=== PATIENT | female | born 1945 | race Caucasian/White ===

== ENCOUNTER 2016-12-04 15:09 | Inpatient (IN) | payer MEDICARE, OTHER ==
[~2016-12-04] VITALS: Ht 162.6 cm; Wt 60.5 kg
[~2016-12-04 15:09] MED LIST: ALPR1TAB3 PO; AMIT25 PO; AMLO5 PO; AMLO5TAB22 PO; ARIP2 PO; ASPI325T PO; ATEN-100 PO; ATEN25 PO; ATOR10 PO; ATOR10TA PO; CALC250 PO; CALCTAB38 PO; CYCL1PAK PO; DULO20 PO; DULO60 PO; LEXA10TA PO; LISI-366 PO; LORTA5 PO; MIRTA15 PO; ONDA4 PO; PANT40IN3 PO; PROT40TA PO; REME45TA PO; SUCR1 PO; SUCR1TAB PO; VITA10002 PO; VITA100020 PO
--- NOTE | 2016-12-04 15:44 | PD ---
HPI Chief Complaint: Psychiatric Symptoms Time Seen by Provider: 15:40 Travel History International Travel<30 days: No Contact w/Intl Traveler<30days: No Traveled to known affect area: No History of Present Illness HPI 71-year-old female that presents to the ED for evaluation of psych. Patient was [place] acted by police after apparently she made suicidal gesture. Per patient she doesn't want to live anymore. Per patient she feels depressed. Patient has a history of dementia and is in assisted living facility. Per patient she is also blind. She states that she is compliant with her medications. She denies any chest pain or shortness of breath. No cuts. Symptoms are severe secondary to suicidal ideation and plan. Per patient she wants to hang herself. She denies any homicidal ideation. No drugs or alcohol. No pain of any kind. No hallucinations. PFSH Past Medical History Blood Disorders: No Anxiety: Yes Depression: Yes Chemotherapy: No COPD: Yes Cerebrovascular Accident: Yes Coronary Artery Disease: Yes Dementia: Yes Diminished Hearing: No Endocrine: No Gastrointestinal Disorders: Yes (enlarged bile duct drained; nervous stomach) Genitourinary: Yes (frequent UTIs) Hypertension: Yes Musculoskeletal: Yes (OSTEOPOROSIS) Neurologic: Yes (CVA x2 minor) Psychiatric: Yes (anxiety) Reproductive: No Respiratory: Yes (COPD) Radiation Therapy: No Past Surgical History Appendectomy: Yes Hysterectomy: Yes (TOTAL) Joint Replacement: Yes (LEFT HIP ) Other Surgery: Yes (hysterectomy, left total hip replacement) Social History Alcohol Use: No Tobacco Use: Yes (FORMER - E CIG ) Substance Use: No Allergies-Medications (Allergen,Severity, Reaction): Coded Allergies: Iodine (Verified Allergy, Unknown, 12/04/16) Reported Meds & Prescriptions Reported Meds & Active Scripts Active Reported Lorazepam 0.5 Mg Tab 0.5 Mg PO BID PRN Donepezil 10 Mg Tab 10 Mg PO HS Atorvastatin (Atorvastatin Calcium) 10 Mg Tab 10 Mg PO HS Mirtazapine 45 Mg Tab 45 Mg PO HS Amitriptyline (Amitriptyline HCl) 25 Mg Tab 25 Mg PO HS Aripiprazole 2 Mg Tab 2 Mg PO BID Duloxetine DR (Duloxetine HCl) 30 Mg Capdr 30 Mg PO BID Lisinopril 40 Mg Tab 40 Mg PO DAILY Pantoprazole (Pantoprazole Sodium) 40 Mg Tab 40 Mg PO DAILY Amlodipine (Amlodipine Besylate) 5 Mg Tab 5 Mg PO DAILY Atenolol 25 Mg Tab 25 Mg PO DAILY Sucralfate 1 Gm Tab 1 Gm PO DAILY@0600 on empty stomach Review of Systems General / Constitutional: No: Fever, Chills, Weight Gain, Weight Loss, Other Eyes: No: Diploplia, Blurred Vision, Photophobia, Drainage, Redness, Foreign Body Sensation, Pain, Tearing, Blind Spots, Visual changes, Blindness, Other HENT: No: Headaches, Vertigo, Lightheadedness, Sore Throat, Rhinitis, Rhinorrhea, Congestion, Nosebleed, Neck Stiffness, Neck Pain, Masses, Gingival Bleeding, Dental Difficulties, Ear Discharge, Earache, Other Cardiovascular: No: Chest Pain or Discomfort, Palpitations, Irregular Rhythm, Tachycardia, Diaphoresis, Syncope, Dyspnea on exertion, Varicosities, Edema, Cyanosis, Varicosities, Phlebitis, Claudication, Other Respiratory: No: Cough, Shortness of Breath, Wheezing, Sneezing, Orthopnea, Hemoptysis, Stridor, Night Sweats, Pleuritic Pain, Other Gastrointestinal: No: Nausea, Vomiting, Diarrhea, Abdominal Pain, Hematemesis, Hematochezia, Constipation, Changes in Bowel Habits, Indigestion, Dysphagia, Loss of Appetite, Other Genitourinary: No: Urgency, Frequency, Dysuria, Nocturia, Hematuria, Decreased Urinary Output, Oliguria, Hesitancy, Dribbling, Incontinence, Pelvic Pain, Flank Pain, Dyspareunia, Discharge, Dysmenorrhea, Menorrhagia, Metorrhagia, Vaginal Bleeding, Other Musculoskeletal: No: Myalgias, Arthralgias, Limited ROM, Weakness, Cramping, Edema, Pain, Atrophy, Other Skin: No Rash, No Itching, No Dryness, No Lumps, No Hives, No Change in Pigmentation, No Change in nails, No Alopecia, No Lesions, No Breast Lumps, No Breast Tenderness, No Breast Swelling, No Other Neurologic: No: Weakness, Dizziness, Syncope, Focal Abnormalities, Coordination Problem, Tremor, Ataxia, Headache, Change in Mentation, Slurred Speech, Paresthesia, Incontinence, Seizures, Sensory Disturbance, Other Psychiatric: Positive: Depression, Suicidal Ideations, No: Anxiety, Disorder of Thought, Mood Disorder, Substance Abuse, Homicidal Ideation, Other Endocrine: No: Heat Intolerance, Cold Intolerance, Polyuria, Polydipsia, Other Hematologic/Lymphatic: No: Easy Bruising, Lymph Node Enlargement, Other Physical Exam Narrative GENERAL: SKIN: Warm and dry. HEAD: Atraumatic. Normocephalic. EYES: Pupils equal and round. No scleral icterus. No injection or drainage. ENT: No nasal bleeding or discharge. Mucous membranes pink and moist. Tongue is midline. No uvula deviation. NECK: Trachea midline. No JVD. CARDIOVASCULAR: Regular rate and rhythm. No murmurs, S3, S4 RESPIRATORY: No accessory muscle use. Clear to auscultation. Breath sounds equal bilaterally. GASTROINTESTINAL: Abdomen soft, non-tender, nondistended. Hepatic and splenic margins not palpable. MUSCULOSKELETAL: Extremities without clubbing, cyanosis, or edema. No obvious deformities. Full range of motion of the upper and lower extremities bilaterally. 2+ pulses bilaterally. NEUROLOGICAL: Awake and alert. No obvious cranial nerve deficits. Motor grossly within normal limits. Five out of 5 muscle strength in the arms and legs. Normal speech. PSYCHIATRIC: Depressed mood and affect; insight and judgment questionable secondary to depression Data Data Last Documented VS Vital Signs Date Time Temp Pulse Resp B/P Pulse Ox O2 Delivery O2 Flow Rate FiO2 12/04/16 16:00 97.7 68 16 143/77 95 Orders Complete Blood Count With Diff (12/04/16 15:13) Comprehensive Metabolic Panel (12/04/16 15:13) Urinalysis - C+S If Indicated (12/04/16 15:13) Psych Screen (12/04/16 15:13) Drug Screen, Random Urine (12/04/16 15:13) Labs Laboratory Tests Test 12/04/16 12/04/16 15:44 15:49 White Blood Count 8.4 TH/MM3 Red Blood Count 4.84 MIL/MM3 Hemoglobin 14.5 GM/DL Hematocrit 42.3 % Mean Corpuscular Volume 87.5 FL Mean Corpuscular Hemoglobin 29.8 PG Mean Corpuscular Hemoglobin 34.1 % Concent Red Cell Distribution Width 14.6 % Platelet Count 259 TH/MM3 Mean Platelet Volume 7.6 FL Neutrophils (%) (Auto) 58.7 % Lymphocytes (%) (Auto) 30.2 % Monocytes (%) (Auto) 8.9 % Eosinophils (%) (Auto) 2.0 % Basophils (%) (Auto) 0.2 % Neutrophils # (Auto) 4.9 TH/MM3 Lymphocytes # (Auto) 2.5 TH/MM3 Monocytes # (Auto) 0.7 TH/MM3 Eosinophils # (Auto) 0.2 TH/MM3 Basophils # (Auto) 0.0 TH/MM3 CBC Comment DIFF FINAL Differential Comment Urine Color YELLOW Urine Turbidity HAZY Urine pH 7.5 Urine Specific [place] 1.021 Urine Protein TRACE mg/dL Urine Glucose (UA) NEG mg/dL Urine Ketones NEG mg/dL Urine Occult Blood NEG Urine Nitrite NEG Urine Bilirubin NEG Urine Urobilinogen 2.0 MG/DL Urine Leukocyte Esterase NEG Urine RBC LESS THAN 1 /hpf Urine WBC 2 /hpf Urine Squamous Epithelial 2 /hpf Cells Urine Bacteria RARE /hpf Microscopic Urinalysis Comment CULT NOT INDICATED Urine Opiates Screen NEG Urine Barbiturates Screen NEG Urine Amphetamines Screen NEG Urine Benzodiazepines Screen NEG Urine Cocaine Screen NEG Urine Cannabinoids Screen NEG MDM Medical Decision Making Medical Screen Exam Complete: Yes Emergency Medical Condition: Yes Medical Record Reviewed: Yes Interpretation(s) CBC & BMP Diagram 12/04/16 15:44 LFTs within normal limits. UA shows no sign of infection tox screen negative Differential Diagnosis Depression versus suicidal ideation versus anxiety versus adjustment disorder versus mood disorder versus bipolar disorder versus schizophrenia versus paranoid disorder versus psychosis versus substance abuse versus alcohol abuse versus alcohol induced psychosis versus homicidality addition versus cutting versus personality disorder Narrative Course 71-year-old female that presents to the ED for evaluation of psych. Patient was properly examined and was found to have signs and symptoms consistent with appears to be depression with suicidal ideation. Patient has been here before for similar. Patient apparently has a plan to hang herself and probably was found to have a cord per [place] act in an attempt to hang herself but she never was able to do it. Recommendation at this time is for labs as well as medical clearance. Patient was medically cleared. Okay to be seen by psych. Mental health screening was discussed with the patient. Diagnosis Primary Impression: Depression Qualified Code: F33.1 - Moderate episode of recurrent major depressive disorder Additional Impression: Suicidal behavior Qualified Code: R46.89 - Suicidal behavior without attempted self-injury Jay Jay Esquivel Dec 04, 2016 15:44
[2016-12-04 16:00] VITALS: BP 143/77; PULSE 68; RESP 16; TEMP 97.7; O2SAT 95
[2016-12-04 16:04] LABS: AUTOMATED NEUTROPHIL # 4.9 TH/MM3 (1.8-7.7); BASOPHIL % 0.2 % (0.0-2.0); EOSINOPHIL # 0.2 TH/MM3 (0-0.4); HEMATOCRIT 42.3 % (35.0-46.0); HEMO FLAGS DIFF FINAL; LYMPH % 30.2 % (9.0-44.0); LYMPHOCYTE # 2.5 TH/MM3 (1.0-4.8); MEAN CELL VOLUME 87.5 FL (80.0-100.0); MEAN CORPUSCULAR HEMOGLOBIN 29.8 PG (27.0-34.0); MEAN CORPUSCULAR HGB CONC 34.1 % (32.0-36.0); MONO % 8.9 % (0.0-8.0); NEUT % 58.7 % (16.0-70.0); PLATELET COUNT 259 TH/MM3 (150-450); RED BLOOD COUNT 4.84 MIL/MM3 (4.00-5.30); RED CELL DISTRIBUTION WIDTH 14.6 % (11.6-17.2); WHITE BLOOD COUNT 8.4 TH/MM3 (4.0-11.0)
[2016-12-04 16:08] LABS: BACTERIA, URINE RARE /hpf; BLOOD, URINE NEG (NEG); COMMENT (UR) CULT NOT INDICATED; CULTURE IF INDICATED CULT NOT INDICATED; GLUCOSE,URINE NEG (NEG); KETONE, URINE NEG (NEG); NITRITE,URINE NEG (NEG); PH, URINE 7.5 (5.0-8.5); SQUAMOUS EPITHELIAL CELL URINE 2 /hpf (0-5); URINE COLOR YELLOW (YELLW/STRAW)
[2016-12-04 16:10] LABS: AMPHETAMINE, URINE NEG (NEG); BARBITURATES, URINE NEG (NEG); COCAINE, URINE NEG (NEG)
[2016-12-04] MEDS ORDERED: LISI40TA PO (16:14)
[2016-12-04] MEDS ORDERED: ATEN25TA PO (16:14)
[2016-12-04] MEDS ORDERED: AMIT25TA9 PO (16:14)
[2016-12-04] MEDS ORDERED: ARIP1TAB16 PO (16:14)
[2016-12-04] MEDS ORDERED: AMLO5TAB2 PO (16:14)
[2016-12-04] MEDS ORDERED: DONE10TA7 PO (16:14)
[2016-12-04] MEDS ORDERED: DULO1CAP2 PO (16:14)
[2016-12-04] MEDS ORDERED: SUCR1TAB PO (16:14)
[2016-12-04] MEDS ORDERED: ATOR10TA15 PO (16:14)
[2016-12-04] MEDS ORDERED: LORA-373 PO (16:14)
[2016-12-04] MEDS ORDERED: MIRT45TA PO (16:14)
[2016-12-04] MEDS ORDERED: PANT40TA3 PO (16:14)
[2016-12-04 16:28] LABS: ANION GAP 6 MEQ/L (5-15); AST (GOT) 19 U/L (15-37); BICARBONATE 28.4 MEQ/L (21.0-32.0); BLOOD UREA NITROGEN 13 MG/DL (7-18); CHLORIDE 105 MEQ/L (98-107); GLOMERULAR FILTRATION RATE 68 ML/MIN (>89); POTASSIUM 3.9 MEQ/L (3.5-5.1); SODIUM (NA) 139 MEQ/L (136-145)
[2016-12-04] MEDS ORDERED: ACETAMINOPHEN 325 MG TAB PO ONE (16:30)
[2016-12-04 16:31] LABS: ALKALINE PHOSPHATASE 91 U/L (45-117); ALT (GPT) 22 U/L (10-53); TOTAL BILIRUBIN ADULT 0.4 MG/DL (0.2-1.0)
[2016-12-04 19:00] VITALS: BP 167/85; PULSE 58; RESP 18; TEMP 98.2; O2SAT 93
[2016-12-04 22:59] VITALS: BP 140/64; PULSE 64; RESP 18; O2SAT 96
[2016-12-04] MEDS ORDERED: hydrOXYzine HCL 50 MG TAB PO PRN (23:45)
[2016-12-04] MEDS ORDERED: MAGNESIUM HYDROXIDE SUSP 30 ML CUP PO PRN (23:45)
[2016-12-04] MEDS ORDERED: ALUMINUM/MAGNESIUM/SIMETH 30 ML CUP PO PRN (23:45)
[2016-12-05 01:15] VITALS: BP 173/81; PULSE 59; RESP 18; TEMP 97.3; O2SAT 92
[2016-12-05] MEDS: ACETAMINOPHEN 325 MG TAB PO PRN ×2 (01:30→16:39)
[2016-12-05 02:30] VITALS: BP 150/74; PULSE 58; RESP 18; TEMP 97.3; O2SAT 92
[2016-12-05] MEDS ORDERED: SUCRALFATE 1 GM TAB PO SCH (06:00)
[2016-12-05 06:30] VITALS: BP 169/81; PULSE 59; RESP 18; TEMP 94.6; O2SAT 94
[2016-12-05] MEDS ORDERED: ALUMINUM/MAGNESIUM/SIMETH 30 ML CUP PO PRN (07:45)
[2016-12-05] MEDS ORDERED: MAGNESIUM HYDROXIDE SUSP 30 ML CUP PO PRN (07:45)
[2016-12-05] MEDS ORDERED: ACETAMINOPHEN 325 MG TAB PO PRN (07:45)
--- NOTE | 2016-12-05 07:58 | PD.CONS ---
HPI Service [facility] Consult Requested By Psychiatry Team Reason for Consult Medical Management Primary Care Physician No Primary Care Physician Diagnoses: History of Present Illness Patient is a 71-year-old white female with primary medical history of COPD, HTN , IBS, depression, legally blind bilateral who came into the hospital from an assisted living facility in [place] acted by police after she made suicidal gesture. As per records, patient states she doesn't want to live anymore. Patient is now admitted to inpatient psychiatry unit for further evaluation. Consulted for medical management. Patient seen today. States she is still feeling depressed and feeling wanting to commit suicide. Denies thoughts of harming others. States she has poor appetite, lack of energy and lack of sleep. Verifies her past medical history. Denies pain and discomfort. Denies SOB/ dyspnea. Denies chest pain, palpitations, headaches, dizziness. Denies fevers, chills, n/v/d. Review of Systems Except as stated in HPI: all other systems reviewed are Neg Past Family Social History Allergies: Coded Allergies: Iodine (Verified Allergy, Unknown, 12/04/16) Past Medical History Chronic low back pain Depression GERD Hypertension Anxiety HLD Dementia COPD Frequent UTIs History of CVA 2 Osteoporosis Past Surgical History Hysterectomy ERCP Pelvic fracture Left hip hemiarthroplasty Reported Medications Lorazepam 0.5 Mg Tab 0.5 Mg PO BID PRN Donepezil 10 Mg Tab 10 Mg PO HS Atorvastatin (Atorvastatin Calcium) 10 Mg Tab 10 Mg PO HS Mirtazapine 45 Mg Tab 45 Mg PO HS Amitriptyline (Amitriptyline HCl) 25 Mg Tab 25 Mg PO HS Aripiprazole 2 Mg Tab 2 Mg PO BID Duloxetine DR (Duloxetine HCl) 30 Mg Capdr 30 Mg PO BID Lisinopril 40 Mg Tab 40 Mg PO DAILY Pantoprazole (Pantoprazole Sodium) 40 Mg Tab 40 Mg PO DAILY Amlodipine (Amlodipine Besylate) 5 Mg Tab 5 Mg PO DAILY Atenolol 25 Mg Tab 25 Mg PO DAILY Sucralfate 1 Gm Tab 1 Gm PO DAILY@0600 on empty stomach Active Ordered Medications Current Medications Medications (Trade) Dose Ordered Sig/Jesse Route Start Time Stop Time Status Last Admin (Tylenol) 650 mg Q4H PRN PO 12/04/16 23:45 12/05/16 01:30 (Milk Of Magnesia Liq) 30 ml DAILY PRN PO 12/05/16 07:45 (Mag-Al Plus Susp Liq) 30 ml Q6H PRN PO 12/05/16 07:45 (Atarax) 50 mg Q6H PRN PO 12/05/16 07:45 (Elavil) 25 mg HS PO 12/05/16 21:00 (Tenormin) 25 mg DAILY PO 12/05/16 09:00 12/05/16 09:43 (Lipitor) 10 mg HS PO 12/05/16 21:00 (Aricept) 10 mg HS PO 12/05/16 21:00 (Cymbalta Dr) 30 mg BID PO 12/05/16 09:00 12/05/16 09:44 (Prinivil) 40 mg DAILY PO 12/05/16 09:00 12/05/16 09:43 (Remeron) 45 mg HS PO 12/05/16 21:00 (Protonix) 40 mg DAILY PO 12/05/16 09:00 12/05/16 09:44 (Carafate) 1 gm DAILY@0600 PO 12/05/16 07:45 12/05/16 09:44 (Abilify) 10 mg DAILY PO 12/05/16 09:00 12/05/16 09:43 (Norvasc) 10 mg DAILY PO 12/06/16 09:00 Family History Family history diabetes and cancer Social History Lives in an assisted living facility. Denies alcohol use Former smoker 30 pack per day, quit 10 years ago and started on E cigarettes and she continues with E cigarettes now Denies illicit drug Physical Exam Vital Signs Vital Signs Date Time Temp Pulse Resp B/P Pulse Ox O2 Delivery O2 Flow Rate FiO2 12/05/16 06:30 94.6 59 18 169/81 94 12/05/16 02:30 97.3 58 18 150/74 92 12/05/16 01:15 97.3 59 18 173/81 92 12/04/16 22:59 64 18 140/64 96 12/04/16 19:00 98.2 58 18 167/85 93 Room Air 12/04/16 16:00 97.7 68 16 143/77 95 Physical Exam GENERAL: This is a well-nourished, well-developed patient, in no apparent distress. SKIN: No rashes, ecchymoses or lesions. Warm and dry. HEAD: Atraumatic. Normocephalic. No temporal or scalp tenderness. EYES: Pupils equal round and reactive. Extraocular motions intact. No scleral icterus. No injection or drainage. ENT: Nose without bleeding. Throat without erythema. Uvula midline. Airway patent. NECK: Trachea midline. No JVD or lymphadenopathy. Supple, nontender, no meningeal signs. CARDIOVASCULAR: Regular rate and rhythm without murmurs, gallops, or rubs. RESPIRATORY: Clear to auscultation. Breath sounds equal bilaterally. No wheezes , rales, or rhonchi. GASTROINTESTINAL: Abdomen soft, non-tender, nondistended. Bowel sounds active 4. MUSCULOSKELETAL: Extremities without clubbing, cyanosis, or edema. Noted some contractures/deformity in her fingers. NEUROLOGICAL: Awake and alert. No focal neuro deficit. Motor and sensory grossly within normal limits. Normal speech. Laboratory Laboratory Tests Test 12/04/16 12/04/16 15:44 15:49 White Blood Count 8.4 Red Blood Count 4.84 Hemoglobin 14.5 Hematocrit 42.3 Mean Corpuscular Volume 87.5 Mean Corpuscular Hemoglobin 29.8 Mean Corpuscular Hemoglobin 34.1 Concent Red Cell Distribution Width 14.6 Platelet Count 259 Mean Platelet Volume 7.6 Neutrophils (%) (Auto) 58.7 Lymphocytes (%) (Auto) 30.2 Monocytes (%) (Auto) 8.9 Eosinophils (%) (Auto) 2.0 Basophils (%) (Auto) 0.2 Neutrophils # (Auto) 4.9 Lymphocytes # (Auto) 2.5 Monocytes # (Auto) 0.7 Eosinophils # (Auto) 0.2 Basophils # (Auto) 0.0 CBC Comment DIFF FINAL Differential Comment Sodium Level 139 Potassium Level 3.9 Chloride Level 105 Carbon Dioxide Level 28.4 Anion Gap 6 Blood Urea Nitrogen 13 Creatinine 0.83 Estimat Glomerular Filtration 68 Rate Random Glucose 100 Calcium Level 8.6 Total Bilirubin 0.4 Aspartate Amino Transf 19 (AST/SGOT) Alanine Aminotransferase 22 (ALT/SGPT) Alkaline Phosphatase 91 Total Protein 7.2 Albumin 3.6 Urine Color YELLOW Urine Turbidity HAZY Urine pH 7.5 Urine Specific [place] 1.021 Urine Protein TRACE Urine Glucose (UA) NEG Urine Ketones NEG Urine Occult Blood NEG Urine Nitrite NEG Urine Bilirubin NEG Urine Urobilinogen 2.0 Urine Leukocyte Esterase NEG Urine RBC LESS THAN 1 Urine WBC 2 Urine Squamous Epithelial 2 Cells Urine Bacteria RARE Microscopic Urinalysis Comment CULT NOT INDICATED Urine Opiates Screen NEG Urine Barbiturates Screen NEG Urine Amphetamines Screen NEG Urine Benzodiazepines Screen NEG Urine Cocaine Screen NEG Urine Cannabinoids Screen NEG Result Diagram: 12/04/16 1544 12/04/16 1544 Assessment and Plan Problem List: (1) Dementia with behavioral disturbance ICD Code: F03.91 Status: Acute (2) Suicidal behavior ICD Code: R45.851 Status: Acute (3) Depression ICD Code: F32.9 Status: Acute (4) Hypertension ICD Code: I10 Status: Chronic (5) Blindness, legal ICD Code: H54.8 Status: Chronic (6) Major depressive disorder, recurrent, severe with psychotic features ICD Code: F33.3 Status: Acute Assessment and Plan Patient is a 71-year-old white female with primary medical history of COPD, HTN , IBS, depression, legally blind bilateral who came into the hospital from an assisted living facility in [place] acted by police after she made suicidal gesture. As per records, patient states she doesn't want to live anymore. Patient is now admitted to inpatient psychiatry unit for further evaluation. Consulted for medical management. Depression, suicidal ideation - managed by psychiatry team HTN - uncontrolled - Continue home meds atenolol 25 mg daily, amlodipine 5 mg daily, lisinopril 40 mg daily - Continue to have elevated BP on trend. We'll start when necessary meds. HLD - continue with atorvastatin IBS/GERD - continue with Carafate use, pantoprazole 40 mg daily DVT prop ambulatory Thank you for this consultation. We will follow patient with you. Written by Amelia Shoemaker, acting as scribe for Dr. Seaman on 12/05/16 at 14:24. The documentation accurately reflects the work performed [id number] by me on at 14:24. Code Status Full code Discussed Condition With Patient, nursing Problem Qualifiers (1) Suicidal behavior: Qualified Code: R46.89 - Suicidal behavior without attempted self-injury (2) Depression: Qualified Code: F33.1 - Moderate episode of recurrent major depressive disorder Amelia Evans Dec 05, 2016 07:58 Riana Seaman DO Dec 05, 2016 22:14
--- NOTE | 2016-12-05 08:15 | HHI.HP ---
Provisional Diagnosis Admission Date Dec 04, 2016 at 23:38 [place] I. Major depressive disorder recurrent severe with psychotic features f 33.2 history of dementia Certification of Person's Competence To Provide Express and Informed Consent I have personally examined Azul Martinez , a person being served at [facility] on, Dec 05, 2016 07:59. Express and informed consent means consent voluntarily given in writing, by a competent person, after sufficient explanation and disclosure of the subject matter involved to enable the person to make a knowing and willful decision without any element of force, fraud, deceit, duress, or other form of constraint or coercion. This person is 18 years of age or older, is not now known to be incompetent to consent to treatment with a guardian advocate, and does not have a health care surrogate or proxy currently making medical treatment decisions. I have found this person to be one of the following: [] Competent to provide express and informed consent, as defined above, for voluntary admission to this facility and is competent to provide express and informed consent for treatment. He/she has the consistent capacity to make well reasoned, willful, and knowing decisions concerning his or her medical or mental health treatment. The person fully and consistently understands the purpose of the admission for examination/placement and is fully capable of personally exercising all rights assured under [place] [] Incompetent to provide express and informed consent to voluntary admission, and this is incompetent to provide express and informed consent to treatment. The person must be transferred to involuntary status and a petition for a guardian advocate filed with the Circuit Court. [x] Refusing to provide express and informed consent to voluntary admission but is competent to provide express and informed consent for treatment. The person must be discharged or transferred to involuntary status. Form shall be completed within 24 hours of a person's arrival at the receiving facility and filed in the clinical record of each person: 1. Admitted on a voluntary basis 2. Permitted to provide express and informed consent to his/her own treatment 3. Allowed to transfer from involuntary to voluntary status 4. Prior to permitting a person to consent to his or her own treatment after having been previously found incompetent to consent to treatment. History of Present Illness Capacity: Has Capacity HPI , Patient is a 71-year-old white female well-known post multiple prior contacts most recent being about a year ago 12/24/15 through 02/06/16 does have a diagnosis of dementia with behavioral issues. Comes here under [place] act by the [place] [employer] dated 12/04/16 at 1440 p.m. stating on this day luna took a drawstring from her sweatpants and tied it around her neck. luna stated that she did it to harm herself note was time to go. luna requested to be taken to [facility]. Patient seen screened in the ED urine toxicology negative, UA no culture indicated. At the present time patient sitting quietly in a chair in dayroom nurse Jessica present throughout session patient did recognize me from contact last year. Patient states she is living in a small fpc that the people are good to her there and she likes living there though she is becoming increasingly depressed with increasing crying episodes social isolation initial and middle insomnia and decreased appetite decreased concentration and attention anhedonia and suicidal ideation with a plan to strangle herself. She also stated that she would take the suicide pill if offered. Of interest she seems to be showing some perceptual abnormalities with this seen people around wheelchairs of the other residents in hearing vague voices with that. However patient is otherwise well orientation nurses at [facility] 2017 and the president is from. She also did remember the nurses name after 5 minutes. Patient has had appears she is alone here in [place] she has 3 adult children that all live out of state that she misses more than she wishes to acknowledge. Patient denies any prior physical or sexual abuse as a prior significant alcohol or drug use. At the present time patient does meet criteria for involuntary psychiatric hospitalization under the [place] act I'll do first opinion requests a second opinion. They feel she has capacity to work with us with medication. She has been seen already by her hospitalist. We discussed medications we'll start patient on Remeron 15 mg at at bedtime and Abilify 10 mg in the morning. Hopeless to be fairly short stay return to her fpc. Also have a counselor attempt to reach patient's family via further information about this lady Review of Systems ROS Limitations: Clinical Condition Constitutional: DENIES: Diaphoretic episodes, Fatigue, Fever, Weight gain, Weight loss, Chills, Dizziness, Change in appetite, Night Sweats Endocrine: DENIES: Abnorml menstrual pattern, Heat/cold intolerance, Polydipsia , Polyuria, Polyphagia Eyes: DENIES: Blurred vision, Diplopia, Eye inflammation, Eye pain, Vision loss , Photosensitivity, Double Vision Ears, nose, mouth, throat: DENIES: Tinnitus, Hearing loss, Vertigo, Nasal discharge, Oral lesions, Throat pain, Hoarseness, Ear Pain, Running Nose, Epistaxis, Sinus Pain, Toothache, Odynophagia Respiratory: DENIES: Apneas, Cough, Snoring, Wheezing, Hemoptysis, Sputum production, Shortness of breath Cardiovascular: DENIES: Chest pain, Palpitations, Syncope, Dyspnea on Exertion , PND, Lower Extremity Edema, Orthopnea, Claudication Gastrointestinal: COMPLAINS OF: Diarrhea Genitourinary: DENIES: Abnormal vaginal bleeding, Dysmenorrhea, Dyspareunia, Sexual dysfunction, Urinary frequency, Urinary incontinence, Urgency, Hematuria , Dysuria, Nocturia, Vaginal discharge Musculoskeletal: DENIES: Joint pain, Muscle aches, Stiffness, Joint Swelling, Back pain, Neck pain Integumentary: DENIES: Abnormal pigmentation, Pruritus, Rash, Nail changes, Breast masses, Breast skin changes, Nipple discharge Hematologic/lymphatic: DENIES: Bruising, Lymphadenopathy Immunologic/allergic: DENIES: Eczema, Urticaria Neurologic: DENIES: Abnormal gait, Headache, Localized weakness, Paresthesias, Seizures, Speech Problems, Tremor, Poor Balance Psychiatric: COMPLAINS OF: Depression, Hallucinations (vague), Suicidal Ideation Past Psych History Psychological trauma history Denies physical or sexual abuse Violence risk - others (6 mos) Low Violence risk - self (6 mos) High Substance Abuse History Drugs/Alcohol past 12 months Denies Past Family Social History Coded Allergies: Iodine (Verified Allergy, Unknown, 12/04/16) Past Medical History See MedSurg assessments Reported Medications Lorazepam 0.5 Mg Tab0.5 Mg PO BID PRN (ANXIETY AND/OR INSOMNIA) Ref 0 12/04/16 Donepezil 10 Mg Tab10 Mg PO HS #30 TAB Ref 0 12/04/16 Atorvastatin 10 Mg Tab10 Mg PO HS #30 TAB Ref 0 12/04/16 Mirtazapine 45 Mg Tab45 Mg PO HS #30 TAB Ref 0 12/04/16 Amitriptyline 25 Mg Tab25 Mg PO HS #30 TAB Ref 0 12/04/16 Aripiprazole 2 Mg Tab2 Mg PO BID #30 TAB Ref 0 12/04/[address] 30 Mg Capdr30 Mg PO BID #30 CAP Ref 0 12/04/16 Lisinopril 40 Mg Tab40 Mg PO DAILY #30 TAB Ref 0 12/04/16 Pantoprazole 40 Mg Tab40 Mg PO DAILY #30 TAB Ref 0 12/04/16 Amlodipine 5 Mg Tab5 Mg PO DAILY #30 TAB Ref 0 12/04/16 Atenolol 25 Mg Tab25 Mg PO DAILY #30 TAB 12/04/16 Sucralfate 1 Gm Tab1 Gm PO DAILY@0600 #120 TAB Ref 0 on empty stomach 12/04/16 Current Medications Medications (Trade) Dose Ordered Sig/Jesse Route Start Time Stop Time Status Last Admin (Atarax) 50 mg Q6H PRN PO 12/04/16 23:45 12/05/16 01:30 (Tylenol) 650 mg Q4H PRN PO 12/04/16 23:45 12/05/16 01:30 (Milk Of Magnesia Liq) 30 ml DAILY PRN PO 12/04/16 23:45 (Mag-Al Plus Susp Liq) 30 ml Q6H PRN PO 12/04/16 23:45 (Carafate) 1 gm DAILY@06 PO 12/05/16 06:00 12/05/16 06:00 (Tenormin) 25 mg DAILY PO 12/05/16 09:00 (Norvasc) 5 mg DAILY PO 12/05/16 09:00 (Protonix) 40 mg DAILY PO 12/05/16 09:00 (Prinivil) 40 mg DAILY PO 12/05/16 09:00 (Cymbalta Dr) 30 mg BID PO 12/05/16 09:00 (Abilify) 2 mg BID PO 12/05/16 09:00 (Elavil) 25 mg HS PO 12/05/16 21:00 (Remeron) 45 mg HS PO 12/05/16 21:00 (Lipitor) 10 mg HS PO 12/05/16 21:00 (Aricept) 10 mg HS PO 12/05/16 21:00 (Pneumovax-23 Inj) 25 mcg ONCE ONCE IM 12/05/16 09:00 12/05/16 09:01 (Flu (Quadrivalent) Vaccine Inj) 0.5 ml ONCE ONCE IM 12/05/16 09:00 12/05/16 09:01 Family History Patient denies mental illness or addictions and family Social History Patient lives in fpc has no local support group 3 adult children living out of state Patient's Strengths (min. 2) Patient verbal cooperative irritable [facility] Physical Exam Patient seen screened in ED exam reviewed and agreed with vital signs blood pressure 169/81 pulse 59 respirations 18 Vital Signs Vital Signs Date Time Temp Pulse Resp B/P Pulse Ox O2 Delivery O2 Flow Rate FiO2 12/05/16 06:30 94.6 59 18 169/81 94 12/04/16 19:00 Room Air Mental Status Examination Alert white female appears stated age sitting quietly in her chair in day room with nurse Sophie present, patient is normoactive, patient mood is dysphoric affect showed good range of motion intensity, speech rate and rhythm are within normal limits there is just mild tangentiality, this and vague auditory or visual hallucinations noted no delusions noted insight and judgment is poor cognition appears grossly intact Appearance Clean neatly Speech: Unremarkable, Fast (slightly patient from [place]) Orientation: Person, Place, Time, Date, Situation Memory: Unremarkable Thought Process: Linear Thought Content: Unremarkable Hallucination Type: Auditory (vague), Visual (vague) Attention and Concentration: Other (fair) Suicidal Ideation: Yes (patient would take suicide pill) Previous Suicide Attempts: Yes Homicidal Ideation: No Previous Homicide Attempts: No Insight: Poor Judgement: Poor Affect: Other (good range intensity) Mood: Sad Motor Activity: Normal gait (CT to evaluate) Assessment & Plan Problem List: (1) Major depressive disorder, recurrent, severe with psychotic features ICD Code: F33.3 (2) Dementia with behavioral disturbance ICD Code: F03.91 Assessment & Plan Estimated LOS: 3-5 days this that patient meets criteria for involuntary psychiatric hospital physician of the [place] act. I feel she has capacity to make tissues considering treatment. Will offer Remeron at bedtime Abilify in the morning. We'll have a counselor attempt to reach patient's family for further information. Hospitalist will cover also Discharge Planning To be determined Request HC Surrog/Guard Advoc?: No Eyal Francois MD Dec 05, 2016 08:15
[2016-12-05] MEDS ORDERED: PNEUMOCOCCAL POLYVALENT INJ 25 MCG/0.5 ML SYR IM ONE ×2 (09:00→18:15)
[2016-12-05] MEDS ORDERED: ARIPiprazole 2 MG TAB PO SCH (09:00)
[2016-12-05] MEDS ORDERED: ATENOLOL 25 MG TAB PO SCH (09:00)
[2016-12-05] MEDS ORDERED: PANTOPRAZOLE SOD 40 MG DELAYED RELEASE TAB PO SCH (09:00)
[2016-12-05] MEDS ORDERED: DULoxetine HCl DR 30 MG CAP PO SCH (09:00)
[2016-12-05] MEDS ORDERED: amLODIPine BESYLATE 5 MG TAB PO SCH ×2 (09:00)
[2016-12-05] MEDS ORDERED: INFLUENZA VIRUS VACCINE (QUADRIVALENT) 0.5 ML SYR IM ONE ×2 (09:00→18:15)
[2016-12-05] MEDS ORDERED: LISINOPRIL 20 MG TAB PO SCH (09:00)
[2016-12-05 09:09] LABS: ALT (GPT) 18 U/L (10-53); ANION GAP 8 MEQ/L (5-15); AST (GOT) 18 U/L (15-37); BICARBONATE 29.9 MEQ/L (21.0-32.0); BLOOD UREA NITROGEN 14 MG/DL (7-18); CHLORIDE 104 MEQ/L (98-107); POTASSIUM 3.8 MEQ/L (3.5-5.1); SODIUM (NA) 142 MEQ/L (136-145)
[2016-12-05] MEDS: LISINOPRIL 20 MG TAB PO SCH (09:43)
[2016-12-05] MEDS: ARIPiprazole 10 MG TAB PO SCH (09:43)
[2016-12-05] MEDS: ATENOLOL 25 MG TAB PO SCH (09:43)
[2016-12-05] MEDS: SUCRALFATE 1 GM TAB PO SCH (09:44)
[2016-12-05] MEDS: PANTOPRAZOLE SOD 40 MG DELAYED RELEASE TAB PO SCH (09:44)
[2016-12-05] MEDS: DULoxetine HCl DR 30 MG CAP PO SCH ×2 (09:44→21:16)
[2016-12-05 09:47] LABS: ALKALINE PHOSPHATASE 75 U/L (45-117); GLOMERULAR FILTRATION RATE 83 ML/MIN (>89); LDL CHOLESTEROL 82 MG/DL (0-99); TOTAL BILIRUBIN ADULT 0.6 MG/DL (0.2-1.0)
[2016-12-05 15:17] LABS: HEMOGLOBIN A1a 0.8 %; HEMOGLOBIN A1b 1.5 %; HEMOGLOBIN Ao 86.2 %; HEMOGLOBIN LA1C 1.8 %; HEMOGLOBIN P3 3.9 %
[2016-12-05 18:00] VITALS: BP 150/73; PULSE 61; RESP 16; TEMP 96.9; O2SAT 96
[2016-12-05] MEDS ORDERED: DONEPEZIL HCL 5 MG TAB PO SCH (21:00)
[2016-12-05] MEDS ORDERED: ATORVASTATIN 10 MG TAB PO SCH (21:00)
[2016-12-05] MEDS ORDERED: MIRTAZAPINE 15 MG TAB PO SCH (21:00)
[2016-12-05] MEDS ORDERED: AMITRIPTYLINE HCL 25 MG TAB PO SCH (21:00)
[2016-12-05] MEDS: MIRTAZAPINE 15 MG TAB PO SCH (21:15)
[2016-12-05] MEDS: DONEPEZIL HCL 5 MG TAB PO SCH (21:16)
[2016-12-05] MEDS: ATORVASTATIN 10 MG TAB PO SCH (21:16)
[2016-12-05] MEDS: AMITRIPTYLINE HCL 25 MG TAB PO SCH (21:16)
[2016-12-06] MEDS: hydrOXYzine HCL 50 MG TAB PO PRN (04:46)
[2016-12-06 04:55] VITALS: BP 153/78; PULSE 75; RESP 16; TEMP 97.8; O2SAT 96
[2016-12-06] MEDS: SUCRALFATE 1 GM TAB PO SCH (06:10)
[2016-12-06] MEDS: ARIPiprazole 10 MG TAB PO SCH (10:06)
[2016-12-06] MEDS: DULoxetine HCl DR 30 MG CAP PO SCH ×2 (10:07→21:00)
[2016-12-06] MEDS: ATENOLOL 25 MG TAB PO SCH ×2 (10:07→21:38)
[2016-12-06] MEDS: amLODIPine BESYLATE 5 MG TAB PO SCH (10:07)
[2016-12-06] MEDS: PANTOPRAZOLE SOD 40 MG DELAYED RELEASE TAB PO SCH (10:07)
[2016-12-06] MEDS: LISINOPRIL 20 MG TAB PO SCH (10:11)
[2016-12-06] MEDS: ACETAMINOPHEN 325 MG TAB PO PRN (10:13)
--- NOTE | 2016-12-06 13:01 | PD.CONS ---
Provisional Diagnosis Admission Date Dec 04, 2016 at 23:38 [place] I. Major depressive disorder recurrent severe with psychotic features f 33.2 history of dementia History of Present Illness Service Psychiatry Consult Requested By Psychiatry Reason for Consult Psychiatry Primary Care Physician No Primary Care Physician HPI Chart reviewed and pt seen and discussed with RN and staff. Pt is a 71 YOWF with a hx of dementia presents to [facility] secondary to attempting suicide by wrapping a drawstring from her pants around her neck. She is well known to service from previous admissions. Pt reports that she has been increasingly depressed and no longer wants to live. She states that she is disappointed that suicide attempt was unsucessful. She continues to endorse suicidal ideations. She states that she has been having increasing thoughts that family is against her and she should just . , Review of Systems Psychiatric: COMPLAINS OF: Depression, Suicidal Ideation Past Family Social History Coded Allergies: Iodine (Verified Allergy, Unknown, 12/04/16) Past Medical History CVA vascular dementia HTN Reported Medications Lorazepam 0.5 Mg Tab0.5 Mg PO BID PRN (ANXIETY AND/OR INSOMNIA) Ref 0 12/04/16 Donepezil 10 Mg Tab10 Mg PO HS #30 TAB Ref 0 12/04/16 Atorvastatin 10 Mg Tab10 Mg PO HS #30 TAB Ref 0 12/04/16 Mirtazapine 45 Mg Tab45 Mg PO HS #30 TAB Ref 0 12/04/16 Amitriptyline 25 Mg Tab25 Mg PO HS #30 TAB Ref 0 12/04/[address] 30 Mg Capdr30 Mg PO BID #30 CAP Ref 0 12/04/16 Lisinopril 40 Mg Tab40 Mg PO DAILY #30 TAB Ref 0 12/04/16 Pantoprazole 40 Mg Tab40 Mg PO DAILY #30 TAB Ref 0 12/04/16 Amlodipine 5 Mg Tab5 Mg PO DAILY #30 TAB Ref 0 12/04/16 Atenolol 25 Mg Tab25 Mg PO DAILY #30 TAB 12/04/16 Sucralfate 1 Gm Tab1 Gm PO DAILY@0600 #120 TAB Ref 0 on empty stomach 12/04/16 Discontinued Reported Medications Aripiprazole 2 Mg Tab2 Mg PO BID #30 TAB Ref 0 12/04/16 Current Medications Medications (Trade) Dose Ordered Sig/Jesse Route Start Time Stop Time Status Last Admin (Tylenol) 650 mg Q4H PRN PO 12/04/16 23:45 12/06/16 10:13 (Milk Of Magnesia Liq) 30 ml DAILY PRN PO 12/05/16 07:45 (Mag-Al Plus Susp Liq) 30 ml Q6H PRN PO 12/05/16 07:45 (Atarax) 50 mg Q6H PRN PO 12/05/16 07:45 12/06/16 04:46 (Elavil) 25 mg HS PO 12/05/16 21:00 12/05/16 21:16 (Tenormin) 25 mg DAILY PO 12/05/16 09:00 12/06/16 10:07 (Lipitor) 10 mg HS PO 12/05/16 21:00 12/05/16 21:16 (Aricept) 10 mg HS PO 12/05/16 21:00 12/05/16 21:16 (Cymbalta Dr) 30 mg BID PO 12/05/16 09:00 12/06/16 10:07 (Prinivil) 40 mg DAILY PO 12/05/16 09:00 12/06/16 10:11 (Remeron) 45 mg HS PO 12/05/16 21:00 12/05/16 21:15 (Protonix) 40 mg DAILY PO 12/05/16 09:00 12/06/16 10:07 (Carafate) 1 gm DAILY@0600 PO 12/05/16 07:45 12/06/16 06:10 (Abilify) 10 mg DAILY PO 12/05/16 09:00 12/06/16 10:06 (Norvasc) 10 mg DAILY PO 12/06/16 09:00 12/06/16 10:07 Family History denies family hx of psychiatric illness Social History lives in [facility]. Patient's Strengths (min. 2) access to health care, able to express self verbally Physical Exam Vital Signs Vital Signs Date Time Temp Pulse Resp B/P Pulse Ox O2 Delivery O2 Flow Rate FiO2 12/06/16 04:55 97.8 75 16 153/78 96 12/04/16 19:00 Room Air I/O 12/05/16 12/05/16 12/06/16 08:00 16:00 00:00 Intake Total 240 ml 1320 ml Balance 240 ml 1320 ml Mental Status Examination Speech: Unremarkable, Fast (slightly patient from [place]) Orientation: Person, Place, Time, Date, Situation Memory: Unremarkable Thought Process: Linear Thought Content: Unremarkable Hallucination Type: Auditory (vague) Attention and Concentration: Other (fair) Suicidal Ideation: Yes (patient would take suicide pill) Previous Suicide Attempts: Yes Homicidal Ideation: No Previous Homicide Attempts: No Insight: Poor Judgement: Poor Affect: Other (good range intensity) Mood: Sad Motor Activity: Normal gait Assessment & Plan Problem List: (1) Major depressive disorder, recurrent, severe with psychotic features ICD Code: F33.3 (2) Dementia with behavioral disturbance ICD Code: F03.91 Assessment & Plan i agree with involuntary hospitalization. Pt is actively suicidal. 2nd opinion paperwork completed. Estimated LOS: days Request HC Surrog/Guard Advoc?: Margie Hahn MD Dec 06, 2016 13:01
[2016-12-06 18:00] VITALS: BP 148/71; PULSE 62; RESP 18; TEMP 99.3; O2SAT 94
[2016-12-06] MEDS: AMITRIPTYLINE HCL 25 MG TAB PO SCH (21:00)
[2016-12-06] MEDS: DONEPEZIL HCL 5 MG TAB PO SCH (21:00)
[2016-12-06] MEDS: ATORVASTATIN 10 MG TAB PO SCH (21:38)
[2016-12-06] MEDS: MIRTAZAPINE 15 MG TAB PO SCH (21:38)
[2016-12-07] MEDS: hydrOXYzine HCL 50 MG TAB PO PRN ×2 (02:51→22:46)
[2016-12-07 05:00] VITALS: BP 151/84; PULSE 67; RESP 18; TEMP 98.6; O2SAT 93
[2016-12-07] MEDS: SUCRALFATE 1 GM TAB PO SCH (06:16)
[2016-12-07] MEDS: ATENOLOL 25 MG TAB PO SCH ×2 (09:49→20:40)
[2016-12-07] MEDS: ARIPiprazole 10 MG TAB PO SCH (09:49)
[2016-12-07] MEDS: LISINOPRIL 20 MG TAB PO SCH (09:49)
[2016-12-07] MEDS: DULoxetine HCl DR 30 MG CAP PO SCH ×2 (09:49→20:40)
[2016-12-07] MEDS: amLODIPine BESYLATE 5 MG TAB PO SCH (09:49)
[2016-12-07] MEDS: PANTOPRAZOLE SOD 40 MG DELAYED RELEASE TAB PO SCH (09:49)
[2016-12-07] MEDS: ACETAMINOPHEN 325 MG TAB PO PRN (10:33)
--- NOTE | 2016-12-07 14:18 | HHI.PYPN ---
Subjective Remarks Patient discussed with treatment team, chart reviewed, patient seen on unit. Patient still voicing depression with suicidal ideation, compliant medications. Now continue treatment Review of Systems Except as stated in HPI: all other systems reviewed are Neg Objective Alert: Yes [place]: Person, Place Mood: Calm, Depressed Affect: Restricted Memory Intact: Comment Hallucinations: Other (poor ) Delusions: No (though somewhat vigilant) Delusion Type: Other (somewhat vigilant) Suicidal: Ideation (continues) Homicidal: Ideation (denies) Insight/Judgement Poor Vitals/IOs Vital Signs Date Time Temp Pulse Resp B/P Pulse Ox O2 Delivery O2 Flow Rate FiO2 12/07/16 05:00 98.6 67 18 151/84 93 12/04/16 19:00 Room Air Intake and Output 12/06/16 12/06/16 12/07/16 08:00 16:00 00:00 Intake Total 120 ml 240 ml 600 ml Balance 120 ml 240 ml 600 ml Assessment & Plan Problem List: (1) Major depressive disorder, recurrent, severe with psychotic features ICD Code: F33.3 (2) Dementia with behavioral disturbance ICD Code: F03.91 Assessment & Plan Estimated LOS: days patient overall calm with me continues depressed with significant suicidal ideation. Compliant medications Justification for Cont. Inpt. At this time Patient would decompensate if placed in a lower level of care Discharge Planning To be determined Request HC Surrog/Guard Advoc?: Eyal Rincon MD Dec 07, 2016 14:18
[2016-12-07 18:00] VITALS: BP 138/63; PULSE 60; RESP 18; TEMP 97.6; O2SAT 95
[2016-12-07] MEDS: MIRTAZAPINE 15 MG TAB PO SCH (20:40)
[2016-12-07] MEDS: ATORVASTATIN 10 MG TAB PO SCH (20:40)
[2016-12-07] MEDS: AMITRIPTYLINE HCL 25 MG TAB PO SCH (20:40)
[2016-12-07] MEDS: DONEPEZIL HCL 5 MG TAB PO SCH (20:40)
[2016-12-08] MEDS: SUCRALFATE 1 GM TAB PO SCH (05:43)
[2016-12-08 06:00] VITALS: BP 119/74; PULSE 65; RESP 16; TEMP 96.9; O2SAT 95
[2016-12-08] MEDS: amLODIPine BESYLATE 5 MG TAB PO SCH (09:44)
[2016-12-08] MEDS: LISINOPRIL 20 MG TAB PO SCH (09:44)
[2016-12-08] MEDS: DULoxetine HCl DR 30 MG CAP PO SCH ×2 (09:44→21:09)
[2016-12-08] MEDS: ARIPiprazole 10 MG TAB PO SCH ×2 (09:44→21:09)
[2016-12-08] MEDS: ATENOLOL 25 MG TAB PO SCH ×2 (09:44→21:09)
[2016-12-08] MEDS: PANTOPRAZOLE SOD 40 MG DELAYED RELEASE TAB PO SCH (09:44)
[2016-12-08] MEDS: ACETAMINOPHEN 325 MG TAB PO PRN (15:22)
--- NOTE | 2016-12-08 15:45 | HHI.PYPN ---
Subjective Remarks Patient seen in her room with nurse Patricia and medical student Laura billingsley a chart review, patient continues somewhat anxious vigilant isolating continues somewhat paranoid ideation stating she feels her thoughts are racing in her head that quite negative, occurs more towards at bedtime, the suicidal ideation continues, and she would take the suicide pill. Will increase Abilify to 10 mg twice a day compliant medication Review of Systems Psychiatric: COMPLAINS OF: Suicidal Ideation Other With racing thoughts Objective Alert: Yes [place]: Person, Place Mood: Calm, Depressed Affect: Restricted Memory Intact: Comment Hallucinations: Other (patient states racing thoughts in her head though she claims they are her thoughts) Delusions: No (though somewhat vigilant) Delusion Type: Other (somewhat vigilant) Suicidal: Ideation (would still takes suicide pill) Homicidal: Ideation (denies) Insight/Judgement Poor Vitals/IOs Vital Signs Date Time Temp Pulse Resp B/P Pulse Ox O2 Delivery O2 Flow Rate FiO2 12/08/16 06:00 96.9 65 16 119/74 95 12/04/16 19:00 Room Air Intake and Output 12/07/16 12/07/16 12/08/16 08:00 16:00 00:00 Intake Total 840 ml 660 ml Balance 840 ml 660 ml Assessment & Plan Problem List: (1) Major depressive disorder, recurrent, severe with psychotic features ICD Code: F33.3 (2) Dementia with behavioral disturbance ICD Code: F03.91 Assessment & Plan Estimated LOS: days patient continues depressed though with a somewhat manic flavor at this time see medication adjustment above Justification for Cont. Inpt. At this time patient will decompensate placed in a lower level of care Discharge Planning To be determined Request HC Surrog/Guard Advoc?: No Eyal Francois MD Dec 08, 2016 15:45
--- NOTE | 2016-12-08 16:55 | HHI.PR ---
Blank section for building Chart reviewed patient's blood pressure has improved. Will sign off. If patient's condition changes or further assistance is needed please reconsult. Written by Leandra Pimentel, acting as scribe for Dr. Seaman on 12/08/16 at 16: 55. (Leandra Pimentel) Leandra Pimentel Dec 08, 2016 16:55 Riana Seaman DO Dec 09, 2016 00:31
[2016-12-08 18:15] VITALS: BP 120/60; PULSE 58; RESP 17; TEMP 97.6
[2016-12-08] MEDS: ATORVASTATIN 10 MG TAB PO SCH (21:09)
[2016-12-08] MEDS: AMITRIPTYLINE HCL 25 MG TAB PO SCH (21:09)
[2016-12-08] MEDS: MIRTAZAPINE 15 MG TAB PO SCH (21:09)
[2016-12-08] MEDS: DONEPEZIL HCL 5 MG TAB PO SCH (21:09)
[2016-12-09] MEDS: hydrOXYzine HCL 50 MG TAB PO PRN (01:13)
[2016-12-09] MEDS: SUCRALFATE 1 GM TAB PO SCH (05:50)
[2016-12-09 06:01] VITALS: BP 124/70; PULSE 76; RESP 20; TEMP 97.7; O2SAT 98
[2016-12-09 06:16] VITALS: BP 124/70; PULSE 76; RESP 20; TEMP 97.7; O2SAT 98
[2016-12-09] MEDS: ARIPiprazole 10 MG TAB PO SCH ×2 (09:39→20:21)
[2016-12-09] MEDS: LISINOPRIL 20 MG TAB PO SCH (09:39)
[2016-12-09] MEDS: DULoxetine HCl DR 30 MG CAP PO SCH ×2 (09:39→20:22)
[2016-12-09] MEDS: amLODIPine BESYLATE 5 MG TAB PO SCH (09:39)
[2016-12-09] MEDS: ATENOLOL 25 MG TAB PO SCH ×2 (09:39→20:22)
[2016-12-09] MEDS: PANTOPRAZOLE SOD 40 MG DELAYED RELEASE TAB PO SCH (09:40)
[2016-12-09] MEDS: TIMOLOL MALEATE 0.5% OPHT SOLN 5 ML BTL EACH EYE SCH (09:40)
--- NOTE | 2016-12-09 09:57 | HHI.PYPN ---
Subjective Remarks Seen in her room with floor staff, patient calm cooperative with me complains of some urinary incontinence will check UA, also complains of sleep still being poor with racing thoughts and the depression though she is somewhat vague about suicidality. Will also increase Elavil to 50 mg at at bedtime Review of Systems Except as stated in HPI: all other systems reviewed are Neg Genitourinary: COMPLAINS OF: Urinary incontinence Objective Alert: Yes [place]: Person, Place Mood: Calm, Depressed Affect: Restricted Memory Intact: Comment Hallucinations: Other (patient states racing thoughts in her head though she claims they are her thoughts) Delusions: No (though somewhat vigilant) Delusion Type: Other (somewhat vigilant) Suicidal: Ideation (would still takes suicide pill) Homicidal: Ideation (denies) Insight/Judgement Very poor Vitals/IOs Vital Signs Date Time Temp Pulse Resp B/P Pulse Ox O2 Delivery O2 Flow Rate FiO2 12/09/16 06:16 97.7 76 20 124/70 98 Intake and Output 12/08/16 12/08/16 12/09/16 08:00 16:00 00:00 Intake Total 1140 ml Balance 1140 ml Assessment & Plan Problem List: (1) Major depressive disorder, recurrent, severe with psychotic features ICD Code: F33.3 (2) Dementia with behavioral disturbance ICD Code: F03.91 Assessment & Plan Estimated LOS: days patient is depression continues though softening, thoughts are still racing though she denies any auditory hallucinations. Will increase at bedtime Elavil to 50 mg. Since patient is having some increased urinary incontinence we will check urinalysis today also. I will lift [place] act allow the patient to sign voluntary patient is willing to stay on a voluntary basis Justification for Cont. Inpt. At this time patient will decompensate if placed in a lower level of care Discharge Planning To be determined Request HC Surrog/Guard Advoc?: No Eyal Francois MD Dec 09, 2016 09:57
[2016-12-09 19:47] LABS: BACTERIA, URINE RARE /hpf; BLOOD, URINE NEG (NEG); COMMENT (UR) CULTURE INDICATED; CULTURE IF INDICATED CULTURE INDICATED; GLUCOSE,URINE NEG (NEG); KETONE, URINE TRACE mg/dL (NEG); MUCUS URINE FEW /lpf (OCC); NITRITE,URINE NEG (NEG); PH, URINE 6.5 (5.0-8.5); SQUAMOUS EPITHELIAL CELL URINE <1 /hpf (0-5); URINE COLOR YELLOW (YELLW/STRAW)
[2016-12-09 19:49] VITALS: BP 125/81; PULSE 61; RESP 18; TEMP 97.6; O2SAT 98
[2016-12-09] MEDS: AMITRIPTYLINE HCL 50 MG TAB PO SCH (20:21)
[2016-12-09] MEDS: ATORVASTATIN 10 MG TAB PO SCH (20:22)
[2016-12-09] MEDS: DONEPEZIL HCL 5 MG TAB PO SCH (20:22)
[2016-12-09] MEDS: MIRTAZAPINE 15 MG TAB PO SCH (20:22)
[2016-12-10] MEDS: SUCRALFATE 1 GM TAB PO SCH (05:34)
[2016-12-10 06:11] VITALS: BP 138/70; PULSE 60; RESP 18; TEMP 97.7; O2SAT 99
[2016-12-10] MEDS: amLODIPine BESYLATE 5 MG TAB PO SCH (10:33)
[2016-12-10] MEDS: ATENOLOL 25 MG TAB PO SCH ×2 (10:34→20:56)
[2016-12-10] MEDS: PANTOPRAZOLE SOD 40 MG DELAYED RELEASE TAB PO SCH (10:34)
[2016-12-10] MEDS: ARIPiprazole 10 MG TAB PO SCH ×2 (10:34→20:55)
[2016-12-10] MEDS: LISINOPRIL 20 MG TAB PO SCH (10:34)
[2016-12-10] MEDS: DULoxetine HCl DR 30 MG CAP PO SCH ×2 (10:34→20:55)
[2016-12-10] MEDS: TIMOLOL MALEATE 0.5% OPHT SOLN 5 ML BTL EACH EYE SCH (10:35)
[2016-12-10] MEDS: ACETAMINOPHEN 325 MG TAB PO PRN (10:44)
--- NOTE | 2016-12-10 14:07 | HHI.PYPN ---
Subjective Remarks Patient seen in her room with nurse [facility] Claudette, chart review, it appears UA done yesterday shows culture indicated. Patient also complaining of some sore throat. Will reconsult hospitalists meantime we'll order Cepacol lozenge. Patient compliant medications denies suicidality homicidality or voices Review of Systems Except as stated in HPI: all other systems reviewed are Neg Ears, nose, mouth, throat: COMPLAINS OF: Throat pain (mild sore throat) Objective Alert: Yes [place]: Person, Place Mood: Calm, Depressed Affect: Restricted Memory Intact: Comment Hallucinations: Other (patient states racing thoughts in her head though she claims they are her thoughts) Delusions: No (though somewhat vigilant) Delusion Type: Other (somewhat vigilant) Suicidal: Ideation (would still takes suicide pill) Homicidal: Ideation (denies) Insight/Judgement Poor Labs Test 12/09/16 18:40 Urine Color YELLOW Urine Turbidity HAZY Urine pH 6.5 Urine Specific [place] 1.012 Urine Protein NEG mg/dL Urine Glucose (UA) NEG mg/dL Urine Ketones TRACE mg/dL Urine Occult Blood NEG Urine Nitrite NEG Urine Bilirubin NEG Urine Urobilinogen LESS THAN 2.0 MG/DL Urine Leukocyte Esterase SMALL Urine RBC 1 /hpf Urine WBC 9 /hpf Urine Squamous Epithelial <1 /hpf Cells Urine Bacteria RARE /hpf Urine Mucus FEW /lpf Microscopic Urinalysis Comment CULTURE INDICATED Date/Time Procedure Status Source Growth 12/09/16 18:40 Urine Culture Received Urine Random Urine Pending Vitals/IOs Vital Signs Date Time Temp Pulse Resp B/P Pulse Ox O2 Delivery O2 Flow Rate FiO2 12/10/16 06:11 97.7 60 18 138/70 99 Intake and Output 12/09/16 12/09/16 12/10/16 08:00 16:00 00:00 Intake Total 120 ml 480 ml Balance 120 ml 480 ml Assessment & Plan Problem List: (1) Major depressive disorder, recurrent, severe with psychotic features ICD Code: F33.3 (2) Dementia with behavioral disturbance ICD Code: F03.91 Assessment & Plan Estimated LOS: days patient continue somewhat depressed but improving, there is a positive UA culture indicated and pending also sore throat will have hospice consult Justification for Cont. Inpt. At this time patient will decompensate placed a lower level of care Discharge Planning To be determined Request HC Surrog/Guard Advoc?: No Eyal Francois MD Dec 10, 2016 14:07
--- NOTE | 2016-12-10 14:14 | PD.PN.STU ---
Subjective Remarks patient seen laying in bed this afternoon with nurse Carlos and Dr. Francois. Denies suicidal/homicidal thoughts, denies hallucinations. Feels somewhat improved with medication, complains of urine incontinence. Objective Vitals Vital Signs Date Time Temp Pulse Resp B/P Pulse Ox O2 Delivery O2 Flow Rate FiO2 12/10/16 06:11 97.7 60 18 138/70 99 12/09/16 19:49 97.6 61 18 125/81 98 I/O 12/09/16 12/09/16 12/09/16 12/10/16 12/10/16 12/10/16 07:00 15:00 23:00 07:00 15:00 23:00 Intake Total 120 ml 480 ml 120 ml Balance 120 ml 480 ml 120 ml Intake Oral 120 ml 240 ml 120 ml Oral Supplement 240 ml # Voids 2 1 2 Objective Remarks Patient appears comfortable, in no acute distress, napping in bed with roommate this afternoon. She denies suicidal/homicidal thoughts. Affect appears to be flat with slow speech. UA possible for UTI, will treat and continue to monitor. A/P Assessment and Plan Medicine consult for positive UA screen. Patient appears to be improving with negative suicidal/homicidal thoughts today, will continue medication regimen and follow. Discharge Planning To be determined. Lisandra Gamboa M3 Dec 10, 2016 14:14
[2016-12-10] MEDS: MENTHOL LOZENGE SUCK-ON PRN ×2 (17:04→21:05)
[2016-12-10 18:41] VITALS: BP 124/68; PULSE 65; RESP 18; TEMP 98.4; O2SAT 95
[2016-12-10] MEDS: ATORVASTATIN 10 MG TAB PO SCH (20:55)
[2016-12-10] MEDS: MIRTAZAPINE 15 MG TAB PO SCH (20:56)
[2016-12-10] MEDS: DONEPEZIL HCL 5 MG TAB PO SCH (20:56)
[2016-12-10] MEDS: AMITRIPTYLINE HCL 50 MG TAB PO SCH (20:56)
[2016-12-11] MEDS: hydrOXYzine HCL 50 MG TAB PO PRN (00:33)
[2016-12-11] MEDS: SUCRALFATE 1 GM TAB PO SCH (06:04)
[2016-12-11 06:38] VITALS: BP 123/59; PULSE 74; RESP 16; TEMP 97.9; O2SAT 94
[2016-12-11] MEDS: PANTOPRAZOLE SOD 40 MG DELAYED RELEASE TAB PO SCH (09:04)
[2016-12-11] MEDS: LISINOPRIL 20 MG TAB PO SCH (09:04)
[2016-12-11] MEDS: ATENOLOL 25 MG TAB PO SCH ×2 (09:04→20:34)
[2016-12-11] MEDS: DULoxetine HCl DR 30 MG CAP PO SCH ×2 (09:04→20:33)
[2016-12-11] MEDS: amLODIPine BESYLATE 5 MG TAB PO SCH (09:04)
[2016-12-11] MEDS: TIMOLOL MALEATE 0.5% OPHT SOLN 5 ML BTL EACH EYE SCH (09:05)
[2016-12-11] MEDS: ARIPiprazole 10 MG TAB PO SCH ×2 (09:05→20:33)
--- NOTE | 2016-12-11 11:01 | RADRPT ---
EXAM DATE/TIME: 12/11/2016 10:38 [facility] COMPARISON: CT PULMONARY ANGIOGRAM, December 28, 2015, 9:03. CHEST SINGLE AP, December 26, 2015, 18:32. INDICATIONS : Cough. MEDICAL HISTORY : None. SURGICAL HISTORY : None. ENCOUNTER: Initial ACUITY: 1 day PAIN SCORE: 0/10 LOCATION: Bilateral upper chest FINDINGS: No infiltrate, effusion or pneumothorax. Heart size stable, within normal limits. Thoracic aorta is mildly tortuous. Prominent central pulmona ry vasculature again seen, similar to before. CONCLUSION: No evidence of acute cardiopulmonary disease. Eyal Laurent MD on December 11, 2016 at 10:58 Board Certified Radiologist. This report was verified electronically.
[2016-12-11 12:30] LABS: AUTOMATED NEUTROPHIL # 4.2 TH/MM3 (1.8-7.7); BASOPHIL # 0.1 TH/MM3 (0-0.2); BASOPHIL % 1.4 % (0.0-2.0); EOSINOPHIL # 0.1 TH/MM3 (0-0.4); EOSINOPHIL % 1.1 % (0.0-4.0); HEMATOCRIT 39.7 % (35.0-46.0); HEMO FLAGS DIFF FINAL; LYMPH % 19.1 % (9.0-44.0); LYMPHOCYTE # 1.3 TH/MM3 (1.0-4.8); MEAN CELL VOLUME 87.9 FL (80.0-100.0); MEAN CORPUSCULAR HEMOGLOBIN 29.5 PG (27.0-34.0); MEAN CORPUSCULAR HGB CONC 33.6 % (32.0-36.0); MONO % 16.5 % (0.0-8.0); NEUT % 61.9 % (16.0-70.0); PLATELET COUNT 181 TH/MM3 (150-450); RED BLOOD COUNT 4.51 MIL/MM3 (4.00-5.30); RED CELL DISTRIBUTION WIDTH 14.5 % (11.6-17.2); WHITE BLOOD COUNT 6.8 TH/MM3 (4.0-11.0)
--- NOTE | 2016-12-11 12:52 | HHI.PYPN ---
Subjective Remarks Patient seen in her room with nurse Sophie medical student Claudette, chart reviewed. Appreciate medicine services testing examination and treatment. Patient still having some trouble sleeping appears to have a nocturnal cough. Patient mood remained stable somewhat depressed though reactive with occasional small smile. Does denies suicidality homicidality or voices. Continue treatment Review of Systems Constitutional: DENIES: Diaphoretic episodes, Fatigue, Fever, Weight gain, Weight loss, Chills, Dizziness, Change in appetite, Night Sweats Endocrine: DENIES: Abnorml menstrual pattern, Heat/cold intolerance, Polydipsia , Polyuria, Polyphagia Eyes: DENIES: Blurred vision, Diplopia, Eye inflammation, Eye pain, Vision loss , Photosensitivity, Double Vision Ears, nose, mouth, throat: DENIES: Tinnitus, Hearing loss, Vertigo, Nasal discharge, Oral lesions, Throat pain, Hoarseness, Ear Pain, Running Nose, Epistaxis, Sinus Pain, Toothache, Odynophagia Respiratory: COMPLAINS OF: Cough, DENIES: Apneas, Snoring, Wheezing, Hemoptysis, Sputum production, Shortness of breath Cardiovascular: DENIES: Chest pain, Palpitations, Syncope, Dyspnea on Exertion , PND, Lower Extremity Edema, Orthopnea, Claudication Gastrointestinal: DENIES: Abdominal pain, Black stools, Bloody stools, Constipation, Diarrhea, Nausea, Vomiting, Difficulty Swallowing, Anorexia Genitourinary: DENIES: Abnormal vaginal bleeding, Dysmenorrhea, Dyspareunia, Sexual dysfunction, Urinary frequency, Urinary incontinence, Urgency, Hematuria , Dysuria, Nocturia, Vaginal discharge Musculoskeletal: DENIES: Joint pain, Muscle aches, Stiffness, Joint Swelling, Back pain, Neck pain Integumentary: DENIES: Abnormal pigmentation, Pruritus, Rash, Nail changes, Breast masses, Breast skin changes, Nipple discharge Hematologic/lymphatic: DENIES: Bruising, Lymphadenopathy Neurologic: DENIES: Abnormal gait, Headache, Localized weakness, Paresthesias, Seizures, Speech Problems, Tremor, Poor Balance Psychiatric: DENIES: Anxiety, Confusion, Mood changes, Depression, Hallucinations, Agitation, Suicidal Ideation, Homicidal Ideation, Delusions Objective Alert: Yes [place]: Person, Place Mood: Calm, Depressed Affect: Restricted Memory Intact: Comment Hallucinations: Other (patient states racing thoughts in her head though she claims they are her thoughts) Delusions: No (though somewhat vigilant) Delusion Type: Other (somewhat vigilant) Suicidal: Ideation (would still takes suicide pill) Homicidal: Ideation (denies) Insight/Judgement Poor Labs Test 12/11/16 12:18 White Blood Count 6.8 TH/MM3 Red Blood Count 4.51 MIL/MM3 Hemoglobin 13.3 GM/DL Hematocrit 39.7 % Mean Corpuscular Volume 87.9 FL Mean Corpuscular Hemoglobin 29.5 PG Mean Corpuscular Hemoglobin 33.6 % Concent Red Cell Distribution Width 14.5 % Platelet Count 181 TH/MM3 Mean Platelet Volume 7.8 FL Neutrophils (%) (Auto) 61.9 % Lymphocytes (%) (Auto) 19.1 % Monocytes (%) (Auto) 16.5 % Eosinophils (%) (Auto) 1.1 % Basophils (%) (Auto) 1.4 % Neutrophils # (Auto) 4.2 TH/MM3 Lymphocytes # (Auto) 1.3 TH/MM3 Monocytes # (Auto) 1.1 TH/MM3 Eosinophils # (Auto) 0.1 TH/MM3 Basophils # (Auto) 0.1 TH/MM3 CBC Comment DIFF FINAL Differential Comment Date/Time Procedure Status Source Growth 12/09/16 18:40 Urine Culture - Final Complete Urine Random Urine Klebsiella Pneumoniae Vitals/IOs Vital Signs Date Time Temp Pulse Resp B/P Pulse Ox O2 Delivery O2 Flow Rate FiO2 12/11/16 06:38 97.9 74 16 123/59 94 Intake and Output 12/10/16 12/10/16 12/11/16 08:00 16:00 00:00 Intake Total 120 ml 390 ml Balance 120 ml 390 ml Assessment & Plan Problem List: (1) Major depressive disorder, recurrent, severe with psychotic features ICD Code: F33.3 (2) Dementia with behavioral disturbance ICD Code: F03.91 Assessment & Plan Estimated LOS: days patient remains sad but improving, compliant medications, now continue treatment Justification for Cont. Inpt. At this time patient would significantly decompensated of placed in a lower level of care Discharge Planning To be determined Request HC Surrog/Guard Advoc?: No Eyal Francois MD Dec 11, 2016 12:52
[2016-12-11 12:53] LABS: BICARBONATE 25.9 MEQ/L (21.0-32.0); POTASSIUM 3.3 MEQ/L (3.5-5.1)
[2016-12-11] MEDS: LACTOBACILLUS ACIDOPHILUS TAB PO SCH ×2 (13:01→17:23)
[2016-12-11] MEDS: guaiFENesin/DEXTROMETHORPHAN 200 MG/20 MG/10 ML CUP PO PRN ×2 (13:01→21:07)
[2016-12-11] MEDS: MENTHOL LOZENGE SUCK-ON PRN (13:02)
--- NOTE | 2016-12-11 13:14 | PD.PN.STU ---
Subjective Remarks Patient seen napping in bed this afternoon with nurse Sophie and Dr. Francois, compliants of coughing and sore throat. Denies suicidal/homicidal thoughts. Objective Vitals Vital Signs Date Time Temp Pulse Resp B/P Pulse Ox O2 Delivery O2 Flow Rate FiO2 12/11/16 06:38 97.9 74 16 123/59 94 12/10/16 18:41 98.4 65 18 124/68 95 I/O 12/10/16 12/10/16 12/10/16 12/11/16 12/11/16 12/11/16 07:00 15:00 23:00 07:00 15:00 23:00 Intake Total 120 ml 390 ml 0 ml 0 ml Balance 120 ml 390 ml 0 ml 0 ml Intake Oral 120 ml 150 ml 0 ml 0 ml Oral Supplement 240 ml # Voids 2 1 2 Result Diagram: 12/11/16 1218 12/11/16 1218 Objective Remarks Patient napping in room this afternoon, appears in no acute distress. Complaints of coughing and sore throat, treating with throat losages. CXR negative. Affect: Flat although periods of smiling, which are increased from yesterday. Insight/Judgment: Fair Behavior: no behavior concerns, compliant with medication. A/P Assessment and Plan CXR negative, cough most likely va viral etiology, will follow and treat symptoms. Patient appears to be improving with negative suicidal/homicidal thoughts today, will continue medication regimen and follow. Would decompensate if placed in a lower level of care. Discharge Planning to be determined. Lisandra Gamboa M3 Dec 11, 2016 13:14
--- NOTE | 2016-12-11 15:08 | HHI.PR ---
Subjective Remarks Reconsult: Unit tract infection and cough and sore throat Patient evaluated inpatient psychiatric unit. Patient denies urinary frequency but does report burning with urination for the past, "few days." Patient also reports severe sore throat generalized congestion feeling and nonproductive cough worse at night. No fever or chills. Objective Vitals Vital Signs Date Time Temp Pulse Resp B/P Pulse Ox O2 Delivery O2 Flow Rate FiO2 12/11/16 06:38 97.9 74 16 123/59 94 12/10/16 18:41 98.4 65 18 124/68 95 I/O 12/10/16 12/10/16 12/10/16 12/11/16 12/11/16 12/11/16 07:00 15:00 23:00 07:00 15:00 23:00 Intake Total 120 ml 390 ml 0 ml 840 ml Balance 120 ml 390 ml 0 ml 840 ml Intake Oral 120 ml 150 ml 0 ml 840 ml Oral Supplement 240 ml # Voids 2 1 2 2 # Bowel Movements 1 Result Diagram: 12/11/16 1218 12/11/16 1218 Imaging Last Impressions Chest X-Ray 12/11/16 0000 Signed Impressions: Service Date/Time: Sunday, December 11, 2016 10:38 - CONCLUSION: No evidence of acute cardiopulmonary disease. Eyal Laurent MD Objective Remarks GENERAL: This is a well-nourished, well-developed patient, in no apparent distress. SKIN: No rashes, ecchymoses or lesions. Warm and dry. HEAD: Atraumatic. Normocephalic. No temporal or scalp tenderness. THROAT: No erythema or edema EYES: Extraocular motions intact. No scleral icterus. No injection or drainage. CARDIOVASCULAR: Regular rate and rhythm without murmurs, gallops, or rubs. RESPIRATORY: Faint crackles right lower lobe GASTROINTESTINAL: Abdomen soft, non-tender, nondistended. Bowel sounds active 4. MUSCULOSKELETAL: Extremities without clubbing, cyanosis, or edema. Noted some contractures/deformity in her fingers. NEUROLOGICAL: Awake and alert. No focal neuro deficit. Motor and sensory grossly within normal limits. Normal speech. 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 As per records, patient states she doesn't want to live anymore. Patient is now admitted to inpatient psychiatry unit for further evaluation. Re-consulted for UTI and sore throat. Depression, suicidal ideation - managed by psychiatry team UTI culture positive for Klebsiella pneumonia. We'll treat with Cipro 250 mg twice a day 3 days Cough Viral syndrome-sore throat post nasal drip and cough Chest x-ray reviewed by myself as well as Dr. Villalobos reveals no acute disease process Robitussin-DM as needed for cough Lozenges as needed for sore throat White blood cell count 6.8, afebrile HTN - controlled - Continue home meds atenolol 25 mg daily, amlodipine 5 mg daily, lisinopril 40 mg daily - Continue to have elevated BP on trend. We'll start when necessary meds. HLD - continue with atorvastatin IBS/GERD - continue with Carafate use, pantoprazole 40 mg daily DVT prop ambulatory Discussed with nursing, patient and Dr. Francois Written by Leandra Pimentel, acting as scribe for Dr. Villalobos on 12/11/16 at 15:07. Attending Statement All or portions of this note were transcribed by scribe Leandra elias. I, Dr. Nando Thornton personally performed the history, physical exam, and medical decision making; and confirmed the accuracy of the information in the transcribed note. Authenticated by Dr. Nando Thornton on 12/11/16 at 15:50 hrs. Problem Qualifiers (1) Suicidal behavior: Qualified Code: R46.89 - Suicidal behavior without attempted self-injury (2) Depression: Qualified Code: F33.1 - Moderate episode of recurrent major depressive disorder Leandra Pimentel Dec 11, 2016 15:08 Nando Ruelas MD Dec 22, 2016 12:18
[2016-12-11] MEDS: CIPROFLOXACIN 250 MG TAB PO SCH ×2 (15:48→20:34)
[2016-12-11 18:10] VITALS: BP 162/55; PULSE 68; RESP 18; TEMP 98.7; O2SAT 95
[2016-12-11] MEDS: DONEPEZIL HCL 5 MG TAB PO SCH (20:33)
[2016-12-11] MEDS: ATORVASTATIN 10 MG TAB PO SCH (20:33)
[2016-12-11] MEDS: MIRTAZAPINE 15 MG TAB PO SCH (20:34)
[2016-12-11] MEDS: AMITRIPTYLINE HCL 50 MG TAB PO SCH (20:35)
[2016-12-12] MEDS: guaiFENesin/DEXTROMETHORPHAN 200 MG/20 MG/10 ML CUP PO PRN ×2 (03:19→09:27)
[2016-12-12 06:00] VITALS: BP 119/65; PULSE 74; RESP 16; TEMP 97.8; O2SAT 93
[2016-12-12] MEDS: SUCRALFATE 1 GM TAB PO SCH (06:07)
[2016-12-12] MEDS: amLODIPine BESYLATE 5 MG TAB PO SCH (09:02)
[2016-12-12] MEDS: CIPROFLOXACIN 250 MG TAB PO SCH ×2 (09:03→20:23)
[2016-12-12] MEDS: DULoxetine HCl DR 30 MG CAP PO SCH ×2 (09:03→20:22)
[2016-12-12] MEDS: ARIPiprazole 10 MG TAB PO SCH ×2 (09:03→20:23)
[2016-12-12] MEDS: ATENOLOL 25 MG TAB PO SCH ×2 (09:03→20:22)
[2016-12-12] MEDS: LISINOPRIL 20 MG TAB PO SCH (09:03)
[2016-12-12] MEDS: LACTOBACILLUS ACIDOPHILUS TAB PO SCH ×3 (09:03→17:27)
[2016-12-12] MEDS: PANTOPRAZOLE SOD 40 MG DELAYED RELEASE TAB PO SCH (09:03)
[2016-12-12] MEDS: TIMOLOL MALEATE 0.5% OPHT SOLN 5 ML BTL EACH EYE SCH (09:04)
[2016-12-12] MEDS ORDERED: POTASSIUM CHLORIDE 10 MEQ CONTROLLED RELEASE TAB PO ONE (09:15)
--- NOTE | 2016-12-12 13:18 | HHI.PYPN ---
Subjective Remarks Patient was seen and case discussed with nursing. Patient says she remains depressed feels about the same compared to when she came in. Affect is blunted. Is alert and oriented 3. Largely seclusive to self. Skip lunch. She does denies suicidal ideation intent or plan. His compliant with her medications Objective Alert: Yes [place]: Person, Place, Date Mood: Depressed Affect: Blunted Memory Intact: Comment Hallucinations: Other (patient states racing thoughts in her head though she claims they are her thoughts) Delusions: No (though somewhat vigilant) Delusion Type: Other (somewhat vigilant) Suicidal: Ideation (denies today) Homicidal: Ideation (denies) Insight/Judgement Poor Labs Date/Time Procedure Status Source Growth 12/09/16 18:40 Urine Culture - Final Complete Urine Random Urine Klebsiella Pneumoniae Vitals/IOs Vital Signs Date Time Temp Pulse Resp B/P Pulse Ox O2 Delivery O2 Flow Rate FiO2 12/12/16 06:00 97.8 74 16 119/65 93 Intake and Output 12/11/16 12/11/16 12/12/16 08:00 16:00 00:00 Intake Total 0 ml 840 ml 240 ml Balance 0 ml 840 ml 240 ml Assessment & Plan Problem List: (1) Major depressive disorder, recurrent, severe with psychotic features ICD Code: F33.3 (2) Dementia with behavioral disturbance ICD Code: F03.91 Assessment & Plan Continue current treatment plan Justification for Cont. Inpt. Patient will decompensate in a less restrictive setting Request HC Surrog/Guard Advoc?: No Jonathan Adrian DO Dec 12, 2016 13:18
[2016-12-12 18:30] VITALS: BP 104/55; PULSE 60; RESP 18; TEMP 98; O2SAT 94
[2016-12-12] MEDS: ATORVASTATIN 10 MG TAB PO SCH (20:22)
[2016-12-12] MEDS: AMITRIPTYLINE HCL 50 MG TAB PO SCH (20:23)
[2016-12-12] MEDS: MIRTAZAPINE 15 MG TAB PO SCH (20:23)
[2016-12-12] MEDS: DONEPEZIL HCL 5 MG TAB PO SCH (20:24)
[2016-12-13] MEDS: SUCRALFATE 1 GM TAB PO SCH (05:43)
[2016-12-13 06:04] VITALS: BP 109/60; PULSE 62; RESP 16; TEMP 96.4; O2SAT 98
[2016-12-13] MEDS: PANTOPRAZOLE SOD 40 MG DELAYED RELEASE TAB PO SCH (08:25)
[2016-12-13] MEDS: ARIPiprazole 10 MG TAB PO SCH ×2 (08:26→20:44)
[2016-12-13] MEDS: DULoxetine HCl DR 30 MG CAP PO SCH ×2 (08:26→20:45)
[2016-12-13] MEDS: LACTOBACILLUS ACIDOPHILUS TAB PO SCH ×3 (08:26→17:17)
[2016-12-13] MEDS: TIMOLOL MALEATE 0.5% OPHT SOLN 5 ML BTL EACH EYE SCH (08:26)
[2016-12-13] MEDS: ATENOLOL 25 MG TAB PO SCH ×3 (08:26→21:00)
[2016-12-13] MEDS: CIPROFLOXACIN 250 MG TAB PO SCH ×2 (08:26→20:44)
[2016-12-13] MEDS: LISINOPRIL 20 MG TAB PO SCH (08:27)
[2016-12-13] MEDS: amLODIPine BESYLATE 5 MG TAB PO SCH (08:27)
[2016-12-13 09:07] LABS: BICARBONATE 29.1 MEQ/L (21.0-32.0); POTASSIUM 3.7 MEQ/L (3.5-5.1)
--- NOTE | 2016-12-13 13:08 | HHI.PYPN ---
Subjective Remarks Patient was seen and case discussed with nursing. Patient remains seclusive to room. She remains depressed. He gives inconsistent answers about her mood. Still feeling hopeless at times. Compliant with medications. Denies suicidal ideations intent or plan. Objective Alert: Yes [place]: Person, Place, Date Mood: Depressed Affect: Flat Memory Intact: Comment Hallucinations: Other (denies) Delusions: No (though somewhat vigilant) Delusion Type: Other (somewhat vigilant) Suicidal: Ideation (denies today) Homicidal: Ideation (denies) Insight/Judgement Poor Labs Test 12/13/16 07:55 Sodium Level 139 MEQ/L Potassium Level 3.7 MEQ/L Chloride Level 101 MEQ/L Carbon Dioxide Level 29.1 MEQ/L Anion Gap 9 MEQ/L Blood Urea Nitrogen 16 MG/DL Creatinine 0.93 MG/DL Estimat Glomerular Filtration 60 ML/MIN Rate Random Glucose 89 MG/DL Calcium Level 8.3 MG/DL Date/Time Procedure Status Source Growth 12/09/16 18:40 Urine Culture - Final Complete Urine Random Urine Klebsiella Pneumoniae Vitals/IOs Vital Signs Date Time Temp Pulse Resp B/P Pulse Ox O2 Delivery O2 Flow Rate FiO2 12/13/16 06:04 96.4 62 16 109/60 98 Intake and Output 12/12/16 12/12/16 12/13/16 08:00 16:00 00:00 Intake Total 240 ml 480 ml Balance 240 ml 480 ml Assessment & Plan Problem List: (1) Major depressive disorder, recurrent, severe with psychotic features ICD Code: F33.3 (2) Dementia with behavioral disturbance ICD Code: F03.91 Assessment & Plan Continue current treatment plan Justification for Cont. Inpt. Patient will decompensate in a less restrictive setting Request HC Surrog/Guard Advoc?: No Jonathan Adrian DO Dec 13, 2016 13:08
[2016-12-13 20:28] VITALS: BP 98/62; PULSE 69; RESP 17; TEMP 98.2; O2SAT 92
[2016-12-13] MEDS: ATORVASTATIN 10 MG TAB PO SCH (20:44)
[2016-12-13] MEDS: AMITRIPTYLINE HCL 50 MG TAB PO SCH (20:45)
[2016-12-13] MEDS: DONEPEZIL HCL 5 MG TAB PO SCH (20:45)
[2016-12-13] MEDS: MIRTAZAPINE 15 MG TAB PO SCH (20:47)
[2016-12-13] MEDS: guaiFENesin/DEXTROMETHORPHAN 200 MG/20 MG/10 ML CUP PO PRN (20:53)
[2016-12-14 05:09] VITALS: BP 124/76; PULSE 61; RESP 16; TEMP 98; O2SAT 97
[2016-12-14] MEDS: SUCRALFATE 1 GM TAB PO SCH (06:00)
[2016-12-14] MEDS: ARIPiprazole 10 MG TAB PO SCH ×2 (10:06→21:14)
[2016-12-14] MEDS: DULoxetine HCl DR 30 MG CAP PO SCH ×2 (10:06→21:14)
[2016-12-14] MEDS: LISINOPRIL 20 MG TAB PO SCH (10:06)
[2016-12-14] MEDS: PANTOPRAZOLE SOD 40 MG DELAYED RELEASE TAB PO SCH (10:06)
[2016-12-14] MEDS: CIPROFLOXACIN 250 MG TAB PO SCH (10:06)
[2016-12-14] MEDS: ATENOLOL 25 MG TAB PO SCH ×2 (10:07→21:15)
[2016-12-14] MEDS: PILL SPLITTER OTHER PRN (10:07)
[2016-12-14] MEDS: LACTOBACILLUS ACIDOPHILUS TAB PO SCH ×3 (10:07→18:09)
[2016-12-14] MEDS: amLODIPine BESYLATE 5 MG TAB PO SCH (10:07)
[2016-12-14] MEDS: guaiFENesin/DEXTROMETHORPHAN 200 MG/20 MG/10 ML CUP PO PRN ×3 (10:09→22:18)
[2016-12-14] MEDS: TIMOLOL MALEATE 0.5% OPHT SOLN 5 ML BTL EACH EYE SCH (10:10)
--- NOTE | 2016-12-14 13:52 | HHI.PR ---
Subjective Remarks Follow up: Urinary tract infection cough and sore throat Patient evaluated inpatient psychiatric unit. Patient reports cough seems to be getting worse. Denies fever or chills. Objective Vitals Vital Signs Date Time Temp Pulse Resp B/P Pulse Ox O2 Delivery O2 Flow Rate FiO2 12/14/16 05:09 98.0 61 16 124/76 97 12/13/16 20:28 98.2 69 17 98/62 92 I/O 12/13/16 12/13/16 12/13/16 12/14/16 12/14/16 12/14/16 07:00 15:00 23:00 07:00 15:00 23:00 Intake Total 550 ml 960 ml 0 ml 240 ml Output Total 1 ml Balance 550 ml 960 ml 0 ml 239 ml Intake Oral 550 ml 960 ml 0 ml 240 ml Output Stool Total 1 ml # Voids 3 2 2 # Bowel Movements 0 0 Result Diagram: 12/11/16 1218 12/13/16 0755 Objective Remarks GENERAL: This is a well-nourished, well-developed patient, in no apparent distress. SKIN: No rashes, ecchymoses or lesions. Warm and dry. HEAD: Atraumatic. Normocephalic. No temporal or scalp tenderness. THROAT: No erythema or edema EYES: Extraocular motions intact. No scleral icterus. No injection or drainage. CARDIOVASCULAR: Regular rate and rhythm without murmurs, gallops, or rubs. RESPIRATORY: rhonchi left lower lobe GASTROINTESTINAL: Abdomen soft, non-tender, nondistended. Bowel sounds active 4. MUSCULOSKELETAL: Extremities without clubbing, cyanosis, or edema. Noted some contractures/deformity in her fingers. NEUROLOGICAL: Awake and alert. No focal neuro deficit. Motor and sensory grossly within normal limits. Normal speech. 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 As per records, patient states she doesn't want to live anymore. Patient is now admitted to inpatient psychiatry unit for further evaluation. Re-consulted for UTI and sore throat. Depression, suicidal ideation - managed by psychiatry team UTI culture positive for Klebsiella pneumonia. s/p Cipro 250 mg twice a day 3 days Cough worsening- Chest x-ray 12/11/2016 no acute disease process repeat chest X ray ordered HTN - on the low side - Continue home meds atenolol 25 mg daily, amlodipine 5 mg daily, decrease lisinopril 20 mg daily - Continue to have elevated BP on trend. HLD - continue with atorvastatin IBS/GERD - continue with Carafate use, pantoprazole 40 mg daily DVT prop ambulatory Discussed with nursing, patient Written by Leandra Singer, acting as scribe for Dr. Villalobos on 12/14/16 at 13:51. Attending Statement All or portions of this note were transcribed by scribe Leandra singer. I, Dr. Nando Thornton personally performed the history, physical exam, and medical decision making; and confirmed the accuracy of the information in the transcribed note. Authenticated by Dr. Nando Thornton on 12/14/16 at 16:51. Problem Qualifiers (1) Suicidal behavior: Qualified Code: R46.89 - Suicidal behavior without attempted self-injury (2) Depression: Qualified Code: F33.1 - Moderate episode of recurrent major depressive disorder Leandra Singer Dec 14, 2016 13:51 Nando Ruelas MD Dec 23, 2016 20:13
--- NOTE | 2016-12-14 14:22 | RADRPT ---
EXAM DATE/TIME: 12/14/2016 13:00 [facility] COMPARISON: CT PULMONARY ANGIOGRAM, December 28, 2015, 9:03. CHEST SINGLE AP, December 11, 2016, 10:38. INDICATIONS : Cough, congestion, former smoker, no chest surgery MEDICAL HISTORY : dementia SURGICAL HISTORY : None. ENCOUNTER: Subsequent ACUITY: 3 days PAIN SCORE: 0/10 LOCATION: Bilateral chest FINDINGS: The heart size is normal. The central arteries appear enlarged. The lungs are grossly clear. CONCLUSION: No acute disease. Eyal Díaz MD on December 14, 2016 at 14:19 Board Certified Radiologist. This report was verified electronically.
--- NOTE | 2016-12-14 16:29 | HHI.PYPN ---
Subjective Remarks Patient discussed with treatment team, seen on unit, chart reviewed. Patient continues somewhat vigilant at times depressed. But overall pleasant with me. Compliant medications Review of Systems Except as stated in HPI: all other systems reviewed are Neg Objective Alert: Yes [place]: Person, Place, Date Mood: Depressed Affect: Flat Memory Intact: Comment Hallucinations: Other (denies) Delusions: No (though somewhat vigilant) Delusion Type: Other (somewhat vigilant) Suicidal: Ideation (denies today) Homicidal: Ideation (denies) Insight/Judgement Very poor Labs Date/Time Procedure Status Source Growth 12/09/16 18:40 Urine Culture - Final Complete Urine Random Urine Klebsiella Pneumoniae Vitals/IOs Vital Signs Date Time Temp Pulse Resp B/P Pulse Ox O2 Delivery O2 Flow Rate FiO2 12/14/16 05:09 98.0 61 16 124/76 97 Intake and Output 12/13/16 12/13/16 12/14/16 08:00 16:00 00:00 Intake Total 550 ml 960 ml Balance 550 ml 960 ml Assessment & Plan Problem List: (1) Major depressive disorder, recurrent, severe with psychotic features ICD Code: F33.3 (2) Dementia with behavioral disturbance ICD Code: F03.91 Assessment & Plan Estimated LOS: days patient continues somewhat depressed though focusing, compliant medications. For now continue treatment Justification for Cont. Inpt. At this time patient will decompensate if placed in a lower level of care Discharge Planning To be determined Request HC Surrog/Guard Advoc?: No Eyal Francois MD Dec 14, 2016 16:29
[2016-12-14 18:41] VITALS: BP 118/71; PULSE 66; RESP 16; TEMP 97.5; O2SAT 92
[2016-12-14] MEDS: MIRTAZAPINE 15 MG TAB PO SCH (21:14)
[2016-12-14] MEDS: ATORVASTATIN 10 MG TAB PO SCH (21:14)
[2016-12-14] MEDS: DONEPEZIL HCL 5 MG TAB PO SCH (21:14)
[2016-12-14] MEDS: AMITRIPTYLINE HCL 50 MG TAB PO SCH (21:14)
[2016-12-14] MEDS: MENTHOL LOZENGE SUCK-ON PRN (21:21)
[2016-12-15] MEDS: SUCRALFATE 1 GM TAB PO SCH (05:52)
[2016-12-15 06:12] VITALS: BP 114/58; PULSE 51; RESP 18; TEMP 97.7; O2SAT 97
[2016-12-15] MEDS: ARIPiprazole 10 MG TAB PO SCH (09:00)
--- NOTE | 2016-12-15 09:44 | HHI.PYPN ---
Subjective Remarks Patient seen in her room with nurse Sophie and medical student Claudette, chart reviewed. Patient showing some poor oral intake, complains both of food, will have dietary consult with her. Patient also stating some increased visual hallucinations of various phases that are frightening and threatening to her though she denies any specific auditory component. Will increase Abilify to 15 mg twice a day patient does denies suicidality. She did talk about her willingness to return to her prior [facility] placement. We will check on that also Review of Systems Except as stated in HPI: all other systems reviewed are Neg Objective Alert: Yes [place]: Person, Place, Date Mood: Depressed Affect: Flat Memory Intact: Comment Hallucinations: Visual Delusions: No (though somewhat vigilant) Delusion Type: Other (somewhat vigilant) Suicidal: Ideation (denies today) Homicidal: Ideation (denies) Insight/Judgement Poor Vitals/IOs Vital Signs Date Time Temp Pulse Resp B/P Pulse Ox O2 Delivery O2 Flow Rate FiO2 12/15/16 06:12 97.7 51 18 114/58 97 Intake and Output 12/14/16 12/14/16 12/15/16 08:00 16:00 00:00 Intake Total 240 ml 1320 ml Output Total 1 ml Balance 240 ml -1 ml 1320 ml Assessment & Plan Problem List: (1) Major depressive disorder, recurrent, severe with psychotic features ICD Code: F33.3 (2) Dementia with behavioral disturbance ICD Code: F03.91 Assessment & Plan Estimated LOS: days patient remains depressed though at this time is complaining also of visual hallucinations of a threatening nature. There is also some concern about her dietary intake will have dietary consult. Please he medication adjustments above Justification for Cont. Inpt. At this time patient would decompensate if placed in a lower level of care Discharge Planning To be determined Request HC Surrog/Guard Advoc?: No Eyal Francois MD Dec 15, 2016 09:44
[2016-12-15 09:50] VITALS: BP 117/74; PULSE 79
[2016-12-15] MEDS: PANTOPRAZOLE SOD 40 MG DELAYED RELEASE TAB PO SCH (09:51)
[2016-12-15] MEDS: PILL SPLITTER OTHER PRN (09:51)
[2016-12-15] MEDS: ATENOLOL 25 MG TAB PO SCH ×2 (09:51→21:00)
[2016-12-15] MEDS: amLODIPine BESYLATE 5 MG TAB PO SCH (09:51)
[2016-12-15] MEDS: DULoxetine HCl DR 30 MG CAP PO SCH ×2 (09:51→21:00)
[2016-12-15] MEDS: LACTOBACILLUS ACIDOPHILUS TAB PO SCH ×3 (09:51→17:51)
[2016-12-15] MEDS: LISINOPRIL 20 MG TAB PO SCH (09:52)
[2016-12-15] MEDS: guaiFENesin/DEXTROMETHORPHAN 200 MG/20 MG/10 ML CUP PO PRN ×3 (09:56→21:57)
[2016-12-15] MEDS: TIMOLOL MALEATE 0.5% OPHT SOLN 5 ML BTL EACH EYE SCH (09:57)
[2016-12-15] MEDS: ARIPiprazole 15 MG TAB PO SCH ×2 (10:43→21:00)
[2016-12-15 18:00] VITALS: BP 124/83; PULSE 73; RESP 18; TEMP 98.1; O2SAT 94
[2016-12-15] MEDS: AMITRIPTYLINE HCL 50 MG TAB PO SCH (21:00)
[2016-12-15] MEDS: MIRTAZAPINE 15 MG TAB PO SCH (21:00)
[2016-12-15] MEDS: ACETAMINOPHEN 325 MG TAB PO PRN (21:00)
[2016-12-15] MEDS: ATORVASTATIN 10 MG TAB PO SCH (21:00)
[2016-12-15] MEDS: DONEPEZIL HCL 5 MG TAB PO SCH (21:00)
[2016-12-16 05:43] VITALS: BP 143/85; PULSE 70; RESP 18; TEMP 96.9; O2SAT 95
[2016-12-16] MEDS: SUCRALFATE 1 GM TAB PO SCH (05:46)
[2016-12-16] MEDS: LACTOBACILLUS ACIDOPHILUS TAB PO SCH ×3 (09:53→17:16)
[2016-12-16] MEDS: LISINOPRIL 20 MG TAB PO SCH (09:53)
[2016-12-16] MEDS: amLODIPine BESYLATE 5 MG TAB PO SCH (09:53)
[2016-12-16] MEDS: PANTOPRAZOLE SOD 40 MG DELAYED RELEASE TAB PO SCH (09:53)
[2016-12-16] MEDS: DULoxetine HCl DR 30 MG CAP PO SCH ×2 (09:54→20:50)
[2016-12-16] MEDS: guaiFENesin/DEXTROMETHORPHAN 200 MG/20 MG/10 ML CUP PO PRN ×3 (09:54→21:39)
[2016-12-16] MEDS: ARIPiprazole 15 MG TAB PO SCH ×2 (09:54→20:50)
[2016-12-16] MEDS: ATENOLOL 25 MG TAB PO SCH ×2 (09:54→20:51)
[2016-12-16] MEDS: TIMOLOL MALEATE 0.5% OPHT SOLN 5 ML BTL EACH EYE SCH (09:54)
[2016-12-16] MEDS: PILL SPLITTER OTHER PRN (09:56)
--- NOTE | 2016-12-16 13:17 | HHI.PYPN ---
Subjective Remarks Patient seen in day room with nurse Sumi and family practice resident Bebo, patient calmer today with me today denies suicidality, though continues to verify frightening visual hallucinations. Patient compliant medications. Still isolates Review of Systems Except as stated in HPI: all other systems reviewed are Neg Objective Alert: Yes [place]: Person, Place, Date Mood: Calm, Depressed Affect: Flat Memory Intact: Comment Hallucinations: Visual Delusions: No (though somewhat vigilant) Delusion Type: Other (somewhat vigilant) Suicidal: Ideation (denies today) Homicidal: Ideation (denies) Insight/Judgement Very poor Vitals/IOs Vital Signs Date Time Temp Pulse Resp B/P Pulse Ox O2 Delivery O2 Flow Rate FiO2 12/16/16 05:43 96.9 70 18 143/85 95 Intake and Output 12/15/16 12/15/16 12/16/16 08:00 16:00 00:00 Intake Total 480 ml 960 ml 840 ml Balance 480 ml 960 ml 840 ml Assessment & Plan Problem List: (1) Major depressive disorder, recurrent, severe with psychotic features ICD Code: F33.3 (2) Dementia with behavioral disturbance ICD Code: F03.91 Assessment & Plan Estimated LOS: days patient continues with psychotic features with visual hallucinations, mood is somewhat sad though denying suicidality at this time Justification for Cont. Inpt. At this time patient will decompensate if placed in a lower level of care Discharge Planning To be determined Request HC Surrog/Guard Advoc?: No Eyal Francois MD Dec 16, 2016 13:17
--- NOTE | 2016-12-16 14:59 | HHI.PR ---
Subjective Remarks Follow-up visit urinary tract infection, cough, HTN. Patient seen today. Reports occasionally has cough but not worsening. Denies fevers, chills, nausea , vomiting, diarrhea. Denies SOB/dyspnea. Denies chest pain, palpitations, dizziness, headaches. Objective Vitals Vital Signs Date Time Temp Pulse Resp B/P Pulse Ox O2 Delivery O2 Flow Rate FiO2 12/16/16 05:43 96.9 70 18 143/85 95 12/15/16 18:00 98.1 73 18 124/83 94 I/O 12/15/16 12/15/16 12/15/16 12/16/16 12/16/16 12/16/16 07:00 15:00 23:00 07:00 15:00 23:00 Intake Total 1440 ml 900 ml 960 ml Output Total 1 ml Balance 1440 ml 899 ml 960 ml Intake Oral 1440 ml 900 ml 960 ml Output Urine Total 1 ml # Voids 2 1 2 1 # Bowel Movements 0 1 Result Diagram: 12/13/16 0755 Imaging Last Impressions Chest X-Ray 12/14/16 0000 Signed Impressions: Service Date/Time: Wednesday, December 14, 2016 13:00 - CONCLUSION: No acute disease. Eyal Díaz MD Objective Remarks GENERAL: This is a well-nourished, well-developed patient, in no apparent distress. SKIN: No rashes, ecchymoses or lesions. Warm and dry. HEAD: Atraumatic. Normocephalic. No temporal or scalp tenderness. THROAT: No erythema or edema EYES: Extraocular motions intact. No scleral icterus. No injection or drainage. CARDIOVASCULAR: Regular rate and rhythm without murmurs, gallops, or rubs. RESPIRATORY: rhonchi left lower lobe GASTROINTESTINAL: Abdomen soft, non-tender, nondistended. Bowel sounds active 4. MUSCULOSKELETAL: Extremities without clubbing, cyanosis, or edema. Noted some contractures/deformity in her fingers. NEUROLOGICAL: Awake and alert. No focal neuro deficit. Motor and sensory grossly within normal limits. Normal speech. Medications and IVs Current Medications Medications (Trade) Dose Ordered Sig/Jesse Route Start Time Stop Time Status Last Admin (Tylenol) 650 mg Q4H PRN PO 12/04/16 23:45 12/15/16 21:00 (Milk Of Magnesia Liq) 30 ml DAILY PRN PO 12/05/16 07:45 (Mag-Al Plus Susp Liq) 30 ml Q6H PRN PO 12/05/16 07:45 (Atarax) 50 mg Q6H PRN PO 12/05/16 07:45 12/11/16 00:33 (Lipitor) 10 mg HS PO 12/05/16 21:00 12/17/16 20:23 (Aricept) 10 mg HS PO 12/05/16 21:00 12/17/16 20:23 (Cymbalta Dr) 30 mg BID PO 12/05/16 09:00 12/18/16 08:54 (Remeron) 45 mg HS PO 12/05/16 21:00 12/17/16 20:23 (Protonix) 40 mg DAILY PO 12/05/16 09:00 12/18/16 08:53 (Carafate) 1 gm DAILY@0600 PO 12/05/16 07:45 12/18/16 05:15 (Timoptic 0.5% Opth Soln) 1 drop DAILY EACH EYE 12/09/16 09:00 12/18/16 08:56 (Elavil) 50 mg HS PO 12/09/16 21:00 12/17/16 20:23 ([place] Sandip) 1 lozenge Q1H PRN SUCK-ON 12/10/16 14:15 12/16/16 20:59 (Robitussin Dm 200-20 Mg/10 ml Liq) 10 ml Q6H PRN PO 12/11/16 10:15 12/17/16 20:22 ([place] Sandip) 1 lozenge UNSCH PRN BUCCAL 12/11/16 10:15 12/17/16 20:26 (Lactinex) 1 tab TID PO 12/11/16 13:00 12/18/16 08:53 (Norvasc) 5 mg DAILY PO 12/14/16 09:00 12/18/16 08:54 (Prinivil) 20 mg DAILY PO 12/14/16 09:00 12/18/16 08:53 (Tenormin) 12.5 mg BID PO 12/14/16 09:00 12/18/16 08:53 (Pill Splitter) 1 ea UNSCH PRN OTHER 12/14/16 08:15 12/16/16 09:56 (Abilify) 15 mg BID PO 12/15/16 21:00 12/18/16 08:54 (ZyrTEC) 10 mg HS PO 12/16/16 21:00 12/23/16 20:59 12/17/16 20:27 (Symbicort 160-4.5 Inh) 1 puff Q12HR INH 12/16/16 21:00 12/17/16 20:23 (Proair Hfa Inh) 2 puff Q6H PRN INH 12/16/16 15:00 12/18/16 08:54 A/P Problem List: (1) Dementia with behavioral disturbance ICD Code: F03.91 Status: Acute (2) Suicidal behavior ICD Code: R45.851 Status: Acute (3) Depression ICD Code: F32.9 Status: Acute (4) Hypertension ICD Code: I10 Status: Chronic (5) Blindness, legal ICD Code: 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 As per records, patient states she doesn't want to live anymore. Patient is now admitted to inpatient psychiatry unit for further evaluation. Cough - Depression, suicidal ideation - managed by psychiatry team UTI culture positive for Klebsiella pneumonia. - s/p Cipro 250 mg twice a day 3 days - Denies any dysuria COPD - history of tobacco smoking, switched over to the cigarettes Cough - not worsening Chest x-ray 12/11/2016 no acute disease process Chest x-ray 12/14/16 showed no acute disease Start Symbicort Zyrtec at night 7 days Duo nebs BID. Proair PRN Incentive spirometer use. Continue guaifenesin. HTN - on the low side - Continue home meds atenolol 12.5 mg BID, amlodipine 5 mg daily, lisinopril 20 mg daily HLD - continue with atorvastatin IBS/GERD - continue with Carafate use, pantoprazole 40 mg daily DVT prop ambulatory Full code Discussed with nursing, patient Stable from Hospitalist standpoint. We will sign off. Reconsult as needed. Written by Amelia Shoemaker, acting as scribe for Dr. Villalobos on 12/16/16 at 14: 14. Attending Statement All or portions of this note were transcribed by scribe Driss Shoemaker. I, Dr. Nando Thornton personally performed the history, physical exam, and medical decision making; and confirmed the accuracy of the information in the transcribed note. Authenticated by Dr. Nando Thornton on 12/18/16 at 11:59. Problem Qualifiers (1) Suicidal behavior: Qualified Code: R46.89 - Suicidal behavior without attempted self-injury (2) Depression: Qualified Code: F33.1 - Moderate episode of recurrent major depressive disorder Amelia Evans Dec 16, 2016 14:59 Nando Ruelas MD Dec 18, 2016 12:00
[2016-12-16] MEDS ORDERED: ALBUTEROL SULFATE 90 MCG/ACT HFA 8 GM INHALER INH PRN (15:00)
[2016-12-16] MEDS: MENTHOL LOZENGE BUCCAL PRN (17:19)
[2016-12-16 19:05] VITALS: BP 124/74; PULSE 72; RESP 16; TEMP 98; O2SAT 95
[2016-12-16] MEDS: RESP: ALBUTEROL 2.5 MG/IPRATROPIUM 0.5 MG NEB (SCH) NEB (20:00)
[2016-12-16] MEDS: BUDESONIDE-FORMOTEROL 160/4.5 MCG INHALER INH SCH (20:48)
[2016-12-16] MEDS: DONEPEZIL HCL 5 MG TAB PO SCH (20:50)
[2016-12-16] MEDS: MIRTAZAPINE 15 MG TAB PO SCH (20:50)
[2016-12-16] MEDS: CETIRIZINE HCL 10 MG TAB PO SCH (20:50)
[2016-12-16] MEDS: AMITRIPTYLINE HCL 50 MG TAB PO SCH (20:52)
[2016-12-16] MEDS: ATORVASTATIN 10 MG TAB PO SCH (20:52)
[2016-12-16] MEDS: MENTHOL LOZENGE SUCK-ON PRN (20:59)
[2016-12-17 06:02] VITALS: BP 151/71; PULSE 63; RESP 18; TEMP 98.2
[2016-12-17] MEDS: SUCRALFATE 1 GM TAB PO SCH (06:29)
[2016-12-17] MEDS: RESP: ALBUTEROL 2.5 MG/IPRATROPIUM 0.5 MG NEB (SCH) NEB ×2 (08:46→20:00)
[2016-12-17] MEDS: LISINOPRIL 20 MG TAB PO SCH (09:00)
[2016-12-17] MEDS: BUDESONIDE-FORMOTEROL 160/4.5 MCG INHALER INH SCH ×2 (09:00→20:23)
[2016-12-17] MEDS: amLODIPine BESYLATE 5 MG TAB PO SCH (09:00)
[2016-12-17] MEDS: TIMOLOL MALEATE 0.5% OPHT SOLN 5 ML BTL EACH EYE SCH (09:00)
[2016-12-17] MEDS: ATENOLOL 25 MG TAB PO SCH ×2 (09:00→20:23)
[2016-12-17] MEDS: DULoxetine HCl DR 30 MG CAP PO SCH ×2 (09:21→20:22)
[2016-12-17] MEDS: ARIPiprazole 15 MG TAB PO SCH ×2 (09:22→20:23)
[2016-12-17] MEDS: PANTOPRAZOLE SOD 40 MG DELAYED RELEASE TAB PO SCH (09:22)
[2016-12-17] MEDS: LACTOBACILLUS ACIDOPHILUS TAB PO SCH ×3 (09:22→17:01)
--- NOTE | 2016-12-17 11:39 | HHI.PYPN ---
Subjective Remarks Patient seen in day room with nurse Sumi, chart reviewed. Patient calmer today is not a somewhat vague about any visual hallucinations. Mood appears somewhat improved. Compliant medication. Review of Systems Except as stated in HPI: all other systems reviewed are Neg Objective Alert: Yes [place]: Person, Place, Date Mood: Calm, Depressed Affect: Flat (though some increase in affect) Memory Intact: Comment Hallucinations: Visual Delusions: No (though somewhat vigilant) Delusion Type: Other (somewhat vigilant) Suicidal: Ideation (denies today) Homicidal: Ideation (denies) Insight/Judgement Poor Vitals/IOs Vital Signs Date Time Temp Pulse Resp B/P Pulse Ox O2 Delivery O2 Flow Rate FiO2 12/17/16 06:02 98.2 63 18 151/71 12/16/16 19:05 95 Intake and Output 12/16/16 12/16/16 12/17/16 08:00 16:00 00:00 Intake Total 300 ml 720 ml 480 ml Output Total 1 ml Balance 299 ml 720 ml 480 ml Assessment & Plan Problem List: (1) Major depressive disorder, recurrent, severe with psychotic features ICD Code: F33.3 (2) Dementia with behavioral disturbance ICD Code: F03.91 Assessment & Plan Estimated LOS: days patient mood improving slightly, but appears sugars psychotic features are also starting to diminish Justification for Cont. Inpt. At this time patient will decompensate if placed in a lower level of care Discharge Planning To be determined Request HC Surrog/Guard Advoc?: No Eyal Francois MD Dec 17, 2016 11:39
[2016-12-17 19:12] VITALS: BP 128/60; PULSE 60; RESP 16; TEMP 98.3
[2016-12-17] MEDS: guaiFENesin/DEXTROMETHORPHAN 200 MG/20 MG/10 ML CUP PO PRN (20:22)
[2016-12-17] MEDS: MIRTAZAPINE 15 MG TAB PO SCH (20:23)
[2016-12-17] MEDS: ATORVASTATIN 10 MG TAB PO SCH (20:23)
[2016-12-17] MEDS: AMITRIPTYLINE HCL 50 MG TAB PO SCH (20:23)
[2016-12-17] MEDS: DONEPEZIL HCL 5 MG TAB PO SCH (20:23)
[2016-12-17] MEDS: MENTHOL LOZENGE BUCCAL PRN (20:26)
[2016-12-17] MEDS: CETIRIZINE HCL 10 MG TAB PO SCH (20:27)
[2016-12-18] MEDS: SUCRALFATE 1 GM TAB PO SCH (05:15)
[2016-12-18 05:23] VITALS: BP 147/78; PULSE 78; RESP 18; TEMP 97.8; O2SAT 93
[2016-12-18] MEDS: RESP: ALBUTEROL 2.5 MG/IPRATROPIUM 0.5 MG NEB (SCH) NEB ×2 (07:20→20:30)
[2016-12-18] MEDS: LACTOBACILLUS ACIDOPHILUS TAB PO SCH ×4 (08:53→20:29)
[2016-12-18] MEDS: ATENOLOL 25 MG TAB PO SCH ×2 (08:53→20:29)
[2016-12-18] MEDS: PANTOPRAZOLE SOD 40 MG DELAYED RELEASE TAB PO SCH (08:53)
[2016-12-18] MEDS: LISINOPRIL 20 MG TAB PO SCH (08:53)
[2016-12-18] MEDS: ARIPiprazole 15 MG TAB PO SCH ×2 (08:54→20:29)
[2016-12-18] MEDS: amLODIPine BESYLATE 5 MG TAB PO SCH (08:54)
[2016-12-18] MEDS: DULoxetine HCl DR 30 MG CAP PO SCH ×2 (08:54→20:29)
[2016-12-18] MEDS: TIMOLOL MALEATE 0.5% OPHT SOLN 5 ML BTL EACH EYE SCH (08:56)
[2016-12-18] MEDS: BUDESONIDE-FORMOTEROL 160/4.5 MCG INHALER INH SCH ×2 (09:00→20:33)
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
[2016-12-18 18:38] VITALS: BP 99/58; PULSE 66; RESP 18; TEMP 97.1; O2SAT 96
[2016-12-18] MEDS: guaiFENesin/DEXTROMETHORPHAN 200 MG/20 MG/10 ML CUP PO PRN (20:28)
[2016-12-18] MEDS: MENTHOL LOZENGE BUCCAL PRN (20:29)
[2016-12-18] MEDS: MIRTAZAPINE 15 MG TAB PO SCH (20:29)
[2016-12-18] MEDS: CETIRIZINE HCL 10 MG TAB PO SCH (20:29)
[2016-12-18] MEDS: AMITRIPTYLINE HCL 50 MG TAB PO SCH (20:29)
[2016-12-18] MEDS: ATORVASTATIN 10 MG TAB PO SCH (20:30)
[2016-12-18] MEDS: DONEPEZIL HCL 5 MG TAB PO SCH (20:30)
[2016-12-19] MEDS: SUCRALFATE 1 GM TAB PO SCH (05:32)
[2016-12-19 05:58] VITALS: BP 116/65; PULSE 69; RESP 15; TEMP 98.5; O2SAT 96
[2016-12-19] MEDS: RESP: ALBUTEROL 2.5 MG/IPRATROPIUM 0.5 MG NEB (SCH) NEB ×2 (07:39→18:45)
[2016-12-19] MEDS: PANTOPRAZOLE SOD 40 MG DELAYED RELEASE TAB PO SCH (09:44)
[2016-12-19] MEDS: LISINOPRIL 20 MG TAB PO SCH (09:44)
[2016-12-19] MEDS: ARIPiprazole 15 MG TAB PO SCH ×2 (09:45→20:21)
[2016-12-19] MEDS: DULoxetine HCl DR 30 MG CAP PO SCH ×2 (09:45→20:22)
[2016-12-19] MEDS: ATENOLOL 25 MG TAB PO SCH ×2 (09:45→20:21)
[2016-12-19] MEDS: amLODIPine BESYLATE 5 MG TAB PO SCH (09:46)
[2016-12-19] MEDS: BUDESONIDE-FORMOTEROL 160/4.5 MCG INHALER INH SCH ×2 (09:46→20:24)
[2016-12-19] MEDS: TIMOLOL MALEATE 0.5% OPHT SOLN 5 ML BTL EACH EYE SCH (09:49)
[2016-12-19] MEDS: LACTOBACILLUS ACIDOPHILUS TAB PO SCH ×2 (13:49→17:29)
--- NOTE | 2016-12-19 14:32 | HHI.PYPN ---
Subjective Remarks Pt seen and discussed with staff. Pt reports decreased visual hallucinations and that mood is improving. Affect is brighter. No SI/HI. She is compliant with medications Objective Alert: Yes [place]: Person, Place, Date Mood: Calm, Depressed (decreased) Affect: Restricted (brighter) Memory Intact: Comment (impaired) Hallucinations: Visual (intermittent, decreased) Delusions: No (though somewhat vigilant) Delusion Type: Other (somewhat vigilant) Suicidal: Ideation (denies today) Homicidal: Ideation (denies) Insight/Judgement poor Vitals/IOs Vital Signs Date Time Temp Pulse Resp B/P Pulse Ox O2 Delivery O2 Flow Rate FiO2 12/19/16 05:58 98.5 69 15 116/65 96 Intake and Output 12/18/16 12/18/16 12/19/16 08:00 16:00 00:00 Intake Total 0 ml 1920 ml Balance 0 ml 1920 ml Assessment & Plan Problem List: (1) Major depressive disorder, recurrent, severe with psychotic features ICD Code: F33.3 (2) Dementia with behavioral disturbance ICD Code: F03.91 Assessment & Plan Continue current tx plan as pt is improving. Estimated LOS: days Justification for Cont. Inpt. risks of decompensation in less restrictive setting. Request HC Surrog/Guard Advoc?: No Margie Rojo MD Dec 19, 2016 14:32
[2016-12-19 18:03] VITALS: BP 118/54; PULSE 104; RESP 18; TEMP 98
[2016-12-19] MEDS: AMITRIPTYLINE HCL 50 MG TAB PO SCH (20:21)
[2016-12-19] MEDS: DONEPEZIL HCL 5 MG TAB PO SCH (20:21)
[2016-12-19] MEDS: MIRTAZAPINE 15 MG TAB PO SCH (20:21)
[2016-12-19] MEDS: CETIRIZINE HCL 10 MG TAB PO SCH (20:21)
[2016-12-19] MEDS: MENTHOL LOZENGE BUCCAL PRN (20:22)
[2016-12-19] MEDS: guaiFENesin/DEXTROMETHORPHAN 200 MG/20 MG/10 ML CUP PO PRN (20:22)
[2016-12-19] MEDS: ATORVASTATIN 10 MG TAB PO SCH (20:22)
[2016-12-20] MEDS: SUCRALFATE 1 GM TAB PO SCH (05:23)
[2016-12-20 06:00] VITALS: BP 108/61; PULSE 59; RESP 16; TEMP 98.2; O2SAT 93
[2016-12-20] MEDS: RESP: ALBUTEROL 2.5 MG/IPRATROPIUM 0.5 MG NEB (SCH) NEB (07:32)
[2016-12-20] MEDS: TIMOLOL MALEATE 0.5% OPHT SOLN 5 ML BTL EACH EYE SCH (09:00)
[2016-12-20] MEDS: PANTOPRAZOLE SOD 40 MG DELAYED RELEASE TAB PO SCH (09:02)
[2016-12-20] MEDS: LACTOBACILLUS ACIDOPHILUS TAB PO SCH ×3 (09:04→18:46)
[2016-12-20] MEDS: ATENOLOL 25 MG TAB PO SCH ×2 (09:04→20:50)
[2016-12-20] MEDS: DULoxetine HCl DR 30 MG CAP PO SCH ×2 (09:04→20:49)
[2016-12-20] MEDS: ARIPiprazole 15 MG TAB PO SCH ×2 (09:04→20:49)
[2016-12-20] MEDS: LISINOPRIL 20 MG TAB PO SCH (09:04)
[2016-12-20] MEDS: amLODIPine BESYLATE 5 MG TAB PO SCH (09:04)
[2016-12-20] MEDS: BUDESONIDE-FORMOTEROL 160/4.5 MCG INHALER INH SCH ×2 (09:06→20:48)
[2016-12-20 09:12] VITALS: BP 120/64; PULSE 80
[2016-12-20] MEDS: guaiFENesin/DEXTROMETHORPHAN 200 MG/20 MG/10 ML CUP PO PRN ×2 (13:19→21:23)
[2016-12-20] MEDS: MENTHOL LOZENGE BUCCAL PRN ×2 (13:19→21:23)
--- NOTE | 2016-12-20 15:18 | HHI.PYPN ---
Subjective Remarks Pt seen and discussed with staff.Pt mood has been brighter today and she has been more engaged. No hallucinations. Compliant with medications. No side effects. No SI/HI. Objective Alert: Yes [place]: Person, Place, Date Mood: Calm Affect: Restricted (brighter) Memory Intact: Comment (impaired) Hallucinations: Other (none) Delusions: No (though somewhat vigilant) Delusion Type: Other (somewhat vigilant) Suicidal: Ideation (denies today) Homicidal: Ideation (denies) Insight/Judgement limited Vitals/IOs Vital Signs Date Time Temp Pulse Resp B/P Pulse Ox O2 Delivery O2 Flow Rate FiO2 12/20/16 09:12 80 120/64 12/20/16 06:00 98.2 16 93 Intake and Output 12/19/16 12/19/16 12/20/16 08:00 16:00 00:00 Intake Total 120 ml 1200 ml Balance 120 ml 1200 ml Assessment & Plan Problem List: (1) Major depressive disorder, recurrent, severe with psychotic features ICD Code: F33.3 (2) Dementia with behavioral disturbance ICD Code: F03.91 Assessment & Plan Continue current tx plan. Estimated LOS: days Justification for Cont. Inpt. risk of decompensation Request HC Surrog/Guard Advoc?: Margie Hahn MD Dec 20, 2016 15:18
[2016-12-20 18:21] VITALS: BP 111/69; PULSE 61; RESP 17; TEMP 98.4; O2SAT 94
[2016-12-20] MEDS: ACETAMINOPHEN 325 MG TAB PO PRN (18:48)
[2016-12-20] MEDS: MIRTAZAPINE 15 MG TAB PO SCH (20:49)
[2016-12-20] MEDS: AMITRIPTYLINE HCL 50 MG TAB PO SCH (20:49)
[2016-12-20] MEDS: CETIRIZINE HCL 10 MG TAB PO SCH (20:49)
[2016-12-20] MEDS: ATORVASTATIN 10 MG TAB PO SCH (20:50)
[2016-12-20] MEDS: DONEPEZIL HCL 5 MG TAB PO SCH (20:50)
[2016-12-20] MEDS: hydrOXYzine HCL 50 MG TAB PO PRN (21:23)
[2016-12-21] MEDS: SUCRALFATE 1 GM TAB PO SCH (05:33)
[2016-12-21 05:50] VITALS: BP 110/58; PULSE 62; RESP 16; TEMP 97.2; O2SAT 96
[2016-12-21] MEDS: MENTHOL LOZENGE BUCCAL PRN ×3 (06:21→21:26)
[2016-12-21] MEDS: guaiFENesin/DEXTROMETHORPHAN 200 MG/20 MG/10 ML CUP PO PRN ×2 (06:21→21:26)
[2016-12-21] MEDS: amLODIPine BESYLATE 5 MG TAB PO SCH (09:23)
[2016-12-21] MEDS: BUDESONIDE-FORMOTEROL 160/4.5 MCG INHALER INH SCH ×2 (09:23→21:00)
[2016-12-21] MEDS: PANTOPRAZOLE SOD 40 MG DELAYED RELEASE TAB PO SCH (09:24)
[2016-12-21] MEDS: ATENOLOL 25 MG TAB PO SCH ×2 (09:24→21:10)
[2016-12-21] MEDS: ARIPiprazole 15 MG TAB PO SCH ×2 (09:24→21:10)
[2016-12-21] MEDS: DULoxetine HCl DR 30 MG CAP PO SCH ×2 (09:24→21:10)
[2016-12-21] MEDS: LACTOBACILLUS ACIDOPHILUS TAB PO SCH ×3 (09:24→18:00)
[2016-12-21] MEDS: TIMOLOL MALEATE 0.5% OPHT SOLN 5 ML BTL EACH EYE SCH (09:24)
[2016-12-21] MEDS: LISINOPRIL 20 MG TAB PO SCH (09:24)
--- NOTE | 2016-12-21 15:30 | HHI.PYPN ---
Subjective Remarks Patient discussed with treatment team, chart reviewed, patient seen on unit. Patient continues somewhat calm isolating however appears to be some mild increase in affect. She denies suicidality homicidality voices or visions. Patient compliant with her medications. For now continue treatment consider discharge next 1-2 days Review of Systems Except as stated in HPI: all other systems reviewed are Neg Objective Alert: Yes [place]: Person, Place, Date Mood: Calm Affect: Restricted (brighter) Memory Intact: Comment (impaired) Hallucinations: Other (none) Delusions: No (though somewhat vigilant) Delusion Type: Other (somewhat vigilant) Suicidal: Ideation (denies today) Homicidal: Ideation (denies) Insight/Judgement Poor Vitals/IOs Vital Signs Date Time Temp Pulse Resp B/P Pulse Ox O2 Delivery O2 Flow Rate FiO2 12/21/16 05:50 97.2 62 16 110/58 96 Intake and Output 12/20/16 12/20/16 12/21/16 08:00 16:00 00:00 Intake Total 85 ml 360 ml Balance 85 ml 360 ml Assessment & Plan Problem List: (1) Major depressive disorder, recurrent, severe with psychotic features ICD Code: F33.3 (2) Dementia with behavioral disturbance ICD Code: F03.91 Assessment & Plan Estimated LOS: days patient mood improving appears to be stabilizing, compliant medications, consider discharge next 22 days Justification for Cont. Inpt. At this time patient will decompensate if placed in a lower level of care Discharge Planning To be determined Request HC Surrog/Guard Advoc?: No Eyal Francois MD Dec 21, 2016 15:30
[2016-12-21 18:50] VITALS: BP 125/69; PULSE 84; RESP 16; TEMP 97.3; O2SAT 97
[2016-12-21] MEDS: AMITRIPTYLINE HCL 50 MG TAB PO SCH (21:09)
[2016-12-21] MEDS: CETIRIZINE HCL 10 MG TAB PO SCH (21:09)
[2016-12-21] MEDS: ATORVASTATIN 10 MG TAB PO SCH (21:10)
[2016-12-21] MEDS: DONEPEZIL HCL 5 MG TAB PO SCH (21:10)
[2016-12-21] MEDS: MIRTAZAPINE 15 MG TAB PO SCH (21:10)
[2016-12-22] MEDS: SUCRALFATE 1 GM TAB PO SCH (06:03)
[2016-12-22 06:10] VITALS: BP 157/70; PULSE 96; RESP 17; TEMP 98.2; O2SAT 98
[2016-12-22] MEDS: ARIPiprazole 15 MG TAB PO SCH (08:38)
[2016-12-22] MEDS: TIMOLOL MALEATE 0.5% OPHT SOLN 5 ML BTL EACH EYE SCH (08:38)
[2016-12-22] MEDS: BUDESONIDE-FORMOTEROL 160/4.5 MCG INHALER INH SCH (08:38)
[2016-12-22] MEDS: PANTOPRAZOLE SOD 40 MG DELAYED RELEASE TAB PO SCH (08:39)
[2016-12-22] MEDS: LISINOPRIL 20 MG TAB PO SCH (08:39)
[2016-12-22] MEDS: amLODIPine BESYLATE 5 MG TAB PO SCH (08:39)
[2016-12-22] MEDS: ATENOLOL 25 MG TAB PO SCH (08:39)
[2016-12-22] MEDS: DULoxetine HCl DR 30 MG CAP PO SCH (08:39)
[2016-12-22] MEDS: LACTOBACILLUS ACIDOPHILUS TAB PO SCH ×2 (08:40→12:20)
--- NOTE | 2016-12-22 11:00 | HHI.PYPN ---
Subjective Remarks Patient seen in her room with nurse Marialuisa, chart reviewed. Patient continues to do well no denying any auditory or visual hallucinations. Compliant medications. For now continue treatment Review of Systems Except as stated in HPI: all other systems reviewed are Neg Objective Alert: Yes [place]: Person, Place, Date Mood: Calm Affect: Restricted (brighter) Memory Intact: Comment (impaired) Hallucinations: Other (none) Delusions: No (though somewhat vigilant) Delusion Type: Other (somewhat vigilant) Suicidal: Ideation (denies today) Homicidal: Ideation (denies) Insight/Judgement Poor Vitals/IOs Vital Signs Date Time Temp Pulse Resp B/P Pulse Ox O2 Delivery O2 Flow Rate FiO2 12/22/16 06:10 98.2 96 17 157/70 98 Intake and Output 12/21/16 12/21/16 12/22/16 08:00 16:00 00:00 Intake Total 990 ml Balance 990 ml Assessment & Plan Problem List: (1) Major depressive disorder, recurrent, severe with psychotic features ICD Code: F33.3 (2) Dementia with behavioral disturbance ICD Code: F03.91 Assessment & Plan Estimated LOS: days patient's mood is improving, now denying any auditory or visual hallucinations, compliant medications. For now continue treatment Justification for Cont. Inpt. At this time patient will decompensate if placed in the lower level of care Discharge Planning To be determined Request HC Surrog/Guard Advoc?: No Eyal Francois MD Dec 22, 2016 11:00
[2016-12-22] MEDS ORDERED: DULO1CAP2 PO (13:28)
[2016-12-22] MEDS ORDERED: LISI-515 PO (13:28)
[2016-12-22] MEDS ORDERED: AMLO5 PO (13:28)
[2016-12-22] MEDS ORDERED: LIPI10TA PO (13:28)
[2016-12-22] MEDS ORDERED: REME45TA PO (13:28)
[2016-12-22] MEDS ORDERED: ARIC5TAB PO (13:28)
[2016-12-22] MEDS ORDERED: ATEN25TA PO (13:28)
[2016-12-22] MEDS ORDERED: CETI10 PO (13:28)
[2016-12-22] MEDS ORDERED: Amitriptyline PO (13:28)
[2016-12-22] MEDS ORDERED: PANT40TA3 PO (13:28)
[2016-12-22] MEDS ORDERED: LACT PO (13:28)
[2016-12-22] MEDS ORDERED: CARA1TAB6 PO (13:28)
[2016-12-22] MEDS ORDERED: ARIP1TAB13 PO (13:28)
[2016-12-22] MEDS ORDERED: SYMB160A INH (13:28)
[2016-12-22] MEDS ORDERED: TIMO0.5S30 EACH EYE (13:28)
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
== END 2016-12-22 15:40 | DRG 885 ==
LOC: NEDAMB 15:09 → NEDA 23:38 → H250 12-05 01:05
PROVIDERS: ADMIT Psychiatry & Neurology Psychiatry; ATTEND Psychiatry & Neurology Psychiatry
DX: F33.3 Major depressive disorder, recurrent, severe with psychotic symptoms (principal); F01.51 Vascular dementia, unspecified severity, with behavioral disturbance; J44.9 Chronic obstructive pulmonary disease, unspecified; N39.0 Urinary tract infection, site not specified; R45.851 Suicidal ideations; R63.0 Anorexia; F41.9 Anxiety disorder, unspecified; I25.10 Atherosclerotic heart disease of native coronary artery without angina pectoris; I10 Essential (primary) hypertension; G47.00 Insomnia, unspecified; K58.9 Irritable bowel syndrome, unspecified; H54.8 Legal blindness, as defined in USA; M54.5 Low back pain; G89.29 Other chronic pain; K21.9 Gastro-esophageal reflux disease without esophagitis; E78.5 Hyperlipidemia, unspecified; R32 Unspecified urinary incontinence; J02.9 Acute pharyngitis, unspecified; B96.1 Klebsiella pneumoniae [K. pneumoniae] as the cause of diseases classified elsewhere; B34.9 Viral infection, unspecified; M81.0 Age-related osteoporosis without current pathological fracture; Z86.73 Personal history of transient ischemic attack (TIA), and cerebral infarction without residual deficits; Z87.891 Personal history of nicotine dependence; Z96.642 Presence of left artificial hip joint
CPT/HCPCS: 71010; 80048; 80053; 80061; 80307; 81001; 83036; 84439; 84443; 85025; 87077; 87086; 87186; 90686; 90732; 94640; 94664; 99285; Q2038

== ENCOUNTER → 2017-06-30 | Day surgery (SDC) | payer MEDICARE, MEDICAID ==
[~2017-06-30] MED LIST changes: -ALPR1TAB3 PO; -AMIT25 PO; +AMIT25TA9 PO; +AMLO5TAB2 PO; -AMLO5TAB22 PO; +ARIC5TAB PO; +ARIP1TAB13 PO; -ARIP2 PO; -ASPI325T PO; -ATEN-100 PO; -ATEN25 PO; +ATEN25TA PO; -ATOR10 PO; -ATOR10TA PO; +Amitriptyline PO; -CALC250 PO; -CALCTAB38 PO; +CARA1TAB6 PO; +CETI10 PO; -CYCL1PAK PO; +DULO1CAP2 PO; -DULO20 PO; -DULO60 PO; +LACT PO; +LACTATED RINGER'S 1000 ML INJ 1,000 ML ONE; -LEXA10TA PO; +LIPI10TA PO; -LISI-366 PO; +LISI-515 PO; +LISI40TA PO; +LORA-373 PO; -LORTA5 PO; +MIRT45TA PO; -MIRTA15 PO; -ONDA4 PO; -PANT40IN3 PO; +PANT40TA3 PO; +PROPOFOL 500 MG/50 ML BTL IV ONE; -PROT40TA PO; -SUCR1 PO; -SUCR1TAB PO; +SYMB160A INH; +TIMO0.5S30 EACH EYE; -VITA10002 PO; -VITA100020 PO
--- NOTE | 2017-06-30 15:25 | GIPROC ---
[facility] [address], [address] EGD PROCEDURE REPORT EXAM DATE: 06/30/2017 PATIENT NAME: Azul Martinez MR #: [id number] BIRTHDATE: 1945 ATTENDING: Rosalba Reaves MD ORDER #: [id number] MEDICAL MANAGER: Mary Cabello STATUS: outpatient INDICATIONS: The patient is a 72 yr old female here for an EGD due to abdominal pain ruq, history of pud PROCEDURE PERFORMED: EGD w/ biopsy MEDICATIONS: None and Per Anesthesia. TOPICAL ANESTHETIC: none CONSENT: The patient understands the risks and benefits of the procedure and understands that these risks include, but are not limited to: sedation, allergic reaction, infection, perforation and/or bleeding. Alternative means of evaluation and treatment include, among others: physical exam, x-rays, and/or surgical intervention. The patient elects to proceed with this endoscopic procedure. medical equipment was checked for proper function. Hand hygiene and appropriate measures for infection prevention was taken. After the risks, benefits and alternatives of the procedure were thoroughly explained, Informed consent was verified, confirmed and timeout was successfully executed by the treatment team. The patient was anesthetized with topical anesthesia and the EC-[id number] ([id number]) endoscope was introduced through the mouth and advanced to the second portion of the duodenum. Retroflexed views revealed a hiatal hernia The gastroscope was then slowly withdrawn and removed. Duodenum normal-biopsy gastritis antrum-biopsy mild esophagitis distal esophagus-biopsy. ADVERSE EVENTS: There were no complications. IMPRESSIONS: 1. Duodenum normal-biopsy gastritis antrum-biopsy mild esophagitis distal esophagus-biopsy 2. Retroflexed views revealed a hiatal hernia RECOMMENDATIONS: 1. Await biopsy results. Biopsy results will not be ready for 7-10 days. If you don't hear from us in two weeks, call our office for biopsy results. 2. Anti-reflux regimen 3. Avoid NSAIDS PATIENT CONDITION: stable DISPOSITION: Home REPEAT EXAM: Return 3 years EGD Rosalba Reaves MD eSigned: Rosalba Reaves MD 06/30/2017 3:25 PM cc: Michel Kilgore
--- NOTE | 2017-06-30 15:31 | GIPROC ---
[facility] [address], [address] COLONOSCOPY PROCEDURE REPORT EXAM DATE: 06/30/2017 PATIENT NAME: Azul Martinez MR #: [id number] BIRTHDATE: 1945 ENDOSCOPIST: Rosalba Reaves MD ORDER #: [id number] FAMILY SERVICE WORKER: Mary Cabello STATUS: outpatient INDICATIONS: The patient is a 72 yr old female here for a colonoscopy due to abdominal pain, change in bowel habits PROCEDURE PERFORMED: Colonoscopy with biopsy MEDICATIONS: None and Per Anesthesia. PREP QUALITY: fair PREP TYPE:Other: ESTIMATED BLOOD LOSS: None CONSENT: The patient understands the risks and benefits of the procedure and understands that these risks include, but are not limited to: sedation, allergic reaction, infection, perforation and/or bleeding. Alternative means of evaluation and treatment include, among others: physical exam, x-rays, and/or surgical intervention. The patient elects to proceed with this endoscopic procedure. medical equipment was checked for proper function. Hand hygiene and appropriate measures for infection prevention was taken. After the risks, benefits and alternatives of the procedure were thoroughly explained, Informed consent was verified, confirmed and timeout was successfully executed by the treatment team. A digital exam revealed external hemorrhoids The EC-[id number] ([id number]) endoscope was introduced through the anus and advanced to the cecum, which was identified by both the appendix and ileocecal valve. The instrument was then slowly withdrawn as the colon was fully examined. COLON FINDINGS: Diverticulosis sigmoid,descending random biopsy descending colon -r/o microscopic colitis. Retroflexed views revealed internal hemorrhoids and Retroflexed views revealed small internal hemorrhoids The scope was then completely withdrawn from the patient and the procedure terminated. PROCEDURE WITHDRAWAL TIME:6minutes ADVERSE EVENTS: There were no complications. IMPRESSIONS: 1. Diverticulosis sigmoid,descending random biopsy descending colon -r/o microscopic colitis 2. Retroflexed views revealed internal hemorrhoids 3. Retroflexed views revealed small internal hemorrhoids 4. Revealed external hemorrhoids RECOMMENDATIONS: 1. Await biopsy results. Biopsy results will not be ready for 7-10 days. If you don't hear from us in two weeks, call our office for results. 2. High fiber diet 3. Probiotics from any [facility] or health food store 4. Yearly rectal exams RECALL: Return 5 years Colonoscopy Rosalba Reaves MD eSigned: Rosalba Reaves MD 06/30/2017 3:30 PM cc: Michel Kilgore
== END | disposition home or self-care (01) ==
LOC: ESDC 10:55
PROVIDERS: ATTEND Internal Medicine Gastroenterology
DX: R10.9 Unspecified abdominal pain (principal); R19.4 Change in bowel habit; K64.4 Residual hemorrhoidal skin tags; K57.90 Diverticulosis of intestine, part unspecified, without perforation or abscess without bleeding; K64.8 Other hemorrhoids; K44.9 Diaphragmatic hernia without obstruction or gangrene; K29.70 Gastritis, unspecified, without bleeding; K20.9 Esophagitis, unspecified
CPT/HCPCS: 00740; 00810; 43239; 45380; 88305; J7120

== ENCOUNTER 2018-01-01 05:51 | Inpatient (IN) | payer MEDICARE, OTHER ==
[2018-01-01] VITALS (18 sets, daily range): BP systolic 107–147; BP diastolic 59–95; PULSE 76–94; RESP 16–20; TEMP 97.9–98.6; O2SAT 92–98
[~2018-01-01] VITALS: Ht 165.1 cm; Wt 80.5 kg
[~2018-01-01 05:51] MED LIST changes: -LACTATED RINGER'S 1000 ML INJ 1,000 ML ONE; -LORA-373 PO; +LORA0.5T PO; -PROPOFOL 500 MG/50 ML BTL IV ONE
[2018-01-01] MEDS ORDERED: RESP: ALBUTEROL 2.5 MG/IPRATROPIUM 0.5 MG NEB (SCH) INH ONE (06:15)
--- NOTE | 2018-01-01 06:17 | PD ---
HPI Chief Complaint: Respiratory Distress Time Seen by Provider: 06:03 Travel History International Travel<30 days: No Contact w/Intl Traveler<30days: No Traveled to known affect area: No History of Present Illness HPI 72-year-old female complains of shortness of breath. Patient states that symptoms started tonight. Patient has history of COPD. EMS was called because patient slipped out of bed this evening. Patient was found sitting on the floor. EMS was called. Patient's O2 saturation was 74% at the scene. Patient was given albuterol treatment and Solu-Medrol 125 mg IV and oxygen on the way to ED. Patient denies any headache. Patient denies any chest pain. Patient complains of shortness of breath. Patient denies abdominal pain. Patient denies any fever chills. PFSH Past Medical History Autoimmune Disease: No Blood Disorders: No Anxiety: Yes Depression: Yes Cancer: No (See EMR) Chemotherapy: No COPD: Yes Cerebrovascular Accident: Yes (TIA) Coronary Artery Disease: Yes Dementia: Yes Diabetes: No (See EMR) Diminished Hearing: No Endocrine: No Gastrointestinal Disorders: Yes (enlarged bile duct drained; nervous stomach) Genitourinary: Yes (frequent UTIs) Hypertension: Yes Immune Disorder: No Musculoskeletal: Yes (OSTEOPOROSIS) Neurologic: Yes (CVA x2 minor) Psychiatric: Yes Reproductive: No Respiratory: Yes (COPD) Radiation Therapy: No Thyroid Disease: No ?: Not Past Surgical History AICD: No Appendectomy: Yes Arteriovenous Shunt: No Hysterectomy: Yes (TOTAL) Insulin Pump: No Joint Replacement: Yes (LEFT HIP ) Pacemaker: No Other Surgery: Yes (hysterectomy, left total hip replacement) Social History Alcohol Use: No Tobacco Use: Yes (FORMER - E CIG ) Substance Use: No Allergies-Medications (Allergen,Severity, Reaction): Coded Allergies: iodine (Unverified Allergy, Unknown, 05/18/17) potassium iodide (Unverified Allergy, Unknown, 05/18/17) povidone-iodine (Unverified Allergy, Unknown, 05/18/17) sodium iodide (Unverified Allergy, Unknown, 05/18/17) sodium iodide (Unverified Allergy, Unknown, 05/18/17) Reported Meds & Prescriptions Reported Meds & Active Scripts Active Carafate (Sucralfate) 1 Gm Tab 1 Gm PO DAILY@0600 Pantoprazole (Pantoprazole Sodium) 40 Mg Tab 40 Mg PO DAILY Remeron (Mirtazapine) 45 Mg Tab 45 Mg PO HS Acidophilus/l-Sporogenes (Lactobacillus Acidophilus) 1 Tab Tab 1 Tab PO TID Cetirizine (Cetirizine HCl) 10 Mg Tab 10 Mg PO HS Symbicort Inh (Budesonide/Formoterol Fumarate) 160-4.5 Mcg/Act Aero 1 Puff INH Q12HR Lipitor (Atorvastatin Calcium) 10 Mg Tab 10 Mg PO HS Reported Latanoprost Opth Drops (Latanoprost) 0.005% Drops 1 Drop EACH EYE HS Loperamide (Loperamide HCl) 2 Mg Cap 2 Mg PO DIRECTED PRN One capsule after each loose stool. Not to exceed 8 capsules per day. Escitalopram (Escitalopram Oxalate) 5 Mg Tab 5 Mg PO DAILY Melatonin 5 Mg Tab 3 Mg PO HS Lorazepam 0.5 Mg Tab 0.5 Mg PO Q8H PRN Tramadol (Tramadol HCl) 50 Mg Tab 50 Mg PO Q8H PRN Trazodone (Trazodone HCl) 100 Mg Tablet 100 Mg PO HS Risperidone 0.5 Mg Tab 0.5 Mg PO HS Oyster Shell Calcium 500 mg 500 Mg Calcium (1250 Mg) Tab 500 Mg PO Q12HR Aspirin EC (Aspirin) 325 Mg Tabdr 325 Mg PO DAILY Donepezil 10 Mg Tab 10 Mg PO HS Amitriptyline (Amitriptyline HCl) 25 Mg Tab 25 Mg PO HS Lisinopril 40 Mg Tab 40 Mg PO DAILY Amlodipine (Amlodipine Besylate) 5 Mg Tab 5 Mg PO DAILY Atenolol 25 Mg Tab 25 Mg PO DAILY Review of Systems General / Constitutional: No: Fever Eyes: No: Visual changes HENT: No: Headaches Cardiovascular: No: Chest Pain or Discomfort Respiratory: Positive: Shortness of Breath Gastrointestinal: No: Abdominal Pain Genitourinary: No: Dysuria Musculoskeletal: No: Pain Skin: No Rash Neurologic: No: Weakness Psychiatric: No: Depression Endocrine: No: Polydipsia Hematologic/Lymphatic: No: Easy Bruising Physical Exam Narrative GENERAL: Well-nourished, well-developed patient. SKIN: Focused skin assessment warm/dry. HEAD: Normocephalic. EYES: No scleral icterus. No injection or drainage. NECK: Supple, trachea midline. No JVD or lymphadenopathy. CARDIOVASCULAR: Regular rate and rhythm without murmurs, gallops, or rubs. RESPIRATORY: Breath sounds equal bilaterally. No accessory muscle use. Patient has moderate expiratory wheezes bilaterally. Patient has rhonchi bilaterally. GASTROINTESTINAL: Abdomen soft, non-tender, nondistended. MUSCULOSKELETAL: No cyanosis, or edema. BACK: Nontender without obvious deformity. No CVA tenderness. Neurologic exam: Patient is lethargic however answer questions appropriately. Patient moves all extremity well. No obvious focal neurological deficit. Data Data Last Documented VS Vital Signs Date Time Temp Pulse Resp B/P (MAP) Pulse Ox O2 Delivery O2 Flow Rate FiO2 01/01/18 06:15 93 Nasal Cannula 3.00 01/01/18 05:58 92 16 142/71 (94) Orders Orders Complete Blood Count With Diff (01/01/18 06:03) Comprehensive Metabolic Panel (01/01/18 06:03) B-Type Natriuretic Peptide (01/01/18 06:03) Act Partial Throm Time (Ptt) (01/01/18 06:03) Prothrombin Time / Inr (Pt) (01/01/18 06:03) Influenzae A/B Antigen (01/01/18 06:03) Blood Culture (01/01/18 06:03) Iv Access Insert/Monitor (01/01/18 06:03) Electrocardiogram (01/01/18 06:03) Ecg Monitoring (01/01/18 06:03) Oximetry (01/01/18 06:03) Oxygen Administration (01/01/18 06:03) Chest, Single Ap (01/01/18 06:03) Sodium Chloride 0.9% Flush (Ns Flush) (01/01/18 06:15) Albuterol-Ipratropium Neb (Duoneb Neb) (01/01/18 06:15) Lactic Acid (01/01/18 06:03) Arterial Blood Gas (Abg) (01/01/18 ) Albuterol-Ipratropium Neb (Duoneb Neb) (01/01/18 06:15) Guaifenesin Er (Mucinex Er) (01/01/18 07:15) Acetylcysteine 20% Neb (Mucomyst 20% Neb (01/01/18 07:15) Ceftriaxone Inj (Rocephin Inj) (01/01/18 07:15) Azithromycin Inj (Zithromax Inj) (01/01/18 07:15) Labs Laboratory Tests Test 01/01/18 06:15 01/01/18 06:44 White Blood Count 12.0 TH/MM3 Red Blood Count 4.03 MIL/MM3 Hemoglobin 11.3 GM/DL Hematocrit 35.8 % Mean Corpuscular Volume 88.8 FL Mean Corpuscular Hemoglobin 28.0 PG Mean Corpuscular Hemoglobin Concent 31.6 % Red Cell Distribution Width 15.3 % Platelet Count 330 TH/MM3 Mean Platelet Volume 8.2 FL Neutrophils (%) (Auto) 80.9 % Lymphocytes (%) (Auto) 10.8 % Monocytes (%) (Auto) 7.7 % Eosinophils (%) (Auto) 0.0 % Basophils (%) (Auto) 0.6 % Neutrophils # (Auto) 9.7 TH/MM3 Lymphocytes # (Auto) 1.3 TH/MM3 Monocytes # (Auto) 0.9 TH/MM3 Eosinophils # (Auto) 0.0 TH/MM3 Basophils # (Auto) 0.1 TH/MM3 CBC Comment DIFF FINAL Differential Comment Prothrombin Time 15.9 SEC Prothromb Time International Ratio 1.6 RATIO Activated Partial Thromboplast Time 22.0 SEC Blood Urea Nitrogen 29 MG/DL Creatinine 1.81 MG/DL Random Glucose 132 MG/DL Total Protein 7.4 GM/DL Albumin 3.2 GM/DL Calcium Level 8.3 MG/DL Alkaline Phosphatase 82 U/L Aspartate Amino Transf (AST/SGOT) 82 U/L Alanine Aminotransferase (ALT/SGPT) 53 U/L Total Bilirubin 0.9 MG/DL Sodium Level 142 MEQ/L Potassium Level 3.8 MEQ/L Chloride Level 105 MEQ/L Carbon Dioxide Level 22.8 MEQ/L Anion Gap 14 MEQ/L Estimat Glomerular Filtration Rate 28 ML/MIN Blood Gas Puncture Site LT RADIAL Blood Gas Patient Temperature 98.6 Blood Gas HCO3 23 mmol/L Blood Gas Base Excess -1.2 mmol/L Blood Gas Oxygen Saturation 89 % Arterial Blood pH 7.39 Arterial Blood Partial Pressure CO2 39 mmHg Arterial Blood Partial Pressure O2 67 mmHG Arterial Blood Oxygen Content 14.0 Vol % Arterial Blood Carboxyhemoglobin 1.7 % Arterial Blood Methemoglobin 0.5 % Blood Gas Hemoglobin 11.1 G/DL Oxygen Delivery Device TREATMENT AND 3 L NC Blood Gas Liter Flow 11 L/M [facility] Medical Decision Making Medical Screen Exam Complete: Yes Emergency Medical Condition: Yes Interpretation(s) Last Impressions Chest X-Ray 01/01/18 0603 Signed Impressions: Service Date/Time: Monday, January 01, 2018 06:30 - CONCLUSION: Normal examination. Mild diffuse interstitial prominence Sunny Campos MD Differential Diagnosis Differential diagnosis including acute exacerbation COPD, bronchitis, pneumonia , CHF, PE, pneumothorax. Narrative Course 72-year-old female with shortness of breath. History of COPD. Patient was given albuterol treatment 2 by EMS and Solu-Medrol 125 mg IV by EMS. Albuterol Atrovent unit dose treatment 3. Rocephin 1 g IV. Zithromax 500 mg IV. Diagnosis Primary Impression: COPD with acute exacerbation Additional Impression: Hypoxemia Titi Bass MD Jan 01, 2018 06:17
[2018-01-01] MEDS: RESP: ALBUTEROL 2.5 MG/IPRATROPIUM 0.5 MG NEB (SCH) INH ×5 (06:24→20:59)
[2018-01-01 06:31] LABS: AUTOMATED NEUTROPHIL # 9.7 TH/MM3 (1.8-7.7); BASOPHIL # 0.1 TH/MM3 (0-0.2); BASOPHIL % 0.6 % (0.0-2.0); HEMATOCRIT 35.8 % (35.0-46.0); HEMOGLOBIN 11.3 GM/DL (11.6-15.3); LYMPH % 10.8 % (9.0-44.0); LYMPHOCYTE # 1.3 TH/MM3 (1.0-4.8); MEAN CELL VOLUME 88.8 FL (80.0-100.0); MEAN CORPUSCULAR HGB CONC 31.6 % (32.0-36.0); MEAN PLATELET VOLUME 8.2 FL (7.0-11.0); MONO % 7.7 % (0.0-8.0); MONOCYTE # 0.9 TH/MM3 (0-0.9); NEUT % 80.9 % (16.0-70.0); PLATELET COUNT 330 TH/MM3 (150-450); RED BLOOD COUNT 4.03 MIL/MM3 (4.00-5.30); RED CELL DISTRIBUTION WIDTH 15.3 % (11.6-17.2)
--- NOTE | 2018-01-01 06:51 | RADRPT ---
EXAM DATE/TIME: 01/01/2018 06:30 [place] COMPARISON: CHEST SINGLE AP, December 14, 2016, 13:00. INDICATIONS : Shortness of breath. MEDICAL HISTORY : Dementia SURGICAL HISTORY : None. ENCOUNTER: Initial ACUITY: 1 day PAIN SCORE: 0/10 LOCATION: Bilateral chest FINDINGS: A single view of the chest demonstrates the lungs to be symmetrically aerated without evidence of mas s, infiltrate or effusion. The cardiomediastinal contours are unremarkable. Osseous structures are intact. CONCLUSION: Normal examination. Mild diffuse interstitial prominence Sunny Campos MD on January 01, 2018 at 6:49 Board Certified Radiologist. This report was verified electronically.
[2018-01-01] MEDS ORDERED: TRAZ100T10 PO (06:52)
[2018-01-01] MEDS ORDERED: LORA0.5T PO (06:52)
[2018-01-01] MEDS ORDERED: TRAM50TA PO (06:52)
[2018-01-01] MEDS ORDERED: OYST1TAB PO (06:52)
[2018-01-01] MEDS ORDERED: RISP0.5T2 PO (06:52)
[2018-01-01] MEDS ORDERED: ESCI5TAB PO (06:52)
[2018-01-01] MEDS ORDERED: VENTAER INH (06:52)
[2018-01-01] MEDS ORDERED: LOPE2CAP PO (06:52)
[2018-01-01] MEDS ORDERED: MELA5 PO (06:52)
[2018-01-01] MEDS ORDERED: ASPI325T33 PO (06:52)
[2018-01-01] MEDS ORDERED: DONE10TA7 PO (06:52)
[2018-01-01 06:56] LABS: INTERNATIONAL NORMALIZED RATIO 1.6 RATIO; PROTHROMBIN TIME - PATIENT 15.9 SEC (9.8-11.6)
[2018-01-01] MEDS ORDERED: LATA0.002 EACH EYE (06:58)
[2018-01-01 06:59] LABS: ALBUMIN 3.2 GM/DL (3.4-5.0); ALT (GPT) 53 U/L (10-53); BICARBONATE 22.8 MEQ/L (21.0-32.0); BLOOD UREA NITROGEN 29 MG/DL (7-18); CALCIUM 8.3 MG/DL (8.5-10.1); CHLORIDE 105 MEQ/L (98-107); CREATININE 1.81 MG/DL (0.50-1.00); GLOMERULAR FILTRATION RATE 28 ML/MIN (>89); GLUCOSE,RANDOM 132 MG/DL (74-106); SODIUM (NA) 142 MEQ/L (136-145)
[2018-01-01 07:06] LABS: ALKALINE PHOSPHATASE 82 U/L (45-117); AST (GOT) 82 U/L (15-37); TOTAL BILIRUBIN ADULT 0.9 MG/DL (0.2-1.0); TOTAL PROTEIN 7.4 GM/DL (6.4-8.2)
[2018-01-01] MEDS ORDERED: RESP: ACETYLCYSTEINE 20% 10 ML NEB NEB ONE (07:15)
[2018-01-01] MEDS ORDERED: guaiFENesin E.R. 600 MG TAB PO ONE (07:15)
[2018-01-01] MEDS ORDERED: AZITHROMYCIN INJ 500 MG in SODIUM CHLOR 0.9% 250 ML INJ 250 ML IV ONE (07:15)
[2018-01-01] MEDS ORDERED: cefTRIAXone INJ 1,000 MG in SODIUM CHLORIDE 0.9% INJ 100 ML IV ONE (07:15)
[2018-01-01] MEDS ORDERED: SODIUM CHLOR 0.9% 1000 ML INJ 400 ML IV ONE (07:18)
[2018-01-01] MEDS ORDERED: SODIUM CHLOR 0.9% 1000 ML INJ 1,000 ML IV ONE ×2 (07:18)
[2018-01-01] MEDS ORDERED: ONDANSETRON HCL 4 MG/2 ML VIAL IV PUSH PRN (09:45)
[2018-01-01] MEDS ORDERED: RESP: ALBUTEROL 2.5 MG/IPRATROPIUM 0.5 MG NEB (PRN) INH (09:45)
[2018-01-01] MEDS ORDERED: MAGNESIUM HYDROXIDE SUSP 30 ML CUP PO PRN (09:45)
[2018-01-01] MEDS ORDERED: MISCELLANEOUS NURSING INFORMATION XX SCH (09:45)
[2018-01-01] MEDS ORDERED: POTASSIUM CHLORIDE 25 MEQ EFFERVESCENT TAB PO PRN (09:45)
[2018-01-01] MEDS ORDERED: POTASSIUM PHOSPHATE INJ 30 MMOL in SODIUM CHLOR 0.9% 250 ML INJ 250 ML IV PRN (09:45)
[2018-01-01] MEDS ORDERED: MAGNESIUM SULFATE INJ 2 GM in SODIUM CHLORIDE 0.9% INJ 96 ML IV PRN (09:45)
[2018-01-01] MEDS ORDERED: POTASSIUM CHLOR 40 MEQ PREMIX 100 ML IV PRN ×2 (09:45)
[2018-01-01] MEDS ORDERED: POTASSIUM CHLOR 20 MEQ PREMIX 100 ML IV PRN ×2 (09:45)
[2018-01-01] MEDS ORDERED: DEXTROSE 50% IN WATER 50 ML VIAL(D50) IV PUSH PRN (09:45)
[2018-01-01] MEDS ORDERED: CHLORHEXIDINE GLUCONATE 2 % 1 PACK (2 CLOTHS) TOP PRN (09:45)
[2018-01-01] MEDS ORDERED: MAGNESIUM OXIDE 400 MG TAB PO PRN (09:45)
[2018-01-01] MEDS ORDERED: POTASSIUM PHOSPHATE MONOBASIC 500 MG TAB PO PRN (09:45)
[2018-01-01] MEDS ORDERED: POTASSIUM PHOSPHATE MONOBASIC 500 MG TAB PO/TUBE PRN (09:45)
[2018-01-01] MEDS ORDERED: SODIUM PHOSPHATE INJ 30 MMOL in SODIUM CHLOR 0.9% 250 ML INJ 240 ML IV PRN (09:45)
[2018-01-01] MEDS ORDERED: MAGNESIUM SULFATE INJ 4 GM in SODIUM CHLORIDE 0.9% INJ 92 ML IV PRN (09:45)
--- NOTE | 2018-01-01 09:50 | HHI.HP ---
[facility] Service Critical Care Medicine Primary Care Physician Ángel Bergman M.D. Admission Diagnosis Diagnosis: Chief Complaint: shortness of breath Travel History International Travel<30 Days: No Contact w/Intl Traveler <30 Da: No Traveled to Known Affected Are: No History of Present Illness This is a 72-year-old female with what appears to be a past history of dementia and COPD by looking at old records who presents the emergency department with acute shortness of breath. In the emergency department she was found to have an O2 sat of 74%. She was given IV Solu-Medrol and placed on a nonrebreather. Her lactate was elevated at 4.8 and she had a white count elevation greater than 20,000 which was concerning for sepsis. She was cultured and started on empiric antibiotics. Her BNP came back it 1550 with mildly elevated troponins at 0.1. When I evaluated the patient, she was too somnolent and difficult to arouse. She was clearly protecting her airway, but was unable to answer questions about her medical history. EKG demonstrates severe right axis deviation. Given the electrocardiographic findings combined with the shortness of breath, PE was on the differential. I did bedside critical care echo which demonstrated severe RV dilation and dysfunction which was new with clinically significant tricuspid regurgitation. I ordered formal echo which confirms these findings. We went to stat CT pulmonary angiogram which did not demonstrate any pulmonary embolism, but did demonstrate an enlarged right atrium and right ventricle with evidence of contrast regurgitation into the hepatic veins. I stopped her IV fluids, which were started for presumed sepsis , and ordered 80 mg Lasix IV 1. No additional information is available from the patient. ROS is unobtainable. Review of Systems ROS Limitations: Clinical Condition, Altered Mental Status Past Family Social History Allergies: Coded Allergies: iodine (Unverified Allergy, Unknown, 05/18/17) potassium iodide (Unverified Allergy, Unknown, 05/18/17) povidone-iodine (Unverified Allergy, Unknown, 05/18/17) sodium iodide (Unverified Allergy, Unknown, 05/18/17) sodium iodide (Unverified Allergy, Unknown, 05/18/17) Past Medical History Depression Anxiety COPD TIA Coronary artery disease Dementia Enlarged bile duct Nervous stomach Frequent UTIs Hypertension CVA 2 Osteoporosis Past Surgical History Appendectomy Hysterectomy Left total hip arthroplasty Reported Medications Carafate (Sucralfate) 1 Gm Tab 1 Gm PO DAILY@0600 Pantoprazole (Pantoprazole Sodium) 40 Mg Tab 40 Mg PO DAILY Remeron (Mirtazapine) 45 Mg Tab 45 Mg PO HS Acidophilus/l-Sporogenes (Lactobacillus Acidophilus) 1 Tab Tab 1 Tab PO TID Cetirizine (Cetirizine HCl) 10 Mg Tab 10 Mg PO HS Symbicort Inh (Budesonide/Formoterol Fumarate) 160-4.5 Mcg/Act Aero 1 Puff INH Q12HR Lipitor (Atorvastatin Calcium) 10 Mg Tab 10 Mg PO HS Latanoprost Opth Drops (Latanoprost) 0.005% Drops 1 Drop EACH EYE HS Loperamide (Loperamide HCl) 2 Mg Cap 2 Mg PO DIRECTED PRN One capsule after each loose stool. Not to exceed 8 capsules per day. Escitalopram (Escitalopram Oxalate) 5 Mg Tab 5 Mg PO DAILY Melatonin 5 Mg Tab 3 Mg PO HS Lorazepam 0.5 Mg Tab 0.5 Mg PO Q8H PRN Tramadol (Tramadol HCl) 50 Mg Tab 50 Mg PO Q8H PRN Trazodone (Trazodone HCl) 100 Mg Tablet 100 Mg PO HS Risperidone 0.5 Mg Tab 0.5 Mg PO HS Oyster Shell Calcium 500 mg 500 Mg Calcium (1250 Mg) Tab 500 Mg PO Q12HR Aspirin EC (Aspirin) 325 Mg Tabdr 325 Mg PO DAILY Donepezil 10 Mg Tab 10 Mg PO HS Amitriptyline (Amitriptyline HCl) 25 Mg Tab 25 Mg PO HS Lisinopril 40 Mg Tab 40 Mg PO DAILY Amlodipine (Amlodipine Besylate) 5 Mg Tab 5 Mg PO DAILY Atenolol 25 Mg Tab 25 Mg PO DAILY Active Ordered Medications See MAR Family History Unable to obtain secondary to clinical condition the patient. Unlikely to be contributory to her acute illness Social History Former E cigarette use. Denies EtOH or other drugs. Physical Exam Vital Signs Vital Signs Date Time Temp Pulse Resp B/P (MAP) Pulse Ox O2 Delivery O2 Flow Rate FiO2 01/01/18 09:42 98.6 01/01/18 09:30 82 20 129/81 (97) 97 Non-Rebreather 60 01/01/18 08:22 88 20 131/82 (98) 98 Non-Rebreather 01/01/18 07:45 93 17 132/59 (83) 98 Non-Rebreather 60 01/01/18 07:15 96 Partial Rebreather 12.00 01/01/18 07:10 98 Non-Rebreather 60 01/01/18 06:15 93 Nasal Cannula 3.00 01/01/18 06:12 Nasal Cannula 3.00 01/01/18 06:08 5 Nasal Cannula 01/01/18 05:58 92 16 142/71 (94) Physical Exam GENERAL: Elderly female, lying in bed, in respiratory distress HEENT: Normocephalic. Atraumatic. Pupils equal, round, reactive, conjugate. Mucous membranes are moist NECK: Trachea is midline. Positive JVD above the level of the mandible CHEST: Tachypneic, in distress. Nonrebreather in place. CARDIOVASCULAR: Normal rate, regular rhythm. Appears sinus by telemetry. ABDOMEN: Soft, nontender, nondistended. No guarding. MUSCULOSKELETAL: Pulses 2+. No peripheral edema. NEUROLOGICAL: RASS -2. Protect airway. Brisk gag reflex. Moves all extremities. Weakly follows commands. Laboratory Laboratory Tests Test 01/01/18 06:15 01/01/18 06:44 White Blood Count 12.0 Red Blood Count 4.03 Hemoglobin 11.3 Hematocrit 35.8 Mean Corpuscular Volume 88.8 Mean Corpuscular Hemoglobin 28.0 Mean Corpuscular Hemoglobin Concent 31.6 Red Cell Distribution Width 15.3 Platelet Count 330 Mean Platelet Volume 8.2 Neutrophils (%) (Auto) 80.9 Lymphocytes (%) (Auto) 10.8 Monocytes (%) (Auto) 7.7 Eosinophils (%) (Auto) 0.0 Basophils (%) (Auto) 0.6 Neutrophils # (Auto) 9.7 Lymphocytes # (Auto) 1.3 Monocytes # (Auto) 0.9 Eosinophils # (Auto) 0.0 Basophils # (Auto) 0.1 CBC Comment DIFF FINAL Differential Comment Prothrombin Time 15.9 Prothromb Time International Ratio 1.6 Activated Partial Thromboplast Time 22.0 Blood Urea Nitrogen 29 Creatinine 1.81 Random Glucose 132 Total Protein 7.4 Albumin 3.2 Calcium Level 8.3 Alkaline Phosphatase 82 Aspartate Amino Transf (AST/SGOT) 82 Alanine Aminotransferase (ALT/SGPT) 53 Total Bilirubin 0.9 Sodium Level 142 Potassium Level 3.8 Chloride Level 105 Carbon Dioxide Level 22.8 Anion Gap 14 Estimat Glomerular Filtration Rate 28 Lactic Acid Level 4.8 B-Type Natriuretic Peptide 1557 Blood Gas Puncture Site LT RADIAL Blood Gas Patient Temperature 98.6 Blood Gas HCO3 23 Blood Gas Base Excess -1.2 Blood Gas Oxygen Saturation 89 Arterial Blood pH 7.39 Arterial Blood Partial Pressure CO2 39 Arterial Blood Partial Pressure O2 67 Arterial Blood Oxygen Content 14.0 Arterial Blood Carboxyhemoglobin 1.7 Arterial Blood Methemoglobin 0.5 Blood Gas Hemoglobin 11.1 Oxygen Delivery Device TREATMENT AND 3 L NC Blood Gas Liter Flow 11 Date/Time Source Procedure Growth Status 01/01/18 06:15 Blood Peripheral Aerobic Blood Culture Pending Received 01/01/18 06:15 Blood Peripheral Anaerobic Blood Culture Pending Received 01/01/18 08:25 Nasal Washing Influenza Types A,B Antigen (AVELINA) - Final NEGATIVE FOR FLU A AND B ANTIGEN.... Complete Result Diagram: 01/01/18 0615 01/01/18 0615 Imaging Last Impressions Chest X-Ray 01/01/18 0603 Signed Impressions: Service Date/Time: Monday, January 01, 2018 06:30 - CONCLUSION: Normal examination. Mild diffuse interstitial prominence Sunny Campos MD CT Angiography 01/01/18 0000 Signed Impressions: Service Date/Time: Monday, January 01, 2018 12:44 - CONCLUSION: 1. Negative for pulmonary embolus. 2. Severe emphysema. 3. Small right effusion. Dependent atelectasis in the lungs. Farooq Guzman MD Septic Shock Reassessment Septic shock perfusion: reassessment completed Caprini VTE Risk Assessment Caprini VTE Risk Assessment: Mod/High Risk (score >= 2) Caprini Risk Assessment Model Point Value = 1 Point Value = 2 Point Value = 3 Point Value = 5 Age 41-60 Minor surgery BMI > 25 kg/m2 Swollen legs Varicose veins or History of unexplained or recurrent spontaneous Oral contraceptives or hormone replacement Sepsis (< 1 month) Serious lung disease, including pneumonia (< 1 month) Abnormal pulmonary function Acute myocardial infarction Congestive heart failure (< 1 month) History of inflammatory bowel disease Medical patient at bed rest Age 61-74 Arthroscopic surgery Major open surgery (> 45 min) Laparoscopic surgery (> 45 min) Malignancy Confined to bed (> 72 hours) Immobilizing plaster cast Central venous access Age >= 75 History of VTE Family history of VTE Factor V Leiden Prothrombin 23702A Lupus anticoagulant Anticardiolipin antibodies Elevated serum homocysteine Heparin-induced thrombocytopenia Other congenital or acquired thrombophilia Stroke (< 1 month) Elective arthroplasty Hip, pelvis, or leg fracture Acute spinal cord injury (< 1 month) Prophylaxis Regimen Total Risk Factor Score Risk Level Prophylaxis Regimen 0-1 Low Early ambulation 2 Moderate Order ONE of the following: *Sequential Compression Device (SCD) *Heparin 5000 units SQ BID 3-4 Higher Order ONE of the following medications: *Heparin 5000 units SQ TID *Enoxaparin/Lovenox 40 mg SQ daily (WT < 150 kg, CrCl > 30 mL/min) *Enoxaparin/Lovenox 30 mg SQ daily (WT < 150 kg, CrCl > 10-29 mL/min) *Enoxaparin/Lovenox 30 mg SQ BID (WT < 150 kg, CrCl > 30 mL/min) AND/OR *Sequential Compression Device (SCD) 5 or more Highest Order ONE of the following medications: *Heparin 5000 units SQ TID (Preferred with Epidurals) *Enoxaparin/Lovenox 40 mg SQ daily (WT < 150 kg, CrCl > 30 mL/min) *Enoxaparin/Lovenox 30 mg SQ daily (WT < 150 kg, CrCl > 10-29 mL/min) *Enoxaparin/Lovenox 30 mg SQ BID (WT < 150 kg, CrCl > 30 mL/min) AND *Sequential Compression Device (SCD) Assessment and Plan Assessment and Plan Assessment: 72yF with history of COPD who presents in respiratory distress and is found to be in new-onset right heart failure and acute CHF exacerbation with possible concomittant sepsis from unclear origin, most likely pulmonary. In terms of her right heart failure, given her history of COPD this would most likely fit with a World Health Organization class III pulmonary hypertension secondary to chronic lung disease. However, it is unusual that this presents an acute manner. Will need a full and thorough evaluation once she is clinically compensated again. For now, will start with forced diuresis. I think given the degree of respiratory distress she is in, starting her on a very low dose of sildenafil may improve her RV function and help her respiratory distress. In terms of sepsis, I think this is lower on the differential, but given her white count initially, we will cover her empirically with vancomycin and Zosyn until cultures can be ruled out. I believe her mental status may be due to hyperammonemia congestive hepatopathy. Will check her ammonia level. Frequent neuro checks. For now she is protecting her airway. Certainly given the degree of heart failure and particularly right heart dysfunction with her respiratory status she is critically ill this time if we do not intervene she will decompensate. Admit to ICU. Critically ill. Plan by systems: Neurologic: Acute metabolic encephalopathy Dementia Depression Anxiety Check ammonia Frequent neurochecks May need lactulose if her ammonia is elevated Restart home dementia meds Respiratory: Respiratory distress Acute hypoxemia COPD Acute CHF exacerbation: Secondary to right heart dysfunction Wean oxygen for goal SPO2 greater than 90% Aggressive pulmonary toilet Nebs We will not continue IV steroids at this time, but may need to add IV steroids in the future if her COPD becomes a larger component of her dyspnea Cardiovascular: Acute CHF exacerbation secondary to right heart dysfunction Severe pulmonary hypertension Elevated troponin/type II NSTEMI secondary demand ischemia Trend troponins Trend BNP Unlikely to be ACS given lack of symptoms and normal left ventricular function without wall motion abnormalities Start sildenafil 5 mg p.o. every 8 hours Aggressive force diuresis, starting with Lasix 80 mg IV 1 Avoid significant IV fluids CT pulmonary and gram-negative for acute PE Renal: Acute kidney injury Unclear baseline Place Lee for accurate eyes nose while forced diuresis Unable to hydrate after IV contrast given acute right heart dysfunction and CHF -- Strict I/Os FEN/GI: Acute intravascular volume overload Congestive hepatopathy Acute protein calorie malnutrition-moderate ICU electrolyte protocol N.p.o. Bedside swallow evaluation Avoid IV fluids Force diuresis as above Heme/ID: Possible sepsis Unclear source. Continue vancomycin and Zosyn Panculture Leukocytosis may be secondary to stress response Daily CBC Endocrine: Hyperglycemia of critical illness -- SSI Prophylaxis: GI Prophylaxis Home PPI DVT Prophylaxis -- SCDs Subcu heparin Lines: Peripheral IVs Lee Dispo: Admit to ICU. Critically ill. This patient remains critically ill with one or more organ systems which are or may become a threat to life. I have spent in excess of 63 minutes discontinuously in the care and management of this patient. This time is exclusive of procedures, and includes, but is not limited to, evaluation of the patient, review of the medical record, discussions with family, consultants, nursing staff, or respiratory therapy, and documentation in the medical record. Tom Shah MD Jan 01, 2018 09:50
--- NOTE | 2018-01-01 10:09 | PD ---
Physical Exam Date Seen by Provider: Jan 01, 2018 Narrative I assumed care of this patient from Dr. Bass at 7 AM. The patient presented with respiratory distress from a local assisted living facility. On my exam, she has coarse rhonchi. She has a lot of upper airway noise. She had already been given Solu-Medrol and albuterol nebs. I added Mucinex nebs and guaifenesin. Data Data Last Documented VS Vital Signs Date Time Temp Pulse Resp B/P (MAP) Pulse Ox O2 Delivery O2 Flow Rate FiO2 01/01/18 09:42 98.6 01/01/18 09:30 82 20 97 Non-Rebreather 60 01/01/18 07:15 12.00 Orders Orders Complete Blood Count With Diff (01/01/18 06:03) Comprehensive Metabolic Panel (01/01/18 06:03) B-Type Natriuretic Peptide (01/01/18 06:03) Act Partial Throm Time (Ptt) (01/01/18 06:03) Prothrombin Time / Inr (Pt) (01/01/18 06:03) Influenzae A/B Antigen (01/01/18 06:03) Blood Culture (01/01/18 06:03) Iv Access Insert/Monitor (01/01/18 06:03) Electrocardiogram (01/01/18 06:03) Ecg Monitoring (01/01/18 06:03) Oximetry (01/01/18 06:03) Oxygen Administration (01/01/18 06:03) Chest, Single Ap (01/01/18 06:03) Sodium Chloride 0.9% Flush (Ns Flush) (01/01/18 06:15) Albuterol-Ipratropium Neb (Duoneb Neb) (01/01/18 06:15) Lactic Acid (01/01/18 06:03) Arterial Blood Gas (Abg) (01/01/18 ) Albuterol-Ipratropium Neb (Duoneb Neb) (01/01/18 06:15) Guaifenesin Er (Mucinex Er) (01/01/18 07:15) Acetylcysteine 20% Neb (Mucomyst 20% Neb (01/01/18 07:15) Ceftriaxone Inj (Rocephin Inj) (01/01/18 07:15) Azithromycin Inj (Zithromax Inj) (01/01/18 07:15) Sepsis Workup Initiated (01/01/18 ) Sodium Chlor 0.9% 1000 Ml Inj (Ns 1000 M (01/01/18 07:18) Sodium Chlor 0.9% 1000 Ml Inj (Ns 1000 M (01/01/18 07:18) Sodium Chlor 0.9% 1000 Ml Inj (Ns 1000 M (01/01/18 07:18) Lactic Acid (01/01/18 09:00) Troponin I (01/01/18 09:39) Creatine Kinase (Cpk) (01/01/18 09:39) Ckmb (Isoenzyme) Profile (01/01/18 09:39) Cbc No Diff, Includes Plts (01/02/18 05:00) Cbc No Diff, Includes Plts (01/03/18 05:00) Cbc No Diff, Includes Plts (01/04/18 05:00) Cbc No Diff, Includes Plts (01/05/18 05:00) Cbc No Diff, Includes Plts (01/06/18 05:00) Cbc No Diff, Includes Plts (01/07/18 05:00) Cbc No Diff, Includes Plts (01/08/18 05:00) Basic Metabolic Panel (Bmp) (01/02/18 05:00) Basic Metabolic Panel (Bmp) (01/03/18 05:00) Basic Metabolic Panel (Bmp) (01/04/18 05:00) Basic Metabolic Panel (Bmp) (01/05/18 05:00) Basic Metabolic Panel (Bmp) (01/06/18 05:00) Basic Metabolic Panel (Bmp) (01/07/18 05:00) Basic Metabolic Panel (Bmp) (01/08/18 05:00) ^ Medication Admin Instruction (01/01/18 09:39) Notify Dr: Other (01/01/18 09:39) Potassium Chlor 40 Meq Premix (Kcl 40 Me (01/01/18 09:45) Potassium Chlor 20 Meq Premix (Kcl 20 Me (01/01/18 09:45) Potassium Chloride Eff (K-Lyte Cl Eff) (01/01/18 09:45) Potassium Chlor 40 Meq Premix (Kcl 40 Me (01/01/18 09:45) Potassium Chlor 20 Meq Premix (Kcl 20 Me (01/01/18 09:45) Magnesium Sulfate Inj (Magnesium Sulfate (01/01/18 09:45) Magnesium Oxide (Mag-Ox) (01/01/18 09:45) Magnesium Sulfate Inj (Magnesium Sulfate (01/01/18 09:45) Potassium Phosphate (K-Phos) (01/01/18 09:45) Sodium Phosphate Inj (Sodium Phosphate I (01/01/18 09:45) Potassium Phosphate (K-Phos) (01/01/18 09:45) Potassium Phosphate Inj (Potassium Phosp (01/01/18 09:45) Inpatient Certification (01/01/18 09:39) Bedside Glucose JORDANA.Q6H (01/01/18 09:39) Blood Glucose Goal (Criteria) (01/01/18 09:39) Hypoglycemia 51 - 69 Mg/Dl (01/01/18 09:39) Hypoglycemia 50 Mg/Dl Or < (01/01/18 09:39) Notify Dr: Other (01/01/18 09:39) Dextrose 50% In Mack (Vial) Inj (D50w (Vi (01/01/18 09:45) Insulin Human Reg Supp Scale (Novolin R (01/01/18 12:00) Albuterol-Ipratropium Neb (Duoneb Neb) (01/01/18 10:00) Albuterol-Ipratropium Neb (Duoneb Neb) (01/01/18 09:45) Code Status (01/01/18 09:39) Vital Signs (Adult) JORDANA.Q1H (01/01/18 09:39) Activity Bed Rest (01/01/18 09:39) Elevate Head Of Bed (01/01/18 09:39) Neuro Checks . ORDERED (01/01/18 09:39) Diet Npo (01/01/18 Breakfast) Famotidine (Pepcid) (01/01/18 21:00) Ondansetron Inj (Zofran Inj) (01/01/18 09:45) Locomotive Oiler / Telemetry JORDANA.Q8H (01/01/18 09:39) Heparin Inj (Heparin Inj) (01/01/18 10:00) Scd Bilateral/Knee High JORDANA.BID (01/01/18 09:39) ^ Initiate Protocol (01/01/18 09:39) Instruction (01/01/18 09:39) [facility] Nursing Information (01/01/18 09:45) Chlorhexidine 2% Cloth (Chlorhexidine 2% (01/02/18 04:00) Chlorhexidine 2% Cloth (Chlorhexidine 2% (01/01/18 09:45) Mrsa Pcr Surveillance (01/01/18 09:39) Docusate Sodium-Senna (Carley-Colace) (01/01/18 21:00) Magnesium Hydroxide Liq (Milk Of Magnesi (01/01/18 09:45) Amitriptyline (Elavil) (01/01/18 21:00) Aspirin Ec (Ecotrin Ec) (01/02/18 09:00) Atorvastatin (Lipitor) (01/01/18 21:00) Budeson-Formot 160-4.5 Mcg Inh (Symbicor (01/01/18 21:00) Cetirizine (Zyrtec) (01/01/18 21:00) Donepezil (Aricept) (01/01/18 21:00) Escitalopram (Lexapro) (01/02/18 09:00) Melatonin (Melatonin) (01/01/18 21:00) Pantoprazole (Protonix) (01/02/18 09:00) Risperidone (Risperdal) (01/01/18 21:00) Tramadol (Ultram) (01/01/18 10:00) (Nf) Mirtazapine (Remeron) (01/01/18 21:00) (Nf) Trazodone (01/01/18 21:00) Pill Splitter (Pill Splitter) (01/01/18 10:15) Admit Order (Ed Use Only) (01/01/18 10:04) Labs Laboratory Tests Test 01/01/18 06:15 01/01/18 06:44 01/01/18 09:49 White Blood Count 12.0 TH/MM3 Red Blood Count 4.03 MIL/MM3 Hemoglobin 11.3 GM/DL Hematocrit 35.8 % Mean Corpuscular Volume 88.8 FL Mean Corpuscular Hemoglobin 28.0 PG Mean Corpuscular Hemoglobin Concent 31.6 % Red Cell Distribution Width 15.3 % Platelet Count 330 TH/MM3 Mean Platelet Volume 8.2 FL Neutrophils (%) (Auto) 80.9 % Lymphocytes (%) (Auto) 10.8 % Monocytes (%) (Auto) 7.7 % Eosinophils (%) (Auto) 0.0 % Basophils (%) (Auto) 0.6 % Neutrophils # (Auto) 9.7 TH/MM3 Lymphocytes # (Auto) 1.3 TH/MM3 Monocytes # (Auto) 0.9 TH/MM3 Eosinophils # (Auto) 0.0 TH/MM3 Basophils # (Auto) 0.1 TH/MM3 CBC Comment DIFF FINAL Differential Comment Prothrombin Time 15.9 SEC Prothromb Time International Ratio 1.6 RATIO Activated Partial Thromboplast Time 22.0 SEC Blood Urea Nitrogen 29 MG/DL Creatinine 1.81 MG/DL Random Glucose 132 MG/DL Total Protein 7.4 GM/DL Albumin 3.2 GM/DL Calcium Level 8.3 MG/DL Alkaline Phosphatase 82 U/L Aspartate Amino Transf (AST/SGOT) 82 U/L Alanine Aminotransferase (ALT/SGPT) 53 U/L Total Bilirubin 0.9 MG/DL Sodium Level 142 MEQ/L Potassium Level 3.8 MEQ/L Chloride Level 105 MEQ/L Carbon Dioxide Level 22.8 MEQ/L Anion Gap 14 MEQ/L Estimat Glomerular Filtration Rate 28 ML/MIN Lactic Acid Level 4.8 mmol/L B-Type Natriuretic Peptide 1557 PG/ML Blood Gas Puncture Site LT RADIAL Blood Gas Patient Temperature 98.6 Blood Gas HCO3 23 mmol/L Blood Gas Base Excess -1.2 mmol/L Blood Gas Oxygen Saturation 89 % Arterial Blood pH 7.39 Arterial Blood Partial Pressure CO2 39 mmHg Arterial Blood Partial Pressure O2 67 mmHG Arterial Blood Oxygen Content 14.0 Vol % Arterial Blood Carboxyhemoglobin 1.7 % Arterial Blood Methemoglobin 0.5 % Blood Gas Hemoglobin 11.1 G/DL Oxygen Delivery Device TREATMENT AND 3 L NC Blood Gas Liter Flow 11 L/M [facility] Supervised Visit with SOTO: No Narrative Course Vital Signs Date Time Temp Pulse Resp B/P (MAP) Pulse Ox O2 Delivery O2 Flow Rate FiO2 01/01/18 09:42 98.6 01/01/18 09:30 82 20 129/81 (97) 97 Non-Rebreather 60 01/01/18 08:22 88 20 131/82 (98) 98 Non-Rebreather 01/01/18 07:45 93 17 132/59 (83) 98 Non-Rebreather 60 01/01/18 07:15 96 Partial Rebreather 12.00 01/01/18 07:10 98 Non-Rebreather 60 01/01/18 06:15 93 Nasal Cannula 3.00 01/01/18 06:12 Nasal Cannula 3.00 01/01/18 06:08 5 Nasal Cannula 01/01/18 05:58 92 16 142/71 (94) CBC & BMP Diagram 01/01/18 06:15 Total Protein 7.4, Albumin 3.2 L, Calcium Level 8.3 L, Alkaline Phosphatase 82, Aspartate Amino Transf (AST/SGOT) 82 H, Alanine Aminotransferase (ALT/SGPT) 53, Total Bilirubin 0.9 LA 4.8 BNP 1557 ABG Test 01/01/18 06:44 Arterial Blood Carboxyhemoglobin 1.7 % Arterial Blood Methemoglobin 0.5 % Arterial Blood Oxygen Content 14.0 Vol % Arterial Blood Partial Pressure CO2 39 mmHg Arterial Blood Partial Pressure O2 67 mmHG Arterial Blood pH 7.39 Blood Gas Base Excess -1.2 mmol/L Blood Gas HCO3 23 mmol/L Blood Gas Hemoglobin 11.1 G/DL L Blood Gas Liter Flow 11 L/M Blood Gas Oxygen Saturation 89 % *L Oxygen Delivery Device TREATMENT AND 3 L NC This patient is being admitted to the intensive care unit for aggressive management of her volume overload and respiratory infection with sepsis. Diagnosis Primary Impression: COPD with acute exacerbation Additional Impressions: Hypoxemia Pulmonary edema Qualified Codes: J81.0 - Acute pulmonary edema Admitting Information Admitting Physician Requests: Admit Condition: Liudmila Martel MD Jan 01, 2018 10:09
[2018-01-01] MEDS ORDERED: PILL SPLITTER OTHER PRN (10:15)
[2018-01-01] MEDS: HEPARIN SODIUM - SQ 10,000 UNITS/ML VIAL SQ SCH ×2 (11:46→17:20)
[2018-01-01] MEDS: INSULIN NovoLIN REGULAR SUPPLEMENTAL SCALE SQ SCH ×3 (11:46→23:41)
[2018-01-01] MEDS ORDERED: IODIXANOL 320 MG/ML 10 ML VIAL (for Rad CT) IVCONTRAST ONE (13:03)
--- NOTE | 2018-01-01 13:08 | RADRPT ---
EXAM DATE/TIME: 01/01/2018 12:44 [facility] COMPARISON: No previous studies available for comparison. INDICATIONS : Respiratory distress IV CONTRAST: 48 cc Visipaque (iodixanol) IV RADIATION DOSE: 17.42 CTDIvol (mGy) MEDICAL HISTORY : Cardiovascular disease. Dementia. Hypertension. SURGICAL HISTORY : Appendectomy. Hysterectomy. ENCOUNTER: Initial ACUITY: 1 day PAIN SCALE: 0/10 LOCATION: chest TECHNIQUE: Volumetric scanning of the chest was performed using a pulmonary embolism protocol MIP images were re constructed. Using automated exposure control and adjustment of the mA and/or kV according to patien t size, radiation dose was kept as low as reasonably achievable to obtain optimal diagnostic quality images. DICOM format image data is available electronically for review and comparison. Follow-up recommendations for detected pulmonary nodules are based at a minimum on nodule size and pa tient risk factors according to Fleischner Society Guidelines. FINDINGS: There is severe emphysema. Biapical scarring. Small right effusion. Dependent atelectasis in the lung s. Cardiomegaly. No significant pericardial effusion. No acute findings in the upper abdomen. CONCLUSION: 1. Negative for pulmonary embolus. 2. Severe emphysema. 3. Small right effusion. Dependent atelectasis in the lungs. Farooq Guzman MD on January 01, 2018 at 13:01 Board Certified Radiologist. This report was verified electronically.
[2018-01-01 13:15] LABS: TROPONIN I 0.11 NG/ML (0.02-0.05)
[2018-01-01] MEDS ORDERED: FUROSEMIDE 100 MG/10 ML VIAL IV PUSH ONE (13:45)
[2018-01-01] MEDS ORDERED: Vancomycin Consult Pharmacy 1 EA OTHER SCH (13:45)
[2018-01-01] MEDS: SILDENAFIL CITRATE 20 MG TAB PO SCH ×2 (14:00→20:51)
--- NOTE | 2018-01-01 14:01 | EKG ---
Date Performed: 01/01/2018 Time Performed: 06:05:09 PTAGE: 72 years EKG: Sinus rhythm WITH SINUS ARRHYTHMIA MARKED RIGHT AXIS DEVIATION MODERATE T-WAVE ABNORMALITY, CONSIDER ANTEROLATERA L ISCHEMIA MODERATE T-WAVE ABNORMALITY, CONSIDER INFERIOR ISCHEMIA ABNORMAL ECG Compared to PREVIOUS TRACING , T-wave abnormalities are new. PREVIOUS TRACIN01/07/2016 12.11 DOCTOR: Grant Carlisle Interpretating Date/Time 01/01/2018 14:00:21
--- NOTE | 2018-01-01 14:41 | ECHRPT ---
Indication: Shortness of breath CONCLUSIONS The left ventricular systolic function is normal with an estimated ejection fraction in the range of 55-60%. Wall thickness is measured at the upper limits of normal. Normal left ventricular size. Right ventricular is enlarged with decrease function. The right atrial size is mildly dilated. There is moderate to severe tricuspid valve regurgitation. The estimated pulmonary arterial pressure is 56.3 mmHg. The pulmonary artery is diltated with mild pulmonic regurgitation. The inferior vena cava is slightly enlarged, BP: / HR: Rhythm: Sinus MEASUREMENTS (Male / Female) Normal Values Technical Quality:Fair 2D ECHO LV Diastolic Diameter PLAX 3.8 cm 4.2 - 5.9 / 3.9 - 5.3 cm LV Systolic Diameter PLAX 2.9 cm IVS Diastolic Thickness 0.9 cm 0.6 - 1.0 / 0.6 - 0.9 cm LVPW Diastolic Thickness 0.9 cm 0.6 - 1.0 / 0.6 - 0.9 cm LV Relative Wall Thickness 0.5 LVOT Diameter 2.1 cm M-MODE Aortic Root Diameter MM 3.3 cm LA Systolic Diameter MM 2.7 cm LA Ao Ratio MM 0.8 AV Cusp Separation MM 1.7 cm DOPPLER AV Peak Velocity 109.0 cm/s AV Peak Gradient 4.8 mmHg LVOT Peak Velocity 84.4 cm/s LVOT Peak Gradient 2.8 mmHg AV Area Cont Eq pk 2.7 cm Mitral E Point Velocity 42.4 cm/s Mitral A Point Velocity 88.4 cm/s Mitral E to A Ratio 0.5 LV E' Lateral Velocity 5.1 cm/s Mitral E to LV E' Lateral Ratio 8.4 LV E' Septal Velocity 4.4 cm/s Mitral E to LV E' Septal Ratio 9.7 TR Peak Velocity 340.3 cm/s TR Peak Gradient 46.3 mmHg Right Atrial Pressure 10.0 mmHg Pulmonary Artery Systolic Pressu 56.3 mmHg Right Ventricular Systolic Press 56.3 mmHg PV Peak Velocity 70.6 cm/s PV Peak Gradient 2.0 mmHg FINDINGS LEFT VENTRICLE The left ventricular systolic function is normal with an estimated ejection fraction in the range of 55-60%. Wall thickness is measured at the upper limits of normal. Normal left ventricular size. RIGHT VENTRICLE Right ventricular is enlarged with decrease function. LEFT ATRIUM The left atrial size is normal. RIGHT ATRIUM The right atrial size is mildly dilated. ATRIAL SEPTUM Normal atrial septal thickness without atrial level shunting by limited color doppler interrogation. AORTA The aortic root and proximal ascending aorta are normal in size on limited imaging. MITRAL VALVE Structurally normal mitral valve. No mitral valve stenosis or regurgitation. AORTIC VALVE Trileaflet aortic valve. No aortic valve stenosis or regurgitation. TRICUSPID VALVE There is moderate to severe tricuspid valve regurgitation. The estimated pulmonary arterial pressure is 56.3 mmHg. PULMONARY VALVE The pulmonary artery is diltated with mild pulmonic regurgitation. VESSELS The inferior vena cava is slightly enlarged, PERICARDIUM No pericardial effusion. Renaldo Fields MD (Electronically Signed) Final Date:01 January 2018 14:41
[2018-01-01] MEDS: PIPERACIL-TAZO 3.375 GM PREMIX 50 ML IV SCH ×2 (15:54→23:34)
[2018-01-01] MEDS ORDERED: VANCOMYCIN INJ 1,250 MG in SODIUM CHLOR 0.9% 250 ML INJ 250 ML IV ONE (16:00)
[2018-01-01] MEDS: MELATONIN 5 MG TAB PO SCH ×2 (20:50→21:42)
[2018-01-01] MEDS: traZODone HCL 100 MG TAB PO SCH ×2 (20:50→21:45)
[2018-01-01] MEDS: ATORVASTATIN 10 MG TAB PO SCH (20:50)
[2018-01-01] MEDS: AMITRIPTYLINE HCL 25 MG TAB PO SCH (20:50)
[2018-01-01] MEDS: DOCUSATE SODIUM 50 MG/SENNA 8.6 MG TAB PO SCH (20:50)
[2018-01-01] MEDS: BUDESONIDE-FORMOTEROL 160/4.5 MCG INHALER INH SCH (20:50)
[2018-01-01] MEDS ORDERED: MIRTAZAPINE 15 MG TAB PO SCH (21:00)
[2018-01-01] MEDS ORDERED: FAMOTIDINE 20 MG TAB PO SCH (21:00)
[2018-01-01] MEDS: DONEPEZIL HCL 5 MG TAB PO SCH (21:39)
[2018-01-01] MEDS: CETIRIZINE HCL 10 MG TAB PO SCH (21:39)
[2018-01-01] MEDS: risperiDONE 0.5 MG TAB PO SCH (21:41)
[2018-01-02] VITALS (11 sets, daily range): BP systolic 111–130; BP diastolic 63–83; PULSE 74–91; RESP 18–20; TEMP 98–98.9; O2SAT 91–96
[2018-01-02 02:03] LABS: HEMATOCRIT 33.8 % (35.0-46.0); HEMOGLOBIN 11.1 GM/DL (11.6-15.3); MEAN CELL VOLUME 88.5 FL (80.0-100.0); MEAN CORPUSCULAR HGB CONC 32.7 % (32.0-36.0); MEAN PLATELET VOLUME 8.3 FL (7.0-11.0); PLATELET COUNT 236 TH/MM3 (150-450); RED BLOOD COUNT 3.82 MIL/MM3 (4.00-5.30); WHITE BLOOD COUNT 12.2 TH/MM3 (4.0-11.0)
[2018-01-02] MEDS: RESP: ALBUTEROL 2.5 MG/IPRATROPIUM 0.5 MG NEB (SCH) INH ×4 (03:31→22:31)
[2018-01-02 03:33] LABS: BICARBONATE 24.2 MEQ/L (21.0-32.0); CALCIUM 7.6 MG/DL (8.5-10.1); CREATININE 0.97 MG/DL (0.50-1.00)
[2018-01-02 03:37] LABS: TROPONIN I 0.15 NG/ML (0.02-0.05)
[2018-01-02] MEDS: HEPARIN SODIUM - SQ 10,000 UNITS/ML VIAL SQ SCH ×3 (03:38→17:02)
[2018-01-02] MEDS: CHLORHEXIDINE GLUCONATE 2 % 1 PACK (2 CLOTHS) TOP SCH (04:00)
[2018-01-02] MEDS: INSULIN NovoLIN REGULAR SUPPLEMENTAL SCALE SQ SCH ×3 (06:00→16:57)
[2018-01-02] MEDS: PIPERACIL-TAZO 3.375 GM PREMIX 50 ML IV SCH ×3 (06:03→23:00)
[2018-01-02] MEDS: SILDENAFIL CITRATE 20 MG TAB PO SCH ×3 (06:05→22:00)
[2018-01-02] MEDS ORDERED: FUROSEMIDE 40 MG/4 ML VIAL IV PUSH ONE (06:45)
--- NOTE | 2018-01-02 07:03 | HHI.CCPN ---
Subjective Remarks/Hospital Course This is a 72-year-old female with what appears to be a past history of dementia and COPD by looking at old records who presents the emergency department with acute shortness of breath. In the emergency department she was found to have an O2 sat of 74%. She was given IV Solu-Medrol and placed on a nonrebreather. Her lactate was elevated at 4.8 and she had a white count elevation greater than 20,000 which was concerning for sepsis. She was cultured and started on empiric antibiotics. Her BNP came back it 1550 with mildly elevated troponins at 0.1. When I evaluated the patient, she was too somnolent and difficult to arouse. She was clearly protecting her airway, but was unable to answer questions about her medical history. EKG demonstrates severe right axis deviation. Given the electrocardiographic findings combined with the shortness of breath, PE was on the differential. I did bedside critical care echo which demonstrated severe RV dilation and dysfunction which was new with clinically significant tricuspid regurgitation. I ordered formal echo which confirms these findings. We went to stat CT pulmonary angiogram which did not demonstrate any pulmonary embolism, but did demonstrate an enlarged right atrium and right ventricle with evidence of contrast regurgitation into the hepatic veins. I stopped her IV fluids, which were started for presumed sepsis , and ordered 80 mg Lasix IV 1. No additional information is available from the patient. ROS is unobtainable. SUBJ 01/02-Patient is breathing better today. On 6L NC. Diuresed 1.5L since admission. CT showing severe emphysema. IV steroids added. Dyspnea secondary COPD and CHF exacerbation Objective Vital Signs Date Time Temp Pulse Resp B/P (MAP) Pulse Ox O2 Delivery O2 Flow Rate FiO2 01/02/18 03:00 74 01/02/18 03:00 98.0 18 123/71 (88) 96 01/01/18 22:15 Nasal Cannula 5.00 01/01/18 09:30 60 Result Diagram: 01/02/18 0150 01/02/18 0150 Other Results Microbiology Date/Time Source Procedure Growth Status 01/01/18 08:25 Nasal Washing Influenza Types A,B Antigen (AVELINA) - Final NEGATIVE FOR FLU A AND B ANTIGEN.... Complete Laboratory Tests Test 01/01/18 06:44 Blood Gas Puncture Site LT RADIAL Blood Gas Patient Temperature 98.6 Blood Gas HCO3 23 mmol/L (22-26) Blood Gas Base Excess -1.2 mmol/L (-2-2) Blood Gas Oxygen Saturation 89 % (90-100) Arterial Blood pH 7.39 (7.380-7.420) Arterial Blood Partial Pressure CO2 39 mmHg (38-42) Arterial Blood Partial Pressure O2 67 mmHG (61-120) Arterial Blood Oxygen Content 14.0 Vol % (12.0-20.0) Arterial Blood Carboxyhemoglobin 1.7 % (0-4) Arterial Blood Methemoglobin 0.5 % (0-2) Blood Gas Hemoglobin 11.1 G/DL (12.0-16.0) Oxygen Delivery Device TREATMENT AND 3 L NC Blood Gas Liter Flow 11 L/M Imaging Last Impressions Chest X-Ray 01/01/18 0603 Signed Impressions: Service Date/Time: Monday, January 01, 2018 06:30 - CONCLUSION: Normal examination. Mild diffuse interstitial prominence Sunny Campos MD CT Angiography 01/01/18 0000 Signed Impressions: Service Date/Time: Monday, January 01, 2018 12:44 - CONCLUSION: 1. Negative for pulmonary embolus. 2. Severe emphysema. 3. Small right effusion. Dependent atelectasis in the lungs. Farooq Guzman MD Objective Remarks GENERAL: Elderly female, lying in bed, n distress HEENT: Normocephalic. Atraumatic. Legally blind. NECK: Trachea is midline. Positive JVD above the level of the mandible. CHEST: Air entry diminished bilaterally. On 6L NC. CARDIOVASCULAR: Normal rate, regular rhythm. Appears sinus by telemetry. ABDOMEN: Soft, nontender, nondistended. No guarding. MUSCULOSKELETAL: Pulses 2+. No peripheral edema. NEUROLOGICAL: Alert awake. Protect airway. Moves all extremities. Follows commands. A/P Assessment and Plan Assessment: 72yF with history of COPD who presents in respiratory distress and is found to be in new-onset right heart failure, acute CHF exacerbation with possible concomitant sepsis and COPD exacerbation. In terms of her right heart failure, given her history of COPD this would most likely fit with a World Health Organization class III pulmonary hypertension secondary to chronic lung disease. Continue with forced diuresis. Low dose of sildenafil may improve her RV function and help her respiratory distress. Continue Zosyn until cultures can be ruled out, DC vanc. Frequent neuro checks. For now she is protecting her airway. Plan by systems: Neurologic: Acute metabolic encephalopathy Dementia Depression Anxiety Frequent neurochecks Restart home dementia meds Hold sedating medications at this time Respiratory: Respiratory insufficiency Acute hypoxemia COPD exacerbation/Emphysema Acute CHF exacerbation: Secondary to right heart dysfunction Wean oxygen for goal SPO2 greater than 90% Aggressive pulmonary toilet Nebs, Symbicort. Add Spiriva Given severe emphysema on CT and diminished air entry, add IV steroids 60 mg IV q12. Cardiovascular: Acute CHF exacerbation secondary to right heart dysfunction Severe pulmonary hypertension Elevated troponin/type II NSTEMI secondary demand ischemia Trend troponins, Trend BNP Unlikely to be ACS given lack of symptoms and normal left ventricular function without wall motion abnormalities Sildenafil 5 mg p.o. every 8 hours Aggressive force diuresis, s/p Lasix 80 mg IV 1. Give [address] pulmonary and gram-negative for acute PE Renal: Acute kidney injury Unclear baseline Lee for accurate I/Os while forced diuresis -- Strict I/Os FEN/GI: Acute intravascular volume overload Acute protein calorie malnutrition-moderate ICU electrolyte protocol Start heart healthy diet Bedside swallow evaluation Force diuresis as above Heme/ID: Possible sepsis Continue Zosyn. DC vanc Panculture. Leukocytosis may be secondary to stress response Daily CBC Endocrine: Hyperglycemia of critical illness -- SSI Prophylaxis: GI Prophylaxis Home PPI DVT Prophylaxis -- SCDs Subcu heparin Lines: Peripheral IVs Lee Dispo: Consult [facility] to assume care in am 4/2. Transfer to [facility] with Tele Level 2 Nikole Birch MD Jan 02, 2018 07:03
[2018-01-02] MEDS: methylPREDNISolone SOD SUCC 125 MG/2 ML VIAL IV PUSH SCH ×3 (07:55→20:31)
[2018-01-02 08:42] LABS: RANDOM VANCOMYCIN 9.5 COMMENT; TROPONIN I 0.3 NG/ML (0.02-0.05)
[2018-01-02] MEDS: PANTOPRAZOLE SOD 40 MG DELAYED RELEASE TAB PO SCH (08:43)
[2018-01-02] MEDS: ESCITALOPRAM OXALATE 10 MG TAB PO SCH (08:43)
[2018-01-02] MEDS: BUDESONIDE-FORMOTEROL 160/4.5 MCG INHALER INH SCH ×2 (08:43→21:00)
[2018-01-02] MEDS: DOCUSATE SODIUM 50 MG/SENNA 8.6 MG TAB PO SCH ×2 (08:43→20:32)
[2018-01-02] MEDS: ASPIRIN EC 325 MG TABEC PO SCH (08:43)
[2018-01-02] MEDS: TIOTROPIUM BROMIDE 18 MCG INH INH SCH (08:48)
[2018-01-02] MEDS: traMADol HCL 50 MG TAB PO PRN (11:01)
[2018-01-02] MEDS ORDERED: VANCOMYCIN 1,500 MG/NS 500 ML IV ONE ×2 (12:00)
[2018-01-02] MEDS: AMITRIPTYLINE HCL 25 MG TAB PO SCH (20:31)
[2018-01-02] MEDS: DONEPEZIL HCL 5 MG TAB PO SCH (20:31)
[2018-01-02] MEDS: ATORVASTATIN 10 MG TAB PO SCH (20:31)
[2018-01-02] MEDS: CETIRIZINE HCL 10 MG TAB PO SCH (20:31)
[2018-01-02] MEDS: MELATONIN 5 MG TAB PO SCH (20:32)
[2018-01-02] MEDS: traZODone HCL 100 MG TAB PO SCH (20:32)
[2018-01-02] MEDS: risperiDONE 0.5 MG TAB PO SCH (20:32)
[2018-01-03] VITALS (18 sets, daily range): BP systolic 122–150; BP diastolic 72–85; PULSE 64–112; RESP 16–20; TEMP 97.4–98.7; O2SAT 95–99
[2018-01-03] MEDS: HEPARIN SODIUM - SQ 10,000 UNITS/ML VIAL SQ SCH ×3 (02:24→18:29)
[2018-01-03] MEDS: CHLORHEXIDINE GLUCONATE 2 % 1 PACK (2 CLOTHS) TOP SCH (04:00)
[2018-01-03] MEDS: RESP: ALBUTEROL 2.5 MG/IPRATROPIUM 0.5 MG NEB (SCH) INH ×4 (04:02→21:06)
[2018-01-03 04:41] LABS: BASOPHIL % 0.1 % (0.0-2.0); HEMATOCRIT 34.3 % (35.0-46.0); LYMPH % 4.3 % (9.0-44.0); LYMPHOCYTE # 0.4 TH/MM3 (1.0-4.8); MEAN CELL VOLUME 87.5 FL (80.0-100.0); MEAN CORPUSCULAR HEMOGLOBIN 28.1 PG (27.0-34.0); MEAN CORPUSCULAR HGB CONC 32.1 % (32.0-36.0); MEAN PLATELET VOLUME 8.5 FL (7.0-11.0); MONO % 2.9 % (0.0-8.0); MONOCYTE # 0.3 TH/MM3 (0-0.9); NEUT % 92.7 % (16.0-70.0); PLATELET COUNT 255 TH/MM3 (150-450); RED BLOOD COUNT 3.92 MIL/MM3 (4.00-5.30); RED CELL DISTRIBUTION WIDTH 15.3 % (11.6-17.2); WHITE BLOOD COUNT 9.7 TH/MM3 (4.0-11.0)
[2018-01-03 05:11] LABS: ALBUMIN 2.4 GM/DL (3.4-5.0); BICARBONATE 33.2 MEQ/L (21.0-32.0); CALCIUM 7.2 MG/DL (8.5-10.1); CALCIUM-PROTEIN CORRECTED 7.7 MG/DL (8.5-10.1); CREATININE 0.7 MG/DL (0.50-1.00); MAGNESIUM 1.7 MG/DL (1.5-2.5); RANDOM VANCOMYCIN 11.4 COMMENT; TOTAL BILIRUBIN ADULT 0.3 MG/DL (0.2-1.0); TOTAL PROTEIN 6.2 GM/DL (6.4-8.2)
[2018-01-03] MEDS: SILDENAFIL CITRATE 20 MG TAB PO SCH ×3 (05:32→20:18)
[2018-01-03] MEDS: INSULIN NovoLIN REGULAR SUPPLEMENTAL SCALE SQ SCH ×4 (05:35→18:00)
--- NOTE | 2018-01-03 05:49 | RADRPT ---
EXAM DATE/TIME: 01/03/2018 05:22 [facility] COMPARISON: CHEST SINGLE AP, January 01, 2018, 6:30. INDICATIONS : Shortness of breath, possible pulmonary disease. MEDICAL HISTORY : None. SURGICAL HISTORY : None. ENCOUNTER: Subsequent ACUITY: 3 days PAIN SCORE: 0/10 LOCATION: Bilateral chest FINDINGS: Lungs are stable and grossly clear. Cardiac contours are unchanged. CONCLUSION: Stable chest appearance Eyal Almazan MD on January 03, 2018 at 5:47 Board Certified Radiologist. This report was verified electronically.
[2018-01-03] MEDS: PIPERACIL-TAZO 3.375 GM PREMIX 50 ML IV SCH ×3 (06:05→22:35)
[2018-01-03] MEDS ORDERED: POTASSIUM CHLORIDE 20 MEQ PWD PACKET PO ONE ×2 (07:45→08:45)
[2018-01-03] MEDS: ESCITALOPRAM OXALATE 10 MG TAB PO SCH (08:11)
[2018-01-03] MEDS: DOCUSATE SODIUM 50 MG/SENNA 8.6 MG TAB PO SCH ×2 (08:11→20:20)
[2018-01-03] MEDS: PANTOPRAZOLE SOD 40 MG DELAYED RELEASE TAB PO SCH (08:11)
[2018-01-03] MEDS: methylPREDNISolone SOD SUCC 125 MG/2 ML VIAL IV PUSH SCH ×2 (08:12→20:19)
[2018-01-03] MEDS: ASPIRIN EC 325 MG TABEC PO SCH (08:12)
[2018-01-03] MEDS: BUDESONIDE-FORMOTEROL 160/4.5 MCG INHALER INH SCH ×2 (08:13→20:19)
[2018-01-03] MEDS: TIOTROPIUM BROMIDE 18 MCG INH INH SCH (08:13)
[2018-01-03] MEDS: traMADol HCL 50 MG TAB PO PRN ×2 (10:50→20:19)
--- NOTE | 2018-01-03 15:02 | HHI.PR ---
Subjective Remarks This is a 72-year-old female with what appears to be a past history of dementia and COPD by looking at old records who presents the emergency department with acute shortness of breath. In the emergency department she was found to have an O2 sat of 74%. She was given IV Solu-Medrol and placed on a nonrebreather. Her lactate was elevated at 4.8 and she had a white count elevation greater than 20,000 which was concerning for sepsis. She was cultured and started on empiric antibiotics. Her BNP came back it 1550 with mildly elevated troponins at 0.1. When I evaluated the patient, she was too somnolent and difficult to arouse. She was clearly protecting her airway, but was unable to answer questions about her medical history. EKG demonstrates severe right axis deviation. Given the electrocardiographic findings combined with the shortness of breath, PE was on the differential. I did bedside critical care echo which demonstrated severe RV dilation and dysfunction which was new with clinically significant tricuspid regurgitation. I ordered formal echo which confirms these findings. We went to stat CT pulmonary angiogram which did not demonstrate any pulmonary embolism, but did demonstrate an enlarged right atrium and right ventricle with evidence of contrast regurgitation into the hepatic veins. I stopped her IV fluids, which were started for presumed sepsis , and ordered 80 mg Lasix IV 1. No additional information is available from the patient. ROS is unobtainable. 01/02-Patient is breathing better today. On 6L NC. Diuresed 1.5L since admission. CT showing severe emphysema. IV steroids added. Dyspnea secondary COPD and CHF exacerbation 4-2 TRANSFERRED TO OUR SERVICE HAS CHF AND COPD HAS BEEN DIURESED IMPROVED BREATHING DOWN TO 5 LITERS BY NC EMEKA RN AND PT WANTS HER [facility] OUT WILL CONSULT PT AND OT EMEKA RN AND PT AND FAMILY AM LABS CONSULT CARDIO REGARDING SEVERE TRICUSPID REGURGITATION Objective Vitals Vital Signs Date Time Temp Pulse Resp B/P (MAP) Pulse Ox O2 Delivery O2 Flow Rate FiO2 01/03/18 13:00 80 01/03/18 12:00 88 01/03/18 11:52 17 01/03/18 11:00 97.4 101 19 129/74 (92) 95 01/03/18 11:00 103 01/03/18 11:00 95 Nasal Cannula 5.00 01/03/18 09:17 96 Nasal Cannula 5.00 01/03/18 08:00 98 Nasal Cannula 5.00 01/03/18 07:00 98.7 73 16 122/75 (91) 95 01/03/18 07:00 95 Nasal Cannula 6.00 01/03/18 07:00 76 01/03/18 03:00 75 01/03/18 03:00 98.2 83 18 122/72 (89) 98 01/02/18 23:00 98.9 83 18 111/63 (79) 94 01/02/18 23:00 83 01/02/18 22:31 92 Nasal Cannula 6.00 01/02/18 19:00 98.6 86 20 115/67 (83) 91 01/02/18 19:00 86 01/02/18 15:15 98.5 80 20 130/83 (99) 96 01/02/18 15:00 83 I/O 01/02/18 01/02/18 01/02/18 01/03/18 01/03/18 01/03/18 07:00 15:00 23:00 07:00 15:00 23:00 Intake Total 100 ml 100 ml 2735 ml 520 ml Output Total 1650 ml 2360 ml 400 ml Balance -1550 ml 100 ml 375 ml 120 ml Intake Oral 0 ml 1520 ml 400 ml IV Total 100 ml 100 ml 1215 ml 120 ml Output Urine Total 1650 ml 2360 ml 400 ml # Bowel Movements 0 2 0 Result Diagram: 01/03/18 0340 01/03/18 0340 Other Results Laboratory Tests Test 01/01/18 06:15 01/01/18 06:44 01/01/18 10:00 01/01/18 14:00 White Blood Count 12.0 TH/MM3 Red Blood Count 4.03 MIL/MM3 Hemoglobin 11.3 GM/DL Hematocrit 35.8 % Mean Corpuscular Volume 88.8 FL Mean Corpuscular Hemoglobin 28.0 PG Mean Corpuscular Hemoglobin Concent 31.6 % Red Cell Distribution Width 15.3 % Platelet Count 330 TH/MM3 Mean Platelet Volume 8.2 FL Neutrophils (%) (Auto) 80.9 % Lymphocytes (%) (Auto) 10.8 % Monocytes (%) (Auto) 7.7 % Eosinophils (%) (Auto) 0.0 % Basophils (%) (Auto) 0.6 % Neutrophils # (Auto) 9.7 TH/MM3 Lymphocytes # (Auto) 1.3 TH/MM3 Monocytes # (Auto) 0.9 TH/MM3 Eosinophils # (Auto) 0.0 TH/MM3 Basophils # (Auto) 0.1 TH/MM3 CBC Comment DIFF FINAL Differential Comment Prothrombin Time 15.9 SEC Prothromb Time International Ratio 1.6 RATIO Activated Partial Thromboplast Time 22.0 SEC Blood Urea Nitrogen 29 MG/DL Creatinine 1.81 MG/DL Random Glucose 132 MG/DL Total Protein 7.4 GM/DL Albumin 3.2 GM/DL Calcium Level 8.3 MG/DL Alkaline Phosphatase 82 U/L Aspartate Amino Transf (AST/SGOT) 82 U/L Alanine Aminotransferase (ALT/SGPT) 53 U/L Total Bilirubin 0.9 MG/DL Sodium Level 142 MEQ/L Potassium Level 3.8 MEQ/L Chloride Level 105 MEQ/L Carbon Dioxide Level 22.8 MEQ/L Anion Gap 14 MEQ/L Estimat Glomerular Filtration Rate 28 ML/MIN Lactic Acid Level 4.8 mmol/L 2.9 mmol/L Total Creatine Kinase 240 U/L Creatine Kinase MB 2.6 NG/ML Creatine Kinase MB % 1.1 % Troponin I 0.11 NG/ML 0.13 NG/ML B-Type Natriuretic Peptide 1557 PG/ML Blood Gas Puncture Site LT RADIAL Blood Gas Patient Temperature 98.6 Blood Gas HCO3 23 mmol/L Blood Gas Base Excess -1.2 mmol/L Blood Gas Oxygen Saturation 89 % Arterial Blood pH 7.39 Arterial Blood Partial Pressure CO2 39 mmHg Arterial Blood Partial Pressure O2 67 mmHG Arterial Blood Oxygen Content 14.0 Vol % Arterial Blood Carboxyhemoglobin 1.7 % Arterial Blood Methemoglobin 0.5 % Blood Gas Hemoglobin 11.1 G/DL Oxygen Delivery Device TREATMENT AND 3 L NC Blood Gas Liter Flow 11 L/M Test 01/01/18 15:26 01/01/18 19:50 01/02/18 01:50 01/02/18 07:37 Ammonia 19 MCMOL/L Troponin I 0.14 NG/ML 0.15 NG/ML 0.30 NG/ML White Blood Count 12.2 TH/MM3 Red Blood Count 3.82 MIL/MM3 Hemoglobin 11.1 GM/DL Hematocrit 33.8 % Mean Corpuscular Volume 88.5 FL Mean Corpuscular Hemoglobin 29.0 PG Mean Corpuscular Hemoglobin Concent 32.7 % Red Cell Distribution Width 15.0 % Platelet Count 236 TH/MM3 Mean Platelet Volume 8.3 FL Blood Urea Nitrogen 25 MG/DL Creatinine 0.97 MG/DL Random Glucose 90 MG/DL Calcium Level 7.6 MG/DL Sodium Level 144 MEQ/L Potassium Level 3.5 MEQ/L Chloride Level 110 MEQ/L Carbon Dioxide Level 24.2 MEQ/L Anion Gap 10 MEQ/L Estimat Glomerular Filtration Rate 57 ML/MIN Random Vancomycin Level 9.5 COMMENT Test 01/02/18 09:49 01/03/18 03:40 White Blood Count 9.7 TH/MM3 Red Blood Count 3.92 MIL/MM3 Hemoglobin 11.0 GM/DL Hematocrit 34.3 % Mean Corpuscular Volume 87.5 FL Mean Corpuscular Hemoglobin 28.1 PG Mean Corpuscular Hemoglobin Concent 32.1 % Red Cell Distribution Width 15.3 % Platelet Count 255 TH/MM3 Mean Platelet Volume 8.5 FL Neutrophils (%) (Auto) 92.7 % Lymphocytes (%) (Auto) 4.3 % Monocytes (%) (Auto) 2.9 % Eosinophils (%) (Auto) 0.0 % Basophils (%) (Auto) 0.1 % Neutrophils # (Auto) 9.0 TH/MM3 Lymphocytes # (Auto) 0.4 TH/MM3 Monocytes # (Auto) 0.3 TH/MM3 Eosinophils # (Auto) 0.0 TH/MM3 Basophils # (Auto) 0.0 TH/MM3 CBC Comment DIFF FINAL Differential Comment Blood Urea Nitrogen 26 MG/DL Creatinine 0.70 MG/DL Random Glucose 126 MG/DL Total Protein 6.2 GM/DL Albumin 2.4 GM/DL Calcium Level 7.2 MG/DL Magnesium Level 1.7 MG/DL Alkaline Phosphatase 64 U/L Aspartate Amino Transf (AST/SGOT) 77 U/L Alanine Aminotransferase (ALT/SGPT) 90 U/L Total Bilirubin 0.3 MG/DL Sodium Level 146 MEQ/L Potassium Level 2.9 MEQ/L Chloride Level 107 MEQ/L Carbon Dioxide Level 33.2 MEQ/L Anion Gap 6 MEQ/L Estimat Glomerular Filtration Rate 83 ML/MIN Protein Corrected Calcium 7.7 MG/DL Random Vancomycin Level 11.4 COMMENT Imaging Last Impressions Chest X-Ray 01/03/18 0600 Signed Impressions: Service Date/Time: Wednesday, January 03, 2018 05:22 - CONCLUSION: Stable chest appearance Eyal Almazan MD CT Angiography 01/01/18 0000 Signed Impressions: Service Date/Time: Monday, January 01, 2018 12:44 - CONCLUSION: 1. Negative for pulmonary embolus. 2. Severe emphysema. 3. Small right effusion. Dependent atelectasis in the lungs. Farooq Guzman MD Objective Remarks GENERAL: Awake alert and oriented talkative and cooperative --appears stated age breathing better-- SKIN: Warm and dry. HEAD: Atraumatic. Normocephalic. EYES: Pupils equal and round. No scleral icterus. No injection or drainage. Extraocular muscles intact ENT: No nasal bleeding or discharge. Mucous membranes pink and moist. Tongue is midline NECK: Trachea midline. No JVD. Supple CARDIOVASCULAR: Regular rate and rhythm. S1-S2 no S3 or S4 RESPIRATORY: No accessory muscle use. Clear to auscultation. Breath sounds equal bilaterally. Decreased breath sounds bilaterally GASTROINTESTINAL: Abdomen soft, non-tender, nondistended. Hepatic and splenic margins not palpable. MUSCULOSKELETAL: Extremities without clubbing, cyanosis, or edema. No obvious deformities. NEUROLOGICAL: Awake and alert. No obvious cranial nerve deficits. Motor grossly within normal limits. 4 out of 5 muscle strength in the arms and legs. Normal speech. PSYCHIATRIC: Appropriate mood and affect; insight and judgment normal. Procedures NONE Medications and IVs Current Medications Sodium Chloride (NS Flush) 2 ml UNSCH PRN IVF FLUSH AFTER USING IV ACCESS; Start 01/01/18 at 06:15 Albuterol/ Ipratropium (Duoneb Neb) 1 ampule ONCE ONCE INH Last administered on 01/01/18at 06:24; Start 01/01/18 at 06:15; Stop 01/01/18 at 06:16; Status DC Albuterol/ Ipratropium (Duoneb Neb) 1 ampule Q15M INH Last administered on 01/01at 06:25; Start 01/01/18 at 06:15; Stop 01/01/18 at 06:31; Status DC Guaifenesin (Mucinex Er) 1,200 mg ONCE ONCE PO Last administered on 01/01/18at 07:47; Start 01/01/18 at 07:15; Stop 01/01/18 at 07:16; Status DC Acetylcysteine (Mucomyst 20% Neb) 2 ml ONCE ONCE NEB ; Start 01/01/18 at 07:15 ; Stop 01/01/18 at 07:16; Status DC Ceftriaxone Sodium 1000 mg/ Sodium Chloride 100 ml @ 200 mls/hr ONCE ONCE IV Last administered on 01/01/18at 07:47; Start 01/01/18 at 07:15; Stop 01/01/18 at 07:44; Status DC Azithromycin 500 mg/Sodium Chloride 250 ml @ 250 mls/hr ONCE ONCE IV Last administered on 01/01/18at 08:21; Start 01/01/18 at 07:15; Stop 01/01/18 at 08:14 ; Status DC Sodium Chloride 1,000 ml @ 1,000 mls/hr Q1H ONCE IV Last administered on at 07:38; Start 01/01/18 at 07:18; Stop 01/01/18 at 08:17; Status DC Sodium Chloride 1,000 ml @ 1,000 mls/hr Q1H ONCE IV Last administered on at 08:21; Start 01/01/18 at 07:18; Stop 01/01/18 at 08:17; Status DC Sodium Chloride 400 ml @ 1,000 mls/hr Q24M ONCE IV ; Start 01/01/18 at 07:18; Stop 01/01/18 at 07:41; Status DC Potassium Chloride 100 ml @ 50 mls/hr Q2H PRN IV For Potassium 2.8 - 3.2 mEq/L ; Start 01/01/18 at 09:45 Potassium Chloride 100 ml @ 50 mls/hr Q2H PRN IV For Potassium 2.8 - 3.2 mEq/ L Last administered on 01/03/18at 05:41; Start 01/01/18 at 09:45 Potassium Bicarb/ Potassium Chloride (K-Lyte Cl Eff) 50 meq UNSCH PRN PO For Potassium 3.3 - 3.5 mEq/L; Start 01/01/18 at 09:45 Potassium Chloride 100 ml @ 25 mls/hr UNSCH PRN IV For Potassium 3.3 - 3.5 mEq /L Last administered on 01/02/18at 07:32; Start 01/01/18 at 09:45 Potassium Chloride 100 ml @ 50 mls/hr Q2H PRN IV For Potassium 3.3 - 3.5 mEq/L ; Start 01/01/18 at 09:45 Magnesium Sulfate 4 gm/Sodium Chloride 100 ml @ 50 mls/hr UNSCH PRN IV For Magnesium 0.9 - 1.1 mg/dL; Start 01/01/18 at 09:45 Magnesium Oxide (Mag-Ox) 800 mg UNSCH PRN PO For Magnesium 1.2 - 1.6 mg/dL; Start 01/01/18 at 09:45 Magnesium Sulfate 2 gm/Sodium Chloride 100 ml @ 50 mls/hr UNSCH PRN IV For Magnesium 1.2 - 1.6 mg/dL; Start 01/01/18 at 09:45 Potassium Phosphate (K-Phos) 2,000 mg Q4H PRN PO For Phosphorus < 2.5 mg/dL; Start 01/01/18 at 09:45 Sodium Phosphate 30 mmol/Sodium Chloride 250 ml @ 42 mls/hr UNSCH PRN IV For Phosphorus < 2.5 mg/dL; Start 01/01/18 at 09:45 Potassium Phosphate (K-Phos) 2,000 mg UNSCH PRN PO/TUBE SEE LABEL COMMENTS; Start 01/01/18 at 09:45 Potassium Phosphate 30 mmol/ Sodium Chloride 260 ml @ 42 mls/hr UNSCH PRN IV SEE LABEL COMMENTS; Start 01/01/18 at 09:45 Dextrose (D50w (Vial) Inj) 25 ml UNSCH PRN IV PUSH HYPOGLYCEMIA-SEE COMMENTS; Start 01/01/18 at 09:45 Insulin Human Regular (NovoLIN R SUPPLEMENTAL SCALE) 1 Q6HR SQ Last administered on 01/03/18at 00:00; Start 01/01/18 at 12:00 Albuterol/ Ipratropium (Duoneb Neb) 1 ampule Q6HR NEB INH Last administered on 01/03/18at 09:17; Start 01/01/18 at 10:00 Albuterol/ Ipratropium (Duoneb Neb) 1 ampule Q2HR NEB PRN INH WHEEZING; Start 01/01/18 at 09:45 Famotidine (Pepcid) 20 mg Q12HR PO ; Start 01/01/18 at 21:00; Stop 01/01/18 at 21:00; Status DC Ondansetron HCl (Zofran Inj) 4 mg Q6H PRN IV PUSH NAUSEA OR VOMITING; Start at 09:45 Heparin Sodium (Porcine) (Heparin Inj) 5,000 units Q8H SQ Last administered on 01/03/18at 10:16; Start 01/01/18 at 10:00 Miscellaneous Information 1 Q361D XX ; Start 01/01/18 at 09:45 Chlorhexidine Gluconate (Chlorhexidine 2% Cloth) 3 pack Taper DAILY@04 TOP Last administered on 01/03/18at 04:00; Start 01/02/18 at 04:00; Stop 12/29/18 at 03 :59 Chlorhexidine Gluconate (Chlorhexidine 2% Cloth) 3 pack UNSCH PRN TOP HYGIENIC CARE; Start 01/01/18 at 09:45 Senna/Docusate Sodium (Carley-Colace) 1 tab BID PO Last administered on 01/03/18 08:11; Start 01/01/18 at 21:00 Magnesium Hydroxide (Milk Of Magnesia Liq) 30 ml Q12H PRN PO Mild constipation ; Start 01/01/18 at 09:45 Amitriptyline HCl (Elavil) 25 mg HS PO Last administered on 01/02/18 20:31; Start 01/01/18 at 21:00 Aspirin (Ecotrin Ec) 325 mg DAILY PO Last administered on 01/03/18 08:12; Start 01/02/18 at 09:00 Atorvastatin Calcium (Lipitor) 10 mg HS PO Last administered on 01/02/18 20:31 ; Start 01/01/18 at 21:00 Budesonide/ Formoterol Fumarate (Symbicort 160-4.5 Mcg Inh) 1 puff Q12HR INH Last administered on 01/03/18 08:13; Start 01/01/18 at 21:00 Cetirizine HCl (ZyrTEC) 10 mg HS PO Last administered on 01/02/18 20:31; Start 01/01/18 at 21:00 Donepezil HCl (Aricept) 10 mg HS PO Last administered on 01/02/18 20:31; Start 01/01/18 at 21:00 Escitalopram Oxalate (Lexapro) 5 mg DAILY PO Last administered on 01/03/18 08: 11; Start 01/02/18 at 09:00 Melatonin (Melatonin) 5 mg HS PO Last administered on 01/02/18 20:32; Start at 21:00 Pantoprazole Sodium (Protonix) 40 mg DAILY PO Last administered on 01/03/18 08: 11; Start 01/02/18 at 09:00 Risperidone (risperDAL) 0.5 mg HS PO Last administered on 01/02/18 20:32; Start 01/01/18 at 21:00 Tramadol HCl (Ultram) 50 mg Q8H PRN PO PAIN 1-10 Last administered on 01/03/18 10:50; Start 01/01/18 at 10:00 Mirtazapine (Remeron) 45 mg HS PO Last administered on 01/01/18 20:50; Start 01/01/18 at 21:00; Status Future Hold Trazodone HCl (Desyrel) 100 mg HS PO Last administered on 01/02/18 20:32; Start 01/01/18 at 21:00 Miscellaneous (Pill Splitter) 1 ea UNSCH PRN OTHER SEE LABEL COMMENTS; Start at 10:15 Iodixanol (VISIPAQUE 320 INJ (Rad CT)) 48 ml STK-MED ONCE IVCONTRAST Last administered on 01/01/18at 13:03; Start 01/01/18 at 13:03; Stop 01/01/18 at 13:04 ; Status DC Furosemide (Lasix Inj) 80 mg STAT ONCE IV PUSH Last administered on 01/01/18at 14:24; Start 01/01/18 at 13:45; Stop 01/01/18 at 14:16; Status DC Piperacillin Sod/ Tazobactam Sod 50 ml @ 100 mls/hr Q8H IV Last administered on 01/03/18at 06:05; Start 01/01/18 at 15:00 Vancomycin HCl 1250 mg/Sodium Chloride 262.5 ml @ 250 mls/hr ONCE ONCE IV Last administered on 01/01/18at 15:58; Start 01/01/18 at 16:00; Stop 01/01/18 at 17:02; Status DC Pharmacy Profile Note 0 ml @ 0 mls/hr UNSCH OTHER ; Start 01/01/18 at 13:45; Stop 01/03/18 at 11:08; Status DC Sildenafil Citrate (Revatio) 5 mg Q8HR PO Last administered on 01/03/18at 13:26; Start 01/01/18 at 14:00 Methylprednisolone Sodium Succinate (SoluMEDROL INJ) 60 mg Q12HR IV PUSH Last administered on 01/03/18at 08:12; Start 01/02/18 at 06:45 Furosemide (Lasix Inj) 40 mg ONCE ONCE IV PUSH Last administered on 01/02/18at 07:32; Start 01/02/18 at 06:45; Stop 01/02/18 at 07:00; Status DC Tiotropium [place] (Spiriva Inh) 18 mcg DAILY INH Last administered on at 08:13; Start 01/02/18 at 09:00 Vancomycin HCl 1500 mg/Sodium Chloride 515 ml @ 257.5 mls/ hr ONCE ONCE IV Last administered on 01/02/18at 12:58; Start 01/02/18 at 12:00; Stop 01/02/18 at 13: 59; Status DC Potassium Chloride (KCl Powder) 40 meq ONCE ONCE PO Last administered on at 07:55; Start 01/03/18 at 07:45; Stop 01/03/18 at 07:46; Status DC Potassium Chloride (KCl Powder) 40 meq ONCE ONCE PO Last administered on at 09:00; Start 01/03/18 at 08:45; Stop 01/03/18 at 08:46; Status DC Urinary Catheter: Yes Assessment to: Remove A/P Assessment and Plan Assessment: 72yF with history of COPD who presents in respiratory distress and is found to be in new-onset right heart failure, acute CHF exacerbation with possible concomitant sepsis and COPD exacerbation. In terms of her right heart failure, given her history of COPD this would most likely fit with a World Health Organization class III pulmonary hypertension secondary to chronic lung disease. Continue with forced diuresis. Low dose of sildenafil may improve her RV function and help her respiratory distress. Continue Zosyn until cultures can be ruled out, DC vanc. Frequent neuro checks. For now she is protecting her airway. Plan by systems: Neurologic: Acute metabolic encephalopathy Dementia Depression Anxiety Frequent neurochecks Restart home dementia meds Hold sedating medications at this time Respiratory: Respiratory insufficiency Acute hypoxemia COPD exacerbation/Emphysema Acute CHF exacerbation: Secondary to right heart dysfunction Wean oxygen for goal SPO2 greater than 90% Aggressive pulmonary toilet Nebs, Symbicort. Add Spiriva Given severe emphysema on CT and diminished air entry, add IV steroids 60 mg IV q12. Cardiovascular: Acute CHF exacerbation secondary to right heart dysfunction Severe pulmonary hypertension Elevated troponin/type II NSTEMI secondary demand ischemia Trend troponins, Trend BNP Unlikely to be ACS given lack of symptoms and normal left ventricular function without wall motion abnormalities Sildenafil 5 mg p.o. every 8 hours Aggressive force diuresis, s/p Lasix 80 mg IV 1. Give 40 mg IV today continue IV Lasix CT pulmonary and gram-negative for acute PE CONSULT CARDIOLOGY REGARDING SEVERE TRICUSPID VALVE REGURGITATION Renal: Acute kidney injury Unclear baseline Norris for accurate I/Os while forced diuresis -- Strict I/Os FEN/GI: Acute intravascular volume overload Acute protein calorie malnutrition-moderate ICU electrolyte protocol Start heart healthy diet Bedside swallow evaluation Force diuresis as above Heme/ID: Possible sepsis Continue Zosyn. DC vanc Panculture. Leukocytosis may be secondary to stress response Daily CBC Endocrine: Hyperglycemia of critical illness -- SSI Prophylaxis: GI Prophylaxis Home PPI DVT Prophylaxis -- SCDs Subcu heparin Lines: Peripheral IVs Norris patient wishes for this to be discontinued Discharge Planning Pending improvement in continue to diurese Physical therapy and occupational therapy to eval and treat a.m. Selvin Call DO Jan 03, 2018 15:02
[2018-01-03] MEDS ORDERED: guaiFENesin E.R. 600 MG TAB PO ONE (15:30)
[2018-01-03] MEDS ORDERED: FUROSEMIDE 40 MG/4 ML VIAL IV PUSH ONE (15:30)
[2018-01-03] MEDS: guaiFENesin E.R. 600 MG TAB PO SCH (20:18)
[2018-01-03] MEDS: risperiDONE 0.5 MG TAB PO SCH (20:18)
[2018-01-03] MEDS: MELATONIN 5 MG TAB PO SCH (20:18)
[2018-01-03] MEDS: DONEPEZIL HCL 5 MG TAB PO SCH (20:18)
[2018-01-03] MEDS: ATORVASTATIN 10 MG TAB PO SCH (20:19)
[2018-01-03] MEDS: CETIRIZINE HCL 10 MG TAB PO SCH (20:19)
[2018-01-03] MEDS: AMITRIPTYLINE HCL 25 MG TAB PO SCH (20:25)
[2018-01-03] MEDS: traZODone HCL 100 MG TAB PO SCH (20:25)
[2018-01-03] MEDS: BENZONATATE 100 MG CAP PO PRN (22:34)
[2018-01-04] VITALS (30 sets, daily range): BP systolic 115–149; BP diastolic 64–84; PULSE 58–106; RESP 16–18; TEMP 97.6–99; O2SAT 92–98
[2018-01-04] MEDS: RESP: ALBUTEROL 2.5 MG/IPRATROPIUM 0.5 MG NEB (SCH) INH ×4 (03:08→19:41)
[2018-01-04] MEDS: CHLORHEXIDINE GLUCONATE 2 % 1 PACK (2 CLOTHS) TOP SCH (03:15)
[2018-01-04] MEDS: HEPARIN SODIUM - SQ 10,000 UNITS/ML VIAL SQ SCH ×3 (03:15→18:28)
[2018-01-04 04:41] LABS: AUTOMATED NEUTROPHIL # 9.4 TH/MM3 (1.8-7.7); BASOPHIL % 0.2 % (0.0-2.0); HEMATOCRIT 38.6 % (35.0-46.0); HEMOGLOBIN 12.2 GM/DL (11.6-15.3); LYMPH % 5.5 % (9.0-44.0); LYMPHOCYTE # 0.6 TH/MM3 (1.0-4.8); MEAN CELL VOLUME 86.6 FL (80.0-100.0); MEAN CORPUSCULAR HEMOGLOBIN 27.4 PG (27.0-34.0); MEAN CORPUSCULAR HGB CONC 31.7 % (32.0-36.0); MEAN PLATELET VOLUME 8.2 FL (7.0-11.0); MONO % 3.1 % (0.0-8.0); MONOCYTE # 0.3 TH/MM3 (0-0.9); NEUT % 91.2 % (16.0-70.0); PLATELET COUNT 287 TH/MM3 (150-450); RED BLOOD COUNT 4.46 MIL/MM3 (4.00-5.30); RED CELL DISTRIBUTION WIDTH 15.1 % (11.6-17.2); WHITE BLOOD COUNT 10.3 TH/MM3 (4.0-11.0)
[2018-01-04 04:59] LABS: ALBUMIN 2.8 GM/DL (3.4-5.0); AST (GOT) 55 U/L (15-37); BLOOD UREA NITROGEN 26 MG/DL (7-18); CALCIUM 7.7 MG/DL (8.5-10.1); CHLORIDE 102 MEQ/L (98-107); CREATININE 0.75 MG/DL (0.50-1.00); GLOMERULAR FILTRATION RATE 76 ML/MIN (>89); GLUCOSE,RANDOM 118 MG/DL (74-106); MAGNESIUM 1.7 MG/DL (1.5-2.5); SODIUM (NA) 142 MEQ/L (136-145)
[2018-01-04 05:08] LABS: ALKALINE PHOSPHATASE 67 U/L (45-117); ALT (GPT) 91 U/L (10-53); FREE T4 1.25 NG/DL (0.76-1.46); PHOSPHORUS 3.1 MG/DL (2.5-4.9); TOTAL BILIRUBIN ADULT 0.6 MG/DL (0.2-1.0); TOTAL PROTEIN 6.9 GM/DL (6.4-8.2)
[2018-01-04] MEDS: INSULIN NovoLIN REGULAR SUPPLEMENTAL SCALE SQ SCH ×5 (06:00→23:26)
[2018-01-04] MEDS: BENZONATATE 100 MG CAP PO PRN ×2 (06:08→19:29)
[2018-01-04] MEDS: SILDENAFIL CITRATE 20 MG TAB PO SCH ×3 (06:08→21:36)
[2018-01-04] MEDS: PIPERACIL-TAZO 3.375 GM PREMIX 50 ML IV SCH ×3 (06:09→23:22)
[2018-01-04] MEDS: traMADol HCL 50 MG TAB PO PRN ×2 (06:58→20:12)
--- NOTE | 2018-01-04 08:19 | MB ---
cc: Deann Colbert MD DATE: 01/03/2018 HISTORY OF PRESENT ILLNESS: Ms. Martinez is a 72-year-old white female with a history of COPD and dementia. She presented with acute shortness of breath and hypoxemia. She was given IV Solu-Medrol, started on antibiotics. She had mildly elevated troponin. She developed altered mental status. Stat CT pulmonary angiogram did not show any pulmonary embolism. There was evidence of right atrial and right ventricular enlargement. She was started on IV Lasix, with improvement of her condition. She complains of chest pain with shortness of breath and cough. Her shortness of breath is not significantly improved. PAST MEDICAL HISTORY: Positive for COPD, depression, anxiety, TIA, coronary artery disease, dementia, UTIs, hypertension, CVA x 2, osteoporosis, appendectomy, hysterectomy, left total hip arthroplasty. MEDICATIONS: Include atenolol, amlodipine, lisinopril, amitriptyline, donepezil, aspirin, oyster shell calcium, risperidone, trazodone, tramadol, lorazepam, melatonin, escitalopram, loperamide, latanoprost, Lipitor, Symbicort, cetirizine, lactobacillus, Remeron, pantoprazole and Carafate. ALLERGIES: IODINE. SOCIAL HISTORY: The patient does not smoke, but used to smoke in the past and quit smoking 10 years ago. She does not drink alcohol. FAMILY HISTORY: Positive for heart disease. REVIEW OF SYSTEMS: Otherwise negative. PHYSICAL EXAMINATION: VITAL SIGNS: Blood pressure 134/78, pulse 90 and regular. HEENT, NECK: Negative 2+ carotid upstrokes, no bruits. LUNGS: Clear. HEART: Regular with 2/6 systolic murmur at the left sternal border and gallop. ABDOMEN: Soft. EXTREMITIES: Trace edema, +2 pulses. NEUROLOGIC: Grossly nonfocal. ECHOCARDIOGRAM: Was reviewed and showed normal sinus rhythm, right axis. Diffuse ischemic changes. Echocardiogram showed preserved left ventricular systolic function, estimated ejection fraction of 55-60%, right ventricle enlargement, right ventricular dysfunction, right atrial enlargement, moderate to severe tricuspid regurgitation, pulmonary artery pressure of 56 mmHg, consistent with moderate pulmonary hypertension. LABORATORY DATA: Hemoglobin 11.0, potassium 2.9, creatinine 0.7. Troponin 0.14, 0.15 and 0.30. AST 77, ALT 90. DIAGNOSES: 1. Respiratory insufficiency. 2. Chronic obstructive pulmonary disease exacerbation. 3. Moderate pulmonary hypertension. 4. Moderate to severe tricuspid regurgitation. 5. Mild troponin elevation. 6. Metabolic encephalopathy. 7. Dementia. DISPOSITION AND RECOMMENDATIONS: Ms. Martinez will be monitored on telemetry. I recommend to continue therapy for COPD exacerbation. She has evidence of moderate pulmonary hypertension and moderate to severe tricuspid regurgitation. I recommend continuing diuresis, closely monitoring her renal function and potassium. I will follow her for cardiology during her hospitalization. MD KRISTEN Mullins/HAILEE , 06:23 PM , 07:29 PM AMBAR
[2018-01-04] MEDS: DOCUSATE SODIUM 50 MG/SENNA 8.6 MG TAB PO SCH ×2 (09:00→20:13)
[2018-01-04] MEDS: BUDESONIDE-FORMOTEROL 160/4.5 MCG INHALER INH SCH ×2 (09:50→20:12)
[2018-01-04] MEDS: TIOTROPIUM BROMIDE 18 MCG INH INH SCH (09:50)
[2018-01-04] MEDS: FUROSEMIDE 40 MG/4 ML VIAL IV PUSH SCH (09:51)
[2018-01-04] MEDS: PANTOPRAZOLE SOD 40 MG DELAYED RELEASE TAB PO SCH (09:51)
[2018-01-04] MEDS: methylPREDNISolone SOD SUCC 125 MG/2 ML VIAL IV PUSH SCH ×2 (09:51→20:12)
[2018-01-04] MEDS: POTASSIUM CHLORIDE 20 MEQ CONTROLLED RELEASE TAB PO SCH (09:52)
[2018-01-04] MEDS: ESCITALOPRAM OXALATE 10 MG TAB PO SCH (09:52)
[2018-01-04] MEDS: ASPIRIN EC 325 MG TABEC PO SCH (09:52)
[2018-01-04] MEDS: guaiFENesin E.R. 600 MG TAB PO SCH ×2 (09:52→20:13)
[2018-01-04 17:23] LABS: HEMOGLOBIN A1C 5.6 % (4.3-6.0)
--- NOTE | 2018-01-04 17:26 | PD.CARD.PN ---
Subjective Subjective Remarks Atypical R sided CP reproducible with chest palpation, SOB improving, mildly confused Objective Medications Current Medications Medications (Trade) Dose Ordered Sig/Jesse Route Start Time Stop Time Status Last Admin (NS Flush) 2 ml UNSCH PRN IVF 01/01/18 06:15 Potassium Chloride 100 ml @ 50 mls/hr Q2H PRN IV 01/01/18 09:45 Potassium Chloride 100 ml @ 50 mls/hr Q2H PRN IV 01/01/18 09:45 01/03/18 05:41 (K-Lyte Cl Eff) 50 meq UNSCH PRN PO 01/01/18 09:45 Potassium Chloride 100 ml @ 25 mls/hr UNSCH PRN IV 01/01/18 09:45 01/02/18 07:32 Potassium Chloride 100 ml @ 50 mls/hr Q2H PRN IV 01/01/18 09:45 Magnesium Sulfate 4 gm/Sodium Chloride 100 ml @ 50 mls/hr UNSCH PRN IV 01/01/18 09:45 (Mag-Ox) 800 mg UNSCH PRN PO 01/01/18 09:45 Magnesium Sulfate 2 gm/Sodium Chloride 100 ml @ 50 mls/hr UNSCH PRN IV 01/01/18 09:45 (K-Phos) 2,000 mg Q4H PRN PO 01/01/18 09:45 Sodium Phosphate 30 mmol/Sodium Chloride 250 ml @ 42 mls/hr UNSCH PRN IV 01/01/18 09:45 (K-Phos) 2,000 mg UNSCH PRN PO/TUBE 01/01/18 09:45 Potassium Phosphate 30 mmol/ Sodium Chloride 260 ml @ 42 mls/hr UNSCH PRN IV 01/01/18 09:45 (D50w (Vial) Inj) 25 ml UNSCH PRN IV PUSH 01/01/18 09:45 (NovoLIN R SUPPLEMENTAL SCALE) 1 Q6HR SQ 01/01/18 12:00 01/04/18 12:12 (Duoneb Neb) 1 ampule Q6HR NEB INH 01/01/18 10:00 01/04/18 15:44 (Duoneb Neb) 1 ampule Q2HR NEB PRN INH 01/01/18 09:45 (Zofran Inj) 4 mg Q6H PRN IV PUSH 01/01/18 09:45 01/04/18 09:58 (Heparin Inj) 5,000 units Q8H SQ 01/01/18 10:00 01/04/18 09:51 Miscellaneous Information 1 Q361D XX 01/01/18 09:45 (Chlorhexidine 2% Cloth) 3 pack Taper DAILY@04 TOP 01/02/18 04:00 12/29/18 03:59 01/03/18 04:00 (Chlorhexidine 2% Cloth) 3 pack UNSCH PRN TOP 01/01/18 09:45 (Carley-Colace) 1 tab BID PO 01/01/18 21:00 01/03/18 08:11 (Milk Of Charly Libinta) 30 ml Q12H PRN PO 01/01/18 09:45 (Elavil) 25 mg HS PO 01/01/18 21:00 01/03/18 20:25 (Ecotrin Ec) 325 mg DAILY PO 01/02/18 09:00 01/04/18 09:52 (Lipitor) 10 mg HS PO 01/01/18 21:00 01/02/18 20:31 (Symbicort 160-4.5 Mcg Inh) 1 puff Q12HR INH 01/01/18 21:00 01/04/18 09:50 (ZyrTEC) 10 mg HS PO 01/01/18 21:00 01/03/18 20:19 (Aricept) 10 mg HS PO 01/01/18 21:00 01/03/18 20:18 (Lexapro) 5 mg DAILY PO 01/02/18 09:00 01/04/18 09:52 (Melatonin) 5 mg HS PO 01/01/18 21:00 01/03/18 20:18 (Protonix) 40 mg DAILY PO 01/02/18 09:00 01/04/18 09:51 (risperDAL) 0.5 mg HS PO 01/01/18 21:00 01/03/18 20:18 (Ultram) 50 mg Q8H PRN PO 01/01/18 10:00 01/04/18 06:58 (Remeron) 45 mg HS PO 01/01/18 21:00 Future Hold 01/01/18 20:50 (Desyrel) 100 mg HS PO 01/01/18 21:00 01/03/18 20:25 (Pill Splitter) 1 ea UNSCH PRN OTHER 01/01/18 10:15 Piperacillin Sod/ Tazobactam Sod 50 ml @ 100 mls/hr Q8H IV 01/01/18 15:00 01/04/18 14:50 (Revatio) 5 mg Q8HR PO 01/01/18 14:00 01/04/18 14:50 (SoluMEDROL INJ) 60 mg Q12HR IV PUSH 01/02/18 06:45 01/04/18 09:51 (Spiriva Inh) 18 mcg DAILY INH 01/02/18 09:00 01/04/18 09:50 (Mucinex Er) 600 mg BID PO 01/03/18 21:00 01/04/18 09:52 (Lasix Inj) 40 mg DAILY IV PUSH 01/04/18 09:00 01/04/18 09:51 (KCl) 20 meq DAILY PO 01/04/18 09:00 01/04/18 09:52 (Tessalon) 100 mg TID PRN PO 01/03/18 22:00 01/04/18 06:08 Vital Signs / I&O Vital Signs Date Time Temp Pulse Resp B/P (MAP) Pulse Ox O2 Delivery O2 Flow Rate FiO2 01/04/18 16:05 85 01/04/18 15:27 99.0 78 16 136/74 (94) 94 01/04/18 15:26 94 Nasal Cannula 2.00 01/04/18 15:00 85 01/04/18 14:08 92 01/04/18 13:02 100 01/04/18 12:00 90 01/04/18 11:30 95 Nasal Cannula 2.00 01/04/18 11:29 97.6 96 141/79 (99) 98 01/04/18 11:00 106 01/04/18 10:00 94 01/04/18 09:00 104 01/04/18 08:01 94 Nasal Cannula 2.00 01/04/18 08:00 76 01/04/18 07:41 98.4 83 17 149/78 (101) 94 01/04/18 07:40 94 Nasal Cannula 2.00 01/04/18 07:00 95 01/04/18 06:26 79 01/04/18 05:20 79 01/04/18 04:10 79 01/04/18 03:16 98 Nasal Cannula 2.50 01/04/18 03:16 97.7 84 17 126/64 (84) 98 01/04/18 03:01 59 01/04/18 02:32 59 01/04/18 01:26 65 01/04/18 00:00 64 01/03/18 23:30 95 Nasal Cannula 3.00 01/03/18 23:30 97.5 72 18 137/72 (93) 95 01/03/18 23:15 64 01/03/18 22:05 76 01/03/18 21:33 74 01/03/18 21:10 95 Nasal Cannula 4.00 01/03/18 20:15 72 01/03/18 19:22 79 01/03/18 19:22 97.5 75 17 150/85 (106) 99 01/03/18 19:22 99 Nasal Cannula 3.00 01/03/18 18:00 77 I/O 01/03/18 01/03/18 01/03/18 01/04/18 01/04/18 01/04/18 07:00 15:00 23:00 07:00 15:00 23:00 Intake Total 520 ml 480 ml 360 ml Output Total 400 ml 1400 ml 850 ml Balance 120 ml -920 ml -490 ml Intake Oral 400 ml 480 ml 360 ml IV Total 120 ml Output Urine Total 400 ml 1400 ml 850 ml # Bowel Movements 0 Physical Exam GENERAL: In NAD. SKIN: Warm and dry. HEAD: Normocephalic. EYES: No scleral icterus. No injection or drainage. NECK: Supple, trachea midline. No JVD or lymphadenopathy. CARDIOVASCULAR: Regular rate and rhythm without murmurs, gallops, or rubs. RESPIRATORY: Breath sounds equal bilaterally. No accessory muscle use. Few rhonchi. GASTROINTESTINAL: Abdomen soft, non-tender, nondistended. MUSCULOSKELETAL: No cyanosis, or edema. Laboratory Laboratory Tests Test 01/04/18 04:15 White Blood Count 10.3 TH/MM3 Red Blood Count 4.46 MIL/MM3 Hemoglobin 12.2 GM/DL Hematocrit 38.6 % Mean Corpuscular Volume 86.6 FL Mean Corpuscular Hemoglobin 27.4 PG Mean Corpuscular Hemoglobin Concent 31.7 % Red Cell Distribution Width 15.1 % Platelet Count 287 TH/MM3 Mean Platelet Volume 8.2 FL Neutrophils (%) (Auto) 91.2 % Lymphocytes (%) (Auto) 5.5 % Monocytes (%) (Auto) 3.1 % Eosinophils (%) (Auto) 0.0 % Basophils (%) (Auto) 0.2 % Neutrophils # (Auto) 9.4 TH/MM3 Lymphocytes # (Auto) 0.6 TH/MM3 Monocytes # (Auto) 0.3 TH/MM3 Eosinophils # (Auto) 0.0 TH/MM3 Basophils # (Auto) 0.0 TH/MM3 CBC Comment DIFF FINAL Differential Comment Blood Urea Nitrogen 26 MG/DL Creatinine 0.75 MG/DL Random Glucose 118 MG/DL Total Protein 6.9 GM/DL Albumin 2.8 GM/DL Calcium Level 7.7 MG/DL Phosphorus Level 3.1 MG/DL Magnesium Level 1.7 MG/DL Alkaline Phosphatase 67 U/L Aspartate Amino Transf (AST/SGOT) 55 U/L Alanine Aminotransferase (ALT/SGPT) 91 U/L Total Bilirubin 0.6 MG/DL Sodium Level 142 MEQ/L Potassium Level 3.5 MEQ/L Chloride Level 102 MEQ/L Carbon Dioxide Level 31.0 MEQ/L Anion Gap 9 MEQ/L Estimat Glomerular Filtration Rate 76 ML/MIN Free Thyroxine 1.25 NG/DL Thyroid Stimulating Hormone 3rd Gen 0.560 uIU/ML Assessment and Plan Problem List: (1) Respiratory insufficiency ICD Codes: R06.89 - Other abnormalities of breathing (2) COPD with acute exacerbation ICD Codes: J44.1 - Chronic obstructive pulmonary disease with (acute) exacerbation Status: Acute (3) Tricuspid regurgitation ICD Codes: I07.1 - Rheumatic tricuspid insufficiency (4) Pulmonary hypertension ICD Codes: I27.20 - Pulmonary hypertension, unspecified (5) Dementia ICD Codes: F03.90 - Unspecified dementia without behavioral disturbance Assessment and Plan Continue current program for COPD exacerbation. Significant TR, continue diuresis. Increase activity, PT. No evidence of ACS. Continue monitoring. Deann Colbert MD Jan 04, 2018 17:26
[2018-01-04] MEDS ORDERED: POTASSIUM CHLORIDE 10 MEQ CONTROLLED RELEASE TAB PO ONE (19:30)
[2018-01-04] MEDS: AMITRIPTYLINE HCL 25 MG TAB PO SCH (20:11)
[2018-01-04] MEDS: CETIRIZINE HCL 10 MG TAB PO SCH (20:11)
[2018-01-04] MEDS: risperiDONE 0.5 MG TAB PO SCH (20:11)
[2018-01-04] MEDS: MELATONIN 5 MG TAB PO SCH (20:12)
[2018-01-04] MEDS: DONEPEZIL HCL 5 MG TAB PO SCH (20:13)
[2018-01-04] MEDS: traZODone HCL 100 MG TAB PO SCH (20:13)
[2018-01-04] MEDS: ATORVASTATIN 10 MG TAB PO SCH (20:19)
[2018-01-04] MEDS ORDERED: TIMO0.5S30 EACH EYE (21:29)
[2018-01-04] MEDS ORDERED: TIMOLOL MALEATE 0.5% OPHT SOLN 5 ML BTL EACH EYE ONE (21:30)
[2018-01-04] MEDS ORDERED: ARTIFICIAL TEARS OPTH SOLN 15 ML BTL EACH EYE PRN (21:30)
[2018-01-04] MEDS: TIMOLOL MALEATE 0.5% OPHT SOLN 5 ML BTL EACH EYE SCH (22:08)
[2018-01-04] MEDS: LATANOPROST 0.005% OPHT SOLN 2.5 ML BTL EACH EYE SCH (22:08)
[2018-01-04 22:54] LABS: BILIRUBIN, URINE NEG (NEG); BLOOD, URINE NEG (NEG); GLUCOSE,URINE NEG (NEG); KETONE, URINE NEG (NEG); NITRITE,URINE NEG (NEG); SQUAMOUS EPITHELIAL CELL URINE 2 /hpf (0-5); URINE COLOR YELLOW (YELLW/STRAW); URINE LEUKOCYTE ESTERASE TRACE (NEG)
[2018-01-05] VITALS (27 sets, daily range): BP systolic 109–156; BP diastolic 71–81; PULSE 58–130; RESP 17–20; TEMP 97.4–97.9; O2SAT 91–98
[2018-01-05] MEDS: RESP: ALBUTEROL 2.5 MG/IPRATROPIUM 0.5 MG NEB (SCH) INH (03:09)
[2018-01-05] MEDS: HEPARIN SODIUM - SQ 10,000 UNITS/ML VIAL SQ SCH ×3 (03:10→18:03)
[2018-01-05] MEDS: CHLORHEXIDINE GLUCONATE 2 % 1 PACK (2 CLOTHS) TOP SCH (04:00)
[2018-01-05 04:14] LABS: AUTOMATED NEUTROPHIL # 7.3 TH/MM3 (1.8-7.7); BASOPHIL % 0.1 % (0.0-2.0); HEMATOCRIT 38.1 % (35.0-46.0); HEMOGLOBIN 12.2 GM/DL (11.6-15.3); LYMPH % 8.5 % (9.0-44.0); LYMPHOCYTE # 0.7 TH/MM3 (1.0-4.8); MEAN CELL VOLUME 86.5 FL (80.0-100.0); MEAN CORPUSCULAR HEMOGLOBIN 27.7 PG (27.0-34.0); MEAN PLATELET VOLUME 8.3 FL (7.0-11.0); MONO % 4.5 % (0.0-8.0); MONOCYTE # 0.4 TH/MM3 (0-0.9); NEUT % 86.9 % (16.0-70.0); PLATELET COUNT 297 TH/MM3 (150-450); RED CELL DISTRIBUTION WIDTH 15.5 % (11.6-17.2); WHITE BLOOD COUNT 8.4 TH/MM3 (4.0-11.0)
[2018-01-05 04:47] LABS: ALBUMIN 2.6 GM/DL (3.4-5.0); AST (GOT) 27 U/L (15-37); BLOOD UREA NITROGEN 27 MG/DL (7-18); CALCIUM 7.5 MG/DL (8.5-10.1); CHLORIDE 101 MEQ/L (98-107); CREATININE 0.72 MG/DL (0.50-1.00); GLOMERULAR FILTRATION RATE 80 ML/MIN (>89); GLUCOSE,RANDOM 113 MG/DL (74-106); SODIUM (NA) 139 MEQ/L (136-145)
[2018-01-05 04:48] LABS: ALT (GPT) 69 U/L (10-53)
[2018-01-05 04:50] LABS: ALKALINE PHOSPHATASE 61 U/L (45-117); TOTAL BILIRUBIN ADULT 0.5 MG/DL (0.2-1.0); TOTAL PROTEIN 6.4 GM/DL (6.4-8.2)
[2018-01-05] MEDS: INSULIN NovoLIN REGULAR SUPPLEMENTAL SCALE SQ SCH ×4 (06:00→23:14)
[2018-01-05] MEDS: SILDENAFIL CITRATE 20 MG TAB PO SCH ×3 (06:33→23:11)
[2018-01-05] MEDS: PIPERACIL-TAZO 3.375 GM PREMIX 50 ML IV SCH ×2 (06:38→15:30)
--- NOTE | 2018-01-05 08:55 | PD.CARD.PN ---
Subjective Subjective Remarks No CP or SOB, feels better Objective Medications Current Medications Medications (Trade) Dose Ordered Sig/Jesse Route Start Time Stop Time Status Last Admin (NS Flush) 2 ml UNSCH PRN IVF 01/01/18 06:15 Potassium Chloride 100 ml @ 50 mls/hr Q2H PRN IV 01/01/18 09:45 Potassium Chloride 100 ml @ 50 mls/hr Q2H PRN IV 01/01/18 09:45 01/03/18 05:41 (K-Lyte Cl Eff) 50 meq UNSCH PRN PO 01/01/18 09:45 Potassium Chloride 100 ml @ 25 mls/hr UNSCH PRN IV 01/01/18 09:45 01/02/18 07:32 Potassium Chloride 100 ml @ 50 mls/hr Q2H PRN IV 01/01/18 09:45 Magnesium Sulfate 4 gm/Sodium Chloride 100 ml @ 50 mls/hr UNSCH PRN IV 01/01/18 09:45 (Mag-Ox) 800 mg UNSCH PRN PO 01/01/18 09:45 Magnesium Sulfate 2 gm/Sodium Chloride 100 ml @ 50 mls/hr UNSCH PRN IV 01/01/18 09:45 (K-Phos) 2,000 mg Q4H PRN PO 01/01/18 09:45 Sodium Phosphate 30 mmol/Sodium Chloride 250 ml @ 42 mls/hr UNSCH PRN IV 01/01/18 09:45 (K-Phos) 2,000 mg UNSCH PRN PO/TUBE 01/01/18 09:45 Potassium Phosphate 30 mmol/ Sodium Chloride 260 ml @ 42 mls/hr UNSCH PRN IV 01/01/18 09:45 (D50w (Vial) Inj) 25 ml UNSCH PRN IV PUSH 01/01/18 09:45 (NovoLIN R SUPPLEMENTAL SCALE) 1 Q6HR SQ 01/01/18 12:00 01/04/18 12:12 (Duoneb Neb) 1 ampule Q6HR NEB INH 01/01/18 10:00 01/05/18 03:09 (Duoneb Neb) 1 ampule Q2HR NEB PRN INH 01/01/18 09:45 (Zofran Inj) 4 mg Q6H PRN IV PUSH 01/01/18 09:45 01/04/18 09:58 (Heparin Inj) 5,000 units Q8H SQ 01/01/18 10:00 01/05/18 03:10 Miscellaneous Information 1 Q361D XX 01/01/18 09:45 (Chlorhexidine 2% Cloth) 3 pack Taper DAILY@04 TOP 01/02/18 04:00 12/29/18 03:59 01/03/18 04:00 (Chlorhexidine 2% Cloth) 3 pack UNSCH PRN TOP 01/01/18 09:45 (Carley-Colace) 1 tab BID PO 01/01/18 21:00 01/03/18 08:11 (Milk Of Charly Liq) 30 ml Q12H PRN PO 01/01/18 09:45 (Elavil) 25 mg HS PO 01/01/18 21:00 01/04/18 20:11 (Ecotrin Ec) 325 mg DAILY PO 01/02/18 09:00 01/04/18 09:52 (Lipitor) 10 mg HS PO 01/01/18 21:00 01/02/18 20:31 (Symbicort 160-4.5 Mcg Inh) 1 puff Q12HR INH 01/01/18 21:00 01/04/18 20:12 (ZyrTEC) 10 mg HS PO 01/01/18 21:00 01/04/18 20:11 (Aricept) 10 mg HS PO 01/01/18 21:00 01/04/18 20:13 (Lexapro) 5 mg DAILY PO 01/02/18 09:00 01/04/18 09:52 (Melatonin) 5 mg HS PO 01/01/18 21:00 01/04/18 20:12 (Protonix) 40 mg DAILY PO 01/02/18 09:00 01/04/18 09:51 (risperDAL) 0.5 mg HS PO 01/01/18 21:00 01/04/18 20:11 (Ultram) 50 mg Q8H PRN PO 01/01/18 10:00 01/04/18 20:12 (Remeron) 45 mg HS PO 01/01/18 21:00 Future Hold 01/01/18 20:50 (Desyrel) 100 mg HS PO 01/01/18 21:00 01/04/18 20:13 (Pill Splitter) 1 ea UNSCH PRN OTHER 01/01/18 10:15 Piperacillin Sod/ Tazobactam Sod 50 ml @ 100 mls/hr Q8H IV 01/01/18 15:00 01/05/18 06:38 (Revatio) 5 mg Q8HR PO 01/01/18 14:00 01/05/18 06:33 (SoluMEDROL INJ) 60 mg Q12HR IV PUSH 01/02/18 06:45 01/04/18 20:12 (Spiriva Inh) 18 mcg DAILY INH 01/02/18 09:00 01/04/18 09:50 (Mucinex Er) 600 mg BID PO 01/03/18 21:00 01/04/18 20:13 (Lasix Inj) 40 mg DAILY IV PUSH 01/04/18 09:00 01/04/18 09:51 (KCl) 20 meq DAILY PO 01/04/18 09:00 01/04/18 09:52 (Tessalon) 100 mg TID PRN PO 01/03/18 22:00 01/04/18 19:29 (Xalatan 0.005% Opth Soln) 1 drop HS EACH EYE 01/04/18 21:30 01/04/18 22:08 (Timoptic 0.5% Opth Soln) 1 drop DAILY EACH EYE 01/05/18 09:00 01/04/18 22:08 (Tears Naturale Opth Soln) 1 drop Q4H PRN EACH EYE 01/04/18 21:30 Vital Signs / I&O Vital Signs Date Time Temp Pulse Resp B/P (MAP) Pulse Ox O2 Delivery O2 Flow Rate FiO2 01/05/18 07:29 91 Nasal Cannula 3.00 01/05/18 07:25 97.9 82 19 109/72 (84) 91 01/05/18 06:11 60 01/05/18 05:31 61 01/05/18 04:54 63 01/05/18 03:30 94 Nasal Cannula 3.00 01/05/18 03:30 97.5 64 17 140/74 (96) 94 01/05/18 03:30 78 01/05/18 02:00 60 01/05/18 01:30 63 01/05/18 00:05 63 01/04/18 23:55 92 Nasal Cannula 3.00 01/04/18 23:55 58 01/04/18 23:55 97.7 65 17 115/82 (93) 92 01/04/18 22:35 60 01/04/18 21:24 74 01/04/18 20:15 80 01/04/18 19:41 96 Nasal Cannula 2.00 01/04/18 19:20 97 Nasal Cannula 2.00 01/04/18 19:20 68 01/04/18 19:20 97.8 71 18 130/84 (99) 97 01/04/18 18:00 80 01/04/18 17:00 82 01/04/18 16:05 85 01/04/18 15:27 99.0 78 16 136/74 (94) 94 01/04/18 15:26 94 Nasal Cannula 2.00 01/04/18 15:00 85 01/04/18 14:08 92 01/04/18 13:02 100 01/04/18 12:00 90 01/04/18 11:30 95 Nasal Cannula 2.00 01/04/18 11:29 97.6 96 141/79 (99) 98 01/04/18 11:00 106 01/04/18 10:00 94 01/04/18 09:00 104 I/O 01/04/18 01/04/18 01/04/18 01/05/18 01/05/18 01/05/18 07:00 15:00 23:00 07:00 15:00 23:00 Intake Total 360 ml 720 ml 240 ml Output Total 850 ml 1450 ml 650 ml Balance -490 ml -730 ml -410 ml Intake Oral 360 ml 720 ml 240 ml Output Urine Total 850 ml 1450 ml 650 ml Physical Exam GENERAL: In NAD. SKIN: Warm and dry. HEAD: Normocephalic. EYES: No scleral icterus. No injection or drainage. NECK: Supple, trachea midline. No JVD or lymphadenopathy. CARDIOVASCULAR: Regular rate and rhythm without murmurs, gallops, or rubs. RESPIRATORY: Breath sounds equal bilaterally. No accessory muscle use. Clear. GASTROINTESTINAL: Abdomen soft, non-tender, nondistended. MUSCULOSKELETAL: No cyanosis, or edema. Laboratory Laboratory Tests Test 01/04/18 22:30 01/05/18 03:55 01/05/18 07:20 Urine Color YELLOW Urine Turbidity CLEAR Urine pH 6.0 Urine Specific [place] 1.034 Urine Protein TRACE mg/dL Urine Glucose (UA) NEG mg/dL Urine Ketones NEG mg/dL Urine Occult Blood NEG Urine Nitrite NEG Urine Bilirubin NEG Urine Urobilinogen LESS THAN 2.0 MG/DL Urine Leukocyte Esterase TRACE Urine RBC LESS THAN 1 /hpf Urine WBC 1 /hpf Urine Squamous Epithelial Cells 2 /hpf Microscopic Urinalysis Comment CULT NOT INDICATED White Blood Count 8.4 TH/MM3 Red Blood Count 4.40 MIL/MM3 Hemoglobin 12.2 GM/DL Hematocrit 38.1 % Mean Corpuscular Volume 86.5 FL Mean Corpuscular Hemoglobin 27.7 PG Mean Corpuscular Hemoglobin Concent 32.0 % Red Cell Distribution Width 15.5 % Platelet Count 297 TH/MM3 Mean Platelet Volume 8.3 FL Neutrophils (%) (Auto) 86.9 % Lymphocytes (%) (Auto) 8.5 % Monocytes (%) (Auto) 4.5 % Eosinophils (%) (Auto) 0.0 % Basophils (%) (Auto) 0.1 % Neutrophils # (Auto) 7.3 TH/MM3 Lymphocytes # (Auto) 0.7 TH/MM3 Monocytes # (Auto) 0.4 TH/MM3 Eosinophils # (Auto) 0.0 TH/MM3 Basophils # (Auto) 0.0 TH/MM3 CBC Comment DIFF FINAL Differential Comment Blood Urea Nitrogen 27 MG/DL Creatinine 0.72 MG/DL Random Glucose 113 MG/DL Total Protein 6.4 GM/DL Albumin 2.6 GM/DL Calcium Level 7.5 MG/DL Alkaline Phosphatase 61 U/L Aspartate Amino Transf (AST/SGOT) 27 U/L Alanine Aminotransferase (ALT/SGPT) 69 U/L Total Bilirubin 0.5 MG/DL Sodium Level 139 MEQ/L Potassium Level 4.1 MEQ/L Chloride Level 101 MEQ/L Carbon Dioxide Level 31.0 MEQ/L Anion Gap 7 MEQ/L Estimat Glomerular Filtration Rate 80 ML/MIN Stool C. difficile Toxin (PCR) NEGATIVE Stl C. difficile Toxin Epiderm 027 PRESUMPTIVE NEGATIVE Assessment and Plan Problem List: (1) Respiratory insufficiency ICD Codes: R06.89 - Other abnormalities of breathing (2) COPD with acute exacerbation ICD Codes: J44.1 - Chronic obstructive pulmonary disease with (acute) exacerbation Status: Acute (3) Tricuspid regurgitation ICD Codes: I07.1 - Rheumatic tricuspid insufficiency (4) Pulmonary hypertension ICD Codes: I27.20 - Pulmonary hypertension, unspecified (5) Dementia ICD Codes: F03.90 - Unspecified dementia without behavioral disturbance Assessment and Plan No new cardiac issues. No evidence of ACS. Continue current program for COPD exacerbation. Echo showed significant TR, pulm hypertension and RV dysfx; continue diuresis. Increase activity, PT. QuadrDeann ferguson MD Jan 05, 2018 08:55
[2018-01-05] MEDS: BUDESONIDE-FORMOTEROL 160/4.5 MCG INHALER INH SCH ×2 (08:58→19:57)
[2018-01-05] MEDS: TIOTROPIUM BROMIDE 18 MCG INH INH SCH (08:58)
[2018-01-05] MEDS: PANTOPRAZOLE SOD 40 MG DELAYED RELEASE TAB PO SCH (08:59)
[2018-01-05] MEDS: ASPIRIN EC 325 MG TABEC PO SCH (08:59)
[2018-01-05] MEDS: guaiFENesin E.R. 600 MG TAB PO SCH ×2 (09:00→19:58)
[2018-01-05] MEDS: ESCITALOPRAM OXALATE 10 MG TAB PO SCH (09:00)
[2018-01-05] MEDS: DOCUSATE SODIUM 50 MG/SENNA 8.6 MG TAB PO SCH ×2 (09:00→20:00)
[2018-01-05] MEDS: POTASSIUM CHLORIDE 20 MEQ CONTROLLED RELEASE TAB PO SCH (09:00)
[2018-01-05] MEDS: TIMOLOL MALEATE 0.5% OPHT SOLN 5 ML BTL EACH EYE SCH (09:01)
[2018-01-05] MEDS: FUROSEMIDE 40 MG/4 ML VIAL IV PUSH SCH (09:03)
[2018-01-05] MEDS: methylPREDNISolone SOD SUCC 125 MG/2 ML VIAL IV PUSH SCH ×2 (09:04→19:59)
[2018-01-05] MEDS: SODIUM CHLORIDE 0.9% FLUSH 10 ML FLUSH IVF PRN ×2 (09:04→20:00)
[2018-01-05] MEDS: traMADol HCL 50 MG TAB PO PRN (11:45)
--- NOTE | 2018-01-05 15:28 | HHI.PR ---
Subjective Remarks late entry - patient seen on 01/04 As per Rn patient has diarrhea Also reportyed positive blood cultures Objective Vitals Vital Signs Date Time Temp Pulse Resp B/P (MAP) Pulse Ox O2 Delivery O2 Flow Rate FiO2 01/05/18 14:00 70 01/05/18 13:00 68 01/05/18 12:00 66 01/05/18 11:58 98 Nasal Cannula 2.00 01/05/18 11:00 68 01/05/18 11:00 97.4 60 19 146/71 (96) 98 01/05/18 10:12 Nasal Cannula 3.00 01/05/18 10:00 68 01/05/18 09:00 104 01/05/18 08:00 80 01/05/18 07:29 91 Nasal Cannula 3.00 01/05/18 07:25 97.9 82 19 109/72 (84) 91 01/05/18 07:00 67 01/05/18 06:11 60 01/05/18 05:31 61 01/05/18 04:54 63 01/05/18 03:30 94 Nasal Cannula 3.00 01/05/18 03:30 97.5 64 17 140/74 (96) 94 01/05/18 03:30 78 01/05/18 02:00 60 01/05/18 01:30 63 01/05/18 00:05 63 01/04/18 23:55 92 Nasal Cannula 3.00 01/04/18 23:55 58 01/04/18 23:55 97.7 65 17 115/82 (93) 92 01/04/18 22:35 60 01/04/18 21:24 74 01/04/18 20:15 80 01/04/18 19:41 96 Nasal Cannula 2.00 01/04/18 19:20 97 Nasal Cannula 2.00 01/04/18 19:20 68 01/04/18 19:20 97.8 71 18 130/84 (99) 97 01/04/18 18:00 80 01/04/18 17:00 82 01/04/18 16:05 85 01/04/18 15:27 99.0 78 16 136/74 (94) 94 01/04/18 15:26 94 Nasal Cannula 2.00 I/O 4/3/18 4/3/01/04/18 01/05/18 01/05/18 01/05/18 07:00 15:00 23:00 07:00 15:00 23:00 Intake Total 360 ml 720 ml 240 ml Output Total 850 ml 1450 ml 650 ml Balance -490 ml -730 ml -410 ml Intake Oral 360 ml 720 ml 240 ml Output Urine Total 850 ml 1450 ml 650 ml Result Diagram: 01/05/18 0355 01/05/18 0355 Imaging Last Impressions Chest X-Ray 01/03/18 0600 Signed Impressions: Service Date/Time: Wednesday, January 03, 2018 05:22 - CONCLUSION: Stable chest appearance Eyal Almazan MD CT Angiography 01/01/18 0000 Signed Impressions: Service Date/Time: Monday, January 01, 2018 12:44 - CONCLUSION: 1. Negative for pulmonary embolus. 2. Severe emphysema. 3. Small right effusion. Dependent atelectasis in the lungs. Farooq Guzman MD Objective Remarks GENERAL: Awake alert and oriented talkative and cooperative SKIN: Warm and dry. HEAD: Atraumatic. Normocephalic. EYES: Pupils equal and round. No scleral icterus. No injection or drainage. Extraocular muscles intact ENT: No nasal bleeding or discharge. Mucous membranes pink and moist. Tongue is midline NECK: Trachea midline. No JVD. Supple CARDIOVASCULAR: Regular rate and rhythm. S1-S2 no S3 or S4 RESPIRATORY: No accessory muscle use. Clear to auscultation. Breath sounds equal bilaterally. Decreased breath sounds bilaterally GASTROINTESTINAL: Abdomen soft, non-tender, nondistended. Hepatic and splenic margins not palpable. MUSCULOSKELETAL: Extremities without clubbing, cyanosis, or edema. No obvious deformities. NEUROLOGICAL: Awake and alert. No obvious cranial nerve deficits. Motor grossly within normal limits. 4 out of 5 muscle strength in the arms and legs. Normal speech. PSYCHIATRIC: Appropriate mood and affect; insight and judgment normal. Procedures NONE Medications and IVs Current Medications Medications (Trade) Dose Ordered Sig/Jesse Route Start Time Stop Time Status Last Admin (NS Flush) 2 ml UNSCH PRN IVF 01/01/18 06:15 01/05/18 09:04 Potassium Chloride 100 ml @ 50 mls/hr Q2H PRN IV 01/01/18 09:45 Potassium Chloride 100 ml @ 50 mls/hr Q2H PRN IV 01/01/18 09:45 01/03/18 05:41 (K-Lyte Cl Eff) 50 meq UNSCH PRN PO 01/01/18 09:45 Potassium Chloride 100 ml @ 25 mls/hr UNSCH PRN IV 01/01/18 09:45 01/02/18 07:32 Potassium Chloride 100 ml @ 50 mls/hr Q2H PRN IV 01/01/18 09:45 Magnesium Sulfate 4 gm/Sodium Chloride 100 ml @ 50 mls/hr UNSCH PRN IV 01/01/18 09:45 (Mag-Ox) 800 mg UNSCH PRN PO 01/01/18 09:45 Magnesium Sulfate 2 gm/Sodium Chloride 100 ml @ 50 mls/hr UNSCH PRN IV 01/01/18 09:45 (K-Phos) 2,000 mg Q4H PRN PO 01/01/18 09:45 Sodium Phosphate 30 mmol/Sodium Chloride 250 ml @ 42 mls/hr UNSCH PRN IV 01/01/18 09:45 (K-Phos) 2,000 mg UNSCH PRN PO/TUBE 01/01/18 09:45 Potassium Phosphate 30 mmol/ Sodium Chloride 260 ml @ 42 mls/hr UNSCH PRN IV 01/01/18 09:45 (D50w (Vial) Inj) 25 ml UNSCH PRN IV PUSH 01/01/18 09:45 (NovoLIN R SUPPLEMENTAL SCALE) 1 Q6HR SQ 01/01/18 12:00 01/04/18 12:12 (Duoneb Neb) 1 ampule Q2HR NEB PRN INH 01/01/18 09:45 (Zofran Inj) 4 mg Q6H PRN IV PUSH 01/01/18 09:45 01/04/18 09:58 (Heparin Inj) 5,000 units Q8H SQ 01/01/18 10:00 01/05/18 09:04 Miscellaneous Information 1 Q361D XX 01/01/18 09:45 (Chlorhexidine 2% Cloth) 3 pack Taper DAILY@04 TOP 01/02/18 04:00 12/29/18 03:59 01/03/18 04:00 (Chlorhexidine 2% Cloth) 3 pack UNSCH PRN TOP 01/01/18 09:45 (Carley-Colace) 1 tab BID PO 01/01/18 21:00 01/03/18 08:11 (Milk Of Charly Liq) 30 ml Q12H PRN PO 01/01/18 09:45 (Elavil) 25 mg HS PO 01/01/18 21:00 01/04/18 20:11 (Ecotrin Ec) 325 mg DAILY PO 01/02/18 09:00 01/05/18 08:59 (Lipitor) 10 mg HS PO 01/01/18 21:00 01/02/18 20:31 (Symbicort 160-4.5 Mcg Inh) 1 puff Q12HR INH 01/01/18 21:00 01/05/18 08:58 (ZyrTEC) 10 mg HS PO 01/01/18 21:00 01/04/18 20:11 (Aricept) 10 mg HS PO 01/01/18 21:00 01/04/18 20:13 (Lexapro) 5 mg DAILY PO 01/02/18 09:00 01/05/18 09:00 (Melatonin) 5 mg HS PO 01/01/18 21:00 01/04/18 20:12 (Protonix) 40 mg DAILY PO 01/02/18 09:00 01/05/18 08:59 (risperDAL) 0.5 mg HS PO 01/01/18 21:00 01/04/18 20:11 (Ultram) 50 mg Q8H PRN PO 01/01/18 10:00 01/05/18 11:45 (Remeron) 45 mg HS PO 01/01/18 21:00 Future Hold 01/01/18 20:50 (Desyrel) 100 mg HS PO 01/01/18 21:00 01/04/18 20:13 (Pill Splitter) 1 ea UNSCH PRN OTHER 01/01/18 10:15 Piperacillin Sod/ Tazobactam Sod 50 ml @ 100 mls/hr Q8H IV 01/01/18 15:00 01/05/18 06:38 (Revatio) 5 mg Q8HR PO 01/01/18 14:00 01/05/18 06:33 (SoluMEDROL INJ) 60 mg Q12HR IV PUSH 01/02/18 06:45 01/05/18 09:04 (Spiriva Inh) 18 mcg DAILY INH 01/02/18 09:00 01/05/18 08:58 (Mucinex Er) 600 mg BID PO 01/03/18 21:00 01/05/18 09:00 (Lasix Inj) 40 mg DAILY IV PUSH 01/04/18 09:00 01/05/18 09:03 (KCl) 20 meq DAILY PO 01/04/18 09:00 01/05/18 09:00 (Tessalon) 100 mg TID PRN PO 01/03/18 22:00 01/04/18 19:29 (Xalatan 0.005% Opth Soln) 1 drop HS EACH EYE 01/04/18 21:30 01/04/18 22:08 (Timoptic 0.5% Opth Soln) 1 drop DAILY EACH EYE 01/05/18 09:00 01/05/18 09:01 (Tears Naturale Opth Soln) 1 drop Q4H PRN EACH EYE 01/04/18 21:30 A/P Assessment and Plan Assessment: 72yF with history of COPD who presents in respiratory distress and is found to be in new-onset right heart failure, acute CHF exacerbation with possible concomitant sepsis and COPD exacerbation. In terms of her right heart failure, given her history of COPD this would most likely fit with a World Health Organization class III pulmonary hypertension secondary to chronic lung disease. Continue with forced diuresis. Low dose of sildenafil may improve her RV function and help her respiratory distress. Continue Zosyn until cultures can be ruled out, DC vanc. Frequent neuro checks. For now she is protecting her airway. Plan by systems: Acute metabolic encephalopathy Dementia Depression Anxiety Frequent neurochecks Restart home dementia meds Hold sedating medications at this time Respiratory insufficiency Acute hypoxemia COPD exacerbation/Emphysema Acute CHF exacerbation: Secondary to right heart dysfunction Wean oxygen for goal SPO2 greater than 90% Aggressive pulmonary toilet Nebs, Symbicort. Add Spiriva Continue IV steroids Acute CHF exacerbation secondary to right heart dysfunction Severe pulmonary hypertension Elevated troponin/type II NSTEMI secondary demand ischemia Trend troponins, Trend BNP Unlikely to be ACS given lack of symptoms and normal left ventricular function without wall motion abnormalities Sildenafil 5 mg p.o. every 8 hours Aggressive force diuresis, s/p Lasix 80 mg IV 1. Give 40 mg IV today continue IV Lasix CT pulmonary and gram-negative for acute PE Acute kidney injury Unclear baseline Lee for accurate I/Os while forced diuresis -- Strict I/Os Acute intravascular volume overload Acute protein calorie malnutrition-moderate ICU electrolyte protocol Start heart healthy diet Bedside swallow evaluation Force diuresis as above Heme/ID: Possible sepsis Positive blood cultures Continue Zosyn. DC vanc Panculture. Leukocytosis may be secondary to stress response Daily CBC / Consult infectious disease Hyperglycemia of critical illness -- SSI Diarrhea Check C diff toxin PCR Prophylaxis: GI Prophylaxis Home PPI DVT Prophylaxis -- SCDs Subcu heparin Lines: Peripheral IVs Lee patient wishes for this to be discontinued Nando Ruelas MD Jan 05, 2018 15:28
--- NOTE | 2018-01-05 15:53 | PD.ID.CON ---
History of Present Illness Service Infectious disease Consult Requested By Dr. Villalobos, Hospitalist service Reason for Consult Evaluation and management of positive blood cultures Primary Care Physician Ángel Bergman M.D. Diagnoses: History of Present Illness Patient seen and examined with Dr. Michaels This is a 72-year-old female with a past medical history significant for COPD, emphysema, hypertension, vascular dementia, history of CVA 2, legally blind, recurrent UTIs, depression/anxiety and GERD who presented to [facility] with acute shortness of breath was found to initially hypoxic with an O2 sat of 74%. Patient was given IV Solu-Medrol and placed on nonrebreather. Lactic acid was 4.8 concerning for sepsis. She did not have a fever and white count was 12,000. Blood cultures were obtained and she was started empirically on IV Zosyn and vancomycin. BNP was elevated at 1550. She had a CT pulmonary angiogram done which did not demonstrate any pulmonary embolus but did show enlarged right atrium and right ventricle with evidence of contrast regurgitation into the hepatic veins. Patient was given 80 mg of IV Lasix for acute CHF exacerbation and new onset right heart failure. She was started on IV Solu-Medrol for COPD exacerbation. She was found to have severe pulmonary hypertension and tricuspid regurgitation was seen in consultation by cardiology. Patient developed acute renal failure. Patient was continued on IV Zosyn and vancomycin was discontinued. Blood cultures were obtained with 3 out of 4 being positive. Infectious disease consultation has been requested for evaluation and management of positive blood cultures. At present, patient states she feels well. She reports her breathing is better. She denies any complaints of cough , chest pain or shortness of breath. She denies any sputum production. She does not use oxygen at home. She denies any recent illness or ill contacts but does states she live in an assisted living facility. She denies any nausea, vomiting or abdominal pain. Per nursing staff, she's had diarrhea with C. difficile negative testing. In the system, patient has history of Klebsiella pneumoniae UTI 12/19/16. Repeat blood cultures are pending. (Alyce Rojas) Review of Systems Except as stated in HPI: all other systems reviewed are Neg (Alyce Rojas) Past Family Social History Allergies: Coded Allergies: iodine (Unverified Allergy, Unknown, 05/18/17) potassium iodide (Unverified Allergy, Unknown, 05/18/17) povidone-iodine (Unverified Allergy, Unknown, 05/18/17) sodium iodide (Unverified Allergy, Unknown, 05/18/17) sodium iodide (Unverified Allergy, Unknown, 05/18/17) Past Medical History Vascular Dementia History of previous CVA x 2 Recurrent UTIs Hypertension HLD COPD Pulmonary hypertension IBS Depression Legally blind GERD Past Surgical History Hysterectomy Left hip arthroplasty Appendectomy Reported Medications Carafate (Sucralfate) 1 Gm Tab 1 Gm PO DAILY@0600 Pantoprazole (Pantoprazole Sodium) 40 Mg Tab 40 Mg PO DAILY Remeron (Mirtazapine) 45 Mg Tab 45 Mg PO HS Acidophilus/l-Sporogenes (Lactobacillus Acidophilus) 1 Tab Tab 1 Tab PO TID Cetirizine (Cetirizine HCl) 10 Mg Tab 10 Mg PO HS Symbicort Inh (Budesonide/Formoterol Fumarate) 160-4.5 Mcg/Act Aero 1 Puff INH Q12HR Lipitor (Atorvastatin Calcium) 10 Mg Tab 10 Mg PO HS Timolol Opth Drops 0.5 % Soln 1 Drop EACH EYE DAILY Latanoprost Opth Drops (Latanoprost) 0.005% Drops 1 Drop EACH EYE HS Loperamide (Loperamide HCl) 2 Mg Cap 2 Mg PO DIRECTED PRN One capsule after each loose stool. Not to exceed 8 capsules per day. Escitalopram (Escitalopram Oxalate) 5 Mg Tab 5 Mg PO DAILY Melatonin 5 Mg Tab 3 Mg PO HS Lorazepam 0.5 Mg Tab 0.5 Mg PO Q8H PRN Tramadol (Tramadol HCl) 50 Mg Tab 50 Mg PO Q8H PRN Trazodone (Trazodone HCl) 100 Mg Tablet 100 Mg PO HS Risperidone 0.5 Mg Tab 0.5 Mg PO HS Oyster Shell Calcium 500 mg 500 Mg Calcium (1250 Mg) Tab 500 Mg PO Q12HR Aspirin EC (Aspirin) 325 Mg Tabdr 325 Mg PO DAILY Donepezil 10 Mg Tab 10 Mg PO HS Amitriptyline (Amitriptyline HCl) 25 Mg Tab 25 Mg PO HS Lisinopril 40 Mg Tab 40 Mg PO DAILY Amlodipine (Amlodipine Besylate) 5 Mg Tab 5 Mg PO DAILY Atenolol 25 Mg Tab 25 Mg PO DAILY Active Ordered Medications Current Medications Medications (Trade) Dose Ordered Sig/Jesse Route Start Time Stop Time Status Last Admin (NS Flush) 2 ml UNSCH PRN IVF 01/01/18 06:15 01/05/18 09:04 Potassium Chloride 100 ml @ 50 mls/hr Q2H PRN IV 01/01/18 09:45 Potassium Chloride 100 ml @ 50 mls/hr Q2H PRN IV 01/01/18 09:45 01/03/18 05:41 (K-Lyte Cl Eff) 50 meq UNSCH PRN PO 01/01/18 09:45 Potassium Chloride 100 ml @ 25 mls/hr UNSCH PRN IV 01/01/18 09:45 01/02/18 07:32 Potassium Chloride 100 ml @ 50 mls/hr Q2H PRN IV 01/01/18 09:45 Magnesium Sulfate 4 gm/Sodium Chloride 100 ml @ 50 mls/hr UNSCH PRN IV 01/01/18 09:45 (Mag-Ox) 800 mg UNSCH PRN PO 01/01/18 09:45 Magnesium Sulfate 2 gm/Sodium Chloride 100 ml @ 50 mls/hr UNSCH PRN IV 01/01/18 09:45 (K-Phos) 2,000 mg Q4H PRN PO 01/01/18 09:45 Sodium Phosphate 30 mmol/Sodium Chloride 250 ml @ 42 mls/hr UNSCH PRN IV 01/01/18 09:45 (K-Phos) 2,000 mg UNSCH PRN PO/TUBE 01/01/18 09:45 Potassium Phosphate 30 mmol/ Sodium Chloride 260 ml @ 42 mls/hr UNSCH PRN IV 01/01/18 09:45 (D50w (Vial) Inj) 25 ml UNSCH PRN IV PUSH 01/01/18 09:45 (NovoLIN R SUPPLEMENTAL SCALE) 1 Q6HR SQ 01/01/18 12:00 01/04/18 12:12 (Duoneb Neb) 1 ampule Q2HR NEB PRN INH 01/01/18 09:45 (Zofran Inj) 4 mg Q6H PRN IV PUSH 01/01/18 09:45 01/04/18 09:58 (Heparin Inj) 5,000 units Q8H SQ 01/01/18 10:00 01/05/18 09:04 Miscellaneous Information 1 Q361D XX 01/01/18 09:45 (Chlorhexidine 2% Cloth) 3 pack Taper DAILY@04 TOP 01/02/18 04:00 12/29/18 03:59 01/03/18 04:00 (Chlorhexidine 2% Cloth) 3 pack UNSCH PRN TOP 01/01/18 09:45 (Carley-Colace) 1 tab BID PO 01/01/18 21:00 01/03/18 08:11 (Milk Of Charly Liq) 30 ml Q12H PRN PO 01/01/18 09:45 (Elavil) 25 mg HS PO 01/01/18 21:00 01/04/18 20:11 (Ecotrin Ec) 325 mg DAILY PO 01/02/18 09:00 01/05/18 08:59 (Lipitor) 10 mg HS PO 01/01/18 21:00 01/02/18 20:31 (Symbicort 160-4.5 Mcg Inh) 1 puff Q12HR INH 01/01/18 21:00 01/05/18 08:58 (ZyrTEC) 10 mg HS PO 01/01/18 21:00 01/04/18 20:11 (Aricept) 10 mg HS PO 01/01/18 21:00 01/04/18 20:13 (Lexapro) 5 mg DAILY PO 01/02/18 09:00 01/05/18 09:00 (Melatonin) 5 mg HS PO 01/01/18 21:00 01/04/18 20:12 (Protonix) 40 mg DAILY PO 01/02/18 09:00 01/05/18 08:59 (risperDAL) 0.5 mg HS PO 01/01/18 21:00 01/04/18 20:11 (Ultram) 50 mg Q8H PRN PO 01/01/18 10:00 01/05/18 11:45 (Remeron) 45 mg HS PO 01/01/18 21:00 Future Hold 01/01/18 20:50 (Desyrel) 100 mg HS PO 01/01/18 21:00 01/04/18 20:13 (Pill Splitter) 1 ea UNSCH PRN OTHER 01/01/18 10:15 Piperacillin Sod/ Tazobactam Sod 50 ml @ 100 mls/hr Q8H IV 01/01/18 15:00 01/05/18 06:38 (Revatio) 5 mg Q8HR PO 01/01/18 14:00 01/05/18 06:33 (SoluMEDROL INJ) 60 mg Q12HR IV PUSH 01/02/18 06:45 01/05/18 09:04 (Spiriva Inh) 18 mcg DAILY INH 01/02/18 09:00 01/05/18 08:58 (Mucinex Er) 600 mg BID PO 01/03/18 21:00 01/05/18 09:00 (Lasix Inj) 40 mg DAILY IV PUSH 01/04/18 09:00 01/05/18 09:03 (KCl) 20 meq DAILY PO 01/04/18 09:00 01/05/18 09:00 (Tessalon) 100 mg TID PRN PO 01/03/18 22:00 01/04/18 19:29 (Xalatan 0.005% Opth Soln) 1 drop HS EACH EYE 01/04/18 21:30 01/04/18 22:08 (Timoptic 0.5% Opth Soln) 1 drop DAILY EACH EYE 01/05/18 09:00 01/05/18 09:01 (Tears Naturale Opth Soln) 1 drop Q4H PRN EACH EYE 01/04/18 21:30 Family History DM, Cancer Social History Patient resides at assisted-living facility. She has a history of tobacco use of 3 packs per day but quit 10 years ago. She denies any alcohol consumption. She denies any illicit drug use. (Alyce Rojas) Physical Exam Vital Signs Vital Signs Date Time Temp Pulse Resp B/P (MAP) Pulse Ox O2 Delivery O2 Flow Rate FiO2 01/05/18 14:00 70 01/05/18 13:00 68 01/05/18 12:00 66 01/05/18 11:58 98 Nasal Cannula 2.00 01/05/18 11:00 68 01/05/18 11:00 97.4 60 19 146/71 (96) 98 01/05/18 10:12 Nasal Cannula 3.00 01/05/18 10:00 68 01/05/18 09:00 104 01/05/18 08:00 80 01/05/18 07:29 91 Nasal Cannula 3.00 01/05/18 07:25 97.9 82 19 109/72 (84) 91 01/05/18 07:00 67 01/05/18 06:11 60 01/05/18 05:31 61 01/05/18 04:54 63 01/05/18 03:30 94 Nasal Cannula 3.00 01/05/18 03:30 97.5 64 17 140/74 (96) 94 01/05/18 03:30 78 01/05/18 02:00 60 01/05/18 01:30 63 01/05/18 00:05 63 01/04/18 23:55 92 Nasal Cannula 3.00 01/04/18 23:55 58 01/04/18 23:55 97.7 65 17 115/82 (93) 92 01/04/18 22:35 60 01/04/18 21:24 74 01/04/18 20:15 80 01/04/18 19:41 96 Nasal Cannula 2.00 01/04/18 19:20 97 Nasal Cannula 2.00 01/04/18 19:20 68 01/04/18 19:20 97.8 71 18 130/84 (99) 97 01/04/18 18:00 80 01/04/18 17:00 82 01/04/18 16:05 85 01/04/18 15:27 99.0 78 16 136/74 (94) 94 01/04/18 15:26 94 Nasal Cannula 2.00 Physical Exam GENERAL: This is a well-nourished, well-developed female patient, in no apparent distress. Awake and alert. Sitting in bedside chair. Patient is legally blind SKIN: No rashes, ecchymoses or lesions. Cool and dry. HEAD: Atraumatic. Normocephalic. No temporal or scalp tenderness. EYES: Pupils equal round and reactive. Extraocular motions intact. No scleral icterus. No injection or drainage. ENT: Nose without bleeding, purulent drainage or septal hematoma. Throat without erythema, tonsillar hypertrophy or exudate. Uvula midline. Airway patent. NECK: Trachea midline. No JVD or lymphadenopathy. Supple, nontender, no meningeal signs. CARDIOVASCULAR: Regular rate and rhythm. (+)2/6 systolic murmur. RESPIRATORY: Diminished with few bibasilar crackles. Breath sounds equal bilaterally. GASTROINTESTINAL: Abdomen soft, non-tender, nondistended. No hepato-splenomegaly , or palpable masses. No guarding. MUSCULOSKELETAL: Extremities without clubbing, cyanosis, or edema. No joint tenderness, effusion, or edema noted. No calf tenderness. NEUROLOGICAL: Awake and alert. Cranial nerves II through XII grossly intact. Motor and sensory grossly within normal limits. Able to move all extremities spontaneously. Normal speech. PSYCHIATRIC: Calm and pleasant PIV site without evidence of infection Laboratory Laboratory Tests Test 01/04/18 22:30 01/05/18 03:55 01/05/18 07:20 Urine Color YELLOW Urine Turbidity CLEAR Urine pH 6.0 Urine Specific [place] 1.034 Urine Protein TRACE Urine Glucose (UA) NEG Urine Ketones NEG Urine Occult Blood NEG Urine Nitrite NEG Urine Bilirubin NEG Urine Urobilinogen LESS THAN 2.0 Urine Leukocyte Esterase TRACE Urine RBC LESS THAN 1 Urine WBC 1 Urine Squamous Epithelial Cells 2 Microscopic Urinalysis Comment CULT NOT INDICATED White Blood Count 8.4 Red Blood Count 4.40 Hemoglobin 12.2 Hematocrit 38.1 Mean Corpuscular Volume 86.5 Mean Corpuscular Hemoglobin 27.7 Mean Corpuscular Hemoglobin Concent 32.0 Red Cell Distribution Width 15.5 Platelet Count 297 Mean Platelet Volume 8.3 Neutrophils (%) (Auto) 86.9 Lymphocytes (%) (Auto) 8.5 Monocytes (%) (Auto) 4.5 Eosinophils (%) (Auto) 0.0 Basophils (%) (Auto) 0.1 Neutrophils # (Auto) 7.3 Lymphocytes # (Auto) 0.7 Monocytes # (Auto) 0.4 Eosinophils # (Auto) 0.0 Basophils # (Auto) 0.0 CBC Comment DIFF FINAL Differential Comment Blood Urea Nitrogen 27 Creatinine 0.72 Random Glucose 113 Total Protein 6.4 Albumin 2.6 Calcium Level 7.5 Alkaline Phosphatase 61 Aspartate Amino Transf (AST/SGOT) 27 Alanine Aminotransferase (ALT/SGPT) 69 Total Bilirubin 0.5 Sodium Level 139 Potassium Level 4.1 Chloride Level 101 Carbon Dioxide Level 31.0 Anion Gap 7 Estimat Glomerular Filtration Rate 80 Stool C. difficile Toxin (PCR) NEGATIVE Stl C. difficile Toxin Epiderm 027 PRESUMPTIVE NEGATIVE Date/Time Source Procedure Growth Status 01/05/18 04:00 Blood Peripheral Aerobic Blood Culture Pending Received 01/05/18 04:00 Blood Peripheral Anaerobic Blood Culture Pending Received 01/01/18 08:25 Nasal Washing Influenza Types A,B Antigen (AVELINA) - Final NEGATIVE FOR FLU A AND B ANTIGEN.... Complete (Alyce Rojas) Result Diagram: 01/05/18 0355 01/05/18 0355 Imaging Last Impressions Chest X-Ray 01/03/18 0600 Signed Impressions: Service Date/Time: Wednesday, January 03, 2018 05:22 - CONCLUSION: Stable chest appearance Eyal Almazan MD CT Angiography 01/01/18 0000 Signed Impressions: Service Date/Time: Monday, January 01, 2018 12:44 - CONCLUSION: 1. Negative for pulmonary embolus. 2. Severe emphysema. 3. Small right effusion. Dependent atelectasis in the lungs. Farooq Guzman MD (Alyce Rojas) Assessment and Plan Assessment and Plan ASSESSMENT: Bacteremia with corynebacterium and GPR, likely contaminant Acute CHF exacerbation secondary to right heart dysfunction Acute hypoxemic respiratory distress COPD exacerbation Lactic acidosis, concern for sepsis Acute renal failure Severe pulmonary hypertension secondary to chronic lung disease Severe tricuspid regurgitation Acute metabolic encephalopathy Klebsiella pneumoniae UTI Dementia History of CVAs Recurrent UTIs Depression Legally blind RECOMMENDATIONS: Continue IV Zosyn for now Follow-up on repeat blood culture results (Alyce Rojas) Assessment and Plan The exam, history, and the medical decision-making described in the above note were completed with the assistance of the mid-level provider. I reviewed and agree with the findings presented. I attest that I had a [id number] encounter with the patient on the same day, and personally performed and documented my assessment and findings in the medical record. Patient seen and examined with MILENA Gleason Denies any CP,Shortness of breath. Denies any expectoration. On NC 2 L. Basilar crackles but no aegophony, AE good. Likely secondary to severe emphysema as seen on CT chest. CXR and CT with no pneumonia. Recs: DC Zosyn IV Blood cultures: Corynebacterium and GP Rods likely contaminant. Will follow cultures to see ID and susceptibility. If does clinically well overnight will consider Dc to rehab. Incentive Spirometry per Primary team Lactobacillus on discharge. (Velia Michaels MD) Alyce Rojas Jan 05, 2018 15:53 Velia Michaels MD Jan 05, 2018 17:10
--- NOTE | 2018-01-05 17:39 | HHI.PR ---
Subjective Remarks The patient states that her diarrhea has resolved. Denies chest pain, shortness of breath, complaints of mild cough. Patient is afebrile. Objective Vitals Vital Signs Date Time Temp Pulse Resp B/P (MAP) Pulse Ox O2 Delivery O2 Flow Rate FiO2 01/05/18 15:28 93 Nasal Cannula 2.00 01/05/18 15:25 97.5 74 20 156/80 (105) 93 01/05/18 14:00 70 01/05/18 13:00 68 01/05/18 12:00 66 01/05/18 11:58 98 Nasal Cannula 2.00 01/05/18 11:00 68 01/05/18 11:00 97.4 60 19 146/71 (96) 98 01/05/18 10:12 Nasal Cannula 3.00 01/05/18 10:00 68 01/05/18 09:00 104 01/05/18 08:00 80 01/05/18 07:29 91 Nasal Cannula 3.00 01/05/18 07:25 97.9 82 19 109/72 (84) 91 01/05/18 07:00 67 01/05/18 06:11 60 01/05/18 05:31 61 01/05/18 04:54 63 01/05/18 03:30 94 Nasal Cannula 3.00 01/05/18 03:30 97.5 64 17 140/74 (96) 94 01/05/18 03:30 78 01/05/18 02:00 60 01/05/18 01:30 63 01/05/18 00:05 63 01/04/18 23:55 92 Nasal Cannula 3.00 01/04/18 23:55 58 01/04/18 23:55 97.7 65 17 115/82 (93) 92 01/04/18 22:35 60 01/04/18 21:24 74 01/04/18 20:15 80 01/04/18 19:41 96 Nasal Cannula 2.00 01/04/18 19:20 97 Nasal Cannula 2.00 01/04/18 19:20 68 01/04/18 19:20 97.8 71 18 130/84 (99) 97 01/04/18 18:00 80 I/O 01/04/18 01/04/18 01/04/18 01/05/18 01/05/1801/05/18 07:00 15:00 23:00 07:00 15:00 23:00 Intake Total 360 ml 720 ml 240 ml Output Total 850 ml 1450 ml 650 ml Balance -490 ml -730 ml -410 ml Intake Oral 360 ml 720 ml 240 ml Output Urine Total 850 ml 1450 ml 650 ml Result Diagram: 01/05/18 0355 01/05/18 0355 Imaging Last Impressions Chest X-Ray 01/03/18 0600 Signed Impressions: Service Date/Time: Wednesday, January 03, 2018 05:22 - CONCLUSION: Stable chest appearance Eyal Almazan MD CT Angiography 01/01/18 0000 Signed Impressions: Service Date/Time: Monday, January 01, 2018 12:44 - CONCLUSION: 1. Negative for pulmonary embolus. 2. Severe emphysema. 3. Small right effusion. Dependent atelectasis in the lungs. Farooq Guzman MD Objective Remarks GENERAL: Awake alert and oriented talkative and cooperative SKIN: Warm and dry. HEAD: Atraumatic. Normocephalic. EYES: Pupils equal and round. No scleral icterus. No injection or drainage. Extraocular muscles intact ENT: No nasal bleeding or discharge. Mucous membranes pink and moist. Tongue is midline NECK: Trachea midline. No JVD. Supple CARDIOVASCULAR: Regular rate and rhythm. S1-S2 no S3 or S4 RESPIRATORY: No accessory muscle use. Clear to auscultation. Breath sounds equal bilaterally. Decreased breath sounds bilaterally GASTROINTESTINAL: Abdomen soft, non-tender, nondistended. Hepatic and splenic margins not palpable. MUSCULOSKELETAL: Extremities without clubbing, cyanosis, or edema. No obvious deformities. NEUROLOGICAL: Awake and alert. No obvious cranial nerve deficits. Motor grossly within normal limits. 4 out of 5 muscle strength in the arms and legs. Normal speech. PSYCHIATRIC: Appropriate mood and affect; insight and judgment normal. Procedures NONE Medications and IVs Current Medications Medications (Trade) Dose Ordered Sig/Jesse Route Start Time Stop Time Status Last Admin (NS Flush) 2 ml UNSCH PRN IVF 01/01/18 06:15 01/05/18 09:04 Potassium Chloride 100 ml @ 50 mls/hr Q2H PRN IV 01/01/18 09:45 Potassium Chloride 100 ml @ 50 mls/hr Q2H PRN IV 01/01/18 09:45 01/03/18 05:41 (K-Lyte Cl Eff) 50 meq UNSCH PRN PO 01/01/18 09:45 Potassium Chloride 100 ml @ 25 mls/hr UNSCH PRN IV 01/01/18 09:45 01/02/18 07:32 Potassium Chloride 100 ml @ 50 mls/hr Q2H PRN IV 01/01/18 09:45 Magnesium Sulfate 4 gm/Sodium Chloride 100 ml @ 50 mls/hr UNSCH PRN IV 01/01/18 09:45 (Mag-Ox) 800 mg UNSCH PRN PO 01/01/18 09:45 Magnesium Sulfate 2 gm/Sodium Chloride 100 ml @ 50 mls/hr UNSCH PRN IV 01/01/18 09:45 (K-Phos) 2,000 mg Q4H PRN PO 01/01/18 09:45 Sodium Phosphate 30 mmol/Sodium Chloride 250 ml @ 42 mls/hr UNSCH PRN IV 01/01/18 09:45 (K-Phos) 2,000 mg UNSCH PRN PO/TUBE 01/01/18 09:45 Potassium Phosphate 30 mmol/ Sodium Chloride 260 ml @ 42 mls/hr UNSCH PRN IV 01/01/18 09:45 (D50w (Vial) Inj) 25 ml UNSCH PRN IV PUSH 01/01/18 09:45 (NovoLIN R SUPPLEMENTAL SCALE) 1 Q6HR SQ 01/01/18 12:00 01/04/18 12:12 (Duoneb Neb) 1 ampule Q2HR NEB PRN INH 01/01/18 09:45 (Zofran Inj) 4 mg Q6H PRN IV PUSH 01/01/18 09:45 01/04/18 09:58 (Heparin Inj) 5,000 units Q8H SQ 01/01/18 10:00 01/05/18 09:04 Miscellaneous Information 1 Q361D XX 01/01/18 09:45 (Chlorhexidine 2% Cloth) 3 pack Taper DAILY@04 TOP 01/02/18 04:00 12/29/18 03:59 01/03/18 04:00 (Chlorhexidine 2% Cloth) 3 pack UNSCH PRN TOP 01/01/18 09:45 (Carley-Colace) 1 tab BID PO 01/01/18 21:00 01/03/18 08:11 (Milk Of Charly Libinta) 30 ml Q12H PRN PO 01/01/18 09:45 (Elavil) 25 mg HS PO 01/01/18 21:00 01/04/18 20:11 (Ecotrin Ec) 325 mg DAILY PO 01/02/18 09:00 01/05/18 08:59 (Lipitor) 10 mg HS PO 01/01/18 21:00 01/02/18 20:31 (Symbicort 160-4.5 Mcg Inh) 1 puff Q12HR INH 01/01/18 21:00 01/05/18 08:58 (ZyrTEC) 10 mg HS PO 01/01/18 21:00 01/04/18 20:11 (Aricept) 10 mg HS PO 01/01/18 21:00 01/04/18 20:13 (Lexapro) 5 mg DAILY PO 01/02/18 09:00 01/05/18 09:00 (Melatonin) 5 mg HS PO 01/01/18 21:00 01/04/18 20:12 (Protonix) 40 mg DAILY PO 01/02/18 09:00 01/05/18 08:59 (risperDAL) 0.5 mg HS PO 01/01/18 21:00 01/04/18 20:11 (Ultram) 50 mg Q8H PRN PO 01/01/18 10:00 01/05/18 11:45 (Remeron) 45 mg HS PO 01/01/18 21:00 Future Hold 01/01/18 20:50 (Desyrel) 100 mg HS PO 01/01/18 21:00 01/04/18 20:13 (Pill Splitter) 1 ea UNSCH PRN OTHER 01/01/18 10:15 Piperacillin Sod/ Tazobactam Sod 50 ml @ 100 mls/hr Q8H IV 01/01/18 15:00 01/05/18 15:30 (Revatio) 5 mg Q8HR PO 01/01/18 14:00 01/05/18 15:30 (SoluMEDROL INJ) 60 mg Q12HR IV PUSH 01/02/18 06:45 01/05/18 09:04 (Spiriva Inh) 18 mcg DAILY INH 01/02/18 09:00 01/05/18 08:58 (Mucinex Er) 600 mg BID PO 01/03/18 21:00 01/05/18 09:00 (Lasix Inj) 40 mg DAILY IV PUSH 01/04/18 09:00 01/05/18 09:03 (KCl) 20 meq DAILY PO 01/04/18 09:00 01/05/18 09:00 (Tessalon) 100 mg TID PRN PO 01/03/18 22:00 01/04/18 19:29 (Xalatan 0.005% Opth Soln) 1 drop HS EACH EYE 01/04/18 21:30 01/04/18 22:08 (Timoptic 0.5% Opth Soln) 1 drop DAILY EACH EYE 01/05/18 09:00 01/05/18 09:01 (Tears Naturale Opth Soln) 1 drop Q4H PRN EACH EYE 01/04/18 21:30 A/P Problem List: (1) Acute metabolic encephalopathy ICD Code: G93.41 - Metabolic encephalopathy Status: Resolved (2) COPD with exacerbation ICD Code: J44.1 - Chronic obstructive pulmonary disease with (acute) exacerbation (3) Hypertension ICD Code: I10 - Essential (primary) hypertension Status: Chronic (4) Hyperlipidemia ICD Code: E78.5 - Hyperlipidemia, unspecified Status: Chronic (5) Blindness, legal ICD Code: H54.8 - Legal blindness, as defined in [place] Status: Chronic (6) Pulmonary hypertension ICD Code: I27.20 - Pulmonary hypertension, unspecified (7) GRANT (acute kidney injury) ICD Code: N17.9 - Acute kidney failure, unspecified (8) Positive blood culture ICD Code: R78.81 - Bacteremia Status: Acute (9) Hyperglycemia ICD Code: R73.9 - Hyperglycemia, unspecified Assessment and Plan Assessment: 72yF with history of COPD who presents in respiratory distress and is found to be in new-onset right heart failure, acute CHF exacerbation with possible concomitant sepsis and COPD exacerbation. In terms of her right heart failure, given her history of COPD this would most likely fit with a World Health Organization class III pulmonary hypertension secondary to chronic lung disease. Continue with forced diuresis. Low dose of sildenafil may improve her RV function and help her respiratory distress. Frequent neuro checks. For now she is protecting her airway. Acute metabolic encephalopathy Dementia Depression Anxiety Frequent neurochecks Restart home dementia meds / Encephalopathy resolved. The patient is back to her baseline dementia. Respiratory insufficiency Acute hypoxemia COPD exacerbation/Emphysema Acute CHF exacerbation: Secondary to right heart dysfunction Supplemental oxygen Aggressive pulmonary toilet Nebs, Symbicort, spi Continue IV steroids 01/05 the patient still requiring oxygen to keep appropriate oxygen saturations. Continue furosemide 40 mg IV daily. Continue Solu-Medrol 60 mg IV every 12 hours. We will order respiratory walk test. Acute CHF exacerbation secondary to right heart dysfunction Severe pulmonary hypertension Elevated troponin/type II NSTEMI secondary demand ischemia Trend troponins, Trend BNP Unlikely to be ACS given lack of symptoms and normal left ventricular function without wall motion abnormalities Sildenafil 5 mg p.o. every 8 hours Aggressive force diuresis, s/p Lasix [address] pulmonary and gram-negative for acute PE Acute kidney injury Unclear baseline Resolved Continue to monitor BUN and creatinine. Acute intravascular volume overload Acute protein calorie malnutrition-moderate ICU electrolyte protocol Start heart healthy diet Bedside swallow evaluation Force diuresis as above Positive blood cultures Continue Zosyn. DC vanc Panculture. Leukocytosis may be secondary to stress response Daily CBC 01/05 ID consulted. Appreciate recommendations. Continue IV Zosyn. Blood cultures are growing Corynebacterium SP, pleomorphic gram-positive rods and gram variable kristyn. Repeat blood culture still pending. Hyperglycemia of critical illness Diabetes ruled out. Hemoglobin A1c 5.6. Continue SSI with insulin NovoLog. Diarrhea C. difficile negative. Diarrhea resolved. Prophylaxis: GI Prophylaxis Home PPI DVT Prophylaxis -- SCDs Subcu heparin Lines: Peripheral IVs Discharge Planning Pending clearance from ID. Pending respiratory homework test. The patient may need oxygen at home. PT recommends home health care. Nando Ruelas MD Jan 05, 2018 17:39
[2018-01-05] MEDS: traZODone HCL 100 MG TAB PO SCH (19:58)
[2018-01-05] MEDS: LACTOBACILLUS ACIDOPHILUS TAB PO SCH (19:58)
[2018-01-05] MEDS: risperiDONE 0.5 MG TAB PO SCH (19:58)
[2018-01-05] MEDS: LATANOPROST 0.005% OPHT SOLN 2.5 ML BTL EACH EYE SCH (19:58)
[2018-01-05] MEDS: DONEPEZIL HCL 5 MG TAB PO SCH (19:59)
[2018-01-05] MEDS: MELATONIN 5 MG TAB PO SCH (19:59)
[2018-01-05] MEDS: ATORVASTATIN 10 MG TAB PO SCH (19:59)
[2018-01-05] MEDS: AMITRIPTYLINE HCL 25 MG TAB PO SCH (19:59)
[2018-01-05] MEDS: CETIRIZINE HCL 10 MG TAB PO SCH (19:59)
[2018-01-06] VITALS (25 sets, daily range): BP systolic 135–157; BP diastolic 70–85; PULSE 57–96; RESP 16–20; TEMP 97.7–98.1; O2SAT 89–95
[2018-01-06] MEDS: HEPARIN SODIUM - SQ 10,000 UNITS/ML VIAL SQ SCH ×3 (03:06→17:06)
[2018-01-06] MEDS: CHLORHEXIDINE GLUCONATE 2 % 1 PACK (2 CLOTHS) TOP SCH (03:06)
[2018-01-06 04:10] LABS: HEMATOCRIT 39.7 % (35.0-46.0); HEMOGLOBIN 13.2 GM/DL (11.6-15.3); MEAN CELL VOLUME 86.1 FL (80.0-100.0); MEAN CORPUSCULAR HEMOGLOBIN 28.7 PG (27.0-34.0); MEAN CORPUSCULAR HGB CONC 33.4 % (32.0-36.0); MEAN PLATELET VOLUME 8.2 FL (7.0-11.0); PLATELET COUNT 303 TH/MM3 (150-450); RED BLOOD COUNT 4.61 MIL/MM3 (4.00-5.30); WHITE BLOOD COUNT 10.1 TH/MM3 (4.0-11.0)
[2018-01-06 04:34] LABS: BICARBONATE 31.2 MEQ/L (21.0-32.0); CREATININE 0.77 MG/DL (0.50-1.00)
[2018-01-06] MEDS: INSULIN NovoLIN REGULAR SUPPLEMENTAL SCALE SQ SCH ×3 (05:03→17:06)
[2018-01-06] MEDS: SILDENAFIL CITRATE 20 MG TAB PO SCH ×3 (06:45→21:01)
--- NOTE | 2018-01-06 08:44 | PD.CARD.PN ---
Subjective Subjective Remarks No CP or SOB, feels better, mildly confused Objective Medications Current Medications Medications (Trade) Dose Ordered Sig/Jesse Route Start Time Stop Time Status Last Admin (NS Flush) 2 ml UNSCH PRN IVF 01/01/18 06:15 01/05/18 20:00 Potassium Chloride 100 ml @ 50 mls/hr Q2H PRN IV 01/01/18 09:45 Potassium Chloride 100 ml @ 50 mls/hr Q2H PRN IV 01/01/18 09:45 01/03/18 05:41 (K-Lyte Cl Eff) 50 meq UNSCH PRN PO 01/01/18 09:45 Potassium Chloride 100 ml @ 25 mls/hr UNSCH PRN IV 01/01/18 09:45 01/02/18 07:32 Potassium Chloride 100 ml @ 50 mls/hr Q2H PRN IV 01/01/18 09:45 Magnesium Sulfate 4 gm/Sodium Chloride 100 ml @ 50 mls/hr UNSCH PRN IV 01/01/18 09:45 (Mag-Ox) 800 mg UNSCH PRN PO 01/01/18 09:45 Magnesium Sulfate 2 gm/Sodium Chloride 100 ml @ 50 mls/hr UNSCH PRN IV 01/01/18 09:45 (K-Phos) 2,000 mg Q4H PRN PO 01/01/18 09:45 Sodium Phosphate 30 mmol/Sodium Chloride 250 ml @ 42 mls/hr UNSCH PRN IV 01/01/18 09:45 (K-Phos) 2,000 mg UNSCH PRN PO/TUBE 01/01/18 09:45 Potassium Phosphate 30 mmol/ Sodium Chloride 260 ml @ 42 mls/hr UNSCH PRN IV 01/01/18 09:45 (D50w (Vial) Inj) 25 ml UNSCH PRN IV PUSH 01/01/18 09:45 (NovoLIN R SUPPLEMENTAL SCALE) 1 Q6HR SQ 01/01/18 12:00 01/05/18 18:07 (Duoneb Neb) 1 ampule Q2HR NEB PRN INH 01/01/18 09:45 (Zofran Inj) 4 mg Q6H PRN IV PUSH 01/01/18 09:45 01/04/18 09:58 (Heparin Inj) 5,000 units Q8H SQ 01/01/18 10:00 01/06/18 03:06 Miscellaneous Information 1 Q361D XX 01/01/18 09:45 (Chlorhexidine 2% Cloth) 3 pack Taper DAILY@04 TOP 01/02/18 04:00 12/29/18 03:59 01/03/18 04:00 (Chlorhexidine 2% Cloth) 3 pack UNSCH PRN TOP 01/01/18 09:45 (Carley-Colace) 1 tab BID PO 01/01/18 21:00 01/03/18 08:11 (Milk Of Magnesia Liq) 30 ml Q12H PRN PO 01/01/18 09:45 (Elavil) 25 mg HS PO 01/01/18 21:00 01/05/18 19:59 (Ecotrin Ec) 325 mg DAILY PO 01/02/18 09:00 01/05/18 08:59 (Lipitor) 10 mg HS PO 01/01/18 21:00 01/02/18 20:31 (Symbicort 160-4.5 Mcg Inh) 1 puff Q12HR INH 01/01/18 21:00 01/05/18 19:57 (ZyrTEC) 10 mg HS PO 01/01/18 21:00 01/05/18 19:59 (Aricept) 10 mg HS PO 01/01/18 21:00 01/05/18 19:59 (Lexapro) 5 mg DAILY PO 01/02/18 09:00 01/05/18 09:00 (Melatonin) 5 mg HS PO 01/01/18 21:00 01/05/18 19:59 (Protonix) 40 mg DAILY PO 01/02/18 09:00 01/05/18 08:59 (risperDAL) 0.5 mg HS PO 01/01/18 21:00 01/05/18 19:58 (Ultram) 50 mg Q8H PRN PO 01/01/18 10:00 01/05/18 11:45 (Remeron) 45 mg HS PO 01/01/18 21:00 Future Hold 01/01/18 20:50 (Desyrel) 100 mg HS PO 01/01/18 21:00 01/05/18 19:58 (Pill Splitter) 1 ea UNSCH PRN OTHER 01/01/18 10:15 (Revatio) 5 mg Q8HR PO 01/01/18 14:00 01/06/18 06:45 (SoluMEDROL INJ) 60 mg Q12HR IV PUSH 01/02/18 06:45 01/05/18 19:59 (Spiriva Inh) 18 mcg DAILY INH 01/02/18 09:00 01/05/18 08:58 (Mucinex Er) 600 mg BID PO 01/03/18 21:00 01/05/18 19:58 (Lasix Inj) 40 mg DAILY IV PUSH 01/04/18 09:00 01/05/18 09:03 (KCl) 20 meq DAILY PO 01/04/18 09:00 01/05/18 09:00 (Tessalon) 100 mg TID PRN PO 01/03/18 22:00 01/04/18 19:29 (Xalatan 0.005% Opth Soln) 1 drop HS EACH EYE 01/04/18 21:30 01/05/18 19:58 (Timoptic 0.5% Opth Soln) 1 drop DAILY EACH EYE 01/05/18 09:00 01/05/18 09:01 (Tears Naturale Opth Soln) 1 drop Q4H PRN EACH EYE 01/04/18 21:30 01/05/18 19:58 (Lactinex) 1 tab Q12HR PO 01/05/18 21:00 01/05/18 19:58 Vital Signs / I&O Vital Signs Date Time Temp Pulse Resp B/P (MAP) Pulse Ox O2 Delivery O2 Flow Rate FiO2 01/06/18 07:30 97.9 68 18 141/85 (103) 95 01/06/18 07:30 95 Room Air 01/06/18 07:30 71 01/06/18 06:11 62 01/06/18 05:06 70 01/06/18 04:05 67 01/06/18 04:02 97.7 77 17 147/76 (99) 93 01/06/18 04:02 93 Nasal Cannula 2.00 01/06/18 04:02 90 01/06/18 02:11 72 01/06/18 01:24 57 01/06/18 00:02 70 01/05/18 23:57 62 01/05/18 23:57 94 Nasal Cannula 1.50 01/05/18 23:57 97.9 64 17 134/80 (98) 94 01/05/18 22:23 58 01/05/18 21:20 60 01/05/18 20:43 96 Nasal Cannula 1.50 01/05/18 20:20 90 01/05/18 19:56 97.7 74 17 153/81 (105) 96 01/05/18 19:56 71 01/05/18 19:56 96 Nasal Cannula 1.50 01/05/18 18:00 70 01/05/18 17:00 130 01/05/18 16:00 64 01/05/18 15:28 93 Nasal Cannula 2.00 01/05/18 15:25 97.5 74 20 156/80 (105) 93 01/05/18 15:00 65 01/05/18 14:00 70 01/05/18 13:00 68 01/05/18 12:00 66 01/05/18 11:58 98 Nasal Cannula 2.00 01/05/18 11:00 68 01/05/18 11:00 97.4 60 19 146/71 (96) 98 01/05/18 10:12 Nasal Cannula 3.00 01/05/18 10:00 68 01/05/18 09:00 104 I/O 01/05/18 01/05/18 01/05/18 01/06/18 01/06/18 01/06/18 07:00 15:00 23:00 07:00 15:00 23:00 Intake Total 240 ml 940 ml 240 ml Output Total 650 ml 1600 ml 325 ml Balance -410 ml -660 ml -85 ml Intake Oral 240 ml 940 ml 240 ml Output Urine Total 650 ml 1600 ml 325 ml # Bowel Movements 5 3 Physical Exam GENERAL: In NAD. SKIN: Warm and dry. HEAD: Normocephalic. EYES: No scleral icterus. No injection or drainage. NECK: Supple, trachea midline. No JVD or lymphadenopathy. CARDIOVASCULAR: Regular rate and rhythm without murmurs, gallops, or rubs. RESPIRATORY: Breath sounds equal bilaterally. No accessory muscle use. Clear. GASTROINTESTINAL: Abdomen soft, non-tender, nondistended. MUSCULOSKELETAL: No cyanosis, or edema. Laboratory Laboratory Tests Test 01/06/18 03:50 White Blood Count 10.1 TH/MM3 Red Blood Count 4.61 MIL/MM3 Hemoglobin 13.2 GM/DL Hematocrit 39.7 % Mean Corpuscular Volume 86.1 FL Mean Corpuscular Hemoglobin 28.7 PG Mean Corpuscular Hemoglobin Concent 33.4 % Red Cell Distribution Width 15.0 % Platelet Count 303 TH/MM3 Mean Platelet Volume 8.2 FL Blood Urea Nitrogen 32 MG/DL Creatinine 0.77 MG/DL Random Glucose 132 MG/DL Calcium Level 8.0 MG/DL Sodium Level 135 MEQ/L Potassium Level 3.6 MEQ/L Chloride Level 96 MEQ/L Carbon Dioxide Level 31.2 MEQ/L Anion Gap 8 MEQ/L Estimat Glomerular Filtration Rate 74 ML/MIN Assessment and Plan Problem List: (1) Respiratory insufficiency ICD Codes: R06.89 - Other abnormalities of breathing (2) COPD with acute exacerbation ICD Codes: J44.1 - Chronic obstructive pulmonary disease with (acute) exacerbation Status: Acute (3) Tricuspid regurgitation ICD Codes: I07.1 - Rheumatic tricuspid insufficiency (4) Pulmonary hypertension ICD Codes: I27.20 - Pulmonary hypertension, unspecified (5) Dementia ICD Codes: F03.90 - Unspecified dementia without behavioral disturbance Assessment and Plan No new cardiac issues, CHF improved with diuresis. No evidence of ACS. Continue current program for COPD exacerbation. Echo showed significant TR, pulm hypertension and RV dysfx; continue diuresis. Blood cx positive, likely contamination, eval by ID. Increase activity, PT. Anticipate discharge to rehab or NH. Will sign off. Deann Colbert MD Jan 06, 2018 08:44
[2018-01-06] MEDS: guaiFENesin E.R. 600 MG TAB PO SCH ×2 (09:00→21:00)
[2018-01-06] MEDS: TIOTROPIUM BROMIDE 18 MCG INH INH SCH (09:12)
[2018-01-06] MEDS: BUDESONIDE-FORMOTEROL 160/4.5 MCG INHALER INH SCH ×2 (09:13→20:59)
[2018-01-06] MEDS: TIMOLOL MALEATE 0.5% OPHT SOLN 5 ML BTL EACH EYE SCH (09:13)
[2018-01-06] MEDS: methylPREDNISolone SOD SUCC 125 MG/2 ML VIAL IV PUSH SCH (09:13)
[2018-01-06] MEDS: ESCITALOPRAM OXALATE 10 MG TAB PO SCH (09:13)
[2018-01-06] MEDS: PANTOPRAZOLE SOD 40 MG DELAYED RELEASE TAB PO SCH (09:14)
[2018-01-06] MEDS: DOCUSATE SODIUM 50 MG/SENNA 8.6 MG TAB PO SCH (09:14)
[2018-01-06] MEDS: POTASSIUM CHLORIDE 20 MEQ CONTROLLED RELEASE TAB PO SCH (09:14)
[2018-01-06] MEDS: traMADol HCL 50 MG TAB PO PRN ×2 (09:14→21:03)
[2018-01-06] MEDS: LACTOBACILLUS ACIDOPHILUS TAB PO SCH ×2 (09:14→21:00)
[2018-01-06] MEDS: FUROSEMIDE 40 MG/4 ML VIAL IV PUSH SCH (09:14)
[2018-01-06] MEDS: SODIUM CHLORIDE 0.9% FLUSH 10 ML FLUSH IVF PRN (09:15)
[2018-01-06] MEDS: ASPIRIN EC 325 MG TABEC PO SCH (09:15)
[2018-01-06] MEDS ORDERED: POTASSIUM CHLORIDE 10 MEQ CONTROLLED RELEASE TAB PO ONE (16:15)
--- NOTE | 2018-01-06 16:46 | HHI.PR ---
Addendum to Inpatient Note Addendum Reason: Additional Documentation Additional Information Chart review documentation Corynebacterium Jk bacteremia likely contaminant. Will sign off please call back if any change in clinical condition or questions. Velia Michaels MD Jan 06, 2018 16:46
--- NOTE | 2018-01-06 16:56 | HHI.PR ---
Subjective Remarks As per RN the patient had 7 loose bowel movements today. The patient is also complaining of urinary frequency. Denies chest pain or shortness of breath Objective Vitals Vital Signs Date Time Temp Pulse Resp B/P (MAP) Pulse Ox O2 Delivery O2 Flow Rate FiO2 01/06/18 16:00 80 01/06/18 15:00 98.1 70 20 142/70 (94) 94 01/06/18 15:00 86 01/06/18 15:00 94 Room Air 01/06/18 14:00 77 01/06/18 13:00 90 01/06/18 12:00 90 01/06/18 12:00 95 21 01/06/18 11:00 98.1 70 20 142/70 (94) 94 01/06/18 11:00 96 01/06/18 11:00 94 Room Air 01/06/18 10:00 82 01/06/18 09:00 96 01/06/18 08:00 82 01/06/18 07:30 97.9 68 18 141/85 (103) 95 01/06/18 07:30 95 Room Air 01/06/18 07:30 71 01/06/18 06:11 62 01/06/18 05:06 70 01/06/18 04:05 67 01/06/18 04:02 97.7 77 17 147/76 (99) 93 01/06/18 04:02 93 Nasal Cannula 2.00 01/06/18 04:02 90 01/06/18 02:11 72 01/06/18 01:24 57 01/06/18 00:02 70 01/05/18 23:57 62 01/05/18 23:57 94 Nasal Cannula 1.50 01/05/18 23:57 97.9 64 17 134/80 (98) 94 01/05/18 22:23 58 01/05/18 21:20 60 01/05/18 20:43 96 Nasal Cannula 1.50 01/05/18 20:20 90 01/05/18 19:56 97.7 74 17 153/81 (105) 96 01/05/18 19:56 71 01/05/18 19:56 96 Nasal Cannula 1.50 01/05/18 18:00 70 01/05/18 17:00 130 I/O 4/401/05/18 01/05/18 01/06/18 01/06/18 01/06/18 07:00 15:00 23:00 07:00 15:00 23:00 Intake Total 240 ml 940 ml 240 ml Output Total 650 ml 1600 ml 325 ml Balance -410 ml -660 ml -85 ml Intake Oral 240 ml 940 ml 240 ml Output Urine Total 650 ml 1600 ml 325 ml # Bowel Movements 5 3 Result Diagram: 01/06/18 0350 01/06/18 0350 Imaging Last Impressions Chest X-Ray 01/03/18 0600 Signed Impressions: Service Date/Time: Wednesday, January 03, 2018 05:22 - CONCLUSION: Stable chest appearance Eyal Almazan MD CT Angiography 01/01/18 0000 Signed Impressions: Service Date/Time: Monday, January 01, 2018 12:44 - CONCLUSION: 1. Negative for pulmonary embolus. 2. Severe emphysema. 3. Small right effusion. Dependent atelectasis in the lungs. Farooq Guzman MD Objective Remarks GENERAL: Awake alert and oriented talkative and cooperative SKIN: Warm and dry. HEAD: Atraumatic. Normocephalic. EYES: Pupils equal and round. No scleral icterus. No injection or drainage. Extraocular muscles intact ENT: No nasal bleeding or discharge. Mucous membranes pink and moist. Tongue is midline NECK: Trachea midline. No JVD. Supple CARDIOVASCULAR: Regular rate and rhythm. S1-S2 no S3 or S4 RESPIRATORY: No accessory muscle use. Clear to auscultation. Breath sounds equal bilaterally. Decreased breath sounds bilaterally GASTROINTESTINAL: Abdomen soft, non-tender, nondistended. Hepatic and splenic margins not palpable. MUSCULOSKELETAL: Extremities without clubbing, cyanosis, or edema. No obvious deformities. NEUROLOGICAL: Awake and alert. No obvious cranial nerve deficits. Motor grossly within normal limits. 4 out of 5 muscle strength in the arms and legs. Normal speech. PSYCHIATRIC: Appropriate mood and affect; insight and judgment normal. Procedures NONE Medications and IVs Current Medications Medications (Trade) Dose Ordered Sig/Jesse Route Start Time Stop Time Status Last Admin (NS Flush) 2 ml UNSCH PRN IVF 01/01/18 06:15 01/06/18 09:15 Potassium Chloride 100 ml @ 50 mls/hr Q2H PRN IV 01/01/18 09:45 Potassium Chloride 100 ml @ 50 mls/hr Q2H PRN IV 01/01/18 09:45 01/03/18 05:41 (K-Lyte Cl Eff) 50 meq UNSCH PRN PO 01/01/18 09:45 Potassium Chloride 100 ml @ 25 mls/hr UNSCH PRN IV 01/01/18 09:45 01/02/18 07:32 Potassium Chloride 100 ml @ 50 mls/hr Q2H PRN IV 01/01/18 09:45 Magnesium Sulfate 4 gm/Sodium Chloride 100 ml @ 50 mls/hr UNSCH PRN IV 01/01/18 09:45 (Mag-Ox) 800 mg UNSCH PRN PO 01/01/18 09:45 Magnesium Sulfate 2 gm/Sodium Chloride 100 ml @ 50 mls/hr UNSCH PRN IV 01/01/18 09:45 (K-Phos) 2,000 mg Q4H PRN PO 01/01/18 09:45 Sodium Phosphate 30 mmol/Sodium Chloride 250 ml @ 42 mls/hr UNSCH PRN IV 01/01/18 09:45 (K-Phos) 2,000 mg UNSCH PRN PO/TUBE 01/01/18 09:45 Potassium Phosphate 30 mmol/ Sodium Chloride 260 ml @ 42 mls/hr UNSCH PRN IV 01/01/18 09:45 (D50w (Vial) Inj) 25 ml UNSCH PRN IV PUSH 01/01/18 09:45 (NovoLIN R SUPPLEMENTAL SCALE) 1 Q6HR SQ 01/01/18 12:00 01/05/18 18:07 (Duoneb Neb) 1 ampule Q2HR NEB PRN INH 01/01/18 09:45 (Zofran Inj) 4 mg Q6H PRN IV PUSH 01/01/18 09:45 01/04/18 09:58 (Heparin Inj) 5,000 units Q8H SQ 01/01/18 10:00 01/06/18 17:06 Miscellaneous Information 1 Q361D XX 01/01/18 09:45 (Chlorhexidine 2% Cloth) 3 pack Taper DAILY@04 TOP 01/02/18 04:00 12/29/18 03:59 01/03/18 04:00 (Chlorhexidine 2% Cloth) 3 pack UNSCH PRN TOP 01/01/18 09:45 (Milk Of Magnesia Liq) 30 ml Q12H PRN PO 01/01/18 09:45 (Elavil) 25 mg HS PO 01/01/18 21:00 01/05/18 19:59 (Ecotrin Ec) 325 mg DAILY PO 01/02/18 09:00 01/06/18 09:15 (Lipitor) 10 mg HS PO 01/01/18 21:00 01/02/18 20:31 (Symbicort 160-4.5 Mcg Inh) 1 puff Q12HR INH 01/01/18 21:00 01/06/18 09:13 (ZyrTEC) 10 mg HS PO 01/01/18 21:00 01/05/18 19:59 (Aricept) 10 mg HS PO 01/01/18 21:00 01/05/18 19:59 (Lexapro) 5 mg DAILY PO 01/02/18 09:00 01/06/18 09:13 (Melatonin) 5 mg HS PO 01/01/18 21:00 01/05/18 19:59 (Protonix) 40 mg DAILY PO 01/02/18 09:00 01/06/18 09:14 (risperDAL) 0.5 mg HS PO 01/01/18 21:00 01/05/18 19:58 (Ultram) 50 mg Q8H PRN PO 01/01/18 10:00 01/06/18 09:14 (Remeron) 45 mg HS PO 01/01/18 21:00 Future Hold 01/01/18 20:50 (Desyrel) 100 mg HS PO 01/01/18 21:00 01/05/18 19:58 (Pill Splitter) 1 ea UNSCH PRN OTHER 01/01/18 10:15 (Revatio) 5 mg Q8HR PO 01/01/18 14:00 01/06/18 13:55 (Spiriva Inh) 18 mcg DAILY INH 01/02/18 09:00 01/06/18 09:12 (Mucinex Er) 600 mg BID PO 01/03/18 21:00 01/06/18 09:00 (Lasix Inj) 40 mg DAILY IV PUSH 01/04/18 09:00 01/06/18 09:14 (KCl) 20 meq DAILY PO 01/04/18 09:00 01/06/18 09:14 (Tessalon) 100 mg TID PRN PO 01/03/18 22:00 01/04/18 19:29 (Xalatan 0.005% Opth Soln) 1 drop HS EACH EYE 01/04/18 21:30 01/05/18 19:58 (Timoptic 0.5% Opth Soln) 1 drop DAILY EACH EYE 01/05/18 09:00 01/06/18 09:13 (Tears Naturale Opth Soln) 1 drop Q4H PRN EACH EYE 01/04/18 21:30 01/05/18 19:58 (Lactinex) 1 tab Q12HR PO 01/05/18 21:00 01/06/18 09:14 (Deltasone) 20 mg BID PO 01/06/18 21:00 UNV (Pyridium) 100 mg Q8HR PO 01/06/18 17:00 UNV A/P Problem List: (1) Acute metabolic encephalopathy ICD Code: G93.41 - Metabolic encephalopathy Status: Resolved (2) COPD with exacerbation ICD Code: J44.1 - Chronic obstructive pulmonary disease with (acute) exacerbation (3) Hypertension ICD Code: I10 - Essential (primary) hypertension Status: Chronic (4) Hyperlipidemia ICD Code: E78.5 - Hyperlipidemia, unspecified Status: Chronic (5) Blindness, legal ICD Code: H54.8 - Legal blindness, as defined in [place] Status: Chronic (6) Pulmonary hypertension ICD Code: I27.20 - Pulmonary hypertension, unspecified (7) GRANT (acute kidney injury) ICD Code: N17.9 - Acute kidney failure, unspecified (8) Positive blood culture ICD Code: R78.81 - Bacteremia Status: Acute (9) Hyperglycemia ICD Code: R73.9 - Hyperglycemia, unspecified Assessment and Plan Assessment: 72yF with history of COPD who presents in respiratory distress and is found to be in new-onset right heart failure, acute CHF exacerbation with possible concomitant sepsis and COPD exacerbation. In terms of her right heart failure, given her history of COPD this would most likely fit with a World Health Organization class III pulmonary hypertension secondary to chronic lung disease. Continue with forced diuresis. Low dose of sildenafil may improve her RV function and help her respiratory distress. Frequent neuro checks. For now she is protecting her airway. Acute metabolic encephalopathy Dementia Depression Anxiety Frequent neurochecks Restart home dementia meds / Encephalopathy resolved. The patient is back to her baseline dementia. Respiratory insufficiency Acute hypoxemia COPD exacerbation/Emphysema Acute CHF exacerbation: Secondary to right heart dysfunction Supplemental oxygen Aggressive pulmonary toilet Nebs, Symbicort, spi Continue IV steroids / the patient still requiring oxygen to keep appropriate oxygen saturations. Continue furosemide 40 mg IV daily. Continue Solu-Medrol 60 mg IV every 12 hours. We will order respiratory walk test. 01/06 discontinue IV Solu-Medrol and start the patient on prednisone taper. DC IV Lasix and start on oral. Acute CHF exacerbation secondary to right heart dysfunction Severe pulmonary hypertension Elevated troponin/type II NSTEMI secondary demand ischemia Trend troponins, Trend BNP Unlikely to be ACS given lack of symptoms and normal left ventricular function without wall motion abnormalities Sildenafil 5 mg p.o. every 8 hours Aggressive force diuresis, s/p Lasix [address] pulmonary and gram-negative for acute PE Acute kidney injury Unclear baseline Resolved Continue to monitor BUN and creatinine. Acute intravascular volume overload Acute protein calorie malnutrition-moderate ICU electrolyte protocol Start heart healthy diet Bedside swallow evaluation Force diuresis as above Positive blood cultures Continue Zosyn. DC vanc Panculture. Leukocytosis may be secondary to stress response Daily CBC 01/05 ID consulted. Appreciate recommendations. Continue IV Zosyn. Blood cultures are growing Corynebacterium SP, pleomorphic gram-positive rods and gram variable kristyn. Repeat blood culture still pending. 01/06 repeat blood cultures negative. Positive blood cultures likely due to contamination. Hyperglycemia of critical illness Diabetes ruled out. Hemoglobin A1c 5.6. Continue SSI with insulin NovoLog. Diarrhea C. difficile negative. Diarrhea resolved. Prophylaxis: GI Prophylaxis Home PPI DVT Prophylaxis -- SCDs Subcu heparin Lines: Peripheral IVs Discharge Planning Pending clearance from ID. Pending respiratory homework test. The patient may need oxygen at home. PT recommends home health care. Nando Ruelas MD Jan 06, 2018 16:56
[2018-01-06] MEDS: PHENAZOPYRIDINE HCL 100 MG TAB PO SCH ×2 (18:40→22:00)
[2018-01-06] MEDS: DONEPEZIL HCL 5 MG TAB PO SCH (20:59)
[2018-01-06] MEDS: MELATONIN 5 MG TAB PO SCH (21:00)
[2018-01-06] MEDS: risperiDONE 0.5 MG TAB PO SCH (21:00)
[2018-01-06] MEDS: predniSONE 20 MG TAB PO SCH (21:00)
[2018-01-06] MEDS: LATANOPROST 0.005% OPHT SOLN 2.5 ML BTL EACH EYE SCH (21:00)
[2018-01-06] MEDS: traZODone HCL 100 MG TAB PO SCH (21:00)
[2018-01-06] MEDS: CETIRIZINE HCL 10 MG TAB PO SCH (21:00)
[2018-01-06] MEDS: ATORVASTATIN 10 MG TAB PO SCH (21:01)
[2018-01-06] MEDS: AMITRIPTYLINE HCL 25 MG TAB PO SCH (21:03)
[2018-01-07] VITALS (11 sets, daily range): BP systolic 135–165; BP diastolic 78–82; PULSE 58–82; RESP 16–18; TEMP 97.5–98.2; O2SAT 94
[2018-01-07] MEDS: CHLORHEXIDINE GLUCONATE 2 % 1 PACK (2 CLOTHS) TOP SCH (04:00)
[2018-01-07] MEDS: HEPARIN SODIUM - SQ 10,000 UNITS/ML VIAL SQ SCH ×3 (04:03→17:35)
[2018-01-07 06:28] LABS: HEMATOCRIT 40.1 % (35.0-46.0); HEMOGLOBIN 12.9 GM/DL (11.6-15.3); MEAN CELL VOLUME 85.5 FL (80.0-100.0); MEAN CORPUSCULAR HEMOGLOBIN 27.6 PG (27.0-34.0); MEAN CORPUSCULAR HGB CONC 32.3 % (32.0-36.0); PLATELET COUNT 332 TH/MM3 (150-450); RED CELL DISTRIBUTION WIDTH 14.8 % (11.6-17.2); WHITE BLOOD COUNT 9.4 TH/MM3 (4.0-11.0)
[2018-01-07] MEDS: SILDENAFIL CITRATE 20 MG TAB PO SCH ×2 (06:30→15:56)
[2018-01-07] MEDS: PHENAZOPYRIDINE HCL 100 MG TAB PO SCH ×2 (06:30→15:56)
[2018-01-07 06:59] LABS: BICARBONATE 28.5 MEQ/L (21.0-32.0); CREATININE 0.65 MG/DL (0.50-1.00)
[2018-01-07] MEDS: INSULIN NovoLIN REGULAR SUPPLEMENTAL SCALE SQ SCH ×4 (07:00→17:35)
[2018-01-07] MEDS: LACTOBACILLUS ACIDOPHILUS TAB PO SCH (08:56)
[2018-01-07] MEDS: guaiFENesin E.R. 600 MG TAB PO SCH (08:57)
[2018-01-07] MEDS: ESCITALOPRAM OXALATE 10 MG TAB PO SCH (08:57)
[2018-01-07] MEDS: BUDESONIDE-FORMOTEROL 160/4.5 MCG INHALER INH SCH (08:57)
[2018-01-07] MEDS: ASPIRIN EC 325 MG TABEC PO SCH (08:57)
[2018-01-07] MEDS: predniSONE 20 MG TAB PO SCH (08:57)
[2018-01-07] MEDS: POTASSIUM CHLORIDE 20 MEQ CONTROLLED RELEASE TAB PO SCH (08:58)
[2018-01-07] MEDS: TIOTROPIUM BROMIDE 18 MCG INH INH SCH (08:58)
[2018-01-07] MEDS: PANTOPRAZOLE SOD 40 MG DELAYED RELEASE TAB PO SCH (08:59)
[2018-01-07] MEDS: FUROSEMIDE 40 MG/4 ML VIAL IV PUSH SCH (09:00)
[2018-01-07] MEDS: TIMOLOL MALEATE 0.5% OPHT SOLN 5 ML BTL EACH EYE SCH (10:09)
[2018-01-07] MEDS ORDERED: ESCI5TAB PO (12:37)
[2018-01-07] MEDS ORDERED: LOPE2CAP PO (12:37)
[2018-01-07] MEDS ORDERED: SYMB160A INH (12:37)
[2018-01-07] MEDS ORDERED: CETI10 PO (12:37)
[2018-01-07] MEDS ORDERED: REME45TA PO (12:37)
[2018-01-07] MEDS ORDERED: CARA1TAB6 PO (12:37)
[2018-01-07] MEDS ORDERED: LACT PO (12:37)
[2018-01-07] MEDS ORDERED: LATA0.002 EACH EYE (12:37)
[2018-01-07] MEDS ORDERED: PRED20 PO (12:37)
[2018-01-07] MEDS ORDERED: DONE10TA7 PO (12:37)
[2018-01-07] MEDS ORDERED: SPIRCAP INH (12:37)
[2018-01-07] MEDS ORDERED: PANT40TA3 PO (12:37)
[2018-01-07] MEDS ORDERED: ATEN25TA PO (12:37)
[2018-01-07] MEDS ORDERED: SILD20 PO (12:37)
[2018-01-07] MEDS ORDERED: LIPI10TA PO (12:37)
[2018-01-07] MEDS ORDERED: TRAM50 PO (12:37)
[2018-01-07] MEDS ORDERED: TIMO0.5S30 EACH EYE (12:37)
[2018-01-07] MEDS ORDERED: AMIT25TA9 PO (12:37)
[2018-01-07] MEDS ORDERED: TRAZ100T10 PO (12:37)
[2018-01-07] MEDS ORDERED: LISI40TA PO (12:37)
[2018-01-07] MEDS ORDERED: OYST1TAB PO (12:37)
--- NOTE | 2018-01-07 12:42 | HHI.DCPOC ---
Discharge Care Plan Diagnosis: (1) COPD with exacerbation (2) GRANT (acute kidney injury) (3) Hypertension (4) Blindness, legal (5) Hyperlipidemia (6) Hyperglycemia (7) Tricuspid regurgitation (8) Respiratory insufficiency (9) Dementia (10) Pulmonary hypertension (11) COPD with acute exacerbation (12) Hypoxemia (13) Pulmonary edema (14) Positive blood culture (15) Acute metabolic encephalopathy Goals to Promote Your Health * To prevent worsening of your condition and complications * To maintain your health at the optimal level Directions to Meet Your Goals Take your medications as prescribed Follow your dietary instruction Follow activity as directed Keep your appointments as scheduled Take your immunizations and boosters as scheduled If your symptoms worsen call your PCP, if no PCP go to Urgent Care Center or Emergency Room Smoking is Dangerous to Your Health. Avoid second hand smoke Call the 24-hour hour crisis hotline for domestic abuse at Nando Ruelas MD Jan 07, 2018 12:42
--- NOTE | 2018-01-07 12:44 | HHI.DS ---
Discharge Summary Admission Date Jan 01, 2018 at 10:06 Discharge Date: Jan 07, 2018 Admitting Diagnosis (1) Acute metabolic encephalopathy ICD Code: G93.41 - Metabolic encephalopathy Status: Resolved (2) COPD with exacerbation ICD Code: J44.1 - Chronic obstructive pulmonary disease with (acute) exacerbation (3) Hypertension ICD Code: I10 - Essential (primary) hypertension Status: Chronic (4) Hyperlipidemia ICD Code: E78.5 - Hyperlipidemia, unspecified Status: Chronic (5) Blindness, legal ICD Code: H54.8 - Legal blindness, as defined in [place] Status: Chronic (6) Pulmonary hypertension ICD Code: I27.20 - Pulmonary hypertension, unspecified (7) GRANT (acute kidney injury) ICD Code: N17.9 - Acute kidney failure, unspecified (8) Positive blood culture ICD Code: R78.81 - Bacteremia Status: Acute (9) Hyperglycemia ICD Code: R73.9 - Hyperglycemia, unspecified Procedures NONE Brief History - From Admission This is a 72-year-old female with what appears to be a past history of dementia and COPD by looking at old records who presents the emergency department with acute shortness of breath. In the emergency department she was found to have an O2 sat of 74%. She was given IV Solu-Medrol and placed on a nonrebreather. Her lactate was elevated at 4.8 and she had a white count elevation greater than 20,000 which was concerning for sepsis. She was cultured and started on empiric antibiotics. Her BNP came back it 1550 with mildly elevated troponins at 0.1. When I evaluated the patient, she was too somnolent and difficult to arouse. She was clearly protecting her airway, but was unable to answer questions about her medical history. EKG demonstrates severe right axis deviation. Given the electrocardiographic findings combined with the shortness of breath, PE was on the differential. I did bedside critical care echo which demonstrated severe RV dilation and dysfunction which was new with clinically significant tricuspid regurgitation. I ordered formal echo which confirms these findings. We went to stat CT pulmonary angiogram which did not demonstrate any pulmonary embolism, but did demonstrate an enlarged right atrium and right ventricle with evidence of contrast regurgitation into the hepatic veins. I stopped her IV fluids, which were started for presumed sepsis , and ordered 80 mg Lasix IV 1. No additional information is available from the patient. ROS is unobtainable. CBC/BMP: 01/07/18 0600 01/07/18 0600 Significant Findings Laboratory Tests Test 01/04/18 22:30 01/05/18 03:55 01/05/18 07:20 01/06/18 03:50 Urine Leukocyte Esterase TRACE (NEG) Neutrophils (%) (Auto) 86.9 % (16.0-70.0) Lymphocytes (%) (Auto) 8.5 % (9.0-44.0) Lymphocytes # (Auto) 0.7 TH/MM3 (1.0-4.8) Blood Urea Nitrogen 27 MG/DL (7-18) 32 MG/DL (7-18) Random Glucose 113 MG/DL (74-106) 132 MG/DL (74-106) Albumin 2.6 GM/DL (3.4-5.0) Calcium Level 7.5 MG/DL (8.5-10.1) 8.0 MG/DL (8.5-10.1) Alanine Aminotransferase (ALT/SGPT) 69 U/L (10-53) Estimat Glomerular Filtration Rate 80 ML/MIN (>89) 74 ML/MIN (>89) Sodium Level 135 MEQ/L (136-145) Chloride Level 96 MEQ/L (98-107) Test 01/07/18 06:00 Blood Urea Nitrogen 23 MG/DL (7-18) Calcium Level 8.0 MG/DL (8.5-10.1) Imaging Last Impressions Chest X-Ray 01/03/18 0600 Signed Impressions: Service Date/Time: Wednesday, January 03, 2018 05:22 - CONCLUSION: Stable chest appearance Eyal Almazan MD CT Angiography 01/01/18 0000 Signed Impressions: Service Date/Time: Monday, January 01, 2018 12:44 - CONCLUSION: 1. Negative for pulmonary embolus. 2. Severe emphysema. 3. Small right effusion. Dependent atelectasis in the lungs. Farooq Guzman MD PE at Discharge GENERAL: Awake alert and oriented talkative and cooperative SKIN: Warm and dry. HEAD: Atraumatic. Normocephalic. EYES: Pupils equal and round. No scleral icterus. No injection or drainage. Extraocular muscles intact ENT: No nasal bleeding or discharge. Mucous membranes pink and moist. Tongue is midline NECK: Trachea midline. No JVD. Supple CARDIOVASCULAR: Regular rate and rhythm. S1-S2 no S3 or S4 RESPIRATORY: No accessory muscle use. Clear to auscultation. Breath sounds equal bilaterally. Decreased breath sounds bilaterally GASTROINTESTINAL: Abdomen soft, non-tender, nondistended. Hepatic and splenic margins not palpable. MUSCULOSKELETAL: Extremities without clubbing, cyanosis, or edema. No obvious deformities. NEUROLOGICAL: Awake and alert. No obvious cranial nerve deficits. Motor grossly within normal limits. 4 out of 5 muscle strength in the arms and legs. Normal speech. PSYCHIATRIC: Appropriate mood and affect; insight and judgment normal. Pt Condition on Discharge: Stable Discharge Disposition: Disch w/ Home Health Serv Discharge Time: > 30 minutes Discharge Instructions DIET: Follow Instructions for: Heart Healthy Diet Activities you can perform: See Additionl Instruction Other Activity Instructions: OOB with assistance Follow up Referrals: PCP Follow-up - 1 Week New Medications: Prednisone (Prednisone) 20 Mg Tab 20 MG PO DIRECTED for Inflammation, #11 TAB 0 Refills Take 20 mg daily 3 days, then take 10 mg(1/2 tab) daily 3 days and then stop. Sildenafil (Revatio) 20 Mg Tab 5 MG PO Q8HR for Shortness of Breath, #93 TAB Tiotropium Inh (Spiriva Handihaler) 18 Mcg Cap 18 MCG INH DAILY for Shortness of Breath, #1 CAP 1 capsule = 18 mcg Tramadol (Ultram) 50 Mg Tab 50 MG PO Q8H PRN for PAIN 1-10, #30 TAB Continued Medications: Amitriptyline (Amitriptyline) 25 Mg Tab 25 MG PO HS for Control Depression, #30 TAB 0 Refills (This prescription has been renewed) Aspirin DR (Aspirin EC) 325 Mg Tabdr 325 MG PO DAILY, TAB 0 Refills Atenolol (Atenolol) 25 Mg Tab 25 MG PO DAILY for Blood Pressure Management, #30 TAB (This prescription has been renewed) Atorvastatin (Lipitor) 10 Mg Tab 10 MG PO HS for health, #30 TAB 0 Refills (This prescription has been renewed) Budesonide-Formoterol Inh (Symbicort Inh) 160-4.5 Mcg/Act Aero 1 PUFF INH Q12HR for health, #1 INHALER 0 Refills (This prescription has been renewed) Cetirizine (Cetirizine) 10 Mg Tab 10 MG PO HS for health, #30 TAB 0 Refills (This prescription has been renewed) Donepezil (Donepezil) 10 Mg Tab 10 MG PO HS for Dementia, #30 TAB 0 Refills (This prescription has been renewed) Escitalopram (Escitalopram) 5 Mg Tab 5 MG PO DAILY for Depression Control, #30 TAB 0 Refills (This prescription has been renewed) Lactobacillus Acidophilus (Acidophilus/l-Sporogenes) 1 Tab Tab 1 TAB PO TID for health, #90 TAB 0 Refills (This prescription has been renewed) Latanoprost Opth Drops (Latanoprost Opth Drops) 0.005% Drops 1 DROP EACH EYE HS for glaucoma, #1 BOTTLE (This prescription has been renewed) Lisinopril (Lisinopril) 40 Mg Tab 40 MG PO DAILY for Blood Pressure Management, #30 TAB 0 Refills (This prescription has been renewed) Loperamide (Loperamide) 2 Mg Cap 2 MG PO DIRECTED PRN for DIARRHEA, #30 CAP 0 Refills (This prescription has been renewed) One capsule after each loose stool. Not to exceed 8 capsules per day. Lorazepam (Lorazepam) 0.5 Mg Tab 0.5 MG PO Q8H PRN for ANXIETY, TAB 0 Refills Melatonin (Melatonin) 5 Mg Tab 3 MG PO HS for Provide Good Sleep, TAB 0 Refills Mirtazapine (Remeron) 45 Mg Tab 45 MG PO HS for Depression Control, #30 TAB 0 Refills (This prescription has been renewed) Oyster Shell Calcium 500 mg (Oyster Shell Calcium 500 mg) 500 Mg Calcium (1250 Mg) Tab 500 MG PO Q12HR for Calcium Supplement, #20 TAB 0 Refills (This prescription has been renewed) Pantoprazole (Pantoprazole) 40 Mg Tab 40 MG PO DAILY for health, #30 TAB 0 Refills (This prescription has been renewed ) Risperidone (Risperidone) 0.5 Mg Tab 0.5 MG PO HS, #30 TAB 0 Refills Sucralfate (Carafate) 1 Gm Tab 1 GM PO DAILY@0600 for health, #30 TAB 0 Refills (This prescription has been renewed) Timolol Opth Drops (Timolol Opth Drops) 0.5 % Soln 1 DROP EACH EYE DAILY for Glaucoma, #1 BOTTLE 0 Refills (This prescription has been renewed) Trazodone (Trazodone) 100 Mg Tablet 100 MG PO HS for Control Depression, #30 TAB 0 Refills (This prescription has been renewed) Discontinued Medications: Amlodipine (Amlodipine) 5 Mg Tab 5 MG PO DAILY for Blood Pressure Management, #30 TAB 0 Refills Tramadol (Tramadol) 50 Mg Tab 50 MG PO Q8H PRN for PAIN, TAB 0 Refills Nando Ruelas MD Jan 07, 2018 12:44
[2018-01-07] MEDS: traMADol HCL 50 MG TAB PO PRN (15:56)
[2018-01-07] MEDS ORDERED: OXYGENDME NAS.CANULA (16:24)
--- NOTE | 2018-01-07 16:26 | HHI.PR ---
Subjective Remarks Diarrhea is improving Patient denies cp/sob afebrile Objective Vitals Vital Signs Date Time Temp Pulse Resp B/P (MAP) Pulse Ox O2 Delivery O2 Flow Rate FiO2 01/07/18 12:00 97.9 82 16 158/78 (104) 94 01/07/18 11:46 92 Room Air 01/07/18 10:00 68 01/07/18 09:40 3.00 01/07/18 09:00 66 01/07/18 08:00 68 01/07/18 08:00 92 Room Air 01/07/18 08:00 98.0 78 16 165/79 (107) 94 01/07/18 07:00 73 01/07/18 03:52 97.5 81 16 141/81 (101) 94 01/07/18 03:41 96 Nasal Cannula 2.00 01/07/18 02:00 62 01/07/18 01:00 58 01/07/18 00:00 78 01/06/18 23:00 96 Nasal Cannula 1.50 01/06/18 23:00 98.1 69 16 135/81 (99) 95 01/06/18 23:00 62 01/06/18 22:00 58 01/06/18 21:47 91 Nasal Cannula 3.00 01/06/18 21:30 95 Nasal Cannula 2.00 01/06/18 21:00 70 01/06/18 20:00 68 01/06/18 20:00 89 Room Air 01/06/18 20:00 98.0 77 16 157/79 (105) 89 01/06/18 19:00 70 01/06/18 18:00 85 01/06/18 17:00 70 I/O 01/06/18 01/06/18 01/06/18 01/07/18 01/07/18 01/07/18 06:59 14:59 22:59 06:59 14:59 22:59 Intake Total 240 ml 680 ml 240 ml Output Total 325 ml 1100 ml 800 ml Balance -85 ml -420 ml -560 ml Intake Oral 240 ml 680 ml 240 ml Output Urine Total 325 ml 1100 ml 800 ml # Voids 1 # Bowel Movements 3 6 0 Result Diagram: 01/07/18 0601/07/18599 Imaging Last Impressions Chest X-Ray 4/2/18 0600 Signed Impressions: Service Date/Time: Wednesday, January 03, 2018 05:22 - CONCLUSION: Stable chest appearance Eyal Almazan MD CT Angiography 01/01/18 0000 Signed Impressions: Service Date/Time: Monday, January 01, 2018 12:44 - CONCLUSION: 1. Negative for pulmonary embolus. 2. Severe emphysema. 3. Small right effusion. Dependent atelectasis in the lungs. Farooq Guzman MD Objective Remarks GENERAL: Awake alert and oriented talkative and cooperative SKIN: Warm and dry. HEAD: Atraumatic. Normocephalic. EYES: Pupils equal and round. No scleral icterus. No injection or drainage. Extraocular muscles intact ENT: No nasal bleeding or discharge. Mucous membranes pink and moist. Tongue is midline NECK: Trachea midline. No JVD. Supple CARDIOVASCULAR: Regular rate and rhythm. S1-S2 no S3 or S4 RESPIRATORY: No accessory muscle use. Clear to auscultation. Breath sounds equal bilaterally. Decreased breath sounds bilaterally GASTROINTESTINAL: Abdomen soft, non-tender, nondistended. Hepatic and splenic margins not palpable. MUSCULOSKELETAL: Extremities without clubbing, cyanosis, or edema. No obvious deformities. NEUROLOGICAL: Awake and alert. No obvious cranial nerve deficits. Motor grossly within normal limits. 4 out of 5 muscle strength in the arms and legs. Normal speech. PSYCHIATRIC: Appropriate mood and affect; insight and judgment normal. Procedures NONE Medications and IVs Current Medications Medications (Trade) Dose Ordered Sig/Jesse Route Start Time Stop Time Status Last Admin (NS Flush) 2 ml UNSCH PRN IVF 01/01/18 06:15 01/06/18 09:15 Potassium Chloride 100 ml @ 50 mls/hr Q2H PRN IV 01/01/18 09:45 Potassium Chloride 100 ml @ 50 mls/hr Q2H PRN IV 01/01/18 09:45 01/03/18 05:41 (K-Lyte Cl Eff) 50 meq UNSCH PRN PO 01/01/18 09:45 Potassium Chloride 100 ml @ 25 mls/hr UNSCH PRN IV 01/01/18 09:45 01/02/18 07:32 Potassium Chloride 100 ml @ 50 mls/hr Q2H PRN IV 01/01/18 09:45 Magnesium Sulfate 4 gm/Sodium Chloride 100 ml @ 50 mls/hr UNSCH PRN IV 01/01/18 09:45 (Mag-Ox) 800 mg UNSCH PRN PO 01/01/18 09:45 Magnesium Sulfate 2 gm/Sodium Chloride 100 ml @ 50 mls/hr UNSCH PRN IV 01/01/18 09:45 (K-Phos) 2,000 mg Q4H PRN PO 01/01/18 09:45 Sodium Phosphate 30 mmol/Sodium Chloride 250 ml @ 42 mls/hr UNSCH PRN IV 01/01/18 09:45 (K-Phos) 2,000 mg UNSCH PRN PO/TUBE 01/01/18 09:45 Potassium Phosphate 30 mmol/ Sodium Chloride 260 ml @ 42 mls/hr UNSCH PRN IV 01/01/18 09:45 (D50w (Vial) Inj) 25 ml UNSCH PRN IV PUSH 01/01/18 09:45 (NovoLIN R SUPPLEMENTAL SCALE) 1 Q6HR SQ 01/01/18 12:00 01/05/18 18:07 (Duoneb Neb) 1 ampule Q2HR NEB PRN INH 01/01/18 09:45 (Zofran Inj) 4 mg Q6H PRN IV PUSH 01/01/18 09:45 01/04/18 09:58 (Heparin Inj) 5,000 units Q8H SQ 01/01/18 10:00 01/07/18 08:56 Miscellaneous Information 1 Q361D XX 01/01/18 09:45 (Chlorhexidine 2% Cloth) Taper DAILY@04 TOP 01/02/18 04:00 12/29/18 03:59 01/03/18 04:00 (Chlorhexidine 2% Cloth) 3 pack UNSCH PRN TOP 01/01/18 09:45 (Milk Of Magnesia Liq) 30 ml Q12H PRN PO 01/01/18 09:45 (Elavil) 25 mg HS PO 01/01/18 21:00 01/06/18 21:03 (Ecotrin Ec) 325 mg DAILY PO 01/02/18 09:00 01/07/18 08:57 (Lipitor) 10 mg HS PO 01/01/18 21:00 01/06/18 21:01 (Symbicort 160-4.5 Mcg Inh) 1 puff Q12HR INH 01/01/18 21:00 01/07/18 08:57 (ZyrTEC) 10 mg HS PO 01/01/18 21:00 01/06/18 21:00 (Aricept) 10 mg HS PO 01/01/18 21:00 01/06/18 20:59 (Lexapro) 5 mg DAILY PO 01/02/18 09:00 01/07/18 08:57 (Melatonin) 5 mg HS PO 01/01/18 21:00 01/06/18 21:00 (Protonix) 40 mg DAILY PO 01/02/18 09:00 01/07/18 08:59 (risperDAL) 0.5 mg HS PO 01/01/18 21:00 01/06/18 21:00 (Ultram) 50 mg Q8H PRN PO 01/01/18 10:00 01/07/18 15:56 (Remeron) 45 mg HS PO 01/01/18 21:00 Future Hold 01/01/18 20:50 (Desyrel) 100 mg HS PO 01/01/18 21:00 01/06/18 21:00 (Pill Splitter) 1 ea UNSCH PRN OTHER 01/01/18 10:15 (Revatio) 5 mg Q8HR PO 01/01/18 14:00 01/07/18 15:56 (Spiriva Inh) 18 mcg DAILY INH 01/02/18 09:00 01/07/18 08:58 (Mucinex Er) 600 mg BID PO 01/03/18 21:00 01/07/18 08:57 (Lasix Inj) 40 mg DAILY IV PUSH 01/04/18 09:00 01/07/18 09:00 (KCl) 20 meq DAILY PO 01/04/18 09:00 01/07/18 08:58 (Tessalon) 100 mg TID PRN PO 01/03/18 22:00 01/04/18 19:29 (Xalatan 0.005% Opth Soln) 1 drop HS EACH EYE 01/04/18 21:30 01/06/18 21:00 (Timoptic 0.5% Opth Soln) 1 drop DAILY EACH EYE 01/05/18 09:00 01/07/18 10:09 (Tears Naturale Opth Soln) 1 drop Q4H PRN EACH EYE 4/3/18 21:30 01/05/18 19:58 (Lactinex) 1 tab Q12HR PO 01/05/18 21:00 01/07/18 08:56 (Deltasone) 20 mg BID PO 01/06/18 21:00 01/07/18 08:57 (Pyridium) 100 mg Q8HR PO 01/06/18 18:30 01/07/18 15:56 A/P Problem List: (1) Acute metabolic encephalopathy ICD Code: G93.41 - Metabolic encephalopathy Status: Resolved (2) COPD with exacerbation ICD Code: J44.1 - Chronic obstructive pulmonary disease with (acute) exacerbation (3) Hypertension ICD Code: I10 - Essential (primary) hypertension Status: Chronic (4) Hyperlipidemia ICD Code: E78.5 - Hyperlipidemia, unspecified Status: Chronic (5) Blindness, legal ICD Code: H54.8 - Legal blindness, as defined in [place] Status: Chronic (6) Pulmonary hypertension ICD Code: I27.20 - Pulmonary hypertension, unspecified (7) GRANT (acute kidney injury) ICD Code: N17.9 - Acute kidney failure, unspecified (8) Positive blood culture ICD Code: R78.81 - Bacteremia Status: Acute (9) Hyperglycemia ICD Code: R73.9 - Hyperglycemia, unspecified Assessment and Plan Assessment: 72yF with history of COPD who presents in respiratory distress and is found to be in new-onset right heart failure, acute CHF exacerbation with possible concomitant sepsis and COPD exacerbation. In terms of her right heart failure, given her history of COPD this would most likely fit with a World Health Organization class III pulmonary hypertension secondary to chronic lung disease. Continue with forced diuresis. Low dose of sildenafil may improve her RV function and help her respiratory distress. Frequent neuro checks. For now she is protecting her airway. Acute metabolic encephalopathy Dementia Depression Anxiety Frequent neurochecks Restart home dementia meds 01/05 Encephalopathy resolved. The patient is back to her baseline dementia. Respiratory insufficiency Acute hypoxemia COPD exacerbation/Emphysema Acute CHF exacerbation: Secondary to right heart dysfunction Supplemental oxygen Aggressive pulmonary toilet Nebs, Symbicort, spi Continue IV steroids 01/05 the patient still requiring oxygen to keep appropriate oxygen saturations. Continue furosemide 40 mg IV daily. Continue Solu-Medrol 60 mg IV every 12 hours. We will order respiratory walk test. 01/06 discontinue IV Solu-Medrol and start the patient on prednisone taper. DC IV Lasix and start on oral. 01/07 Continue lasix. Patient filed respiratory walk test - needs home o2 Acute CHF exacerbation secondary to right heart dysfunction Severe pulmonary hypertension Elevated troponin/type II NSTEMI secondary demand ischemia Trend troponins, Trend BNP Unlikely to be ACS given lack of symptoms and normal left ventricular function without wall motion abnormalities Sildenafil 5 mg p.o. every 8 hours Aggressive force diuresis, s/p Lasix [address] pulmonary and gram-negative for acute PE Acute kidney injury Unclear baseline Resolved Continue to monitor BUN and creatinine. Acute intravascular volume overload Acute protein calorie malnutrition-moderate ICU electrolyte protocol Start heart healthy diet Bedside swallow evaluation Force diuresis as above Positive blood cultures Continue Zosyn. DC vanc Panculture. Leukocytosis may be secondary to stress response Daily CBC 01/05 ID consulted. Appreciate recommendations. Continue IV Zosyn. Blood cultures are growing Corynebacterium SP, pleomorphic gram-positive rods and gram variable kristyn. Repeat blood culture still pending. 01/06 repeat blood cultures negative. Positive blood cultures likely due to contamination. Hyperglycemia of critical illness Diabetes ruled out. Hemoglobin A1c 5.6. Continue SSI with insulin NovoLog. Diarrhea C. difficile negative. Diarrhea resolved. Prophylaxis: GI Prophylaxis Home PPI DVT Prophylaxis -- SCDs Subcu heparin Lines: Peripheral IVs Discharge Planning Dc in am once home o2 arranged. Nando Ruelas MD Jan 07, 2018 16:26
--- NOTE | 2018-01-07 17:07 | HHI.FF ---
Face to Face Verification Diagnosis: (1) COPD with exacerbation (2) GRANT (acute kidney injury) (3) Pulmonary hypertension (4) COPD with acute exacerbation (5) Major depressive disorder, recurrent, severe with psychotic features (6) Hypoxemia (7) Tricuspid regurgitation Physical Therapy Order: Improve ambulation, Strength and gait training Home Health Nursing Order: Nursing assessment with vital signs I have seen patient Azul Martinez on 01/07/18. My clinical findings support the need for the requested home health care services because: Limited ability to care for self Need for psychosocial assistance High risk of falls I certify that my clinical findings support that this patient is homebound because: Unsteady gait/balance Unsafe to leave home unassisted Unable to use public transportation Nando Ruelas MD Jan 07, 2018 17:07
== END 2018-01-07 21:08 | DRG 280 ==
LOC: NEPC 05:51 → NEDA 10:06 → HCVI 11:45 → HCPC 01-03 10:46
PROVIDERS: ADMIT Internal Medicine; ATTEND Internal Medicine
DX: I50.813 Acute on chronic right heart failure (principal); G93.41 Metabolic encephalopathy; I21.A1 Myocardial infarction type 2; R57.0 Cardiogenic shock; N17.9 Acute kidney failure, unspecified; E44.0 Moderate protein-calorie malnutrition; R78.81 Bacteremia; J44.1 Chronic obstructive pulmonary disease with (acute) exacerbation; Z68.29 Body mass index [BMI] 29.0-29.9, adult; I27.29 Other secondary pulmonary hypertension; R09.02 Hypoxemia; K76.1 Chronic passive congestion of liver; R73.9 Hyperglycemia, unspecified; I25.10 Atherosclerotic heart disease of native coronary artery without angina pectoris; I07.1 Rheumatic tricuspid insufficiency; F03.90 Unspecified dementia, unspecified severity, without behavioral disturbance, psychotic disturbance, mood disturbance, and anxiety; Z86.73 Personal history of transient ischemic attack (TIA), and cerebral infarction without residual deficits; M81.0 Age-related osteoporosis without current pathological fracture; Z96.642 Presence of left artificial hip joint; I10 Essential (primary) hypertension; E78.5 Hyperlipidemia, unspecified; H54.8 Legal blindness, as defined in USA; F32.9 Major depressive disorder, single episode, unspecified; K21.9 Gastro-esophageal reflux disease without esophagitis; R19.7 Diarrhea, unspecified; R35.0 Frequency of micturition; Z87.891 Personal history of nicotine dependence
CPT/HCPCS: 36600; 71045; 71275; 80048; 80053; 80202; 81001; 82140; 82550; 82552; 82805; 82948; 83036; 83605; 83735; 83880; 84100; 84439; 84443; 84484; 85025; 85027; 85610; 85730; 87040; 87077; 87205; 87493; 87641; 87804; 93005; 93306; 94618; 94640; 94664; 96361; 96365; 96367; J0456; J0696; J1644; J1940; J2405; J2543; J2930; J3370; J3480; J7030; J7040; J7050; J7512; Q9967

== ENCOUNTER 2018-01-20 14:58 | Inpatient (IN) | payer MEDICARE, OTHER ==
[~2018-01-20] VITALS: Ht 162.6 cm; Wt 72.0 kg
[2018-01-20] VITALS (8 sets, daily range): BP systolic 123–148; BP diastolic 69–81; PULSE 78–93; RESP 16–20; TEMP 98.3–100.1; O2SAT 95–96
[~2018-01-20 14:58] MED LIST changes: -AMLO5 PO; -AMLO5TAB2 PO; -ARIC5TAB PO; -ARIP1TAB13 PO; +ASPI325T33 PO; -Amitriptyline PO; +DONE10TA7 PO; -DULO1CAP2 PO; +ESCI5TAB PO; +LATA0.002 EACH EYE; -LISI-515 PO; +LOPE2CAP PO; +MELA5 PO; -MIRT45TA PO; +OXYGENDME NAS.CANULA; +OYST1TAB PO; +PRED20 PO; +RISP0.5T2 PO; +SILD20 PO; +SPIRCAP INH; +TRAM50 PO; +TRAZ100T10 PO
[2018-01-20] MEDS ORDERED: ACETAMINOPHEN 325 MG TAB PO ONE (15:15)
--- NOTE | 2018-01-20 15:33 | PD ---
HPI . Headache Chief Complaint: Headache Time Seen by Provider: 15:10 Travel History International Travel<30 days: No Contact w/Intl Traveler<30days: No Traveled to known affect area: No History of Present Illness HPI Patient presents with a chief complaint of a headache. Onset was 2 days ago. She states that the headache comes and goes. She describes a pounding sensation which she rates 10/10. It is associated with a fever. She states that she has not been taking anything for the pain. There have been no modifying factors. She specifically denies upper respiratory symptoms, cough/ chest pain, vomiting/diarrhea. She does admit to dysuria. PFSH Past Medical History Hx Anticoagulant Therapy: Yes (ASA) Autoimmune Disease: No Blood Disorders: No Anxiety: Yes Depression: Yes Cancer: No (See EMR) Chemotherapy: No COPD: Yes Cerebrovascular Accident: Yes (TIA) Coronary Artery Disease: Yes Dementia: Yes Diabetes: No (See EMR) Diminished Hearing: No Endocrine: No Gastrointestinal Disorders: Yes (enlarged bile duct drained; nervous stomach) Genitourinary: Yes (frequent UTIs) Hypertension: Yes Immune Disorder: No Musculoskeletal: Yes (OSTEOPOROSIS) Neurologic: Yes (CVA x2 minor) Psychiatric: Yes Reproductive: No Respiratory: Yes (COPD) Radiation Therapy: No Thyroid Disease: No Tetanus Vaccination: > 5 Years Influenza Vaccination: Yes : 3 Para: 3 Past Surgical History AICD: No Appendectomy: Yes Arteriovenous Shunt: No Hysterectomy: Yes Insulin Pump: No Joint Replacement: Yes (LEFT HIP ) Pacemaker: No Other Surgery: Yes (hysterectomy, left total hip replacement) Social History Alcohol Use: No Tobacco Use: No (QUIT 20 YEARS AGO) Substance Use: No Allergies-Medications (Allergen,Severity, Reaction): Coded Allergies: iodine (Verified Allergy, Intermediate, SWELLING, 01/20/18) potassium iodide (Unverified Allergy, Intermediate, SWELLING, 01/20/18) povidone-iodine (Verified Allergy, Intermediate, SWELLING, 01/20/18) sodium iodide (Verified Allergy, Intermediate, SWELLING, 01/20/18) sodium iodide (Verified Allergy, Intermediate, SWELLING, 01/20/18) Reported Meds & Prescriptions Reported Meds & Active Scripts Active Oxygen (O2) Device Liter KEVIN.CANULA CONTINUOUS Oxygen Concentrator Portable Gaseous 2 L/min via Nasal Canula Continuous For 99 months Ultram (Tramadol HCl) 50 Mg Tab 50 Mg PO Q8H PRN Revatio (Sildenafil Citrate) 20 Mg Tab 5 Mg PO Q8HR Spiriva Handihaler (Tiotropium Inh) 18 Mcg Cap 18 Mcg INH DAILY 1 capsule = 18 mcg Timolol Opth Drops 0.5 % Soln 1 Drop EACH EYE DAILY Latanoprost Opth Drops (Latanoprost) 0.005% Drops 1 Drop EACH EYE HS Loperamide (Loperamide HCl) 2 Mg Cap 2 Mg PO DIRECTED PRN One capsule after each loose stool. Not to exceed 8 capsules per day. Escitalopram (Escitalopram Oxalate) 5 Mg Tab 5 Mg PO DAILY Trazodone (Trazodone HCl) 100 Mg Tablet 100 Mg PO HS Oyster Shell Calcium 500 mg 500 Mg Calcium (1250 Mg) Tab 500 Mg PO Q12HR Donepezil 10 Mg Tab 10 Mg PO HS Carafate (Sucralfate) 1 Gm Tab 1 Gm PO DAILY@0600 Pantoprazole (Pantoprazole Sodium) 40 Mg Tab 40 Mg PO DAILY Remeron (Mirtazapine) 45 Mg Tab 45 Mg PO HS Acidophilus/l-Sporogenes (Lactobacillus Acidophilus) 1 Tab Tab 1 Tab PO TID Cetirizine (Cetirizine HCl) 10 Mg Tab 10 Mg PO HS Symbicort Inh (Budesonide/Formoterol Fumarate) 160-4.5 Mcg/Act Aero 1 Puff INH Q12HR Lipitor (Atorvastatin Calcium) 10 Mg Tab 10 Mg PO HS Amitriptyline (Amitriptyline HCl) 25 Mg Tab 25 Mg PO HS Lisinopril 40 Mg Tab 40 Mg PO DAILY Atenolol 25 Mg Tab 25 Mg PO DAILY Reported Melatonin 3 Mg Tab 3 Mg PO HS Lorazepam 0.5 Mg Tab 0.5 Mg PO Q8H PRN Risperidone 0.5 Mg Tab 0.5 Mg PO HS Aspirin EC (Aspirin) 325 Mg Tabdr 325 Mg PO DAILY Review of Systems Except as stated in HPI: all other systems reviewed are Neg General / Constitutional: Positive: Fever HENT: Positive: Headaches, No: Sore Throat, Rhinorrhea, Congestion Respiratory: No: Cough, Shortness of Breath Gastrointestinal: No: Nausea, Vomiting, Diarrhea Genitourinary: Positive: Dysuria Physical Exam Narrative GENERAL: Awake and alert and in no acute distress. SKIN: warm/dry. HEAD: Normocephalic. Atraumatic. EYES: Pupils equal and round. No scleral icterus. No injection or drainage. ENT: No nasal bleeding or discharge. Mucous membranes pink and moist. NECK: Supple with no palpable cervical lymphadenopathy. CARDIOVASCULAR: Regular rate and rhythm. Heart sounds normal. RESPIRATORY: No accessory muscle use. Clear to auscultation. Breath sounds equal bilaterally. GASTROINTESTINAL: Abdomen soft. Nontender. Bowel sounds present. Nondistended. MUSCULOSKELETAL: No obvious deformities. NEUROLOGICAL: Awake and alert. No obvious cranial nerve deficits. Motor grossly within normal limits. Normal speech. PSYCHIATRIC: Appropriate mood and affect; insight and judgment normal. Data Data Last Documented VS Vital Signs Date Time Temp Pulse Resp B/P (MAP) Pulse Ox O2 Delivery O2 Flow Rate FiO2 01/20/18 17:39 98.3 93 18 148/77 (100) 96 Room Air 3.00 Orders Orders Sepsis Workup Initiated (01/20/18 ) Complete Blood Count With Diff (01/20/18 15:14) Comprehensive Metabolic Panel (01/20/18 15:14) Lactic Acid Sepsis Protocol (01/20/18 15:14) Urinalysis - C+S If Indicated (01/20/18 15:14) Blood Culture (01/20/18 15:14) Chest, Single Ap (01/20/18 15:14) Ecg Monitoring (01/20/18 15:14) Iv Access Insert/Monitor (01/20/18 15:14) Cath For Specimen (01/20/18 15:14) Oximetry (01/20/18 15:14) Acetaminophen (Tylenol) (01/20/18 15:15) Diphenhydramine Inj (Benadryl Inj) (01/20/18 17:45) Prochlorperazine Inj (Compazine Inj) (01/20/18 17:45) Labs Laboratory Tests Test 01/20/18 15:25 01/20/18 16:44 White Blood Count 9.2 TH/MM3 Red Blood Count 4.79 MIL/MM3 Hemoglobin 13.4 GM/DL Hematocrit 41.0 % Mean Corpuscular Volume 85.5 FL Mean Corpuscular Hemoglobin 28.0 PG Mean Corpuscular Hemoglobin Concent 32.7 % Red Cell Distribution Width 15.7 % Platelet Count 182 TH/MM3 Mean Platelet Volume 7.9 FL Neutrophils (%) (Auto) 75.4 % Lymphocytes (%) (Auto) 14.4 % Monocytes (%) (Auto) 7.5 % Eosinophils (%) (Auto) 1.7 % Basophils (%) (Auto) 1.0 % Neutrophils # (Auto) 7.0 TH/MM3 Lymphocytes # (Auto) 1.3 TH/MM3 Monocytes # (Auto) 0.7 TH/MM3 Eosinophils # (Auto) 0.2 TH/MM3 Basophils # (Auto) 0.1 TH/MM3 CBC Comment DIFF FINAL Differential Comment Blood Urea Nitrogen 12 MG/DL Creatinine 0.65 MG/DL Random Glucose 85 MG/DL Total Protein 7.4 GM/DL Albumin 3.1 GM/DL Calcium Level 9.1 MG/DL Alkaline Phosphatase 88 U/L Aspartate Amino Transf (AST/SGOT) 29 U/L Alanine Aminotransferase (ALT/SGPT) 21 U/L Total Bilirubin 0.8 MG/DL Sodium Level 139 MEQ/L Potassium Level 3.8 MEQ/L Chloride Level 103 MEQ/L Carbon Dioxide Level 29.2 MEQ/L Anion Gap 7 MEQ/L Estimat Glomerular Filtration Rate 90 ML/MIN Lactic Acid Level 1.1 mmol/L Urine Color YELLOW Urine Turbidity CLEAR Urine pH 7.5 Urine Specific [place] 1.017 Urine Protein TRACE mg/dL Urine Glucose (UA) NEG mg/dL Urine Ketones NEG mg/dL Urine Occult Blood NEG Urine Nitrite NEG Urine Bilirubin NEG Urine Urobilinogen LESS THAN 2.0 MG/DL Urine Leukocyte Esterase NEG Urine WBC 1 /hpf Urine Hyaline Casts 2 /lpf Urine Mucus FEW /lpf Microscopic Urinalysis Comment CATH-CULT NOT IND MDM Medical Decision Making Medical Screen Exam Complete: Yes Emergency Medical Condition: Yes Differential Diagnosis Differential diagnosis of headache includes but is not limited to migraine, muscle contraction headache, brain tumor, brain bleed Narrative Course This patient presents with a chief complaint of headache. It is associated with a low-grade fever and dysuria. Septic workup is in process. She has been given Tylenol. I have a low index is of suspicion for meningitis. She has a supple neck. CBC & BMP Diagram 01/20/18 15:25 Total Protein 7.4, Albumin 3.1 L, Calcium Level 9.1, Alkaline Phosphatase 88, Aspartate Amino Transf (AST/SGOT) 29, Alanine Aminotransferase (ALT/SGPT) 21, Total Bilirubin 0.8 UA neg. LA normal at 1.1 Her workup is negative. She continues to complain with a headache. She continues to complain with a headache. I will give her Compazine and Benadryl. She reports improvement in her headache following the Compazine and Benadryl. She states that she lives at an assisted living facility. I will discharge her to there. Diagnosis Primary Impression: Headache Qualified Codes: R51 - Headache Patient Instructions: Acute Headache (DC), General Instructions Disposition: 03 DISCHARGE TO SNF Condition: Stable Liudmila Yost MD Jan 20, 2018 15:33
--- NOTE | 2018-01-20 15:37 | RADRPT ---
EXAM DATE/TIME: 01/20/2018 15:22 [facility] COMPARISON: CHEST SINGLE AP, January 03, 2018, 5:22. INDICATIONS : Cough and fever. MEDICAL HISTORY : Cardiovascular disease. Dementia. Hypertension. SURGICAL HISTORY : Appendectomy. Hysterectomy. ENCOUNTER: Initial ACUITY: 2 days PAIN SCORE: 0/10 LOCATION: Bilateral chest FINDINGS: Minimal bibasilar airspace disease, progressed on the left with obscuration of the left hemidiaphragm . Cardiomediastinal contours are stable. Remainder of the exam is unchanged. CONCLUSION: 1. Progression of airspace disease in the left lower lung zone which may reflect developing pneumonia in the appropriate clinical setting. Evaristo Roman MD on January 20, 2018 at 15:34 Board Certified Radiologist. This report was verified electronically.
[2018-01-20] MEDS ORDERED: MELA3TAB52 PO (15:42)
[2018-01-20 16:10] LABS: BASOPHIL # 0.1 TH/MM3 (0-0.2); EOSINOPHIL # 0.2 TH/MM3 (0-0.4); EOSINOPHIL % 1.7 % (0.0-4.0); HEMOGLOBIN 13.4 GM/DL (11.6-15.3); LYMPH % 14.4 % (9.0-44.0); LYMPHOCYTE # 1.3 TH/MM3 (1.0-4.8); MEAN CELL VOLUME 85.5 FL (80.0-100.0); MEAN CORPUSCULAR HGB CONC 32.7 % (32.0-36.0); MEAN PLATELET VOLUME 7.9 FL (7.0-11.0); MONO % 7.5 % (0.0-8.0); MONOCYTE # 0.7 TH/MM3 (0-0.9); NEUT % 75.4 % (16.0-70.0); PLATELET COUNT 182 TH/MM3 (150-450); RED BLOOD COUNT 4.79 MIL/MM3 (4.00-5.30); RED CELL DISTRIBUTION WIDTH 15.7 % (11.6-17.2); WHITE BLOOD COUNT 9.2 TH/MM3 (4.0-11.0)
[2018-01-20 16:26] LABS: ALT (GPT) 21 U/L (10-53)
[2018-01-20 16:28] LABS: ALKALINE PHOSPHATASE 88 U/L (45-117); TOTAL BILIRUBIN ADULT 0.8 MG/DL (0.2-1.0); TOTAL PROTEIN 7.4 GM/DL (6.4-8.2)
[2018-01-20 16:30] LABS: ALBUMIN 3.1 GM/DL (3.4-5.0); AST (GOT) 29 U/L (15-37); BICARBONATE 29.2 MEQ/L (21.0-32.0); BLOOD UREA NITROGEN 12 MG/DL (7-18); CALCIUM 9.1 MG/DL (8.5-10.1); CHLORIDE 103 MEQ/L (98-107); CREATININE 0.65 MG/DL (0.50-1.00); GLOMERULAR FILTRATION RATE 90 ML/MIN (>89); GLUCOSE,RANDOM 85 MG/DL (74-106); SODIUM (NA) 139 MEQ/L (136-145)
[2018-01-20 17:17] LABS: BILIRUBIN, URINE NEG (NEG); BLOOD, URINE NEG (NEG); GLUCOSE,URINE NEG (NEG); HYALINE CAST, URINE 2 /lpf (RARE); KETONE, URINE NEG (NEG); MUCUS URINE FEW /lpf (OCC); NITRITE,URINE NEG (NEG); PH, URINE 7.5 (5.0-8.5); URINE COLOR YELLOW (YELLW/STRAW); URINE LEUKOCYTE ESTERASE NEG (NEG)
[2018-01-20] MEDS ORDERED: diphenhydrAMINE HCL 50 MG/ML VIAL IV PUSH ONE (17:45)
[2018-01-20] MEDS ORDERED: PROCHLORPERAZINE INJ 10 MG/2 ML VIAL IV PUSH ONE (17:45)
[2018-01-20] MEDS ORDERED: AZITHROMYCIN INJ 500 MG in SODIUM CHLOR 0.9% 250 ML INJ 250 ML IV ONE (18:45)
[2018-01-20] MEDS ORDERED: cefTRIAXone INJ 2,000 MG in SODIUM CHLORIDE 0.9% INJ 100 ML IV ONE (18:45)
--- NOTE | 2018-01-20 19:38 | HHI.HP ---
[facility] Unknown Admission Diagnosis Diagnoses: (1) SIRS (systemic inflammatory response syndrome) Diagnosis: Principal (2) PNA (pneumonia) Diagnosis: Principal (3) Headache Diagnosis: Principal Travel History International Travel<30 Days: No Contact w/Intl Traveler <30 Da: No Traveled to Known Affected Are: No History of Present Illness This is a 72-year-old female with a PMH of Anxiety, Depression, Dementia, HTN, Hyperlipidemia, COPD, CVA and h/o Recurrent UTI who was brought to the ER from SNF secondary to c/o headache x2 days. States pain is intermittent, frontal, non-radiating, severe, 10/10. No associated vision loss, nausea/vomiting or chest pain. S/p Benadryl and Compazine in ER w/ improvement in headache. No c/ o neck or back pain. On arrival, BP 146/79, HR 92, O2 sat 95% on 3L NC, Temp 100.1. CBC unremarkable. Chemistry unremarkable. Lactic Acid 1.1. UA negative for UTI. CXR progression of airspace disease left lower lung, possibly developing pneumonia. S/p Rocephin/Zithro in ER. Review of Systems Except as stated in HPI: all other systems reviewed are Neg ROS: 14 point review of systems otherwise negative. Past Family Social History Past Medical History PMH: Anxiety, Depression, Dementia, HTN, Hyperlipidemia, COPD, CVA and h/o Recurrent UTI Past Surgical History PAST SURGICAL HISTORY: Appendectomy, Hysterectomy, Left Hip Replacement Allergies: Coded Allergies: iodine (Verified Allergy, Intermediate, SWELLING, 01/20/18) potassium iodide (Unverified Allergy, Intermediate, SWELLING, 01/20/18) povidone-iodine (Verified Allergy, Intermediate, SWELLING, 01/20/18) sodium iodide (Verified Allergy, Intermediate, SWELLING, 01/20/18) sodium iodide (Verified Allergy, Intermediate, SWELLING, 01/20/18) Family History PAST FAMILY HISTORY: Reviewed. No h/o DM or CAD Social History PAST SOCIAL HISTORY: Negative for alcohol, tobacco or drugs. Physical Exam Vital Signs Vital Signs Date Time Temp Pulse Resp B/P (MAP) Pulse Ox O2 Delivery O2 Flow Rate FiO2 01/20/18 18:42 98.3 82 20 144/81 (102) 95 Room Air 3.00 01/20/18 17:39 98.3 93 18 148/77 (100) 96 Room Air 3.00 01/20/18 16:45 99.1 86 19 145/73 (97) 95 Room Air 01/20/18 15:21 17 95 Nasal Cannula 01/20/18 15:15 92 17 96 Nasal Cannula 3.00 01/20/18 15:04 100.1 92 20 146/79 (101) 95 Physical Exam PE: GENERAL: Elderly white female in no acute distress. HEENT: PERRLA, EOMI. No scleral icterus or conjunctival pallor. No lid lag or facial droop. CARDIOVASCULAR: Regular rate and rhythm. No obvious murmurs to auscultation. No chest tenderness to palpation. RESPIRATORY: No obvious rhonchi or wheezing. Clear to auscultation. Breath sounds equal bilaterally. GASTROINTESTINAL: Abdomen soft, non-tender, nondistended. BS normal. MUSCULOSKELETAL: Extremities without clubbing, cyanosis, or edema. No obvious deformities. NEUROLOGICAL: Awake, alert. No focal neurologic deficits. Moving both upper and lower extremities spontaneously. Laboratory Laboratory Tests Test 01/20/18 15:25 01/20/18 16:44 White Blood Count 9.2 Red Blood Count 4.79 Hemoglobin 13.4 Hematocrit 41.0 Mean Corpuscular Volume 85.5 Mean Corpuscular Hemoglobin 28.0 Mean Corpuscular Hemoglobin Concent 32.7 Red Cell Distribution Width 15.7 Platelet Count 182 Mean Platelet Volume 7.9 Neutrophils (%) (Auto) 75.4 Lymphocytes (%) (Auto) 14.4 Monocytes (%) (Auto) 7.5 Eosinophils (%) (Auto) 1.7 Basophils (%) (Auto) 1.0 Neutrophils # (Auto) 7.0 Lymphocytes # (Auto) 1.3 Monocytes # (Auto) 0.7 Eosinophils # (Auto) 0.2 Basophils # (Auto) 0.1 CBC Comment DIFF FINAL Differential Comment Blood Urea Nitrogen 12 Creatinine 0.65 Random Glucose 85 Total Protein 7.4 Albumin 3.1 Calcium Level 9.1 Alkaline Phosphatase 88 Aspartate Amino Transf (AST/SGOT) 29 Alanine Aminotransferase (ALT/SGPT) 21 Total Bilirubin 0.8 Sodium Level 139 Potassium Level 3.8 Chloride Level 103 Carbon Dioxide Level 29.2 Anion Gap 7 Estimat Glomerular Filtration Rate 90 Lactic Acid Level 1.1 Urine Color YELLOW Urine Turbidity CLEAR Urine pH 7.5 Urine Specific [place] 1.017 Urine Protein TRACE Urine Glucose (UA) NEG Urine Ketones NEG Urine Occult Blood NEG Urine Nitrite NEG Urine Bilirubin NEG Urine Urobilinogen LESS THAN 2.0 Urine Leukocyte Esterase NEG Urine WBC 1 Urine Hyaline Casts 2 Urine Mucus FEW Microscopic Urinalysis Comment CATH-CULT NOT IND Date/Time Source Procedure Growth Status 01/20/18 15:22 Blood Peripheral Aerobic Blood Culture Pending Received 01/20/18 15:22 Blood Peripheral Anaerobic Blood Culture Pending Received Result Diagram: 01/20/18 1525 01/20/18 1525 Capy[place]anda VTE Risk Assessment Hector VTE Risk Assessment: No/Low Risk (score <= 1) Caprini Risk Assessment Model Point Value = 1 Point Value = 2 Point Value = 3 Point Value = 5 Age 41-60 Minor surgery BMI > 25 kg/m2 Swollen legs Varicose veins or History of unexplained or recurrent spontaneous Oral contraceptives or hormone replacement Sepsis (< 1 month) Serious lung disease, including pneumonia (< 1 month) Abnormal pulmonary function Acute myocardial infarction Congestive heart failure (< 1 month) History of inflammatory bowel disease Medical patient at bed rest Age 61-74 Arthroscopic surgery Major open surgery (> 45 min) Laparoscopic surgery (> 45 min) Malignancy Confined to bed (> 72 hours) Immobilizing plaster cast Central venous access Age >= 75 History of VTE Family history of VTE Factor V Leiden Prothrombin [id number] Lupus anticoagulant Anticardiolipin antibodies Elevated serum homocysteine Heparin-induced thrombocytopenia Other congenital or acquired thrombophilia Stroke (< 1 month) Elective arthroplasty Hip, pelvis, or leg fracture Acute spinal cord injury (< 1 month) Prophylaxis Regimen Total Risk Factor Score Risk Level Prophylaxis Regimen 0-1 Low Early ambulation 2 Moderate Order ONE of the following: *Sequential Compression Device (SCD) *Heparin 5000 units SQ BID 3-4 Higher Order ONE of the following medications: *Heparin 5000 units SQ TID *Enoxaparin/Lovenox 40 mg SQ daily (WT < 150 kg, CrCl > 30 mL/min) *Enoxaparin/Lovenox 30 mg SQ daily (WT < 150 kg, CrCl > 10-29 mL/min) *Enoxaparin/Lovenox 30 mg SQ BID (WT < 150 kg, CrCl > 30 mL/min) AND/OR *Sequential Compression Device (SCD) 5 or more Highest Order ONE of the following medications: *Heparin 5000 units SQ TID (Preferred with Epidurals) *Enoxaparin/Lovenox 40 mg SQ daily (WT < 150 kg, CrCl > 30 mL/min) *Enoxaparin/Lovenox 30 mg SQ daily (WT < 150 kg, CrCl > 10-29 mL/min) *Enoxaparin/Lovenox 30 mg SQ BID (WT < 150 kg, CrCl > 30 mL/min) AND *Sequential Compression Device (SCD) Assessment and Plan Problem List: (1) SIRS (systemic inflammatory response syndrome) ICD Code: R65.10 - Systemic inflammatory response syndrome (SIRS) of non- infectious origin without acute organ dysfunction (2) PNA (pneumonia) ICD Code: J18.9 - Pneumonia, unspecified organism (3) Headache ICD Code: R51 - Headache Assessment and Plan A/P: 1. SIRS: Temp 100.1, HR 92. Lactic Acid normal. CXR w/ possible developing PNA, s/p Blood Cultures, Rocephin/Zithro in ER, follow up cultures, continue IV Abx. 2. PNA: CXR w/ possible LLL infiltrate, images reviewed by me, will continue w / treatment as above, IV Abx, follow up cultures. 3. Headache: c/o headache x2 days, now resolved, no nausea/vomiting or vision changes, will monitor 4. DVT Prophylaxis: SCD/Teds 5. Social work for d/c planning as needed 6. Case discussed w/ ER physician at length, labs/records/imaging reviewed by me Physician Certification 2 Midnight Certification Type: Admission for Inpatient Services Order for Inpatient Services The services are ordered in accordance with Medicare regulations or non- Medicare payer requirements, as applicable. In the case of services not specified as inpatient-only, they are appropriately provided as inpatient services in accordance with the 2-midnight benchmark. Estimated LOS (days): 2 days is the estimated time the patient will need to remain in the hospital, assuming treatment plan goals are met and no additional complications. Post-Hospital Plan: Not yet determined Yolanda Morales MD Jan 20, 2018 19:38
[2018-01-20] MEDS ORDERED: SODIUM CHLORIDE 0.9% FLUSH 10 ML FLUSH IV FLUSH PRN (19:45)
[2018-01-20] MEDS ORDERED: ACETAMINOPHEN/HYDROcodone 325 MG/5 MG TAB PO PRN (19:45)
[2018-01-20] MEDS ORDERED: BISACODYL 10 MG SUPP RECTAL PRN (19:45)
[2018-01-20] MEDS ORDERED: MAGNESIUM HYDROXIDE SUSP 30 ML CUP PO PRN (19:45)
[2018-01-20] MEDS ORDERED: MORPHINE SULFATE 2 MG/ML SYRINGE IV PUSH PRN (19:45)
[2018-01-20] MEDS ORDERED: LACTULOSE SYRUP 20 GM/30 ML CUP PO PRN (19:45)
[2018-01-20] MEDS ORDERED: SENNOSIDES 8.6 MG TAB PO PRN (19:45)
[2018-01-20] MEDS ORDERED: LORazepam 0.5 MG TAB PO PRN (19:45)
[2018-01-20] MEDS ORDERED: ONDANSETRON HCL 4 MG/2 ML VIAL IVP PRN (19:45)
[2018-01-20] MEDS ORDERED: ACETAMINOPHEN 325 MG TAB PO PRN (19:45)
[2018-01-20] MEDS ORDERED: RESP: ALBUTEROL 2.5 MG/IPRATROPIUM 0.5 MG NEB (PRN) NEB (19:45)
[2018-01-20] MEDS ORDERED: PILL SPLITTER OTHER PRN (20:15)
[2018-01-20] MEDS ORDERED: SILDENAFIL CITRATE 20 MG TAB PO SCH (22:00)
[2018-01-20] MEDS: SODIUM CHLOR 0.9% 1000 ML INJ 1,000 ML IV SCH (22:14)
[2018-01-20] MEDS: AMITRIPTYLINE HCL 25 MG TAB PO SCH (22:14)
[2018-01-20] MEDS: ATORVASTATIN 10 MG TAB PO SCH (22:15)
[2018-01-20] MEDS: DONEPEZIL HCL 5 MG TAB PO SCH (22:15)
[2018-01-20] MEDS: DOCUSATE SODIUM 50 MG/SENNA 8.6 MG TAB PO SCH (22:16)
[2018-01-20] MEDS: traZODone HCL 100 MG TAB PO SCH (22:16)
[2018-01-20] MEDS: MIRTAZAPINE 15 MG TAB PO SCH (22:16)
[2018-01-20] MEDS: SODIUM CHLORIDE 0.9% FLUSH 10 ML FLUSH IV FLUSH SCH (22:17)
[2018-01-20] MEDS: LATANOPROST 0.005% OPHT SOLN 2.5 ML BTL EACH EYE SCH (22:17)
[2018-01-20] MEDS: BUDESONIDE-FORMOTEROL 160/4.5 MCG INHALER INH SCH (22:17)
[2018-01-20] MEDS: risperiDONE 0.5 MG TAB PO SCH ×2 (23:17→23:26)
[2018-01-20] MEDS: SILDENAFIL CITRATE 20 MG TAB PO SCH (23:19)
[2018-01-21] VITALS (9 sets, daily range): BP systolic 127–178; BP diastolic 65–89; PULSE 72–120; RESP 16–18; TEMP 97.8–98.9; O2SAT 82–96
[2018-01-21] MEDS: SILDENAFIL CITRATE 20 MG TAB PO SCH ×3 (05:22→23:01)
[2018-01-21] MEDS: SUCRALFATE 1 GM TAB PO SCH (05:22)
[2018-01-21] MEDS: SODIUM CHLOR 0.9% 1000 ML INJ 1,000 ML IV SCH (05:25)
[2018-01-21 07:44] LABS: AUTOMATED NEUTROPHIL # 6.2 TH/MM3 (1.8-7.7); BASOPHIL # 0.1 TH/MM3 (0-0.2); BASOPHIL % 0.7 % (0.0-2.0); EOSINOPHIL # 0.2 TH/MM3 (0-0.4); EOSINOPHIL % 2.8 % (0.0-4.0); HEMATOCRIT 35.5 % (35.0-46.0); HEMOGLOBIN 11.7 GM/DL (11.6-15.3); LYMPH % 11.7 % (9.0-44.0); LYMPHOCYTE # 0.9 TH/MM3 (1.0-4.8); MEAN CELL VOLUME 85.7 FL (80.0-100.0); MEAN CORPUSCULAR HEMOGLOBIN 28.3 PG (27.0-34.0); MEAN PLATELET VOLUME 7.8 FL (7.0-11.0); MONO % 7.4 % (0.0-8.0); MONOCYTE # 0.6 TH/MM3 (0-0.9); NEUT % 77.4 % (16.0-70.0); PLATELET COUNT 146 TH/MM3 (150-450); RED BLOOD COUNT 4.14 MIL/MM3 (4.00-5.30); RED CELL DISTRIBUTION WIDTH 15.7 % (11.6-17.2)
[2018-01-21 08:19] LABS: ALBUMIN 2.5 GM/DL (3.4-5.0); ALKALINE PHOSPHATASE 72 U/L (45-117); ALT (GPT) 16 U/L (10-53); AST (GOT) 23 U/L (15-37); BICARBONATE 30.3 MEQ/L (21.0-32.0); BLOOD UREA NITROGEN 7 MG/DL (7-18); CALCIUM 7.9 MG/DL (8.5-10.1); CHLORIDE 105 MEQ/L (98-107); CREATININE 0.52 MG/DL (0.50-1.00); GLOMERULAR FILTRATION RATE 117 ML/MIN (>89); GLUCOSE,RANDOM 71 MG/DL (74-106); SODIUM (NA) 142 MEQ/L (136-145); TOTAL BILIRUBIN ADULT 0.7 MG/DL (0.2-1.0)
[2018-01-21] MEDS: BUDESONIDE-FORMOTEROL 160/4.5 MCG INHALER INH SCH ×2 (09:33→22:59)
[2018-01-21] MEDS: ESCITALOPRAM OXALATE 10 MG TAB PO SCH (09:34)
[2018-01-21] MEDS: PANTOPRAZOLE SOD 40 MG DELAYED RELEASE TAB PO SCH (09:34)
[2018-01-21] MEDS: ASPIRIN EC 325 MG TABEC PO SCH (09:35)
[2018-01-21] MEDS: DOCUSATE SODIUM 50 MG/SENNA 8.6 MG TAB PO SCH (09:35)
[2018-01-21] MEDS: ATENOLOL 25 MG TAB PO SCH (09:35)
--- NOTE | 2018-01-21 09:57 | HHI.PR ---
Subjective Remarks in no acute distress. awake and alert but at times confused. T max 100.1. d/w the RN at the bedside. Objective Vitals Vital Signs Date Time Temp Pulse Resp B/P (MAP) Pulse Ox O2 Delivery O2 Flow Rate FiO2 01/21/18 07:47 97.8 85 16 136/65 (88) 82 01/21/18 03:29 120 01/21/18 03:18 98.9 80 16 139/75 (96) 96 01/21/18 00:21 98.4 75 16 133/67 (89) 94 01/21/18 00:01 73 01/20/18 23:30 84 01/20/18 22:11 99.0 82 16 123/69 (87) 95 01/20/18 21:00 96 Nasal Cannula 3.00 01/20/18 21:00 78 16 127/69 (88) 96 Nasal Cannula 2.00 01/20/18 18:42 98.3 82 20 144/81 (102) 95 Room Air 3.00 01/20/18 17:39 98.3 93 18 148/77 (100) 96 Room Air 3.00 01/20/18 16:45 99.1 86 19 145/73 (97) 95 Room Air 01/20/18 15:21 17 95 Nasal Cannula 01/20/18 15:15 92 17 96 Nasal Cannula 3.00 01/20/18 15:04 100.1 92 20 146/79 (101) 95 I/O 01/20/18 01/20/18 01/20/18 01/21/18 01/21/18 01/21/18 07:00 15:00 23:00 07:00 15:00 23:00 Intake Total 350 ml Balance 350 ml IV Total 350 ml # Voids 1 Result Diagram: 01/21/18 0641 01/21/18 0641 Imaging Last Impressions Chest X-Ray 01/20/18 1514 Signed Impressions: Service Date/Time: January 15:22 - CONCLUSION: 1. Progression of airspace disease in the left lower lung zone which may reflect developing pneumonia in the appropriate clinical setting. Evaristo Roman MD Objective Remarks GENERAL: This is a well-nourished, well-developed patient, in no apparent distress. CARDIOVASCULAR: Regular rate and regular rhythm without murmurs, gallops, or rubs. RESPIRATORY: Clear to auscultation. Breath sounds equal bilaterally. No wheezes , rales, or rhonchi. GASTROINTESTINAL: Abdomen soft, non-tender, nondistended. Normal, active bowel sounds MUSCULOSKELETAL: Extremities without clubbing, cyanosis, or edema. NEURO: Awake and alert. Medications and IVs Inpatient Medications Acetaminophen (Tylenol) 650 mg Q6H PRN PO FEVER/PAIN SCALE 1 TO 2; Start at 19:45 Acetaminophen/ Hydrocodone Bitart ([place] 5-325 Mg) 1 tab Q4H PRN PO PAIN SCALE 3 TO 5; Start 01/20/18 at 19:45 Albuterol/ Ipratropium (Duoneb Neb) 1 ampule Q4HR NEB PRN NEB SOB/WHEEZING; Start 01/20/18 at 19:45 Amitriptyline HCl (Elavil) 25 mg HS PO Last administered on 01/20/18 22:14; Start 01/20/18 at 21:00 Aspirin (Ecotrin Ec) 325 mg DAILY PO Last administered on 01/21/18at 09:35; Start 01/21/18 at 09:00 Atenolol (Tenormin) 25 mg DAILY PO Last administered on 01/21/18 09:35; Start 01/21/18 at 09:00 Atorvastatin Calcium (Lipitor) 10 mg HS PO Last administered on 01/20/18at 22:15 ; Start 01/20/18 at 21:00 Azithromycin 500 mg/Sodium Chloride 250 ml @ 250 mls/hr Q24H IV ; Start at 21:00 Bisacodyl (Dulcolax Supp) 10 mg DAILY PRN RECTAL SEVERE CONSITIPATION; Start at 19:45 Budesonide/ Formoterol Fumarate (Symbicort 160-4.5 Mcg Inh) 1 puff Q12HR INH Last administered on 01/21/18at 09:33; Start 01/20/18 at 21:00 Ceftriaxone Sodium 1000 mg/ Sodium Chloride 100 ml @ 200 mls/hr Q24H IV ; Start 01/21/18 at 20:00 Ceftriaxone Sodium 2000 mg/ Sodium Chloride 100 ml @ 200 mls/hr ONCE ONCE IV Last administered on 01/20/18at 18:38; Start 01/20/18 at 18:45; Stop 01/20/18 at 19:14; Status DC Diphenhydramine HCl (Benadryl Inj) 12.5 mg ONCE ONCE IV PUSH Last administered on 01/20/18at 17:37; Start 01/20/18 at 17:45; Stop 01/20/18 at 17:46 ; Status DC Donepezil HCl (Aricept) 10 mg HS PO Last administered on 01/20/18at 22:15; Start 01/20/18 at 21:00 Escitalopram Oxalate (Lexapro) 5 mg DAILY PO Last administered on 01/21/18at 09: 34; Start 01/21/18 at 09:00 Influenza Virus Vaccine (Flu (Quadrivalent) Vaccine Inj) 0.5 ml ONCE ONCE IM ; Start 01/21/18 at 10:00; Stop 01/21/18 at 10:01 Lactulose (Lactulose Liq) 30 ml DAILY PRN PO SEVERE CONSITIPATION; Start at 19:45 Latanoprost (Xalatan 0.005% Opth Soln) 1 drop HS EACH EYE Last administered on 01/20/18at 22:17; Start 01/20/18 at 21:00 Lorazepam (Ativan) 0.5 mg Q8H PRN PO ANXIETY; Start 01/20/18 at 19:45 Magnesium Hydroxide (Milk Of Magnesia Liq) 30 ml Q12H PRN PO Mild constipation ; Start 01/20/18 at 19:45 Mirtazapine (Remeron) 45 mg HS PO Last administered on 01/20/18at 22:16; Start 01/20/18 at 21:00 Miscellaneous (Pill Splitter) 1 ea UNSCH PRN OTHER SEE LABEL COMMENTS; Start at 20:15 Morphine Sulfate (Morphine Inj) 2 mg Q3H PRN IV PUSH Pain 6-10; Start 01/20/18 at 19:45 Ondansetron HCl (Zofran Inj) 4 mg Q6H PRN IVP NAUSEA OR VOMITING; Start at 19:45 Pantoprazole Sodium (Protonix) 40 mg DAILY PO Last administered on 01/21/18at 09 :34; Start 01/21/18 at 09:00 Prochlorperazine Edisylate (Compazine Inj) 5 mg ONCE ONCE IV PUSH Last administered on 01/20/18at 17:36; Start 01/20/18 at 17:45; Stop 01/20/18 at 17:46 ; Status DC Risperidone (risperDAL) 0.5 mg HS PO Last administered on 01/20/18at 23:26; Start 01/20/18 at 21:00 Senna/Docusate Sodium ([place]ley-Colace) 1 tab BID PO Last administered on at 22:16; Start 01/20/18 at 21:00 Sennosides (Senokot) 17.2 mg Q12H PRN PO Moderate constipation; Start 01/20/18 at 19:45 Sildenafil Citrate (Revatio) 5 mg Q8HR PO Last administered on 01/21/18at 05:22 ; Start 01/20/18 at 22:00 Sodium Chloride (NS Flush) 2 ml BID IV FLUSH Last administered on 01/20/18at 22: 17; Start 01/20/18 at 21:00 Sucralfate (Carafate) 1 gm DAILY@0600 PO Last administered on 01/21/18at 05:22; Start 01/21/18 at 06:00 Timolol Maleate (Timoptic 0.5% Opt Soln) 1 drop DAILY EACH EYE ; Start at 09:00 Tiotropium [place] (Spiriva Inh) 18 mcg DAILY INH ; Start 01/21/18 at 09:00 Trazodone HCl (Desyrel) 100 mg HS PO Last administered on 01/20/18at 22:16; Start 01/20/18 at 21:00 A/P Problem List: (1) SIRS (systemic inflammatory response syndrome) ICD Code: R65.10 - Systemic inflammatory response syndrome (SIRS) of non- infectious origin without acute organ dysfunction (2) PNA (pneumonia) ICD Code: J18.9 - Pneumonia, unspecified organism (3) Headache ICD Code: R51 - Headache Assessment and Plan A/P 1. SIRS: Temp 100.1, HR 92. Lactic Acid normal. CXR w/ possible developing PNA, s/p Blood Cultures, Rocephin/Zithro in ER, follow up cultures, continue IV Abx. 2. PNA: CXR w/ possible LLL infiltrate. will continue w/ treatment as above, IV Abx, follow up cultures. 3. Headache: c/o headache x2 days, no nausea/vomiting or vision changes, will monitor 4.dementia; continue Aricept. 4. DVT Prophylaxis: SCD/Teds Discharge Planning dc planning within the next 24-48 hrs if stable- pending the cultures. Trixie Bustos MD Jan 21, 2018 09:57
[2018-01-21] MEDS ORDERED: INFLUENZA VIRUS VACCINE (QUADRIVALENT) 0.5 ML SYR IM ONE (10:00)
[2018-01-21] MEDS ORDERED: POTASSIUM CHLORIDE 10 MEQ CONTROLLED RELEASE TAB PO ONE ×2 (11:00→14:00)
[2018-01-21] MEDS: TIOTROPIUM BROMIDE 18 MCG INH INH SCH (13:08)
[2018-01-21] MEDS: TIMOLOL MALEATE 0.5% OPHT SOLN 5 ML BTL EACH EYE SCH (13:08)
[2018-01-21] MEDS: ENOXAPARIN SODIUM 40 MG/0.4 ML SYRINGE SQ SCH (13:09)
[2018-01-21] MEDS ORDERED: SODIUM CHLOR 0.9% 1000 ML INJ 1,000 ML IV ONE (20:00)
[2018-01-21] MEDS: SODIUM CHLORIDE 0.9% FLUSH 10 ML FLUSH IV FLUSH SCH ×2 (21:00→22:59)
--- NOTE | 2018-01-21 22:40 | RADRPT ---
EXAM DATE/TIME: 01/21/2018 21:39 [facility] COMPARISON: CT BRAIN W/O CONTRAST, November 18, 2015, 19:58. INDICATIONS : Altered mental status. RADIATION DOSE: 56.35 CTDIvol (mGy) MEDICAL HISTORY : Cerebrovascular disease. Dementia. Seizures. SURGICAL HISTORY : Appendectomy. Hysterectomy. ENCOUNTER: Initial ACUITY: 1 day PAIN SCALE: Non-responsive LOCATION: cranial TECHNIQUE: Multiple contiguous axial images were obtained of the head. Using automated exposure control and adj ustment of the mA and/or kV according to patient size, radiation dose was kept as low as reasonably a chievable to obtain optimal diagnostic quality images. DICOM format image data is available electro nically for review and comparison. FINDINGS: CEREBRUM: The ventricles are normal for age. There is decreased density seen in the periventricular white thomas er. There appears to be a small area of encephalomalacia at the posterior medial right parietal lobe No evidence of midline shift, mass lesion, hemorrhage or acute infarction. No extra-axial fluid fito ections are seen. POSTERIOR FOSSA: The cerebellum and brainstem are intact. The 4th ventricle is midline. The cerebellopontine angle i s unremarkable. EXTRACRANIAL: The visualized portion of the orbits is intact. SKULL: The calvaria is intact. No evidence of skull fracture. CONCLUSION: 1. No acute abnormality seen. 2. Suspected widespread small vessel ischemic change in the white matter. 3. Possible small area of insufflation at the right inferior posterior parietal lobe. Eyal Díaz MD on January 21, 2018 at 22:36 Board Certified Radiologist. This report was verified electronically.
[2018-01-21] MEDS: cefTRIAXone INJ 1,000 MG in SODIUM CHLORIDE 0.9% INJ 100 ML IV SCH (22:58)
[2018-01-21] MEDS: LATANOPROST 0.005% OPHT SOLN 2.5 ML BTL EACH EYE SCH (22:59)
[2018-01-21] MEDS: DONEPEZIL HCL 5 MG TAB PO SCH (23:01)
[2018-01-21] MEDS: AMITRIPTYLINE HCL 25 MG TAB PO SCH (23:01)
[2018-01-21] MEDS: ATORVASTATIN 10 MG TAB PO SCH (23:01)
[2018-01-21] MEDS: MIRTAZAPINE 15 MG TAB PO SCH (23:01)
[2018-01-21] MEDS: traZODone HCL 100 MG TAB PO SCH (23:02)
[2018-01-22] MEDS: AZITHROMYCIN INJ 500 MG in SODIUM CHLOR 0.9% 250 ML INJ 250 ML IV SCH ×2 (02:56→22:07)
[2018-01-22 05:05] VITALS: BP 146/90; PULSE 102; RESP 20; TEMP 98.5; O2SAT 92
[2018-01-22] MEDS: SUCRALFATE 1 GM TAB PO SCH (06:29)
[2018-01-22] MEDS: SILDENAFIL CITRATE 20 MG TAB PO SCH ×3 (06:29→22:08)
[2018-01-22 08:00] VITALS: BP 154/90; PULSE 98; RESP 18; TEMP 99.5; O2SAT 97
[2018-01-22] MEDS: SODIUM CHLORIDE 0.9% FLUSH 10 ML FLUSH IV FLUSH SCH ×2 (09:00→22:07)
[2018-01-22] MEDS: ATENOLOL 25 MG TAB PO SCH (09:41)
[2018-01-22] MEDS: ESCITALOPRAM OXALATE 10 MG TAB PO SCH (09:41)
[2018-01-22] MEDS: PANTOPRAZOLE SOD 40 MG DELAYED RELEASE TAB PO SCH (09:42)
[2018-01-22] MEDS: BUDESONIDE-FORMOTEROL 160/4.5 MCG INHALER INH SCH ×2 (09:42→20:23)
[2018-01-22] MEDS: TIMOLOL MALEATE 0.5% OPHT SOLN 5 ML BTL EACH EYE SCH (09:42)
[2018-01-22] MEDS: TIOTROPIUM BROMIDE 18 MCG INH INH SCH (09:42)
[2018-01-22] MEDS: ASPIRIN EC 325 MG TABEC PO SCH (09:42)
[2018-01-22] MEDS ORDERED: CEFU1TAB20 PO (11:54)
[2018-01-22] MEDS ORDERED: AZIT500T2 PO (11:54)
--- NOTE | 2018-01-22 11:54 | HHI.DCPOC ---
Discharge Care Plan Diagnosis: (1) PNA (pneumonia) (2) SOB (shortness of breath) (3) Dementia Goals to Promote Your Health * To prevent worsening of your condition and complications * To maintain your health at the optimal level Directions to Meet Your Goals Take your medications as prescribed Follow your dietary instruction Follow activity as directed Keep your appointments as scheduled Take your immunizations and boosters as scheduled If your symptoms worsen call your PCP, if no PCP go to Urgent Care Center or Emergency Room Smoking is Dangerous to Your Health. Avoid second hand smoke Call the 24-hour hour crisis hotline for domestic abuse at Krystyna Rock PA-C Jan 22, 2018 11:54
[2018-01-22 12:00] VITALS: BP 140/85; PULSE 88; RESP 16; TEMP 97.4; O2SAT 95
[2018-01-22] MEDS ORDERED: POTASSIUM CHLORIDE 20 MEQ CONTROLLED RELEASE TAB PO ONE (12:00)
--- NOTE | 2018-01-22 12:47 | HHI.PR ---
Subjective Remarks in no acute distress. denies pain. no fever. daughter at the bedside. Objective Vitals Vital Signs Date Time Temp Pulse Resp B/P (MAP) Pulse Ox O2 Delivery O2 Flow Rate FiO2 01/22/18 08:00 99.5 98 18 154/90 (111) 97 01/22/18 05:05 98.5 102 20 146/90 (108) 92 01/22/18 00:49 Nasal Cannula 2.00 01/21/18 23:40 98.1 94 18 127/78 (94) 94 01/21/18 15:29 98.6 93 16 178/89 (118) 96 01/21/18 13:01 98.8 72 16 145/79 (101) 96 Result Diagram: 01/21/18 0641 01/22/18 0830 Imaging Last Impressions Head CT 01/21/18 0000 Signed Impressions: Service Date/Time: Sunday, January 21, 2018 21:39 - CONCLUSION: 1. No acute abnormality seen. 2. Suspected widespread small vessel ischemic change in the white matter. 3. Possible small area of insufflation at the right inferior posterior parietal lobe. Eyal Díaz MD Chest X-Ray 01/20/18 1514 Signed Impressions: Service Date/Time: January 15:22 - CONCLUSION: 1. Progression of airspace disease in the left lower lung zone which may reflect developing pneumonia in the appropriate clinical setting. Evaristo Roman MD Objective Remarks GENERAL: This is a well-nourished, well-developed patient, in no apparent distress. CARDIOVASCULAR: Regular rate and regular rhythm without murmurs, gallops, or rubs. RESPIRATORY: Clear to auscultation. Breath sounds equal bilaterally. No wheezes , rales, or rhonchi. GASTROINTESTINAL: Abdomen soft, non-tender, nondistended. Normal, active bowel sounds MUSCULOSKELETAL: Extremities without clubbing, cyanosis, or edema. NEURO: Awake and alert. Medications and IVs Inpatient Medications Acetaminophen (Tylenol) 650 mg Q6H PRN PO FEVER/PAIN SCALE 1 TO 2; Start at 19:45 Acetaminophen/ Hydrocodone Bitart ([place] 5-325 Mg) 1 tab Q4H PRN PO PAIN SCALE 3 TO 5; Start 01/20/18 at 19:45 Albuterol/ Ipratropium (Duoneb Neb) 1 ampule Q4HR NEB PRN NEB SOB/WHEEZING; Start 01/20/18 at 19:45 Amitriptyline HCl (Elavil) 25 mg HS PO Last administered on 01/21/18at 23:01; Start 01/20/18 at 21:00 Aspirin (Ecotrin Ec) 325 mg DAILY PO Last administered on 01/22/18 09:42; Start 01/21/18 at 09:00 Atenolol (Tenormin) 25 mg DAILY PO Last administered on 01/22/18 09:41; Start 01/21/18 at 09:00 Atorvastatin Calcium (Lipitor) 10 mg HS PO Last administered on 01/21/18 23:01 ; Start 01/20/18 at 21:00 Azithromycin 500 mg/Sodium Chloride 250 ml @ 250 mls/hr Q24H IV Last administered on 01/22/18 02:56; Start 01/21/18 at 21:00 Bisacodyl (Dulcolax Supp) 10 mg DAILY PRN RECTAL SEVERE CONSITIPATION; Start at 19:45 Budesonide/ Formoterol Fumarate (Symbicort 160-4.5 Mcg Inh) 1 puff Q12HR INH Last administered on 01/22/18 09:42; Start 01/20/18 at 21:00 Ceftriaxone Sodium 1000 mg/ Sodium Chloride 100 ml @ 200 mls/hr Q24H IV Last administered on 01/21/18at 22:58; Start 01/21/18 at 20:00 Ceftriaxone Sodium 2000 mg/ Sodium Chloride 100 ml @ 200 mls/hr ONCE ONCE IV Last administered on 01/20/18at 18:38; Start 01/20/18 at 18:45; Stop 01/20/18 at 19:14; Status DC Diphenhydramine HCl (Benadryl Inj) 12.5 mg ONCE ONCE IV PUSH Last administered on 01/20/18at 17:37; Start 01/20/18 at 17:45; Stop 01/20/18 at 17:46 ; Status DC Donepezil HCl (Aricept) 10 mg HS PO Last administered on 01/21/18 23:01; Start 01/20/18 at 21:00 Enoxaparin Sodium (Lovenox Inj) 40 mg Q24H SQ Last administered on 01/21/18at 13 :09; Start 01/21/18 at 12:00 Escitalopram Oxalate (Lexapro) 5 mg DAILY PO Last administered on 01/22/18at 09: 41; Start 01/21/18 at 09:00 Influenza Virus Vaccine (Flu (Quadrivalent) Vaccine Inj) 0.5 ml ONCE ONCE IM Last administered on 01/21/18at 16:11; Start 01/21/18 at 10:00; Stop 01/21/18 at 10:01; Status DC Lactulose (Lactulose Liq) 30 ml DAILY PRN PO SEVERE CONSITIPATION; Start at 19:45 Latanoprost (Xalatan 0.005% Opt Soln) 1 drop HS EACH EYE Last administered on 01/21/18at 22:59; Start 01/20/18 at 21:00 Lorazepam (Ativan) 0.5 mg Q8H PRN PO ANXIETY; Start 01/20/18 at 19:45 Magnesium Hydroxide (Milk Of Magnesia Liq) 30 ml Q12H PRN PO Mild constipation ; Start 01/20/18 at 19:45 Mirtazapine (Remeron) 45 mg HS PO Last administered on 01/21/18at 23:01; Start 01/20/18 at 21:00 Miscellaneous (Pill Splitter) 1 ea UNSCH PRN OTHER SEE LABEL COMMENTS; Start at 20:15 Morphine Sulfate (Morphine Inj) 2 mg Q3H PRN IV PUSH Pain 6-10; Start 01/20/18 at 19:45 Ondansetron HCl (Zofran Inj) 4 mg Q6H PRN IVP NAUSEA OR VOMITING; Start at 19:45 Pantoprazole Sodium (Protonix) 40 mg DAILY PO Last administered on 01/22/18at 09 :42; Start 01/21/18 at 09:00 Potassium Chloride (KCl) 20 meq ONCE ONCE PO ; Start 01/22/18 at 12:00; Stop at 12:01; Status DC Prochlorperazine Edisylate (Compazine Inj) 5 mg ONCE ONCE IV PUSH Last administered on 01/20/18at 17:36; Start 01/20/18 at 17:45; Stop 01/20/18 at 17:46 ; Status DC Risperidone (risperDAL) 0.5 mg HS PO Last administered on 01/20/18 23:26; Start 01/20/18 at 21:00 Senna/Docusate Sodium (Carley-Colace) 1 tab BID PO Last administered on 22:16; Start 01/20/18 at 21:00; Status Future Hold Sennosides (Senokot) 17.2 mg Q12H PRN PO Moderate constipation; Start 01/20/18 at 19:45 Sildenafil Citrate (Revatio) 5 mg Q8HR PO Last administered on 01/22/18 06:29 ; Start 01/20/18 at 22:00 Sodium Chloride 1,000 ml @ 70 mls/hr [id number] ONCE IV Last administered on 01/21 23:00; Start 01/21/18 at 20:00; Stop 01/22/18 at 10:17; Status DC Sodium Chloride (NS Flush) 2 ml BID IV FLUSH Last administered on 01/21/18at 22: 59; Start 01/20/18 at 21:00 Sucralfate (Carafate) 1 gm DAILY@0600 PO Last administered on 01/22/18 06:29; Start 01/21/18 at 06:00 Timolol Maleate (Timoptic 0.5% Opt Soln) 1 drop DAILY EACH EYE Last administered on 01/22/18 09:42; Start 01/21/18 at 09:00 Tiotropium [place] (Spiriva Inh) 18 mcg DAILY INH Last administered on 09:42; Start 01/21/18 at 09:00 Trazodone HCl (Desyrel) 100 mg HS PO Last administered on 01/21/18 23:02; Start 01/20/18 at 21:00 A/P Problem List: (1) SIRS (systemic inflammatory response syndrome) ICD Code: R65.10 - Systemic inflammatory response syndrome (SIRS) of non- infectious origin without acute organ dysfunction (2) PNA (pneumonia) ICD Code: J18.9 - Pneumonia, unspecified organism (3) Headache ICD Code: R51 - Headache Assessment and Plan A/P 1. PNA: CXR w/ possible LLL infiltrate. will continue w/ treatment as above- blood cultures negative. 2- worsening generalized weakness/ with ambulatory dysfunction ( the daughter reports worsening weakness, gait instability and urinary incontinence). will check MRI brain and consult neurology- continue PT. DVT prophylaxis with subq Lovenox. Discharge Planning not ready for discharge today. Trxiie Bustos MD Jan 22, 2018 12:47
[2018-01-22] MEDS: ENOXAPARIN SODIUM 40 MG/0.4 ML SYRINGE SQ SCH (13:28)
[2018-01-22 16:30] VITALS: BP 151/95; PULSE 90; RESP 16; TEMP 98; O2SAT 96
--- NOTE | 2018-01-22 16:40 | RADRPT ---
EXAM DATE/TIME: 01/22/2018 15:14 [facility] COMPARISON: No previous studies available for comparison. INDICATIONS : Deteriorating basic functions. MEDICAL HISTORY : Hypertension. SURGICAL HISTORY : Appendectomy. Hysterectomy. Hip repair. ENCOUNTER: Initial ACUITY: 1 week PAIN SCORE: 0/10 LOCATION: cranial TECHNIQUE: Multiplanar, multisequence MRI of the brain was performed without contrast. FINDINGS: Comparison is November 2015. There is stable to slight progression in chronic severe ischemic changes in the periventricular white matter. There is some mild increased signal in the right frontal lobe o n the diffusion weighted images which may represent a subacute infarct measuring about 2 x 3 cm. There is no mass effect or shift. No hydrocephalus. No abnormal extra-axial fluid collections. No terry dence for acute hemorrhage. CONCLUSION: 1. Moderate to advanced chronic white matter ischemic changes that have progressed slightly since 201 6. 2. Faint area of increased signal in the posterior right frontal lobe on the diffusion weighted image s which may represent an area of ischemia or subacute infarction. Farooq Guzman MD on January 22, 2018 at 16:32 Board Certified Radiologist. This report was verified electronically.
[2018-01-22 20:00] VITALS: BP 150/84; PULSE 86; RESP 18; TEMP 97.7; O2SAT 95
[2018-01-22] MEDS: cefTRIAXone INJ 1,000 MG in SODIUM CHLORIDE 0.9% INJ 100 ML IV SCH (20:18)
[2018-01-22] MEDS: MIRTAZAPINE 15 MG TAB PO SCH (20:25)
[2018-01-22] MEDS: ATORVASTATIN 10 MG TAB PO SCH (20:25)
[2018-01-22] MEDS: LATANOPROST 0.005% OPHT SOLN 2.5 ML BTL EACH EYE SCH (20:25)
[2018-01-22] MEDS: risperiDONE 0.5 MG TAB PO SCH (20:26)
[2018-01-22] MEDS: DONEPEZIL HCL 5 MG TAB PO SCH (20:26)
[2018-01-22] MEDS: traZODone HCL 100 MG TAB PO SCH (20:26)
[2018-01-22] MEDS: AMITRIPTYLINE HCL 25 MG TAB PO SCH (20:26)
[2018-01-22 20:30] VITALS: O2SAT 95
[2018-01-23] VITALS (8 sets, daily range): BP systolic 137–159; BP diastolic 68–85; PULSE 65–111; RESP 16–20; TEMP 97.8–99; O2SAT 92–95
[2018-01-23] MEDS: SUCRALFATE 1 GM TAB PO SCH (05:40)
[2018-01-23] MEDS: SILDENAFIL CITRATE 20 MG TAB PO SCH ×3 (05:43→20:33)
[2018-01-23] MEDS: ASPIRIN EC 325 MG TABEC PO SCH (09:50)
[2018-01-23] MEDS: SODIUM CHLORIDE 0.9% FLUSH 10 ML FLUSH IV FLUSH SCH ×2 (09:51→20:33)
[2018-01-23] MEDS: ATENOLOL 25 MG TAB PO SCH (09:51)
[2018-01-23] MEDS: PANTOPRAZOLE SOD 40 MG DELAYED RELEASE TAB PO SCH (09:51)
[2018-01-23] MEDS: ESCITALOPRAM OXALATE 10 MG TAB PO SCH (09:51)
[2018-01-23] MEDS: BUDESONIDE-FORMOTEROL 160/4.5 MCG INHALER INH SCH ×2 (09:55→20:35)
[2018-01-23] MEDS: TIMOLOL MALEATE 0.5% OPHT SOLN 5 ML BTL EACH EYE SCH (09:55)
[2018-01-23] MEDS: TIOTROPIUM BROMIDE 18 MCG INH INH SCH (09:55)
--- NOTE | 2018-01-23 10:08 | HHI.PR ---
Subjective Remarks in no acute distress. denies sob. afebrile. daughter at the bedside. Objective Vitals Vital Signs Date Time Temp Pulse Resp B/P (MAP) Pulse Ox O2 Delivery O2 Flow Rate FiO2 01/23/18 08:00 92 Nasal Cannula 2.00 01/23/18 07:57 98.1 99 18 137/68 (91) 01/23/18 05:08 99.0 111 20 159/81 (107) 94 01/23/18 04:00 87 01/23/18 00:00 98.8 103 18 139/81 (100) 94 01/22/18 20:30 95 Nasal Cannula 2.00 01/22/18 20:00 97.7 86 18 150/84 (106) 95 01/22/18 16:30 98.0 90 16 151/95 (113) 96 01/22/18 12:00 97.4 88 16 140/85 (103) 95 I/O 01/22/18 01/22/18 01/22/18 01/23/18 01/23/18 01/23/18 06:59 14:59 22:59 06:59 14:59 22:59 Intake Total 120 ml Balance 120 ml Intake Oral 120 ml # Voids 3 # Bowel Movements 1 Result Diagram: 01/21/18 0641 01/22/18 0830 Imaging Last Impressions Brain MRI 01/22/18 0000 Signed Impressions: Service Date/Time: Monday, January 22, 2018 15:14 - CONCLUSION: 1. Moderate to advanced chronic white matter ischemic changes that have progressed slightly since 2015. 2. Faint area of increased signal in the posterior right frontal lobe on the diffusion weighted images which may represent an area of ischemia or subacute infarction. Farooq Guzman MD Head CT 01/21/18 0000 Signed Impressions: Service Date/Time: Sunday, January 21, 2018 21:39 - CONCLUSION: 1. No acute abnormality seen. 2. Suspected widespread small vessel ischemic change in the white matter. 3. Possible small area of insufflation at the right inferior posterior parietal lobe. Eyal Díaz MD Chest X-Ray 01/20/18 1514 Signed Impressions: Service Date/Time: January 15:22 - CONCLUSION: 1. Progression of airspace disease in the left lower lung zone which may reflect developing pneumonia in the appropriate clinical setting. Evaristo Roman MD Objective Remarks GENERAL: This is a well-nourished, well-developed patient, in no apparent distress. CARDIOVASCULAR: Regular rate and regular rhythm without murmurs, gallops, or rubs. RESPIRATORY: Clear to auscultation. Breath sounds equal bilaterally. No wheezes , rales, or rhonchi. GASTROINTESTINAL: Abdomen soft, non-tender, nondistended. Normal, active bowel sounds MUSCULOSKELETAL: Extremities without clubbing, cyanosis, or edema. NEURO: Awake and alert. Medications and IVs Inpatient Medications Acetaminophen (Tylenol) 650 mg Q6H PRN PO FEVER/PAIN SCALE 1 TO 2; Start at 19:45 Acetaminophen/ Hydrocodone Bitart ([place] 5-325 Mg) 1 tab Q4H PRN PO PAIN SCALE 3 TO 5; Start 01/20/18 at 19:45 Albuterol/ Ipratropium (Duoneb Neb) 1 ampule Q4HR NEB PRN NEB SOB/WHEEZING Last administered on 01/22/18at 20:22; Start 01/20/18 at 19:45 Amitriptyline HCl (Elavil) 25 mg HS PO Last administered on 01/22/18at 20:26; Start 01/20/18 at 21:00 Aspirin (Ecotrin Ec) 325 mg DAILY PO Last administered on 01/22/18at 09:42; Start 01/21/18 at 09:00 Atenolol (Tenormin) 25 mg DAILY PO Last administered on 01/22/18at 09:41; Start 01/21/18 at 09:00 Atorvastatin Calcium (Lipitor) 10 mg HS PO Last administered on 01/22/18at 20:25 ; Start 01/20/18 at 21:00 Azithromycin 500 mg/Sodium Chloride 250 ml @ 250 mls/hr Q24H IV Last administered on 01/22/18at 22:07; Start 01/21/18 at 21:00 Bisacodyl (Dulcolax Supp) 10 mg DAILY PRN RECTAL SEVERE CONSITIPATION; Start at 19:45 Budesonide/ Formoterol Fumarate (Symbicort 160-4.5 Mcg Inh) 1 puff Q12HR INH Last administered on 01/22/18at 20:23; Start 01/20/18 at 21:00 Ceftriaxone Sodium 1000 mg/ Sodium Chloride 100 ml @ 200 mls/hr Q24H IV Last administered on 01/22/18at 20:18; Start 01/21/18 at 20:00 Ceftriaxone Sodium 2000 mg/ Sodium Chloride 100 ml @ 200 mls/hr ONCE ONCE IV Last administered on 01/20/18at 18:38; Start 01/20/18 at 18:45; Stop 01/20/18 at 19:14; Status DC Diphenhydramine HCl (Benadryl Inj) 12.5 mg ONCE ONCE IV PUSH Last administered on 01/20/18at 17:37; Start 01/20/18 at 17:45; Stop 01/20/18 at 17:46 ; Status DC Donepezil HCl (Aricept) 10 mg HS PO Last administered on 01/22/18at 20:26; Start 01/20/18 at 21:00 Enoxaparin Sodium (Lovenox Inj) 40 mg Q24H SQ Last administered on 01/22/18at 13 :28; Start 01/21/18 at 12:00 Escitalopram Oxalate (Lexapro) 5 mg DAILY PO Last administered on 01/22/18at 09: 41; Start 01/21/18 at 09:00 Influenza Virus Vaccine (Flu (Quadrivalent) Vaccine Inj) 0.5 ml ONCE ONCE IM Last administered on 01/21/18at 16:11; Start 01/21/18 at 10:00; Stop 01/21/18 at 10:01; Status DC Lactulose (Lactulose Liq) 30 ml DAILY PRN PO SEVERE CONSITIPATION; Start at 19:45 Latanoprost (Xalatan 0.005% Opt Soln) 1 drop HS EACH EYE Last administered on 01/22/18at 20:25; Start 01/20/18 at 21:00 Lorazepam (Ativan) 0.5 mg Q8H PRN PO ANXIETY; Start 01/20/18 at 19:45 Magnesium Hydroxide (Milk Of Magnesia Liq) 30 ml Q12H PRN PO Mild constipation ; Start 01/20/18 at 19:45 Mirtazapine (Remeron) 45 mg HS PO Last administered on 01/22/18at 20:25; Start 01/20/18 at 21:00 Miscellaneous (Pill Splitter) 1 ea UNSCH PRN OTHER SEE LABEL COMMENTS; Start at 20:15 Morphine Sulfate (Morphine Inj) 2 mg Q3H PRN IV PUSH Pain 6-10; Start 01/20/18 at 19:45 Ondansetron HCl (Zofran Inj) 4 mg Q6H PRN IVP NAUSEA OR VOMITING; Start at 19:45 Pantoprazole Sodium (Protonix) 40 mg DAILY PO Last administered on 01/22/18at 09 :42; Start 01/21/18 at 09:00 Potassium Chloride (KCl) 20 meq ONCE ONCE PO Last administered on 01/22/18at 13 :28; Start 01/22/18 at 12:00; Stop 01/22/18 at 12:01; Status DC Prochlorperazine Edisylate (Compazine Inj) 5 mg ONCE ONCE IV PUSH Last administered on 01/20/18at 17:36; Start 01/20/18 at 17:45; Stop 01/20/18 at 17:46 ; Status DC Risperidone (risperDAL) 0.5 mg HS PO Last administered on 01/22/18at 20:26; Start 01/20/18 at 21:00 Senna/Docusate Sodium (Carley-Colace) 1 tab BID PO Last administered on at 22:16; Start 01/20/18 at 21:00; Status Future Hold Sennosides (Senokot) 17.2 mg Q12H PRN PO Moderate constipation; Start 01/20/18 at 19:45 Sildenafil Citrate (Revatio) 5 mg Q8HR PO Last administered on 01/23/18at 05:43 ; Start 01/20/18 at 22:00 Sodium Chloride 1,000 ml @ 70 mls/hr [id number] ONCE IV Last administered on 01/21at 23:00; Start 01/21/18 at 20:00; Stop 01/22/18 at 10:17; Status DC Sodium Chloride (NS Flush) 2 ml BID IV FLUSH Last administered on 01/22/18at 22: 07; Start 01/20/18 at 21:00 Sucralfate (Carafate) 1 gm DAILY@0600 PO Last administered on 01/23/18at 05:40; Start 01/21/18 at 06:00 Timolol Maleate (Timoptic 0.5% Opth Soln) 1 drop DAILY EACH EYE Last administered on 01/22/18 09:42; Start 01/21/18 at 09:00 Tiotropium [place] (Spiriva Inh) 18 mcg DAILY INH Last administered on at 09:42; Start 01/21/18 at 09:00 Trazodone HCl (Desyrel) 100 mg HS PO Last administered on 01/22/18at 20:26; Start 01/20/18 at 21:00 A/P Problem List: (1) SIRS (systemic inflammatory response syndrome) ICD Code: R65.10 - Systemic inflammatory response syndrome (SIRS) of non- infectious origin without acute organ dysfunction (2) PNA (pneumonia) ICD Code: J18.9 - Pneumonia, unspecified organism (3) Headache ICD Code: R51 - Headache Assessment and Plan A/P 1. PNA: CXR w/ possible LLL infiltrate. will continue with IV antibiotics- blood cultures negative. will try to taper off the oxygen. 2- subacute CVA continue with aspirin- continue with PT- consult OT/ST- check echo, carotid doppler and lipid panel. 3- hypertension; continue atenolol- will monitor BP and adjust the regimen as needed. DVT prophylaxis with subq Lovenox. Discharge Planning not ready for discharge - stroke w/u in progress. Trixie Bustos MD Jan 23, 2018 10:08
--- NOTE | 2018-01-23 11:08 | RADRPT ---
EXAM DATE/TIME: 01/23/2018 10:27 [facility] COMPARISON: No previous studies available for comparison. INDICATIONS : Cerebrovascular accident. MEDICAL HISTORY : Hypertension. Chronic obstructive pulmonary disease. Neck pain. Dementia. Seizures. Coronary artery disease. Anticoagulant therapy. Dyspnea. Urinary tract infection. Osteoporosis. Diabetes. Pelvic fra cture. Depression. Anxiety. SURGICAL HISTORY : Hysterectomy. Appendectomy. Bilateral cataract surgery. Left hip replacement. ENCOUNTER: Initial ACUITY: 1 day PAIN SCORE: 0/10 LOCATION: Bilateral neck PEAK SYSTOLIC VELOCITIES (cm/sec): ICA/CCA RATIO: Right: 1.3 Left: 1.6 ICA: Right: 95.1 Left: 118.6 CCA: Right: 72.4 Left: 75.7 ECA: Right: 93.5 Left: 59.4 VERTEBRAL: Right: 77.4 antegrade Left: 50.4 antegrade Elevated flow velocities and ICA/CCA ratios have been found to correlate with increased degrees of vessel stenosis, calculated as percentage of diameter relative to a normal segment of distal ICA/CCA FINDINGS: RIGHT CAROTID: No significant stenosis is visualized. Minimal plaque is present. The waveforms are within normal li mits. LEFT CAROTID: No significant stenosis is visualized. Minimal plaque is present. The waveforms are within normal fernandez its. VERTEBRAL ARTERIES: Antegrade flow is seen in both vertebral arteries. MISCELLANEOUS: None. CONCLUSION: Minimal plaque with no visualized stenosis. London Pichardo MD on January 23, 2018 at 11:06 Board Certified Radiologist. This report was verified electronically.
[2018-01-23] MEDS: ENOXAPARIN SODIUM 40 MG/0.4 ML SYRINGE SQ SCH (12:34)
--- NOTE | 2018-01-23 13:45 | MB ---
cc: Tamika Smith MD DATE: 01/23/2018 HISTORY OF PRESENT ILLNESS: She is a 72-year-old seen in neurological consultation. The daughter is at bedside. She was seen this morning. The patient is back to the hospital after not being back to her baseline in the nursing facility. She has a few-year history of dementia, but she was apparently talk active, ambulatory independently, able to eat independently and shower in the nursing facility. She recently had a setback about 2 weeks ago. She was in the hospital and went back to the facility where she was noted to have some oxygen drop. She provides some history. It is noted that there is a history of hyperlipidemia, recurrent UTI and depression. She may have been on donepezil in the past, but not recently. According to the daughter, diagnosis was vascular dementia. PHYSICAL EXAMINATION: The patient was actually performing better than what I expected as initially, she was being fed by mother with eyes closed, but when stimulated, she became reasonable be alert and conversive. She knows the place, she is oriented to her age, recognized the environment, and she does not have any obvious hemiparesis. Seems to be a bit sleepy. Reflexes were 1+, ankle reflexes were trace. Plantar responses were flexor. DIAGNOSTIC DATA: MRI brain was reviewed. There is area of a subacute stroke, right posterior frontal, and there is old stroke, right parietal, and extensive white matter/microvascular disease. Carotid ultrasound is unremarkable. ASSESSMENT: Right posterior frontal subacute infarct. History of dementia with extensive microvascular disease by MRI. She has been living in a nursing facility and this stroke is evidently a significant setback to her overall level of function. Discussed with the daughter as the patient has not regained the previous level of function at all. She is on aspirin and atorvastatin. She is on donepezil 10 mg a day and they do not know if this was a medication from the residential, as the daughter seems to think she was not taking such medication. She is on Remeron, trazodone, risperidone. Ativan for anxiety. I am going to stop Remeron and trazodone and hopefully, she will get by without these medications. Otherwise, supportive medical care. We will add Plavix for a couple of months and then probably be back to a single antiplatelet agent. Lipid profile and echocardiogram pending. She is in sinus rhythm. Thank you for asking us to assist in her care. MD CARRINGTON Noriega/SB , 12:59 PM , 01:44 PM
[2018-01-23] MEDS: CLOPIDOGREL 75 MG TAB PO SCH (14:02)
[2018-01-23] MEDS: cefTRIAXone INJ 1,000 MG in SODIUM CHLORIDE 0.9% INJ 100 ML IV SCH (20:26)
[2018-01-23] MEDS: risperiDONE 0.5 MG TAB PO SCH (20:32)
[2018-01-23] MEDS: DONEPEZIL HCL 5 MG TAB PO SCH (20:32)
[2018-01-23] MEDS: ATORVASTATIN 10 MG TAB PO SCH (20:33)
[2018-01-23] MEDS: LATANOPROST 0.005% OPHT SOLN 2.5 ML BTL EACH EYE SCH (20:35)
[2018-01-23] MEDS: AMITRIPTYLINE HCL 25 MG TAB PO SCH (20:42)
[2018-01-23] MEDS: AZITHROMYCIN INJ 500 MG in SODIUM CHLOR 0.9% 250 ML INJ 250 ML IV SCH (22:19)
[2018-01-24] VITALS (7 sets, daily range): BP systolic 130–172; BP diastolic 67–89; PULSE 76–108; RESP 14–18; TEMP 97–98.6; O2SAT 93–95
[2018-01-24] MEDS: SUCRALFATE 1 GM TAB PO SCH (06:00)
[2018-01-24] MEDS: SILDENAFIL CITRATE 20 MG TAB PO SCH ×2 (06:00→13:00)
[2018-01-24 07:54] LABS: BICARBONATE 24.9 MEQ/L (21.0-32.0); CREATININE 0.49 MG/DL (0.50-1.00)
[2018-01-24 08:05] LABS: CHOLESTEROL/ HDL RATIO 3.09 RATIO; HDL CHOLESTEROL 41.4 MG/DL (40.0-60.0)
[2018-01-24] MEDS: ESCITALOPRAM OXALATE 10 MG TAB PO SCH (08:33)
[2018-01-24] MEDS: TIOTROPIUM BROMIDE 18 MCG INH INH SCH (08:33)
[2018-01-24] MEDS: ATENOLOL 25 MG TAB PO SCH (08:33)
[2018-01-24] MEDS: BUDESONIDE-FORMOTEROL 160/4.5 MCG INHALER INH SCH (08:33)
[2018-01-24] MEDS: TIMOLOL MALEATE 0.5% OPHT SOLN 5 ML BTL EACH EYE SCH (08:33)
[2018-01-24] MEDS: SODIUM CHLORIDE 0.9% FLUSH 10 ML FLUSH IV FLUSH SCH (08:33)
[2018-01-24] MEDS: PANTOPRAZOLE SOD 40 MG DELAYED RELEASE TAB PO SCH (08:34)
[2018-01-24] MEDS: ASPIRIN EC 325 MG TABEC PO SCH (08:34)
[2018-01-24] MEDS: CLOPIDOGREL 75 MG TAB PO SCH (08:34)
--- NOTE | 2018-01-24 11:44 | HHI.PR ---
Subjective Remarks in no acute distress. denies pain or sob. off oxygen and stable. no fever. Objective Vitals Vital Signs Date Time Temp Pulse Resp B/P (MAP) Pulse Ox O2 Delivery O2 Flow Rate FiO2 01/24/18 08:03 98.6 108 16 148/84 (105) 95 01/24/18 06:03 97.0 92 14 145/82 (103) 01/24/18 02:30 76 01/24/18 00:08 98.6 82 14 151/83 (105) 95 01/23/18 20:25 97.8 89 16 140/79 (99) 93 01/23/18 15:40 83 01/23/18 14:03 97.9 65 156/85 (108) 95 I/O 01/23/18 01/23/18 01/23/18 01/24/18 01/24/18 01/24/18 07:00 15:00 23:00 07:00 15:00 23:00 Intake Total 120 ml Output Total 600 ml Balance 120 ml -600 ml Intake Oral 120 ml Output Urine Total 600 ml Bladder Scan Volume Amount 629 ml # Voids 3 1 1 # Bowel Movements 1 3 1 Result Diagram: 01/21/18 0641 01/24/18 0617 Imaging Last Impressions Carotid Artery Ultrasound 01/23/18 0000 Signed Impressions: Service Date/Time: Tuesday, January 23, 2018 10:27 - CONCLUSION: Minimal plaque with no visualized stenosis. London Pichardo MD Brain MRI 01/22/18 0000 Signed Impressions: Service Date/Time: Monday, January 22, 2018 15:14 - CONCLUSION: 1. Moderate to advanced chronic white matter ischemic changes that have progressed slightly since 2016. 2. Faint area of increased signal in the posterior right frontal lobe on the diffusion weighted images which may represent an area of ischemia or subacute infarction. Farooq Guzman MD Head CT 01/21/18 0000 Signed Impressions: Service Date/Time: Sunday, January 21, 2018 21:39 - CONCLUSION: 1. No acute abnormality seen. 2. Suspected widespread small vessel ischemic change in the white matter. 3. Possible small area of insufflation at the right inferior posterior parietal lobe. Eyal Díaz MD Chest X-Ray 01/20/18 1514 Signed Impressions: Service Date/Time: January 15:22 - CONCLUSION: 1. Progression of airspace disease in the left lower lung zone which may reflect developing pneumonia in the appropriate clinical setting. Evaristo Roman MD Objective Remarks GENERAL: This is a well-nourished, well-developed patient, in no apparent distress. CARDIOVASCULAR: Regular rate and regular rhythm without murmurs, gallops, or rubs. RESPIRATORY: Clear to auscultation. Breath sounds equal bilaterally. No wheezes , rales, or rhonchi. GASTROINTESTINAL: Abdomen soft, non-tender, nondistended. Normal, active bowel sounds MUSCULOSKELETAL: Extremities without clubbing, cyanosis, or edema. NEURO: Awake and alert. Medications and IVs Inpatient Medications Acetaminophen (Tylenol) 650 mg Q6H PRN PO FEVER/PAIN SCALE 1 TO 2; Start at 19:45 Acetaminophen/ Hydrocodone Bitart ([place] 5-325 Mg) 1 tab Q4H PRN PO PAIN SCALE 3 TO 5; Start 01/20/18 at 19:45 Albuterol/ Ipratropium (Duoneb Neb) 1 ampule Q4HR NEB PRN NEB SOB/WHEEZING Last administered on 01/22/18at 20:22; Start 01/20/18 at 19:45 Amitriptyline HCl (Elavil) 25 mg HS PO Last administered on 01/23/18at 20:42; Start 01/20/18 at 21:00 Aspirin (Ecotrin Ec) 325 mg DAILY PO Last administered on 01/24/18at 08:34; Start 01/21/18 at 09:00 Atenolol (Tenormin) 25 mg DAILY PO Last administered on 01/24/18at 08:33; Start 01/21/18 at 09:00 Atorvastatin Calcium (Lipitor) 10 mg HS PO Last administered on 01/23/18at 20:33 ; Start 01/20/18 at 21:00 Azithromycin 500 mg/Sodium Chloride 250 ml @ 250 mls/hr Q24H IV Last administered on 01/23/18at 22:19; Start 01/21/18 at 21:00 Bisacodyl (Dulcolax Supp) 10 mg DAILY PRN RECTAL SEVERE CONSITIPATION; Start at 19:45 Budesonide/ Formoterol Fumarate (Symbicort 160-4.5 Mcg Inh) 1 puff Q12HR INH Last administered on 01/24/18 08:33; Start 01/20/18 at 21:00 Ceftriaxone Sodium 1000 mg/ Sodium Chloride 100 ml @ 200 mls/hr Q24H IV Last administered on 01/23/18at 20:26; Start 01/21/18 at 20:00 Ceftriaxone Sodium 2000 mg/ Sodium Chloride 100 ml @ 200 mls/hr ONCE ONCE IV Last administered on 01/20/18at 18:38; Start 01/20/18 at 18:45; Stop 01/20/18 at 19:14; Status DC Clopidogrel Bisulfate (Plavix) 75 mg DAILY PO Last administered on 01/24/18 08 :34; Start 01/23/18 at 13:00 Diphenhydramine HCl (Benadryl Inj) 12.5 mg ONCE ONCE IV PUSH Last administered on 01/20/18at 17:37; Start 01/20/18 at 17:45; Stop 01/20/18 at 17:46 ; Status DC Donepezil HCl (Aricept) 10 mg HS PO Last administered on 01/23/18 20:32; Start 01/20/18 at 21:00 Enoxaparin Sodium (Lovenox Inj) 40 mg Q24H SQ Last administered on 01/23/18at 12 :34; Start 01/21/18 at 12:00 Escitalopram Oxalate (Lexapro) 5 mg DAILY PO Last administered on 01/24/18 08: 33; Start 01/21/18 at 09:00 Influenza Virus Vaccine (Flu (Quadrivalent) Vaccine Inj) 0.5 ml ONCE ONCE IM Last administered on 01/21/18at 16:11; Start 01/21/18 at 10:00; Stop 01/21/18 at 10:01; Status DC Lactulose (Lactulose Liq) 30 ml DAILY PRN PO SEVERE CONSITIPATION; Start at 19:45 Latanoprost (Xalatan 0.005% Opth Soln) 1 drop HS EACH EYE Last administered on 01/23/18at 20:35; Start 01/20/18 at 21:00 Lorazepam (Ativan) 0.5 mg Q8H PRN PO ANXIETY; Start 01/20/18 at 19:45 Magnesium Hydroxide (Milk Of Magnesia Liq) 30 ml Q12H PRN PO Mild constipation ; Start 01/20/18 at 19:45 Mirtazapine (Remeron) 45 mg HS PO Last administered on 01/22/18at 20:25; Start 01/20/18 at 21:00; Stop 01/23/18 at 13:02; Status DC Miscellaneous (Pill Splitter) 1 ea UNSCH PRN OTHER SEE LABEL COMMENTS; Start at 20:15 Morphine Sulfate (Morphine Inj) 2 mg Q3H PRN IV PUSH Pain 6-10; Start 01/20/18 at 19:45 Ondansetron HCl (Zofran Inj) 4 mg Q6H PRN IVP NAUSEA OR VOMITING; Start at 19:45 Pantoprazole Sodium (Protonix) 40 mg DAILY PO Last administered on 01/24/18at 08 :34; Start 01/21/18 at 09:00 Potassium Chloride (KCl) 20 meq ONCE ONCE PO Last administered on 01/22/18at 13 :28; Start 01/22/18 at 12:00; Stop 01/22/18 at 12:01; Status DC Prochlorperazine Edisylate (Compazine Inj) 5 mg ONCE ONCE IV PUSH Last administered on 01/20/18at 17:36; Start 01/20/18 at 17:45; Stop 01/20/18 at 17:46 ; Status DC Risperidone (risperDAL) 0.5 mg HS PO Last administered on 01/23/18at 20:32; Start 01/20/18 at 21:00 Senna/Docusate Sodium (Carley-Colace) 1 tab BID PO Last administered on at 22:16; Start 01/20/18 at 21:00; Status Future Hold Sennosides (Senokot) 17.2 mg Q12H PRN PO Moderate constipation; Start 01/20/18 at 19:45 Sildenafil Citrate (Revatio) 5 mg Q8HR PO Last administered on 01/24/18at 06:00 ; Start 01/20/18 at 22:00 Sodium Chloride 1,000 ml @ 70 mls/hr [id number] ONCE IV Last administered on 01/21at 23:00; Start 4/20/18 at 20:00; Stop 01/22/18 at 10:17; Status DC Sodium Chloride (NS Flush) 2 ml BID IV FLUSH Last administered on 01/24/18at 08: 33; Start 01/20/18 at 21:00 Sucralfate (Carafate) 1 gm DAILY@0600 PO Last administered on 01/24/18at 06:00; Start 01/21/18 at 06:00 Timolol Maleate (Timoptic 0.5% Opth Soln) 1 drop DAILY EACH EYE Last administered on 01/24/18 08:33; Start 01/21/18 at 09:00 Tiotropium Cal[place]so (Spiriva Inh) 18 mcg DAILY INH Last administered on at 08:33; Start 01/21/18 at 09:00 Trazodone HCl (Desyrel) 100 mg HS PO Last administered on 01/22/18at 20:26; Start 01/20/18 at 21:00; Stop 01/23/18 at 13:02; Status DC A/P Problem List: (1) SIRS (systemic inflammatory response syndrome) ICD Code: R65.10 - Systemic inflammatory response syndrome (SIRS) of non- infectious origin without acute organ dysfunction (2) PNA (pneumonia) ICD Code: J18.9 - Pneumonia, unspecified organism (3) Headache ICD Code: R51 - Headache Assessment and Plan A/P 1. PNA: CXR w/ possible LLL infiltrate. will continue with antibiotics- blood cultures negative. stable off oxygen. 2- subacute CVA carotid doppler with no significant stenosis-echo pending. continue with aspirin-plavix was added- Remeron and Trazodone were discontinued- continue with PT/ST- 3- hypertension; continue atenolol- will monitor BP and adjust the regimen as needed. 4.hypokalemia; will replace- check magnesium level. DVT prophylaxis with subq Lovenox. Discharge Planning dc to rehab when echo is resulted and cleared by neurology. Trixie Bustos MD Jan 24, 2018 11:44
[2018-01-24] MEDS ORDERED: POTASSIUM CHLORIDE 10 MEQ CONTROLLED RELEASE TAB PO ONE ×2 (11:45→15:00)
[2018-01-24] MEDS: ENOXAPARIN SODIUM 40 MG/0.4 ML SYRINGE SQ SCH (12:59)
[2018-01-24] MEDS ORDERED: PLAV75TA29 PO (15:05)
[2018-01-24] MEDS ORDERED: CEFU1TAB20 PO (15:20)
[2018-01-24] MEDS ORDERED: AZIT500T2 PO (15:20)
--- NOTE | 2018-01-24 15:29 | HHI.PR ---
Review/Management Daily Summary doing well, improving lethargy echo pending probably d/c rehab neuro f/u office in 4 weeks Subjective Subjective Comments No acute events reported No headache Active Medications Current Medications Medications (Trade) Dose Ordered Sig/Jesse Route Start Time Stop Time Status Last Admin Ceftriaxone Sodium 1000 mg/ Sodium Chloride 100 ml @ 200 mls/hr Q24H IV 01/21/18 20:00 01/23/18 20:26 Azithromycin 500 mg/Sodium Chloride 250 ml @ 250 mls/hr Q24H IV 01/21/18 21:00 01/23/18 22:19 (Duoneb Neb) 1 ampule Q4HR NEB PRN NEB 01/20/18 19:45 01/22/18 20:22 (NS Flush) 2 ml UNSCH PRN IV FLUSH 01/20/18 19:45 (NS Flush) 2 ml BID IV FLUSH 01/20/18 21:00 01/24/18 08:33 (Zofran Inj) 4 mg Q6H PRN IVP 01/20/18 19:45 (Tylenol) 650 mg Q6H PRN PO 01/20/18 19:45 ([place] 5-325 Mg) 1 tab Q4H PRN PO 01/20/18 19:45 (Morphine Inj) 2 mg Q3H PRN IV PUSH 01/20/18 19:45 (Carley-Colace) 1 tab BID PO 01/20/18 21:00 Future Hold 01/20/18 22:16 (Milk Of Magnesia Liq) 30 ml Q12H PRN PO 01/20/18 19:45 (Senokot) 17.2 mg Q12H PRN PO 01/20/18 19:45 (Dulcolax Supp) 10 mg DAILY PRN RECTAL 01/20/18 19:45 (Lactulose Liq) 30 ml DAILY PRN PO 01/20/18 19:45 (Elavil) 25 mg HS PO 01/20/18 21:00 01/23/18 20:42 (Ecotrin Ec) 325 mg DAILY PO 01/21/18 09:00 01/24/18 08:34 (Tenormin) 25 mg DAILY PO 01/21/18 09:00 01/24/18 08:33 (Lipitor) 10 mg HS PO 01/20/18 21:00 01/23/18 20:33 (Symbicort 160-4.5 Mcg Inh) 1 puff Q12HR INH 01/20/18 21:00 01/24/18 08:33 (Aricept) 10 mg HS PO 01/20/18 21:00 01/23/18 20:32 (Lexapro) 5 mg DAILY PO 01/21/18 09:00 01/24/18 08:33 (Xalatan 0.005% Opth Soln) 1 drop HS EACH EYE 01/20/18 21:00 01/23/18 20:35 (Ativan) 0.5 mg Q8H PRN PO 01/20/18 19:45 (Protonix) 40 mg DAILY PO 01/21/18 09:00 01/24/18 08:34 (risperDAL) 0.5 mg HS PO 01/20/18 21:00 01/23/18 20:32 (Carafate) 1 gm DAILY@0600 PO 01/21/18 06:00 01/24/18 06:00 (Timoptic 0.5% Opth Soln) 1 drop DAILY EACH EYE 01/21/18 09:00 01/24/18 08:33 (Spiriva Inh) 18 mcg DAILY INH 01/21/18 09:00 01/24/18 08:33 (Revatio) 5 mg Q8HR PO 01/20/18 22:00 01/24/18 13:00 (Pill Splitter) 1 ea UNSCH PRN OTHER 01/20/18 20:15 (Lovenox Inj) 40 mg Q24H SQ 01/21/18 12:00 01/24/18 12:59 (Plavix) 75 mg DAILY PO 01/23/18 13:00 01/24/18 08:34 Allergies Allergies Coded Allergies iodine (Verified Allergy, Intermediate, SWELLING, 01/20/18) potassium iodide (Unverified Allergy, Intermediate, SWELLING, 01/20/18) povidone-iodine (Verified Allergy, Intermediate, SWELLING, 01/20/18) sodium iodide (Verified Allergy, Intermediate, SWELLING, 01/20/18) sodium iodide (Verified Allergy, Intermediate, SWELLING, 01/20/18) Exam I&O / VS 01/24/18 01/24/18 01/25/18 15:00 23:00 07:00 # Voids 1 # Bowel Movements 1 Vital Signs Date Time Temp Pulse Resp B/P (MAP) Pulse Ox O2 Delivery O2 Flow Rate FiO2 01/24/18 11:51 98.0 83 16 130/67 (88) 95 01/24/18 08:03 98.6 108 16 148/84 (105) 95 01/24/18 06:03 97.0 92 14 145/82 (103) 01/24/18 02:30 76 01/24/18 00:08 98.6 82 14 151/83 (105) 95 01/23/18 20:25 97.8 89 16 140/79 (99) 93 01/23/18 15:40 83 Objective Radiology Results Last 48 hours Impressions Carotid Artery Ultrasound 01/23/18 0000 Signed Impressions: Service Date/Time: Tuesday, January 23, 2018 10:27 - CONCLUSION: Minimal plaque with no visualized stenosis. London Pichardo MD Micro and Labs Laboratory Tests Test 01/24/18 06:17 01/24/18 13:17 Blood Urea Nitrogen 7 Creatinine 0.49 Random Glucose 88 Calcium Level 8.0 Sodium Level 142 Potassium Level 3.1 Chloride Level 107 Carbon Dioxide Level 24.9 Anion Gap 10 Estimat Glomerular Filtration Rate 125 Triglycerides Level 95 Cholesterol Level 128 LDL Cholesterol 68 HDL Cholesterol 41.4 Cholesterol/HDL Ratio 3.09 Magnesium Level 1.6 Date/Time Source Procedure Growth Status 01/20/18 15:22 Blood Peripheral Aerobic Blood Culture - Preliminary NO GROWTH IN 4 DAYS Resulted 01/20/18 15:22 Blood Peripheral Anaerobic Blood Culture - Preliminary NO GROWTH IN 4 DAYS Resulted Tamika Smith MD Jan 24, 2018 15:29
--- NOTE | 2018-01-24 18:14 | ECHRPT ---
Indication: CVA/TIA CONCLUSIONS Normal left ventricular size and wall thickness. The left ventricular systolic function is normal wi th an estimated ejection fraction in the range of 60-65%. Normal wall motion. Trace mitral valve regurgitation. There is mild tricuspid valve regurgitation. The estimated pulmonary arterial pressure is 55 mm Hg. BP: / HR: Rhythm: Sinus, PACs MEASUREMENTS (Male / Female) Normal Values Technical Quality:Fair 2D ECHO LV Diastolic Diameter PLAX 4.3 cm 4.2 - 5.9 / 3.9 - 5.3 cm LV Systolic Diameter PLAX 2.4 cm IVS Diastolic Thickness 0.9 cm 0.6 - 1.0 / 0.6 - 0.9 cm LVPW Diastolic Thickness 1.0 cm 0.6 - 1.0 / 0.6 - 0.9 cm LV Relative Wall Thickness 0.4 RV Internal Dim ED PLAX 2.2 cm LVOT Diameter 2.0 cm Aortic Root Diameter 3.1 cm LA Systolic Diameter LX 2.8 cm 3.0 - 4.0 / 2.7 - 3.8 cm M-MODE AV Cusp Separation MM 1.8 cm DOPPLER AV Peak Velocity 149.0 cm/s AV Peak Gradient 8.9 mmHg AV Mean Gradient 5.0 mmHg AV Velocity Time Integral 23.5 cm LVOT Peak Velocity 126.0 cm/s LVOT Peak Gradient 6.4 mmHg LVOT Velocity Time Integral 21.3 cm AV Area Cont Eq vti 2.8 cm AV Area Cont Eq pk 2.7 cm Mitral E Point Velocity 43.4 cm/s Mitral A Point Velocity 97.7 cm/s Mitral E to A Ratio 0.4 LV E' Lateral Velocity 5.9 cm/s Mitral E to LV E' Lateral Ratio 7.4 LV E' Septal Velocity 3.9 cm/s Mitral E to LV E' Septal Ratio 11.1 TR Peak Velocity 379.0 cm/s TR Peak Gradient 57.5 mmHg Right Atrial Pressure 10.0 mmHg Pulmonary Artery Systolic Pressu 67.5 mmHg Right Ventricular Systolic Press 67.5 mmHg PV Peak Velocity 52.6 cm/s PV Peak Gradient 1.1 mmHg FINDINGS LEFT VENTRICLE Normal left ventricular size and wall thickness. The left ventricular systolic function is normal wi th an estimated ejection fraction in the range of 60-65%. Normal wall motion. RIGHT VENTRICLE Normal right ventricular size and systolic function. LEFT ATRIUM The left atrial size is normal. RIGHT ATRIUM The right atrial size is normal. ATRIAL SEPTUM No atrial level shunt is demonstrated by color flow Doppler interrogation. AORTA The aortic root and proximal ascending aorta are not well visualized. MITRAL VALVE Trace mitral valve regurgitation. AORTIC VALVE Trileaflet aortic valve. No aortic valve stenosis or regurgitation. TRICUSPID VALVE There is mild tricuspid valve regurgitation. The estimated pulmonary arterial pressure is 55 mm Hg. PULMONARY VALVE Trivial pulmonary valve regurgitation. VESSELS The inferior vena cava was not well visualized. PERICARDIUM No pericardial effusion. Ivan Cabrera MD (Electronically Signed) Final Date:24 January 2018 18:13
== END 2018-01-24 20:40 | DRG 64 ==
LOC: NEPC 14:58 → NEDA 19:37 → UNDOADMOB 20:12 → NEDA 20:12 → NEPHCDU 21:18
PROVIDERS: ADMIT Hospitalist; ATTEND Hospitalist
DX: I63.9 Cerebral infarction, unspecified (principal); J18.9 Pneumonia, unspecified organism; J44.0 Chronic obstructive pulmonary disease with (acute) lower respiratory infection; E87.6 Hypokalemia; F03.90 Unspecified dementia, unspecified severity, without behavioral disturbance, psychotic disturbance, mood disturbance, and anxiety; I10 Essential (primary) hypertension; F41.9 Anxiety disorder, unspecified; E78.5 Hyperlipidemia, unspecified; Z23 Encounter for immunization; F32.9 Major depressive disorder, single episode, unspecified; Z86.73 Personal history of transient ischemic attack (TIA), and cerebral infarction without residual deficits; Z96.642 Presence of left artificial hip joint
CPT/HCPCS: 70450; 70551; 71045; 80048; 80053; 80061; 81001; 83605; 83735; 84132; 85025; 87040; 90686; 93306; 93880; 94664; 96365; 96375; J0456; J0696; J0780; J1200; J1650; J7030; J7050; P9612; Q2038